=== PATIENT | female | born 1955 | race Caucasian/White ===

== ENCOUNTER 2020-12-28 09:55 | Outpatient (REF) | payer MEDICARE, SELFPAY ==
[2020-12-28 11:24] LABS: MANUAL DIFF FLAG NO
[2020-12-28 11:52] LABS: Basophils Percent Auto 0.4 % (0-2); Eosinophils Absolute Auto 0.2 X10*3/uL (0.0-0.4); Eosinophils Percent Auto 2.9 % (0-4); Hematocrit 41.6 % (37-47); Hemoglobin 13.4 g/dl (12.0-16.0); Imm Gran Abs Auto 0.02 X10*3/uL (0.00-0.03); Imm Gran Pct Auto 0.3 % (0.0-0.4); Lymphocytes Absolute Auto 1.4 X10*3/uL (1.2-4.9); Lymphocytes Percent Auto 18.6 % (20-40); Mean Corpuscular HGB Conc 32.2 g/dl (31.0-35.0); Mean Corpuscular Hemoglobin 31.4 pg (27.0-33.0); Mean Corpuscular Volume 97.4 fL (80-98); Mean Platelet Volume 10.8 fL (9.4-12.3); Monocytes Absolute Auto 0.5 X10*3/uL (0.1-1.2); Monocytes Percent Auto 6.3 % (2-11); Neutrophils Absolute Auto 5.5 X10*3/uL (2.0-8.3); Neutrophils Percent Auto 71.5 % (45-73); Platelet Count 248 X10*3/uL (160-400); Red Blood Count 4.27 X10*6/uL (4.20-5.50); Red Cell Distribution Width 13.1 % (11.0-16.0); White Blood Count 7.7 X10*3/uL (4.8-10.8)
[2020-12-28 11:57] LABS: Estimated Average Glucose 126 mg/dL; Hemoglobin A1C 150.5939 umol/L
[2020-12-28 12:12] LABS: Free T4 (Free Thyroxine) 0.93 ng/dL (0.71-1.85); Thyroid Stimulating Hormone 0.73 uIU/mL (0.32-4.0); Vitamin D 25-OH Total 39.4 ng/mL (>30)
[2020-12-28 12:15] LABS: Alanine Aminotransferase 13 U/L (0-31); Albumin Level 4.2 g/dL (3.5-5.0); Alkaline Phosphatase 92 U/L (39-117); Anion Gap 13 (12-20); Aspartate Amino Transferase 12 U/L (5-31); Bilirubin Total 0.8 mg/dL (0.0-1.0); Blood Urea Nitrogen 15 mg/dL (9-16); Calcium 9.4 mg/dL (8.4-10.2); Carbon Dioxide 27 mmol/L (22-29); Chloride 105 mmol/L (96-108); Cholesterol 168 mg/dL; Estimated Glomerular Filt Rate > 60; Glucose Random 127 mg/dL (60-115); HDL Cholesterol 29 mg/dL; LDL Cholesterol Calculated 123 mg/dl; Potassium 4.1 mmol/L (3.3-5.1); Sodium 141 mmol/L (135-145); Total Protein 7.1 g/dL (6.5-8.0); Triglycerides 84 mg/dL
[2020-12-28 12:21] LABS: Creatinine Urine 57.11 mg/dL; Microalbumin Urine < 5.0 mg/L
[2020-12-28 12:34] LABS: Folate 15.1 ng/mL (> or = 4.0); Vitamin B12 366 pg/mL (200-900)
== END 2020-12-28 09:56 | disposition home or self-care (01) ==
LOC: HO.LAB 09:55
PROVIDERS: PCP Internal Medicine; Visit Provider Internal Medicine
DX: I10 Essential (primary) hypertension (principal); E11.65 Type 2 diabetes mellitus with hyperglycemia; E78.00 Pure hypercholesterolemia, unspecified
CPT/HCPCS: 36415; 80053; 80061; 82043; 82306; 82607; 82746; 83036; 84439; 84443; 85025

== ENCOUNTER 2021-03-29 10:18 | Outpatient (REF) | payer MEDICARE, SELFPAY ==
[2021-03-29 11:32] LABS: Alanine Aminotransferase 13 U/L (0-31); Albumin Level 4.2 g/dL (3.5-5.0); Alkaline Phosphatase 102 U/L (39-117); Anion Gap 12 (12-20); Aspartate Amino Transferase 13 U/L (5-31); Bilirubin Total 0.9 mg/dL (0.0-1.0); Blood Urea Nitrogen 15 mg/dL (9-16); Calcium 10.1 mg/dL (8.4-10.2); Carbon Dioxide 32 mmol/L (22-29); Chloride 102 mmol/L (96-108); Cholesterol 172 mg/dL; Estimated Glomerular Filt Rate > 60; Glucose Random 131 mg/dL (60-115); HDL Cholesterol 29 mg/dL; LDL Cholesterol Calculated 122 mg/dl; Sodium 141 mmol/L (135-145); Total Protein 7.3 g/dL (6.5-8.0); Triglycerides 109 mg/dL
[2021-03-29 11:54] LABS: Estimated Average Glucose 128 mg/dL; Hemoglobin A1c % 6.1 %
== END 2021-03-29 10:19 | disposition home or self-care (01) ==
LOC: HO.LAB 10:18
PROVIDERS: PCP Internal Medicine; Visit Provider Internal Medicine
DX: E78.00 Pure hypercholesterolemia, unspecified (principal)
CPT/HCPCS: 36415; 80053; 80061; 83036

== ENCOUNTER 2021-05-18 15:27 | Outpatient (REF) | payer MEDICARE, SELFPAY ==
--- NOTE | ~2021-05-18 | MM_ITS ---
EXAMINATION: MM SCREENING DIGITAL BREAST TOMOSYNTHESIS, BILATERAL CLINICAL INFORMATION: Screening. Asymptomatic. The lifetime risk of breast cancer based on the Tyrer-Cuzick Model is 6%. COMPARISON: Mammography: 01/29/2020, 10/12/2017 TECHNIQUE: Digital breast tomosynthesis is performed in both the craniocaudal and mediolateral oblique views along with computer-aided detection (CAD). Synthesized 2D images are generated from the tomosynthesis. Additional left MLO view is provided. FINDINGS: There are scattered areas of fibroglandular density (ACR BI-RADS breast composition Category b). Breast tissue composition borders on predominantly fatty. Background stromal and fibroglandular densities are stable. Intramammary node upper outer left breast is again noted as incidental finding. There is no developing density. No architectural abnormality or abnormal calcifications. No significant changes. MM/MM tomosynthesis screening BI IMPRESSION: No mammographic evidence of malignancy. ASSESSMENT: BI-RADS 2: Benign RECOMMENDATION: Routine annual mammography screening. This patient's information was entered into a reminder system with a target due date for their next mammogram.
== END 2021-05-18 15:28 | disposition home or self-care (01) ==
LOC: HO.MAMMO 15:27
PROVIDERS: Visit Provider Internal Medicine
DX: Z12.31 Encounter for screening mammogram for malignant neoplasm of breast (principal)
CPT/HCPCS: 77063; 77067

== ENCOUNTER 2021-06-30 10:53 | Outpatient (REF) | payer MEDICARE, SELFPAY ==
[2021-06-30 12:13] LABS: Alanine Aminotransferase 16 U/L (0-31); Albumin Level 4.2 g/dL (3.5-5.0); Alkaline Phosphatase 102 U/L (39-117); Anion Gap 12 (12-20); Aspartate Amino Transferase 13 U/L (5-31); Bilirubin Total 0.7 mg/dL (0.0-1.0); Blood Urea Nitrogen 18 mg/dL (9-16); Calcium 9.8 mg/dL (8.4-10.2); Carbon Dioxide 31 mmol/L (22-29); Chloride 101 mmol/L (96-108); Cholesterol 152 mg/dL; Estimated Glomerular Filt Rate > 60; Glucose Random 133 mg/dL (60-115); HDL Cholesterol 30 mg/dL; LDL Cholesterol Calculated 105 mg/dl; Potassium 4.4 mmol/L (3.3-5.1); Sodium 140 mmol/L (135-145); Total Protein 7.3 g/dL (6.5-8.0); Triglycerides 86 mg/dL
[2021-06-30 12:38] LABS: Creatinine Urine 104.53 mg/dL
== END 2021-06-30 10:54 | disposition home or self-care (01) ==
LOC: HO.LAB 10:53
PROVIDERS: PCP Internal Medicine; Visit Provider Internal Medicine
DX: E78.00 Pure hypercholesterolemia, unspecified (principal); E11.65 Type 2 diabetes mellitus with hyperglycemia
CPT/HCPCS: 36415; 80053; 80061

== ENCOUNTER 2022-03-23 11:09 | Outpatient (REF) | payer MEDICARE, SELFPAY ==
[2022-03-23 11:37] LABS: MANUAL DIFF FLAG NO
[2022-03-23 11:59] LABS: Basophils Percent Auto 0.4 % (0-2); Eosinophils Absolute Auto 0.4 X10*3/uL (0.0-0.4); Eosinophils Percent Auto 5.1 % (0-4); Hematocrit 43.3 % (37.0-47.0); Hemoglobin 14.5 g/dl (12.0-16.0); Imm Gran Abs Auto 0.03 X10*3/uL (0.00-0.03); Imm Gran Pct Auto 0.4 % (0.0-0.4); Lymphocytes Absolute Auto 1.9 X10*3/uL (1.2-4.9); Lymphocytes Percent Auto 26.2 % (20-40); Mean Corpuscular HGB Conc 33.5 g/dl (31.0-35.0); Mean Corpuscular Hemoglobin 32.5 pg (27.0-33.0); Mean Corpuscular Volume 97.1 fL (80.0-98.0); Mean Platelet Volume 10.9 fL (9.4-12.3); Monocytes Absolute Auto 0.5 X10*3/uL (0.1-1.2); Monocytes Percent Auto 6.6 % (2-11); Neutrophils Absolute Auto 4.5 x10*3/uL (2.0-8.3); Neutrophils Percent Auto 61.3 % (45-73); Platelet Count 223 X10*3/uL (160-400); Red Blood Count 4.46 X10*6/uL (4.20-5.50); Red Cell Distribution Width 12.9 % (11.0-16.0); White Blood Count 7.4 X10*3/uL (4.8-10.8)
[2022-03-23 12:22] LABS: Estimated Average Glucose 128 mg/dL; Hemoglobin A1c % 6.1 %
[2022-03-23 12:33] LABS: Alanine Aminotransferase 15 U/L (0-31); Albumin Level 4.2 g/dL (3.5-5.0); Alkaline Phosphatase 99 U/L (39-117); Anion Gap 19 (12-20); Aspartate Amino Transferase 14 U/L (5-31); Bilirubin Total 0.6 mg/dL (0.0-1.0); Blood Urea Nitrogen 16 mg/dL (9-16); Calcium 9.9 mg/dL (8.4-10.2); Carbon Dioxide 28 mmol/L (22-29); Chloride 100 mmol/L (96-108); Cholesterol 160 mg/dL; Estimated Glomerular Filt Rate 59; Glucose Random 133 mg/dL (60-115); HDL Cholesterol 29 mg/dL; LDL Cholesterol Calculated 111 mg/dl; Potassium 4.5 mmol/L (3.3-5.1); Sodium 142 mmol/L (135-145); Total Protein 7.3 g/dL (6.5-8.0); Triglycerides 103 mg/dL
[2022-03-23 12:43] LABS: Thyroid Stimulating Hormone 1.26 uIU/mL (0.32-4.0); Vitamin D 25-OH Total 37.8 ng/mL (>30)
[2022-03-23 12:50] LABS: Folate 19.9 ng/mL (> or = 4.0); Vitamin B12 420 pg/mL (200-900)
[2022-03-23 15:11] LABS: Creatinine Urine 65.95 mg/dL; Microalbumin Urine < 5.0 mg/L
== END 2022-03-23 11:10 | disposition home or self-care (01) ==
LOC: HO.LAB 11:09
PROVIDERS: PCP Internal Medicine; Visit Provider Internal Medicine
DX: E11.65 Type 2 diabetes mellitus with hyperglycemia (principal); E78.00 Pure hypercholesterolemia, unspecified; I10 Essential (primary) hypertension
CPT/HCPCS: 36415; 80053; 80061; 82043; 82306; 82607; 82746; 83036; 84439; 84443; 85025

== ENCOUNTER 2022-05-23 15:30 | Outpatient (REF) | payer MEDICARE, SELFPAY ==
--- NOTE | ~2022-05-23 | MM_ITS ---
EXAMINATION: MM SCREENING DIGITAL BREAST TOMOSYNTHESIS, BILATERAL CLINICAL INFORMATION: Screening. Asymptomatic. COMPARISON: Mammography: May 18, 2021 and studies dating back to September 12, 2014 TECHNIQUE: Digital breast tomosynthesis is performed in both the craniocaudal and mediolateral oblique views along with computer-aided detection (CAD). Synthesized 2D images are generated from the tomosynthesis. FINDINGS: The breasts are almost entirely fatty (ACR BI-RADS breast composition Category a). There are no significant masses, abnormal calcifications, or other abnormalities. MM/MM tomosynthesis screening BI IMPRESSION: No significant changes from prior exam. ASSESSMENT: BI-RADS 1: Negative RECOMMENDATION: Routine annual mammography screening. This patient's information was entered into a reminder system with a target due date for their next mammogram.
== END 2022-05-23 15:31 | disposition home or self-care (01) ==
LOC: HO.MAMMO 15:30
PROVIDERS: PCP Internal Medicine; Visit Provider Internal Medicine
DX: Z12.31 Encounter for screening mammogram for malignant neoplasm of breast (principal)
CPT/HCPCS: 77063; 77067

== ENCOUNTER 2022-07-04 10:26 | Outpatient (REF) | payer MEDICARE, SELFPAY ==
[2022-07-04 13:52] LABS: Creatinine Urine 41.71 mg/dL
[2022-07-04 13:58] LABS: Alanine Aminotransferase 13 U/L (0-31); Albumin Level 4.3 g/dL (3.5-5.0); Alkaline Phosphatase 104 U/L (39-117); Anion Gap 13 (12-20); Aspartate Amino Transferase 13 U/L (5-31); Bilirubin Total 0.8 mg/dL (0.0-1.0); Blood Urea Nitrogen 16 mg/dL (9-16); Calcium 9.6 mg/dL (8.4-10.2); Carbon Dioxide 31 mmol/L (22-29); Chloride 101 mmol/L (96-108); Cholesterol 158 mg/dL; Estimated Glomerular Filt Rate > 60; Glucose Random 144 mg/dL (60-115); HDL Cholesterol 29 mg/dL; LDL Cholesterol Calculated 110 mg/dl; Potassium 4.3 mmol/L (3.3-5.1); Sodium 141 mmol/L (135-145); Total Protein 7.2 g/dL (6.5-8.0); Triglycerides 96 mg/dL
== END 2022-07-04 10:27 | disposition home or self-care (01) ==
LOC: HO.LAB 10:26
PROVIDERS: PCP Internal Medicine; Visit Provider Internal Medicine
DX: E78.00 Pure hypercholesterolemia, unspecified (principal); E11.65 Type 2 diabetes mellitus with hyperglycemia
CPT/HCPCS: 36415; 80053; 80061

== ENCOUNTER 2022-10-05 11:52 | Outpatient (REF) | payer MEDICARE, SELFPAY ==
[2022-10-05 13:12] LABS: Alanine Aminotransferase 13 U/L (0-31); Albumin Level 4.2 g/dL (3.5-5.0); Alkaline Phosphatase 99 U/L (39-117); Anion Gap 15 (12-20); Aspartate Amino Transferase 14 U/L (5-31); Blood Urea Nitrogen 16 mg/dL (9-16); Calcium 9.4 mg/dL (8.4-10.2); Carbon Dioxide 30 mmol/L (22-29); Chloride 102 mmol/L (96-108); Cholesterol 137 mg/dL; Estimated Glomerular Filt Rate > 60; Glucose Random 132 mg/dL (60-115); HDL Cholesterol 29 mg/dL; LDL Cholesterol Calculated 92 mg/dl; Potassium 3.9 mmol/L (3.3-5.1); Sodium 143 mmol/L (135-145); Total Protein 7.1 g/dL (6.5-8.0); Triglycerides 80 mg/dL
== END 2022-10-05 11:53 | disposition home or self-care (01) ==
LOC: HO.LAB 11:52
PROVIDERS: PCP Internal Medicine; Visit Provider Internal Medicine
DX: E78.00 Pure hypercholesterolemia, unspecified (principal)
CPT/HCPCS: 36415; 80053; 80061

== ENCOUNTER 2023-04-10 13:16 | Outpatient (AMB) | payer MEDICARE, SELFPAY ==
--- NOTE | 2023-04-10 13:31 | A.OFFPC_ITS ---
Vital Signs 04/10/23 13:32 04/10/23 13:47 Height 5 ft 7 in Weight 291 lb BMI 45.6 BP 140/70 H 136/70 Blood Pressure Location Lt brachial Lt brachial Position Sitting Sitting Pulse 79 Pulse Source Pulse Oximeter Pulse Oximetry (%) 98 Oxygen Delivery Method Room Air Intake Visit Reasons: DM Allergies amoxicillin [AMOXICILLIN] Allergy (Severe, Verified 04/10/23 13:32) RASH adhesive tape [ADHESIVE TAPE] Allergy (Intermediate, Verified 04/10/23 13:32) RASH lisinopril [LISINOPRIL] Allergy (Intermediate, Verified 04/10/23 13:32) COUGH simvastatin [From ZOCOR] Allergy (Unknown, Verified 04/10/23 13:32) UNKNOWN Medication List - Last Reconciled 04/10/23 by Adan Griffin MD atorvastatin 20 mg PO DAILY 30 days cholecalciferol (vitamin D3) 25 mcg PO DAILY hydrochlorothiazide 25 mg PO DAILY 90 days ibuprofen (Advil) 200 mg PO Q6H PRN irbesartan 300 mg PO DAILY metoprolol succinate ER 25 mg PO DAILY Tobacco use date assessed: 10/06/22 Fall risk assessment: No Falls in past year Last assessed Fall Risk: 04/10/23 Dental Screening Dental Screen Date: 04/10/23 Did you have a dental visit in the last 12 months?: Yes Did you have a dental problem in the last 6 months where you did not have access to dental care?: No Was dental information given to patient?: Patient has dentist HPI DM HPI Details 67-year-old obese female smoker with bart betes mellitus hypertension hypercholesterolemia last seen in September 2022. Patient is here for follow-up. Colonoscopy is up to date, mammogram is due May and bone density is due. [facility] Medical History (Updated 04/10/23 @ 13:49 by Adan Griffin MD) Macular degeneration Osteopenia Vitamin D deficiency Hypercalcemia Hypercholesterolemia Obesity Essential hypertension Type 2 diabetes mellitus with hyperglycemia Surgical History History of cholecystectomy Family History Father Lung cancer Mother No problems noted. Paternal Aunt Breast cancer Social History Housing: House Alcohol intake: current Alcohol intake frequency: holidays/special occasions only Patient Tobacco Use Status: Current everyday Tobacco user Tobacco use type: Cigarette Cigarette Packs Per Day: 1 e-Cigarette/Vaping Use: Never Used Second Hand Smoke Exposure: Yes service: No Current occupational status: retired Cognitive needs: No Hearing needs: No Vision needs: Yes (reading glasses ) Questionnaire PHQ-9 Over the last 2 weeks, how often have you been bothered by any of the following problems? 1. Little interest or pleasure in doing things: not at all 2. Feeling down, depressed, or hopeless: not at all 3. Trouble falling or staying asleep, or sleeping too much: not at all 4. Feeling tired or having little energy: not at all 5. Poor appetite or overeating: not at all 6. Feeling bad about yourself - or that you are a failure or have let yourself or your family down: not at all 7. Trouble concentrating on things, such as reading the newspaper or watching television: not at all 8. Moving or speaking so slowly that other people could have noticed. Or the opposite - being so fidgety or restless that you have been moving around a lot more than usual: not at all 9. Thoughts that you would be better off or of hurting yourself in some way: not at all Total score: 0 Depression Screening Interpretation: Negative Source: Developed by Drs. Taco Rios, Davidson Eason and colleagues, with an educational stephon from [employer]. Thrive Questionnaire Date Thrive assessed: 10/06/22 AUDIT C Alcohol Use Questionnaire (AUDIT-C) 1. How often do you have a drink containing alcohol?: Monthly or less 2. How many drinks containing alcohol do you have on a typical day when you are drinking?: 1 or 2 3. How often do you have six or more drinks on one occasion?: Never Total Score: 1 HLOLY-7 AMB Questionnaire HOLLY-7 Date HOLLY - 7 assessed: 10/06/22 Source: Developed by Drs. Taco Rios, Davidson Eason and colleagues, with an educational stephon from [employer]. Physical exam (Primary Care) Vital Signs: Last Vital Signs Pulse 79 04/10/23 13:32 BP 140/70 H 04/10/23 13:32 Pulse Ox 98 04/10/23 13:32 Oxygen Delivery Method Room Air 04/10/23 13:32 BMI result Body Mass Index 45.6 Tobacco/Smoking Status: Tobacco use Status Tobacco use date assessed 10/06/22 04/10/23 13:32 Patient Tobacco Use Status Current everyday Tobacco 04/10/23 13:32 Tobacco use type Cigarette 04/10/23 13:32 e-Cigarette/Vaping Use Never Used 04/10/23 13:32 PHQ-9: PHQ-9 Score PHQ-9: Total score 0 04/10/23 13:33 Depression Screening Interpretation: Negative Thrive Assessment: Date of Thrive Assessment Date Thrive assessed 10/06/22 04/10/23 13:32 Const General: alert; No acute distress Eyes Conjunctivae: conjunctivae normal Resp Auscultation: clear to auscultation bilaterally Cardio Rate: regular rate Rhythm: regular rhythm GI Inspection: Yes normal to inspection Extrem General: Yes normal to inspection and No edema Assessment and Plan Assessment & Plan (1) Type 2 diabetes mellitus with hyperglycemia: Comment: [facility] 04/2023 planned Code(s): E11.65 - Type 2 diabetes mellitus with hyperglycemia Qualifiers: Diabetes mellitus correction insulin use: without termite treater helper use Qualified Code(s): E11.65 - Type 2 diabetes mellitus with hyperglycemia Plan: Decrease the amount of carbohydrate intake, pasta, bread, rice and potatoes are all sugar and that is aside from all the sweet stuff, remember that fruits are good but they are Sweet also. Hemoglobin A1c goal of less than 7.0 patient is on diet control (2) Essential hypertension: Code(s): I10 - Essential (primary) hypertension Plan: Continue with blood pressure medication. Decrease salt intake and exercise patient takes hydrochlorothiazide 25 mg once a day and irbesartan 300 mg once a day (3) Hypercholesterolemia: Code(s): E78.00 - Pure hypercholesterolemia, unspecified Plan: Avoid fried foods, chicken skin, eggs, butter margarine, pastries and meat. Be it pork or beef they have a lot of cholesterol LDL goal of less than 100. Patient's last blood work was in September 2022 (4) Obesity: Code(s): E66.9 - Obesity, unspecified Qualifiers: Obesity type: due to excess calories Obesity classification: adult class 3 (BMI >= 40) Serious obesity comorbidity presence: with serious comorbidity Body mass index: BMI 40.0-44.9 Qualified Code(s): E66.01 - Morbid (severe) obesity due to excess calories; Z68.41 - Body mass index [BMI]40.0- 44.9, adult Plan: Diet and exercise (5) Tobacco abuse: Code(s): Z72.0 - Tobacco use Plan: Patient strongly advised to stop smoking, pack a day (6) Osteopenia: Code(s): M85.80 - Other specified disorders of bone density and structure, unspecified site Orders: Orders AMB Hemoglobin A1c Today Z13.9 - Encounter for screening, unspecified Complete Blood Count Auto Diff Today E11.65 - Type 2 diabetes mellitus with hyperglycemia Lipid Panel Today E11.65 - Type 2 diabetes mellitus with hyperglycemia, E78.00 - Pure hypercholesterolemia, unspecified Thyroid Stimulating Hormone Today E11.65 - Type 2 diabetes mellitus with hyperglycemia Creatinine Urine Today E11.65 - Type 2 diabetes mellitus with hyperglycemia XR DEXA axial skeleton Today M81.0 - Age-related osteoporosis without current pathological fracture, M85.80 - Other specified disorders of bone density and structure, unspecified site Comprehensive Met. Panel Today E11.65 - Type 2 diabetes mellitus with hyperglycemia Hemoglobin A1c Today E11.65 - Type 2 diabetes mellitus with hyperglycemia Free T4 (Free Thyroxine) Today E11.65 - Type 2 diabetes mellitus with hyperglycemia Vitamin B12 and Folate Today E11.65 - Type 2 diabetes mellitus with hyperglycemia Vitamin D 25-OH Total Today E11.65 - Type 2 diabetes mellitus with hyperglycemia Microalbumin, Random (w Creat) Today E11.65 - Type 2 diabetes mellitus with hyperglycemia Coding Level of Care Code Est Pt Level 4 (13810) Diagnoses Type 2 diabetes mellitus with hyperglycemia, without long-term current use of insulin E11.65 Diabetes mellitus termite treater helper insulin use: without termite treater helper use Essential hypertension I10 Hypercholesterolemia E78.00 Class 3 severe obesity due to excess calories with serious comorbidity and body mass index (BMI) of 40.0 to 44.9 in adult E66.01; Z68.41 Obesity type: due to excess calories Obesity classification: adult class 3 (BMI >= 40) Serious obesity comorbidity presence: with serious comorbidity Body mass index: BMI 40.0-44.9 Tobacco abuse Z72.0 Osteopenia M85.80
[2023-04-10 13:32] VITALS: BP 140/70; PULSE 79; O2SAT 98; BMI 45.6
[2023-04-10 13:47] VITALS: BP 136/70
== END 2023-04-10 13:58 | disposition home or self-care (01) ==
PROVIDERS: Visit Provider Internal Medicine
DX: E11.65 Type 2 diabetes mellitus with hyperglycemia (principal); I10 Essential (primary) hypertension; E66.01 Morbid (severe) obesity due to excess calories; Z68.41 Body mass index [BMI] 40.0-44.9, adult; E78.00 Pure hypercholesterolemia, unspecified; Z72.0 Tobacco use; M85.80 Other specified disorders of bone density and structure, unspecified site
CPT/HCPCS: 83036; 99214

== ENCOUNTER 2023-05-30 14:10 | Outpatient (REF) | payer MEDICARE, SELFPAY ==
--- NOTE | ~2023-05-30 | MM_ITS ---
EXAMINATION: MM SCREENING DIGITAL BREAST TOMOSYNTHESIS, BILATERAL CLINICAL INFORMATION: Screening. Asymptomatic. COMPARISON: Mammography: This study is compared with prior exams dating back to 2015. TECHNIQUE: Digital breast tomosynthesis is performed in both the craniocaudal and mediolateral oblique views along with computer-aided detection (CAD). Synthesized 2D images are generated from the tomosynthesis. FINDINGS: The breasts are almost entirely fatty (ACR BI-RADS breast composition Category a). There are no significant masses, abnormal calcifications, or other abnormalities. Unchanged, grouped, benign calcifications of the upper outer quadrant of the right breast are present. These calcifications are present dating back to at least the 2015 mammogram. MM/MM tomosynthesis screening BI IMPRESSION: No mammographic evidence of malignancy. ASSESSMENT: BI-RADS BI-RADS 2 - Benign Findings RECOMMENDATION: Routine annual mammography screening. 1 year F/U This examination should not preclude the clinical evaluation of a suspicious palpable abnormality. This patient's information was entered into a reminder system with a target due date for their next mammogram.
--- NOTE | ~2023-05-30 | MM_ITS ---
EXAMINATION: BONE DENSITOMETRY CLINICAL INDICATION: Age-related osteoporosis without current pathological fracture. COMPARISON: Previous BD dated 10/12/2017 and baseline BD dated 12/30/2007. TECHNIQUE: Using a XIHA DXA System (software version: 13.1) manufactured by [employer], dual-energy x-ray absorptiometry was performed of the lumbar spine and left hip. The images are of good technical quality. Summary results are attached. FINDINGS: LEFT FEMUR, NECK: Current: BMD 0.900 g/cm2, Z-score -0.1, T-score -1.0, normal. Prior: BMD 0.862 g/cm2. Baseline: BMD 1.020 g/cm2. LEFT FEMUR, TOTAL: Current: BMD 0.945 g/cm2, Z-score 0.1, T-score -0.5, normal, 6.9% decrease from previous, 12.7% decrease from baseline (<5% change is not significant). Prior: BMD 1.015 g/cm2. Baseline: BMD 1.082 g/cm2. AP SPINE L1-L3 (excluding L4): The data of L1-L4 has been changed to exclude the L4 vertebral body, because degenerative sclerosis at this level may cause overestimation of lumbar spine density. Current: BMD 0.986 g/cm2, Z-score -1.0, T-score -1.5, osteopenia, 9.5% decrease from previous, 10.2% decrease from baseline (<5% change is not significant). Prior: BMD 1.089 g/cm2. Baseline: BMD 1.098 g/cm2. IDENTIFIED RISK FACTORS: Early menopause, secondary osteoporosis, thiazide, tobacco user (current smoker). HISTORY OF FRACTURE: None listed. MEDICATIONS: Vitamin D. MM/XR DEXA axial skeleton IMPRESSION: 1. DIAGNOSIS: Osteopenia based on the lowest T-score value of -1.5 in the lumbar spine applying World Health Organization criteria. 2. 10-YEAR FRACTURE RISK PREDICTION, FRAX: Major osteoporotic fracture (clinical spine, forearm, hip or shoulder) 7.4%. Hip fracture 1.1%. 3. Treatment Recommendations: NOF guidelines recommend consideration for treatment in postmenopausal women and men age 50 and older presenting with the following: -A hip or vertebral (clinical or morphometric) fracture. -T-score less than or equal to -2.5 at the femoral neck or spine after appropriate evaluation to exclude secondary causes. -Low bone mass at the hip or spine and a 10-year fracture probability by FRAX of greater than or equal to 3% for hip fracture or greater than or equal to 20% for major osteoporotic fracture based on the [place] adapted WHO algorithm. 4. Other Recommendations: All treatment decisions require clinical judgment and consideration of individual patient factors, including patient preferences, comorbidities, previous drug use, risk factors not captured in the FRAX model (e.g. frailty, falls, vitamin D deficiency, increased bone turnover, interval significant decline in bone density) and possible under or overestimation of fracture risk by FRAX. Additional medical evaluation for secondary cause of low bone mineral density may be appropriate. FUTURE SCAN RECOMMENDATION: People with diagnosed cases of osteoporosis or at high risk for fracture should have regular bone mineral density tests. For patients eligible for Medicare, routine testing is allowed once every 2 years. The testing frequency can be increased to one year for patients who have rapidly progressing disease, those who are receiving or discontinuing medical therapy to restore bone mass, or have additional risk factors.
== END 2023-05-30 14:11 | disposition home or self-care (01) ==
LOC: HO.MAMMO 14:10
PROVIDERS: PCP Internal Medicine; Visit Provider Internal Medicine
DX: Z12.31 Encounter for screening mammogram for malignant neoplasm of breast (principal); Z13.820 Encounter for screening for osteoporosis; M81.0 Age-related osteoporosis without current pathological fracture; M85.80 Other specified disorders of bone density and structure, unspecified site; Z78.0 Asymptomatic menopausal state
CPT/HCPCS: 77063; 77067; 77080

== ENCOUNTER → 2023-05-30 14:30 | Outpatient (BNV) | payer MEDICARE, SELFPAY | PROVIDERS: PCP Internal Medicine; Visit Provider Radiology Diagnostic Radiology | DX: Z12.31 Encounter for screening mammogram for malignant neoplasm of breast (principal) | CPT/HCPCS: 77063; 77067 ==

== ENCOUNTER 2023-07-13 10:06 | Outpatient (REF) | payer MEDICARE, SELFPAY ==
[2023-07-13 10:18] LABS: MANUAL DIFF FLAG NO
[2023-07-13 11:28] LABS: Basophils Percent Auto 0.3 % (0-2); Eosinophils Absolute Auto 0.3 X10*3/uL (0.0-0.4); Eosinophils Percent Auto 2.8 % (0-4); Hematocrit 44.4 % (37.0-47.0); Hemoglobin 14.4 g/dl (12.0-16.0); Imm Gran Abs Auto 0.03 X10*3/uL (0.00-0.03); Imm Gran Pct Auto 0.3 % (0.0-0.4); Lymphocytes Percent Auto 21.6 % (20-40); Mean Corpuscular HGB Conc 32.4 g/dl (31.0-35.0); Mean Corpuscular Hemoglobin 32.7 pg (27.0-33.0); Mean Corpuscular Volume 100.9 fL (80.0-98.0); Mean Platelet Volume 11.2 fL (9.4-12.3); Monocytes Absolute Auto 0.6 X10*3/uL (0.1-1.2); Monocytes Percent Auto 6.6 % (2-11); Neutrophils Absolute Auto 6.3 x10*3/uL (2.0-8.3); Neutrophils Percent Auto 68.4 % (45-73); Platelet Count 245 X10*3/uL (160-400); Red Cell Distribution Width 12.8 % (11.0-16.0); White Blood Count 9.2 X10*3/uL (4.8-10.8)
[2023-07-13 11:59] LABS: Estimated Average Glucose 137 mg/dL; Hemoglobin A1c % 6.4 % (<6.0)
[2023-07-13 12:29] LABS: Alanine Aminotransferase 13 U/L (0-31); Albumin Level 4.2 g/dL (3.5-5.0); Alkaline Phosphatase 114 U/L (39-117); Anion Gap 15 (12-20); Aspartate Amino Transferase 12 U/L (5-31); Bilirubin Total 0.7 mg/dL (0.0-1.0); Blood Urea Nitrogen 13 mg/dL (9-16); Calcium 9.8 mg/dL (8.4-10.2); Carbon Dioxide 29 mmol/L (22-29); Chloride 100 mmol/L (96-108); Cholesterol 138 mg/dL (<200); Estimated Glomerular Filt Rate > 60; Glucose Random 144 mg/dL (60-115); HDL Cholesterol 31 mg/dL (>40); LDL Cholesterol Calculated 89 mg/dL (<100); Potassium 3.4 mmol/L (3.3-5.1); Sodium 141 mmol/L (135-145); Total Protein 7.8 g/dL (6.5-8.0); Triglycerides 92 mg/dL (<150)
[2023-07-13 12:36] LABS: Free T4 (Free Thyroxine) 0.99 ng/dL (0.71-1.85); Thyroid Stimulating Hormone 1.45 uIU/mL (0.32-4.0); Vitamin D 25-OH Total 40.5 ng/mL (>30)
[2023-07-13 12:40] LABS: Folate 9.4 ng/mL (> or = 4.0); Vitamin B12 416 pg/mL (200-900)
== END 2023-07-13 10:07 | disposition home or self-care (01) ==
LOC: HO.LAB 10:06
PROVIDERS: PCP Internal Medicine; Visit Provider Internal Medicine
DX: E11.65 Type 2 diabetes mellitus with hyperglycemia (principal); E78.00 Pure hypercholesterolemia, unspecified
CPT/HCPCS: 36415; 80053; 80061; 82306; 82607; 82746; 83036; 84439; 84443; 85025

== ENCOUNTER 2023-07-20 14:13 | Outpatient (AMB) | payer MEDICARE, SELFPAY ==
[2023-07-20 14:20] VITALS: BP 136/72; PULSE 73; O2SAT 96; BMI 46.4
--- NOTE | 2023-07-20 14:20 | MHC.PC.OV ---
Vital Signs 07/20/23 14:20 Height 5 ft 7 in Weight 296 lb 0.6 oz BMI 46.4 BP 136/72 Blood Pressure Location Lt brachial Position Sitting Pulse 73 Pulse Source Pulse Oximeter Pulse Oximetry (%) 96 Oxygen Delivery Method Room Air Intake Visit Reasons: 3mth f/u Allergies amoxicillin [AMOXICILLIN] Allergy (Severe, Verified 07/20/23 14:21) RASH adhesive tape [ADHESIVE TAPE] Allergy (Intermediate, Verified 07/20/23 14:21) RASH lisinopril [LISINOPRIL] Allergy (Intermediate, Verified 07/20/23 14:21) COUGH simvastatin [From ZOCOR] Allergy (Unknown, Verified 07/20/23 14:21) UNKNOWN Tobacco use date assessed: 07/20/23 Fall risk assessment: No Falls in past year Last assessed Fall Risk: 07/20/23 HPI 3mth f/u HPI Details 68-year-old morbidly obese female smoker with controlled diabetes mellitus hypertension hypercholesterolemia coming in for follow-up last seen in March 2023. Patient's colonoscopy is up-to-date mammogram is up-to-date bone density is up-to-date [facility] Medical History (Updated 07/20/23 @ 15:05 by Adan Griffin MD) Macular degeneration Osteopenia Vitamin D deficiency Hypercalcemia Hypercholesterolemia Obesity Essential hypertension Type 2 diabetes mellitus with hyperglycemia Surgical History History of cholecystectomy Family History Father Lung cancer Mother No problems noted. Paternal Aunt Breast cancer Social History Housing: House Alcohol intake: current Alcohol intake frequency: holidays/special occasions only Patient Tobacco Use Status: Current everyday Tobacco user Tobacco use type: Cigarette Cigarette Packs Per Day: 1 e-Cigarette/Vaping Use: Never Used Second Hand Smoke Exposure: Yes service: No Current occupational status: retired Cognitive needs: No Hearing needs: No Vision needs: Yes (reading glasses ) Questionnaire PHQ-9 Over the last 2 weeks, how often have you been bothered by any of the following problems? 1. Little interest or pleasure in doing things: not at all 2. Feeling down, depressed, or hopeless: not at all 3. Trouble falling or staying asleep, or sleeping too much: not at all 4. Feeling tired or having little energy: not at all 5. Poor appetite or overeating: not at all 6. Feeling bad about yourself - or that you are a failure or have let yourself or your family down: not at all 7. Trouble concentrating on things, such as reading the newspaper or watching television: not at all 8. Moving or speaking so slowly that other people could have noticed. Or the opposite - being so fidgety or restless that you have been moving around a lot more than usual: not at all 9. Thoughts that you would be better off or of hurting yourself in some way: not at all Total score: 0 Depression Screening Interpretation: Negative Depression Screening Done: Yes Source: Developed by Drs. Taco Rios, Leelee Walter, Davidson Sinclair and colleagues, with an educational stephon from [employer]. Thrive Questionnaire Date Thrive assessed: 10/06/22 AUDIT C Alcohol Use Questionnaire (AUDIT-C) 1. How often do you have a drink containing alcohol?: Monthly or less 2. How many drinks containing alcohol do you have on a typical day when you are drinking?: 1 or 2 3. How often do you have six or more drinks on one occasion?: Never Total Score: 1 HOLLY-7 AMB Questionnaire HOLLY-7 Date HOLLY - 7 assessed: 07/20/23 Feeling nervous, anxious, or on edge: 0 = Not at all Not being able to stop or control worryin = Not at all Worrying too much about different things: 0 = Not at all Trouble relaxin = Not at all Being so restless that it is hard to sit still: 0 = Not at all Becoming easily annoyed or irritable: 0 = Not at all Feeling afraid as if something awful might happen: 0 = Not at all Total HOLLY-7 score (0-4 normal; 5-9 mild; 10-14 moderate; 15-21 severe): 0 Source: Developed by Drs. Taco Rios, Leelee Walter, Davidson Sinclair and colleagues, with an educational stephon from [employer]. Physical exam (Primary Care) Vital Signs: Last Vital Signs Pulse 73 07/20/23 14:20 BP 136/72 07/20/23 14:20 Pulse Ox 96 07/20/23 14:20 Oxygen Delivery Method Room Air 07/20/23 14:20 BMI result Body Mass Index 46.4 Tobacco/Smoking Status: Tobacco use Status Tobacco use date assessed 07/20/23 07/20/23 14:25 Patient Tobacco Use Status Current everyday Tobacco 07/20/23 14:25 Tobacco use type Cigarette 07/20/23 14:25 e-Cigarette/Vaping Use Never Used 07/20/23 14:25 PHQ-9: PHQ-9 Score PHQ-9: Total score 0 07/20/23 14:56 Depression Screening Interpretation: Negative Thrive Assessment: Date of Thrive Assessment Date Thrive assessed 10/06/22 07/20/23 14:25 Const General: alert; No acute distress Eyes Conjunctivae: conjunctivae normal Resp Auscultation: clear to auscultation bilaterally Cardio Rate: regular rate Rhythm: regular rhythm GI Inspection: Yes normal to inspection Extrem General: Yes normal to inspection and No edema Assessment and Plan Assessment & Plan (1) Tobacco abuse: Code(s): Z72.0 - Tobacco use Plan: Patient strongly advised to stop! (2) Obesity: Code(s): E66.9 - Obesity, unspecified Qualifiers: Body mass index: BMI 40.0-44.9 Obesity classification: adult class 3 (BMI >= 40) Obesity type: due to excess calories Serious obesity comorbidity presence: with serious comorbidity Qualified Code(s): E66.01 - Morbid (severe) obesity due to excess calories; Z68.41 - Body mass index [BMI]40.0-44.9, adult Plan: Diet and exercise (3) Type 2 diabetes mellitus with hyperglycemia: Comment: [facility] 04/2023 Code(s): E11.65 - Type 2 diabetes mellitus with hyperglycemia Qualifiers: Diabetes mellitus terminal worker insulin use: without halfway use Qualified Code(s): E11.65 - Type 2 diabetes mellitus with hyperglycemia Plan: Decrease the amount of carbohydrate intake, pasta, bread, rice and potatoes are all sugar and that is aside from all the sweet stuff, remember that fruits are good but they are Sweet also. Hemoglobin A1c goal of less than 7.0. Patient on diet control (4) Essential hypertension: Code(s): I10 - Essential (primary) hypertension Plan: Continue with blood pressure medication. Decrease salt intake and exercise presently on irbesartan 300 mg once a day metoprolol 25 mg once a day hydrochlorothiazide 25 mg once a day (5) Hypercholesterolemia: Code(s): E78.00 - Pure hypercholesterolemia, unspecified Plan: Avoid fried foods, chicken skin, eggs, butter margarine, pastries and meat. Be it pork or beef they have a lot of cholesterol on atorvastatin 20 mg once a day LDL goal of less than 100 Coding Level of Care Code Est Pt Level 4 (78826) Diagnoses Tobacco abuse Z72.0 Class 3 severe obesity due to excess calories with serious comorbidity and body mass index (BMI) of 40.0 to 44.9 in adult E66.01; Z68.41 Body mass index: BMI 40.0-44.9 Obesity classification: adult class 3 (BMI >= 40) Obesity type: due to excess calories Serious obesity comorbidity presence: with serious comorbidity Type 2 diabetes mellitus with hyperglycemia, without long-term current use of insulin E11.65 Diabetes mellitus halfway insulin use: without terminal worker use Essential hypertension I10 Hypercholesterolemia E78.00
== END 2023-07-20 15:10 | disposition home or self-care (01) ==
PROVIDERS: PCP Internal Medicine; Visit Provider Internal Medicine
DX: Z72.0 Tobacco use (principal); E66.01 Morbid (severe) obesity due to excess calories; Z68.41 Body mass index [BMI] 40.0-44.9, adult; E11.65 Type 2 diabetes mellitus with hyperglycemia; I10 Essential (primary) hypertension; E78.00 Pure hypercholesterolemia, unspecified
CPT/HCPCS: 99214

== ENCOUNTER 2024-01-21 14:06 | Outpatient (AMB) | payer MEDICARE, SELFPAY ==
[2024-01-21 14:11] VITALS: BP 140/78; PULSE 81; O2SAT 96; BMI 46.5
--- NOTE | 2024-01-21 14:11 | MHC.PC.OV ---
Vital Signs 01/21/24 14:11 Height 5 ft 7 in Weight 297 lb BMI 46.5 BP 140/78 H Blood Pressure Location Lt brachial Position Sitting Pulse 81 Pulse Source Pulse Oximeter Pulse Oximetry (%) 96 Oxygen Delivery Method Room Air Intake Visit Reasons: DM Allergies amoxicillin [AMOXICILLIN] Allergy (Severe, Verified 01/21/24 14:12) RASH adhesive tape [ADHESIVE TAPE] Allergy (Intermediate, Verified 01/21/24 14:12) RASH lisinopril [LISINOPRIL] Allergy (Intermediate, Verified 01/21/24 14:12) COUGH simvastatin [From ZOCOR] Allergy (Unknown, Verified 01/21/24 14:12) UNKNOWN Tobacco use date assessed: 07/20/23 Fall risk assessment: No Falls in past year Last assessed Fall Risk: 01/21/24 Dental Screening Dental Screen Date: 01/21/24 Did you have a dental visit in the last 12 months?: Yes Did you have a dental problem in the last 6 months where you did not have access to dental care?: No Was dental information given to patient?: Patient has dentist HPI DM HPI Details 68-year-old morbidly obese female smoker with diabetes mellitus hypertension hypercholesterolemia last seen in 08/04/2023. Patient's colonoscopy is up-to-date 04/04/2020 tubular adenoma 5 years mammogram is up-to-date and bone density up-to-date. dizziness in the last 2 months - intermittently. still a pack a day of smoking FOR[facility]LY [facility] Medical History (Updated 01/21/24 @ 14:25 by Adan Griffin MD) Obesity Macular degeneration Osteopenia Vitamin D deficiency Hypercalcemia Hypercholesterolemia Essential hypertension Type 2 diabetes mellitus with hyperglycemia Surgical History History of cholecystectomy Family History Father Lung cancer Mother No problems noted. Paternal Aunt Breast cancer Social History Housing: House Alcohol intake: current Alcohol intake frequency: holidays/special occasions only Patient Tobacco Use Status: Current everyday Tobacco user Tobacco use type: Cigarette Cigarette Packs Per Day: 1 e-Cigarette/Vaping Use: Never Used Second Hand Smoke Exposure: Yes service: No Current occupational status: retired Cognitive needs: No Hearing needs: No Vision needs: Yes (reading glasses ) Questionnaire PHQ-9 Over the last 2 weeks, how often have you been bothered by any of the following problems? 1. Little interest or pleasure in doing things: not at all 2. Feeling down, depressed, or hopeless: not at all 3. Trouble falling or staying asleep, or sleeping too much: not at all 4. Feeling tired or having little energy: not at all 5. Poor appetite or overeating: not at all 6. Feeling bad about yourself - or that you are a failure or have let yourself or your family down: not at all 7. Trouble concentrating on things, such as reading the newspaper or watching television: not at all 8. Moving or speaking so slowly that other people could have noticed. Or the opposite - being so fidgety or restless that you have been moving around a lot more than usual: not at all 9. Thoughts that you would be better off or of hurting yourself in some way: not at all Total score: 0 Depression Screening Interpretation: Negative Depression Screening Done: Yes Source: Developed by Drs. Taco Rios, Leelee Walter, Davidson Sinclair and colleagues, with an educational stephon from [employer]. Thrive Questionnaire Date Thrive assessed: 01/21/24 I am a: Patient What is your living situation today?: I have a steady place to live Within the past 12 months, did the food you bought not last and you didn't have the money to get more?: Never true Within the past 12 months, did you worry whether your food would run out before you got money to buy more?: Never true Do you have trouble paying for medicines?: No Do you have trouble getting transportation to medical appointments?: No Do you have trouble paying your heating and electricity bill?: No Do you have trouble taking care of your child, family member or friend?: No Do you have trouble with day-to-day activities such as bathing, preparing meals, shopping, managing finances, etc.?: No Are you currently unemployed and looking for a job?: No Are you interested in more education?: No Currently or been in a relationship where the following occur: No concerns reported THRIVE Score: 0 AUDIT C Alcohol Use Questionnaire (AUDIT-C) 1. How often do you have a drink containing alcohol?: Monthly or less 2. How many drinks containing alcohol do you have on a typical day when you are drinking?: 1 or 2 3. How often do you have six or more drinks on one occasion?: Never Total Score: 1 HOLLY-7 AMB Questionnaire HOLLY-7 Date HOLLY - 7 assessed: 07/20/23 Source: Developed by Drs. Taco Rios, Leelee Walter, Davidson Sinclair and colleagues, with an educational stephon from [employer]. Physical exam (Primary Care) Vital Signs: Last Vital Signs Pulse 81 01/21/24 14:11 BP 140/78 H 01/21/24 14:11 Pulse Ox 96 01/21/24 14:11 Oxygen Delivery Method Room Air 01/21/24 14:11 BMI result Body Mass Index 46.5 Tobacco/Smoking Status: Tobacco use Status Tobacco use date assessed 07/20/23 01/21/24 14:13 Patient Tobacco Use Status Current everyday Tobacco 01/21/24 14:13 Tobacco use type Cigarette 01/21/24 14:13 e-Cigarette/Vaping Use Never Used 01/21/24 14:13 PHQ-9: PHQ-9 Score PHQ-9: Total score 0 01/21/24 14:13 Depression Screening Interpretation: Negative Thrive Assessment: Date of Thrive Assessment Date Thrive assessed 01/21/24 01/21/24 14:13 Currently or been in a relationship where the following occur: No concerns reported Const General: alert; No acute distress Eyes Conjunctivae: conjunctivae normal Resp Auscultation: clear to auscultation bilaterally Cardio Rate: regular rate Rhythm: regular rhythm GI Inspection: Yes normal to inspection Extrem General: Yes normal to inspection and No edema Results AMB Hemoglobin A1c AMB Hemoglobin A1c 6.6 % Last Edit by Sadie Obrien CMA on 01/21/24 14:27 Assessment and Plan Assessment & Plan (1) Type 2 diabetes mellitus with hyperglycemia: Comment: [facility] 04/2023 macular degeneration Code(s): E11.65 - Type 2 diabetes mellitus with hyperglycemia Qualifiers: Diabetes mellitus mcfp insulin use: without long term care social worker use Qualified Code(s): E11.65 - Type 2 diabetes mellitus with hyperglycemia Plan: Decrease the amount of carbohydrate intake, pasta, bread, rice and potatoes are all sugar and that is aside from all the sweet stuff, remember that fruits are good but they are Sweet also. Hemoglobin A1c goal of less than 7.0 patient is diet controlled (2) Essential hypertension: Code(s): I10 - Essential (primary) hypertension Plan: Continue with blood pressure medication. Decrease salt intake and exercise on irbesartan 300 mg once a day hydrochlorothiazide 25 mg once a day and metoprolol 25 mg once a day. (3) Hypercholesterolemia: Code(s): E78.00 - Pure hypercholesterolemia, unspecified Plan: Avoid fried foods, chicken skin, eggs, butter margarine, pastries and meat. Be it pork or beef they have a lot of cholesterol 06/2023 last blood work on atorvastatin 20 mg once a day LDL goal of less than 100 and triglyceride of less than 150 (4) Morbid obesity: Code(s): E66.01 - Morbid (severe) obesity due to excess calories Plan: Diet and exercise (5) Tobacco abuse: Code(s): Z72.0 - Tobacco use Plan: Patient is strongly advised to stop smoking! Orders: Orders Thyroid Stimulating Hormone Today - Type 2 diabetes mellitus with hyperglycemia Free T4 (Free Thyroxine) Today - Type 2 diabetes mellitus with hyperglycemia Comprehensive Met. Panel 6 Months - Type 2 diabetes mellitus with hyperglycemia Thyroid Stimulating Hormone 6 Months - Type 2 diabetes mellitus with hyperglycemia Vitamin B12 and Folate 6 Months . - Type 2 diabetes mellitus with hyperglycemia Hemoglobin A1c 6 Months .65 - Type 2 diabetes mellitus with hyperglycemia AMB Hemoglobin A1c Today Z13.9 - Encounter for screening, unspecified Complete Blood Count Auto Diff Today - Type 2 diabetes mellitus with hyperglycemia Comprehensive Met. Panel Today - Type 2 diabetes mellitus with hyperglycemia Magnesium Today . - Type 2 diabetes mellitus with hyperglycemia Complete Blood Count Auto Diff 6 Months . - Type 2 diabetes mellitus with hyperglycemia Free T4 (Free Thyroxine) 6 Months . - Type 2 diabetes mellitus with hyperglycemia Creatinine Urine 6 Months . - Type 2 diabetes mellitus with hyperglycemia Microalbumin, Random (w Creat) 6 Months . - Type 2 diabetes mellitus with hyperglycemia Lipid Panel 6 Months . - Type 2 diabetes mellitus with hyperglycemia, E78.00 - Pure hypercholesterolemia, unspecified Vitamin D 25-OH Total 6 Months - Type 2 diabetes mellitus with hyperglycemia UA CC w/rflx Micro + Cult Today E11.65 - Type 2 diabetes mellitus with hyperglycemia, R30.0 - Dysuria Coding Level of Care Code Est Pt Level 4 (70448) Diagnoses Type 2 diabetes mellitus with hyperglycemia, without long-term current use of insulin E11.65 Diabetes mellitus long term care social worker insulin use: without mcfp use Essential hypertension I10 Hypercholesterolemia E78.00 Morbid obesity E66.01 Tobacco abuse Z72.0
== END 2024-01-21 14:42 | disposition home or self-care (01) ==
PROVIDERS: PCP Internal Medicine; Visit Provider Internal Medicine
DX: E11.65 Type 2 diabetes mellitus with hyperglycemia (principal); I10 Essential (primary) hypertension; E78.00 Pure hypercholesterolemia, unspecified; F17.210 Nicotine dependence, cigarettes, uncomplicated
CPT/HCPCS: 83036; 99214

== ENCOUNTER 2024-01-22 13:12 | Outpatient (REF) | payer MEDICARE, SELFPAY ==
[2024-01-22 13:36] LABS: MANUAL DIFF FLAG NO
[2024-01-22 14:01] LABS: Basophils Percent Auto 0.5 % (0-2); Eosinophils Absolute Auto 0.3 X10*3/uL (0.0-0.4); Eosinophils Percent Auto 3.1 % (0-4); Hematocrit 43.6 % (37.0-47.0); Hemoglobin 14.5 g/dl (12.0-16.0); Imm Gran Abs Auto 0.02 X10*3/uL (0.00-0.03); Imm Gran Pct Auto 0.2 % (0.0-0.4); Lymphocytes Absolute Auto 1.8 X10*3/uL (1.2-4.9); Lymphocytes Percent Auto 20.5 % (20-40); Mean Corpuscular HGB Conc 33.3 g/dl (31.0-35.0); Mean Corpuscular Hemoglobin 32.9 pg (27.0-33.0); Mean Corpuscular Volume 98.9 fL (80.0-98.0); Mean Platelet Volume 10.4 fL (9.4-12.3); Monocytes Absolute Auto 0.8 X10*3/uL (0.1-1.2); Monocytes Percent Auto 8.6 % (2-11); Neutrophils Percent Auto 67.1 % (45-73); Platelet Count 233 X10*3/uL (160-400); Red Blood Count 4.41 X10*6/uL (4.20-5.50); White Blood Count 8.9 X10*3/uL (4.8-10.8)
[2024-01-22 14:18] LABS: Appearance Urine Cloudy; Color Urine Yellow; Glucose Urine UA Negative (Negative); Leukocyte Esterase Urine Negative (Negative); Nitrite Urine Negative (Negative); Specific Gravity - Urine 1.015 (1.005-1.025); Urine Blood Negative (Negative); Urine Ketones Negative (Negative); Urine Protein Negative (Neg-Trace)
[2024-01-22 14:34] LABS: Alanine Aminotransferase 14 U/L (0-31); Alkaline Phosphatase 98 U/L (39-117); Anion Gap 14 (12-20); Aspartate Amino Transferase 13 U/L (5-31); Bilirubin Total 0.4 mg/dL (0.0-1.0); Blood Urea Nitrogen 15 mg/dL (9-16); Calcium 9.6 mg/dL (8.4-10.2); Carbon Dioxide 27 mmol/L (22-29); Chloride 101 mmol/L (96-108); Estimated Glomerular Filt Rate > 60; Glucose Random 120 mg/dL (60-115); Magnesium 1.9 mg/dL (1.6-2.6); Potassium 4.3 mmol/L (3.3-5.1); Sodium 138 mmol/L (135-145); Total Protein 7.6 g/dL (6.5-8.0)
[2024-01-22 14:42] LABS: Creatinine Urine 92.03 mg/dL; Microalbum/Creatinine Ratio Ur 27.1 ug/mg cr (<30)
[2024-01-22 14:46] LABS: Free T4 (Free Thyroxine) 0.88 ng/dL (0.71-1.85); Thyroid Stimulating Hormone 1.36 uIU/mL (0.32-4.0)
== END 2024-01-22 13:13 | disposition home or self-care (01) ==
LOC: HO.LAB 13:12
PROVIDERS: PCP Internal Medicine; Visit Provider Internal Medicine
DX: R30.0 Dysuria (principal); E11.65 Type 2 diabetes mellitus with hyperglycemia
CPT/HCPCS: 36415; 80053; 81003; 82043; 82570; 83735; 84439; 84443; 85025

== ENCOUNTER 2024-02-13 12:23 | Outpatient (AMB) | payer MEDICARE, SELFPAY ==
--- NOTE | 2024-02-13 12:53 | AM.OFFWIN_ITS ---
Intake Vital Signs 02/13/24 12:55 Height 5 ft 7 in Weight 301 lb BMI 47.1 BP 130/70 Blood Pressure Location Rt brachial Position Sitting Respiration 20 Pulse 63 Pulse Source Pulse Oximeter Temp 98.3 F Temp Source Tympanic Pulse Oximetry (%) 96 Oxygen Delivery Method Room Air Intake Visit Reasons: est/ left foot infection Intake Note: Lft foot infection [id number] Patient Tobacco Use Status: Current everyday Tobacco user Is last menstrual period known: No Post menopausal: Yes Patient : No Allergies amoxicillin [AMOXICILLIN] Allergy (Severe, Verified 02/13/24 12:55) RASH adhesive tape [ADHESIVE TAPE] Allergy (Intermediate, Verified 02/13/24 12:55) RASH lisinopril [LISINOPRIL] Allergy (Intermediate, Verified 02/13/24 12:55) COUGH simvastatin [From ZOCOR] Allergy (Unknown, Verified 02/13/24 12:55) UNKNOWN HPI est/ left foot infection HPI Details Patient?with?infection?for?the?past?2?weeks?of?left?foot She?has?tried?warm?soaks?and?triple?antibiotic Increasing?redness?warmth?and?some?pain. [facility] Medical History (Updated 02/13/24 @ 13:09 by Kam Bang MD) Obesity Macular degeneration Osteopenia Vitamin D deficiency Hypercalcemia Hypercholesterolemia Essential hypertension Type 2 diabetes mellitus with hyperglycemia Surgical History History of cholecystectomy Family History Father Lung cancer Mother No problems noted. Paternal Aunt Breast cancer Social History Housing: House Alcohol intake: current Alcohol intake frequency: holidays/special occasions only Patient Tobacco Use Status: Current everyday Tobacco user Tobacco use type: Cigarette Cigarette Packs Per Day: 1 e-Cigarette/Vaping Use: Never Used Second Hand Smoke Exposure: Yes Patient : No service: No Current occupational status: retired Cognitive needs: No Hearing needs: No Vision needs: Yes (reading glasses ) Review of Systems Const Denies chills, Denies fatigue, Denies fever(s), Denies headache(s) and Denies weakness ENT Denies dizziness and Denies headache(s) Card Denies chest pain, Denies lightheadedness, Denies dyspnea and Denies other (Palpitations) Resp Denies cough, Denies dyspnea, Denies wheezing and Denies other ( shortness of breath) Musc Denies numbness and Denies tingling Skin/Breast Details: Left?foot?infection?and?tenderness Neuro Denies dizziness, Denies headache(s), Denies numbness, Denies tingling, Denies paresthesias and Denies weakness Psych Denies anxiety and Denies depression Endo Denies fatigue Aller/Immun Denies wheezing Physical Exam Vital Signs: Last Vital Signs Temp 98.3 F 02/13/24 12:55 Pulse 63 02/13/24 12:55 Resp 20 02/13/24 12:55 BP 130/70 02/13/24 12:55 Pulse Ox 96 02/13/24 12:55 Oxygen Delivery Method Room Air 02/13/24 12:55 BMI result Body Mass Index 47.1 Const General: no acute distress and well developed Nutritional Appearance: well nourished Orientation/consciousness: patient oriented x3 HEENT Head: Yes normocephalic and Yes atraumatic Eyes General: appearance normal, both eyes and all related structures Pupils: Equal, round and reactive pupils present EOM: EOMs intact bilaterally Resp Effort & Inspection: normal respiratory effort Auscultation: clear to auscultation bilaterally Cardio Rate: regular rate Rhythm: regular rhythm Heart sounds: S1 normal heart sound present, S2 normal heart sound present, no gallops, no murmurs and no rubs Skin Other: Left?foot?with?erythema?swelling?and?broken?skin?with?drainage?at?1st?TMT?joint Neuro General: patient oriented x3 and gait normal Cranial nerves: Yes Equal, round and reactive pupils present Psych Affect: normal affect Assessment & Plan Assessment & Plan (1) Infection of left foot: Code(s): L08.9 - Local infection of the skin and subcutaneous tissue, unspecified Plan: Patient?with?likely?diet-controlled?diabetes?presents?with?left?fo ot?infection/cellulitis. Will?check?x-ray?to?rule?out?osteomyelitis Start?antibiotic.??Patient?has?gotten?a?rash?from?amoxicillin?but?no?allergy?to? cephalexin?which?is?distant?with?minimal?crossover.? ?We?did?discuss?she?would?discontinue?this?medication?and?call?if?she?has?any?pr oblems?with?it. Elevate?leg Can?continue?warm?soaks-Check?temperature?to?ensure?it?is?not?too?hot Call?or?return?to?off ice?if?not?improving?in?a?couple?of?days?or?worsens?at?any?time?or?for?any?other ?concerning?symptoms?such?as?fever/chills. Orders: Orders XR ankle LT min 3V Today L08.9 - Local infection of the skin and subcutaneous tissue, unspecified Medications: New cephalexin 500 mg PO Q12H 10 days 20 caps 0RF Coding Level of Care Code Est Pt Level 3 (92365) Diagnoses Infection of left foot L08.9
[2024-02-13 12:55] VITALS: BP 130/70; PULSE 63; RESP 20; TEMP 36.8; O2SAT 96; BMI 47.1
== END 2024-02-13 13:22 | disposition home or self-care (01) ==
PROVIDERS: PCP Internal Medicine; Visit Provider Family Medicine
DX: L08.9 Local infection of the skin and subcutaneous tissue, unspecified (principal)
CPT/HCPCS: 99213

== ENCOUNTER 2024-02-13 14:55 | Outpatient (REF) | payer MEDICARE, SELFPAY ==
--- NOTE | ~2024-02-13 | XR_ITS ---
EXAMINATION: XR FOOT, LEFT CLINICAL INFORMATION: Local infection of the skin and subcutaneous tissue. Diabetic patient with left foot infection. Rule out osteomyelitis. Patient states infection for 2+ weeks at level of arrow on left foot. COMPARISON: April 21, 2011. TECHNIQUE: AP, lateral, and oblique views of the left foot. FINDINGS: Radiopaque marker placed by technologist to indicate the area of concern as indicated by the patient along the medial aspect of the [id number] shaft of the first metatarsal. Diffuse soft tissue swelling with lucencies and edematous change. Abundant heterogeneous calcifications in the soft tissues, predominantly of the imaged distal/lower leg. Diffuse demineralization. Pes planus. Small plantar calcaneal spur. Advanced degenerative changes in the midfoot, particularly in the talonavicular joint, have progressed. Degenerative changes in the tibiotalar joint. Toes are curled, limiting evaluation. Moderate degenerative changes in the first metatarsophalangeal joint with metatarsus adductus, hallux valgus. There is subtle periosteal reaction along the medial aspect of the mid shaft of the first metatarsal. XR/XR foot LT min 3V IMPRESSION: 1. Subtle periosteal reaction along the medial aspect of the mid shaft of the first metatarsal. Correlation with clinical exam recommended. 2. Advanced degenerative changes in the midfoot, particularly in the talonavicular joint, have progressed. 3. Diffuse soft tissue swelling with lucencies and edematous change. 4. Abundant heterogeneous calcifications in the soft tissues, predominantly of the imaged distal/lower leg.
== END 2024-02-13 14:56 | disposition home or self-care (01) ==
LOC: HO.XRAY 14:55
PROVIDERS: PCP Family Medicine; Visit Provider Family Medicine
DX: L08.9 Local infection of the skin and subcutaneous tissue, unspecified (principal)
CPT/HCPCS: 73630

== ENCOUNTER 2024-02-18 11:23 | Outpatient (AMB) | payer MEDICARE, SELFPAY ==
--- NOTE | 2024-02-18 11:53 | MHC.OFFWIV ---
Intake Vital Signs 02/18/24 11:58 Height 5 ft 7 in Weight 302 lb 6 oz BMI 47.4 BP 134/80 Blood Pressure Location Rt brachial Position Sitting Respiration 16 Pulse 62 Pulse Source Pulse Oximeter Temp 98.4 F Temp Source Oral Pulse Oximetry (%) 98 Oxygen Delivery Method Room Air Intake Visit Reasons: est/foot infection worse Intake Note: Foot infection worsening, left side Patient Tobacco Use Status: Current everyday Tobacco user Allergies amoxicillin [AMOXICILLIN] Allergy (Severe, Verified 02/18/24 11:57) RASH adhesive tape [ADHESIVE TAPE] Allergy (Intermediate, Verified 02/18/24 11:57) RASH lisinopril [LISINOPRIL] Allergy (Intermediate, Verified 02/18/24 11:57) COUGH simvastatin [From ZOCOR] Allergy (Unknown, Verified 02/18/24 11:57) UNKNOWN Do you need a note to return to daycare/school/sports/work: No HPI HPI Comments History of Present Illness Details 68 y/o presents with complaints of worsening cellulitis to her left foot. She notes increased swelling and erythema. She notes that the skin around the inflammation continues to itch. No pain, warmth, or constitutional symptoms. No tingling, numbness, or loss of sensation. She stopped doing warm soaks. She has been doing dressing changes daily due to significant amount of serous drainage from the wound. She reports history of chronic swelling to the left ankle. She states that the wound started very small and progressively increased. She has been wearing sneakers and recently started wearing an old ortho shoe to her left foot. She was seen by her PCP last week for similar issues and was started on cephalexin which she notes she has been taking as prescribed without adverse reactions. She also had an x-ray of the affected foot which is pending results She requests wound care referral [facility] Medical History (Updated 02/13/24 @ 13:09 by Kam Bang MD) Obesity Macular degeneration Osteopenia Vitamin D deficiency Hypercalcemia Hypercholesterolemia Essential hypertension Type 2 diabetes mellitus with hyperglycemia Surgical History History of cholecystectomy Family History Father Lung cancer Mother No problems noted. Paternal Aunt Breast cancer Social History Housing: House Alcohol intake: current Alcohol intake frequency: holidays/special occasions only Patient Tobacco Use Status: Current everyday Tobacco user Tobacco use type: Cigarette Cigarette Packs Per Day: 1 e-Cigarette/Vaping Use: Never Used Second Hand Smoke Exposure: Yes service: No Current occupational status: retired Cognitive needs: No Hearing needs: No Vision needs: Yes (reading glasses ) Review of Systems Const Details: Const Denies chills, Denies fatigue, Denies fever(s), Denies headache(s) and Denies weakness ENT Denies change in vision, Denies dizziness, Denies headache(s), Denies hearing loss, Denies nasal congestion, Denies sinus pain, Denies sinus pressure and Denies sore throat Resp Denies cough, Denies dyspnea, Denies wheezing and Denies other (shortness of breath) Cardio Denies chest pain, Denies lightheadedness, Denies dyspnea and Denies other (palpitations) Neuro Denies dizziness, Denies headache(s), Denies numbness, Denies tingling and Denies weakness Skin Reports as per HPI Psych Denies anxiety, Denies depression, Denies memory?loss Endo Denies fatigue Aller/Immun Denies wheezing Physical Exam Vital Signs: Last Vital Signs Temp 98.4 F 02/18/24 11:58 Pulse 62 02/18/24 11:58 Resp 16 02/18/24 11:58 BP 134/80 02/18/24 11:58 Pulse Ox 98 02/18/24 11:58 Oxygen Delivery Method Room Air 02/18/24 11:58 BMI result Body Mass Index 47.4 Const Other: Const General: well developed; No acute distress Nutritional Appearance: well nourished Orientation/consciousness: patient oriented x3 HEENT Head: Yes normocephalic and Yes atraumatic Eyes General: appearance normal, both eyes and all related structures Pupils: Equal, round and reactive pupils present EOM: EOMs intact bilaterally Resp Effort & Inspection: normal respiratory effort Auscultation: clear to auscultation bilaterally Cardio Rate: regular rate Rhythm: regular rhythm Heart sounds: S1 normal heart sound present, S2 normal heart sound present, no gallops, no murmurs and no rubs Bruits: no abdominal aortic bruits and no carotid bruits Pulses: Pedal and posterior tibialis pulses of the left foot not palpable Skin General: warm and dry. Normal skin color. Normal skin turgor Lesions: no lesions Rashes: no rashes Wounds: Wound with abrasion noted to the right medial foot proximal to the great toe; significant erythema and edema noted; scant, active sanguinous drainage noted; consistent with cellulitis Nails: normal Neuro General: patient oriented x3 and gait normal, no focal neuro deficit Cranial nerves: Yes Equal, round and reactive pupils present Psych Affect: normal affect Assessment & Plan Assessment & Plan (1) Infection of left foot: Code(s): L08.9 - Local infection of the skin and subcutaneous tissue, unspecified Plan: She has had wound, swelling, drainage, and edema to the left foot for almost 3 weeks Wound with abrasion noted to the right medial foot proximal to the great toe; significant erythema and edema noted; scant, active sanguinous drainage noted; consistent with cellulitis. Pedal and posterior tibialis pulses of the left foot not palpable New likely resulted from contact with her footwears. She may have PVD that may be a cause Encouraged to continue current treatment with cephalexin and to resume warm soaks ADA diet encouraged to manage her diet controlled diabetes Wound cleansed with normal saline, patted dry, followed by dry sterile dressing, and secured with clean. Encouraged to perform dressing changes with dry sterile dressing was 2 twice daily Referred to the wound clinic as requested X-ray results pending. PCP will review results and make changes as needed Follow-up with worsening or new signs and symptoms or infection Verbalized understanding and agreed with treatment plan Orders: Referrals Wound Care Referral L08.9 - Local infection of the skin and subcutaneous tissue, unspecified Coding Level of Care Code Est Pt Level 4 (76630) Diagnoses Infection of left foot L08.9
[2024-02-18 11:58] VITALS: BP 134/80; PULSE 62; RESP 16; TEMP 36.9; O2SAT 98; BMI 47.4
== END 2024-02-18 12:32 | disposition home or self-care (01) ==
PROVIDERS: PCP Family Medicine; Visit Provider Nurse Practitioner Family
DX: L08.9 Local infection of the skin and subcutaneous tissue, unspecified (principal)
CPT/HCPCS: 99214

== ENCOUNTER 2024-02-20 13:01 | Outpatient (AMB) | payer MEDICARE, SELFPAY ==
--- NOTE | 2024-02-20 13:07 | AM.OFFWIN_ITS ---
Intake Vital Signs 02/20/24 13:08 Height 5 ft 7 in BP 136/82 Blood Pressure Location Rt brachial Position Sitting Pulse 78 Pulse Source Pulse Oximeter Temp 98.4 F Temp Source Oral Pulse Oximetry (%) 97 Oxygen Delivery Method Room Air Intake Visit Reasons: left foot infection, rash palm of hands Intake Note: pt is here for left foot infection, rash palm of hands Patient Tobacco Use Status: Current everyday Tobacco user Allergies amoxicillin [AMOXICILLIN] Allergy (Severe, Verified 02/20/24 13:08) RASH adhesive tape [ADHESIVE TAPE] Allergy (Intermediate, Verified 02/20/24 13:08) RASH lisinopril [LISINOPRIL] Allergy (Intermediate, Verified 02/20/24 13:08) COUGH simvastatin [From ZOCOR] Allergy (Unknown, Verified 02/20/24 13:08) UNKNOWN Do you need a note to return to daycare/school/sports/work: No HPI left foot infection, rash palm of hands HPI Details This note is constructed using voice recognition software. While every effort has been made to ensure accuracy, school psychological examiner errors may have been included. The patient is a 68 year old female who presents to the clinic today with infected left foot and rash on hands. She has been seen twice for the infection in her foot and has been started by antibiotic therapy, has also been referred to Wound Care but has not heard back from the referral yet. She notes that she presents because she feels that the foot is slightly more red, and mildly more painful. She notes that she is washing and re-dressing the area twice a day. She also reports that she woke up yesterday with raised dots on her hands bilaterally which are itchy. She has had no new soaps, lotions, detergents, or other exposures. She has no known history of eczema. The rash is closed, not having discharge, not having erythema, no warmth. [facility]LY [facility] Medical History (Updated 02/13/24 @ 13:09 by Kam Bang MD) Obesity Macular degeneration Osteopenia Vitamin D deficiency Hypercalcemia Hypercholesterolemia Essential hypertension Type 2 diabetes mellitus with hyperglycemia Surgical History History of cholecystectomy Family History Father Lung cancer Mother No problems noted. Paternal Aunt Breast cancer Social History (Reviewed 01/04/22 @ 09:31 by THEA Ferreira Housing: House Alcohol intake: current Alcohol intake frequency: holidays/special occasions only Patient Tobacco Use Status: Current everyday Tobacco user Tobacco use type: Cigarette Cigarette Packs Per Day: 1 e-Cigarette/Vaping Use: Never Used Second Hand Smoke Exposure: Yes service: No Current occupational status: retired Cognitive needs: No Hearing needs: No Vision needs: Yes (reading glasses ) Review of Systems Const All systems reviewed & are unremarkable except as noted in HPI and below Physical Exam Vital Signs: Last Vital Signs Temp 98.4 F 02/20/24 13:08 Pulse 78 02/20/24 13:08 BP 136/82 02/20/24 13:08 Pulse Ox 97 02/20/24 13:08 Oxygen Delivery Method Room Air 02/20/24 13:08 Const General: cooperative, healthy appearing, comfortable, no acute distress and alert Orientation/consciousness: patient oriented x3 Limitations: no limitations Skin Other: Left foot medial aspect open wound absent to the outer layer, beefy red base, serosanguineous drainage, white/water logged skin surrounding, with minimal erythema surrounding that. No odor, no warmth. Edema present to entire foot. Neuro General: patient oriented x3 Extrem General: Yes normal to inspection, Yes full ROM, Yes capillary refill normal and Yes normal exam except as noted Psych Appearance: grossly normal Mental Status: mental status grossly normal Speech and movement: Normal speech and movement present Affect: normal affect Assessment & Plan Assessment & Plan (1) Infection of left foot: Code(s): L08.9 - Local infection of the skin and subcutaneous tissue, unspecified Plan: Advised patient to remain on antimicrobial therapy as this does appear to be improving her infection, however we did obtain culture today of the drainage in the event that this may worsen. Advised that the skin appears to be overly wet, patient to keep the area clean and dry. Advised to keep the area open for several hours a day to breathe. Advised patient to keep up with referral to wound clinic given that she is diabetic and higher likelihood to have poor resolution of wound. Plan See above for full details and plan. Orders: Orders Routine Culture w Gram Stain Today L08.9 - Local infection of the skin and subcutaneous tissue, unspecified Coding Level of Care Code Est Pt Level 4 (54187) Diagnoses Infection of left foot L08.9 Time Spent (min) 30
[2024-02-20 13:08] VITALS: BP 136/82; PULSE 78; TEMP 36.9; O2SAT 97
== END 2024-02-20 14:16 | disposition home or self-care (01) ==
PROVIDERS: PCP Family Medicine; Visit Provider Registered Nurse
DX: L08.9 Local infection of the skin and subcutaneous tissue, unspecified (principal)
CPT/HCPCS: 99214

== ENCOUNTER 2024-02-20 13:36 | Outpatient (REF) | payer MEDICARE, SELFPAY | END 2024-02-20 13:37 | disposition home or self-care (01) | LOC: HO.LNP 13:36 | PROVIDERS: Visit Provider Registered Nurse | DX: L08.9 Local infection of the skin and subcutaneous tissue, unspecified (principal) | CPT/HCPCS: 87070; 87077; 87186; 87205 ==

== ENCOUNTER 2024-02-24 10:16 | Emergency (ER) | payer MEDICARE, SELFPAY ==
[2024-02-24 10:38] VITALS: BP 151/53; PULSE 73; RESP 16; TEMP 36.3; O2SAT 95; BMI 46.8
[2024-02-24 11:02] LABS: MANUAL DIFF FLAG NO
[2024-02-24 11:10] LABS: Basophils Absolute Auto 0.1 X10*3/uL (0.0-0.2); Basophils Percent Auto 0.6 % (0-2); Eosinophils Absolute Auto 0.2 X10*3/uL (0.0-0.4); Eosinophils Percent Auto 1.9 % (0-4); Hematocrit 42.3 % (37.0-47.0); Hemoglobin 14.2 g/dl (12.0-16.0); Imm Gran Abs Auto 0.03 X10*3/uL (0.00-0.03); Imm Gran Pct Auto 0.3 % (0.0-0.4); Lymphocytes Percent Auto 11.6 % (20-40); Mean Corpuscular HGB Conc 33.6 g/dl (31.0-35.0); Mean Corpuscular Hemoglobin 32.7 pg (27.0-33.0); Mean Corpuscular Volume 97.5 fL (80.0-98.0); Mean Platelet Volume 10.7 fL (9.4-12.3); Monocytes Absolute Auto 0.6 X10*3/uL (0.1-1.2); Monocytes Percent Auto 6.2 % (2-11); Neutrophils Absolute Auto 7.1 x10*3/uL (2.0-8.3); Neutrophils Percent Auto 79.4 % (45-73); Platelet Count 236 X10*3/uL (160-400); Red Blood Count 4.34 X10*6/uL (4.20-5.50); Red Cell Distribution Width 13.2 % (11.0-16.0); White Blood Count 8.9 X10*3/uL (4.8-10.8)
--- NOTE | 2024-02-24 11:10 | ED_ITS ---
HPI - General Adult General Chief complaint: Wound/Laceration Stated complaint: l foot infection Time Seen by Provider: 02/24/24 11:10 Source: patient and family (patient's ) Mode of arrival: ambulatory Limitations: no limitations History of Present Illness ED Provider: Namrata Duke PA-C HPI narrative: Patient is a 68 year old assigned female at with a history of DM, HTN, and hypercholesterolemia presenting to the emergency department today with continued left foot infection. Patient states that over the last month she has been to the walk in [place] 3 times for a left foot infection. Patient states that she has been on keflex most recently but that has been finished since yesterday. Patient states that a culture of the wound was taken on 02/20/2024 but they have not received results. She states that on 02/13/2024 there was an x-ray of the left foot/ankle taken but they haven't gotten results on that either. Patient states that she was concerned because the foot continues to ooze and continues to be red. Patient denies any dizziness, lightheadedness, abdominal pain, nausea, vomiting, fever, chills, blurry vision, double vision, loss of vision, chest pain, difficulty breathing, shortness of breath, back pain, night sweats, pain with urination, increased urinary frequency, increased urinary urgency, blood in her urine or stool, syncope or a near syncopal episode, recent trauma or falls, bowel incontinence, bladder incontinence, or any other complaints at this time. Onset (ago): month(s) (1) Location: left and lower extremity Radiation: non-radiation Relieving factors: none Exacerbating factors: none Associated symptoms: denies other symptoms Treatments prior to arrival: other (keflex) Related Data Home Medications ?Medication ?Instructions ?Recorded ?Confirmed cholecalciferol (vitamin D3) 25 25 mcg PO DAILY 07/05/20 04/10/23 mcg (1,000 unit) capsule ibuprofen 200 mg tablet (Advil) 200 mg PO Q6H PRN 07/05/20 04/10/23 cephalexin 500 mg capsule 500 mg PO Q12H 02/20/24 Previous Rx's ?Medication ?Instructions ?Recorded metoprolol succinate 25 mg 25 mg PO DAILY #90 tabs 05/16/23 tablet,extended release 24 hr hydrochlorothiazide 25 mg tablet 25 mg PO DAILY 90 days #90 tabs 06/19/23 irbesartan 300 mg tablet 300 mg PO DAILY #90 tabs 06/19/23 atorvastatin 20 mg tablet 20 mg PO DAILY 30 days #30 tabs 10/26/23 cephalexin 500 mg capsule 500 mg PO Q6H 7 days #28 caps 02/24/24 doxycycline hyclate 100 mg tablet 100 mg PO BID 7 days #14 tabs 02/24/24 Allergies Allergy/AdvReac Type Severity Reaction Status Date / Time amoxicillin [AMOXICILLIN] Allergy Severe RASH Verified 02/24/24 10:42 adhesive tape [ADHESIVE TAPE] Allergy Intermediate RASH Verified 02/24/24 10:42 lisinopril [LISINOPRIL] Allergy Intermediate COUGH Verified 02/24/24 10:42 simvastatin [From ZOCOR] Allergy Unknown UNKNOWN Verified 02/24/24 10:42 Review of Systems 2 Constitutional: Constitutional: Reports no additional constitutional complaints, Denies chills, Denies fever(s) and Denies night sweats Eyes: Eyes: Reports no additional eye complaints, Denies blurry vision, Denies change in vision, Denies diplopia, Denies eye discharge, Denies loss of vision and Denies eye pain ENT: Denies dizziness Cardiovascular: Cardiovascular: Reports no additional cardiovascular complaints, Denies chest pain, Denies lightheadedness, Denies Loss of Consciousness and Denies dyspnea Respiratory: Respiratory: Reports no additional respiratory complaints and Denies dyspnea Gastrointestinal: Gastrointestinal: Reports no additional gastrointestinal complaints, Denies abdominal pain, Denies melena, Denies hematochezia, Denies change in bowel habits and Denies change in stool character Genitourinary: Genitourinary: Denies hematuria, Denies urinary frequency, Denies dysuria, Denies urinary incontinence, Denies urinary hesitancy and Denies urinary urgency Musculoskeletal: Musculoskeletal: Reports no additional musculoskeletal complaints, Denies numbness and Denies tingling Comments: left foot and ankle redness and oozing with chronic wound present Neurologic: Denies dizziness, Denies loss of vision, Denies numbness and Denies tingling Psychiatric: Psychiatric: Reports no additional psychiatric complaints Endocrine: Endocrine: Reports no additional endocrine complaints Hematologic/Lymphatic: Hematologic/Lymphatic: Reports no additional hematologic/lymphatic complaints Allergic/Immunologic: Allergic/Immunologic: Reports no additional allergic/immunologic complaints PMFSH Past Medical History Attestation statement: The following information was validated with the patient. (all information validated with the patient's ) Source: old records reviewed, obtained from family (patient's provided additional history and confirmed the history provided by the patient.) and nursing notes reviewed Medical History Obesity Macular degeneration Osteopenia Vitamin D deficiency Hypercalcemia Hypercholesterolemia Essential hypertension Type 2 diabetes mellitus with hyperglycemia Surgical History History of cholecystectomy Family History Family History Father Lung cancer Mother No problems noted. Paternal Aunt Breast cancer Social History Social History Housing: House Alcohol intake: current Alcohol intake frequency: holidays/special occasions only Patient Tobacco Use Status: Current everyday Tobacco user Tobacco use type: Cigarette Cigarette Packs Per Day: 1 e-Cigarette/Vaping Use: Never Used Second Hand Smoke Exposure: Yes Advance Directives: No Advance Directives Information Provided: No Do you have a plan to hurt others: No Plan service: No Current occupational status: retired Cognitive needs: No Hearing needs: No Vision needs: Yes (reading glasses ) Physical Exam ED Vital Signs: Vital Signs - 24 hr 02/24/24 10:38 02/24/24 12:13 Temperature 97.4 F 97.7 F Pulse Rate 73 63 Respiratory Rate 16 18 Blood Pressure 151/53 H 144/73 H Pulse Oximetry 95 95 Oxygen Delivery Method Room Air Room Air BMI result Body Mass Index 46.8 Const General: cooperative, no acute distress, alert and awake Nutritional Appearance: well nourished Orientation/consciousness: patient oriented x3 Limitations: no limitations HENMT Head: Yes normal to inspection and Yes atraumatic Ears: hearing grossly normal bilaterally and external ears normal General nose exam: Normal external nose present, no nasal discharge noted and no epistaxis Face and sinus: Yes normal facial exam, No abrasion and No laceration Mouth: Normal oral and palatal mucosa present, no drooling and no muffled voice Eyes General: appearance normal, both eyes and all related structures Periorbital: periorbital findings normal Eyelids: Yes eyelids normal Conjunctivae: conjunctivae normal Pupils: Equal, round and reactive pupils present EOM: EOMs intact bilaterally Neck Neck: Yes normal visual inspection, Yes full ROM and Yes no lymphadenopathy Chest Chest palpation & inspection: normal inspection of the chest Resp Effort & Inspection: normal respiratory effort and able to speak in complete sentences GI Inspection: Yes normal to inspection Neuro General: patient oriented x3 and moves all extremities Cranial nerves: Yes Equal, round and reactive pupils present Cognition (Neuro): normal cognition Extrem Other: large chronic appearing wound to the left medial foot with mild moisture and erythema but no warmth General: Yes full ROM and Yes capillary refill normal Psych Appearance: grossly normal Mental Status: mental status grossly normal Affect: normal affect Attitude: cooperative Thought process: Normal thought process present Thought content: Normal thought content present Insight: Good insight present (Psych) Medications Administered Discontinued Medications Generic Name Dose Route Start Last Admin Trade Name Freq PRN Reason Stop Dose Admin Cephalexin HCl 500 mg 02/24/24 11:39 02/24/24 12:08 Cephalexin 500 Mg Capsule PO 02/24/24 11:40 500 mg ONCE ONE Administration Doxycycline Monohydrate 100 mg 02/24/24 11:39 02/24/24 12:08 Doxycycline Monohydrate 100 Mg Capsule PO 02/24/24 11:40 100 mg ONCE ONE Administration Medical Decision Making Medical Decision Making [facility] Narrative: Patient is a 68 year old assigned female at with a history of DM presenting to the emergency department today with a left foot wound. Patient's physical exam was as noted in the physical exam portion of this note. Patient's blood work was unremarkable however, the patient's previously collected wound culture was positive for MRSA. I explained my physical exam findings as well as all test results to the patient and the patient's . I answered all questions asked by the patient and the patient's . Patient's wound appears to be healing well however, given the positive MRSA culture, will restarted keflex and add doxycycline. Patient needs to follow up with the wound center [facility] to ensure proper dressing / management of this wound. I stressed the importance of the patient taking her medication as directed (either prescribed or as the over the counter packaging recommends). I stressed the importance of the patient following up with her primary care provider and the wound center. I stressed the importance of the patient returning to the emergency department immediately if her symptoms were to worsen or if she were to develop any dizziness, shortness of breath, difficulty breathing, chest pain, blurry vision, loss of vision, nausea, vomiting, abdominal pain, fever, chills, back pain, or any other complaints. Patient verbalized agreement and understanding with this treatment plan and discharge. Differential Diagnosis Differential Diagnoses: The differential diagnosis associated with the presentation includes Chronic wound MRSA Cellulitis Admission/Observation Consideration of admission/observation: Escalation of care including admission/observation considered Patient would have been admitted to the hospital had her work up had any findings where hospital admission was appropriate and her clinical presentation warranted hospital admission. Lab Data [facility] Lab Attestation statement: I reviewed the patient's lab results. My interpretation of these results are in the [facility] Rationale portion of this note. 02/24/24 10:57 02/24/24 10:57 Labs: Lab Results 02/24/24 Range/Units 10:57 WBC 8.9 (4.8-10.8) X10*3/uL RBC 4.34 (4.20-5.50) X10*6/uL Hgb 14.2 (12.0-16.0) g/dl Hct 42.3 (37.0-47.0) % MCV 97.5 (80.0-98.0) fL MCH 32.7 (27.0-33.0) pg MCHC 33.6 (31.0-35.0) g/dl RDW 13.2 (11.0-16.0) % Plt Count 236 (160-400) X10*3/uL MPV 10.7 (9.4-12.3) fL Immature Gran % (Auto) 0.3 (0.0-0.4) % Neut % (Auto) 79.4 H (45-73) % Lymph % (Auto) 11.6 L (20-40) % Tucker % (Auto) 6.2 (2-11) % Eos % (Auto) 1.9 (0-4) % Baso % (Auto) 0.6 (0-2) % Lymph # (Auto) 1.0 L (1.2-4.9) X10*3/uL Tucker # (Auto) 0.6 (0.1-1.2) X10*3/uL Eos # (Auto) 0.2 (0.0-0.4) X10*3/uL Baso # (Auto) 0.1 (0.0-0.2) X10*3/uL Abs Immat Gran (auto) 0.03 (0.00-0.03) X10*3/uL Absolute Neuts (auto) 7.1 (2.0-8.3) x10*3/uL Absolute Nucleated RBC 0.000 (0.0-0.012) X10*3/uL Nucleated RBC % (auto) 0.0 (0.0-0.2) /100WBC Sodium 141 (135-145) mmol/L Potassium 4.6 (3.3-5.1) mmol/L Chloride 102 (96-108) mmol/L Carbon Dioxide 28 (22-29) mmol/L Anion Gap 16 (12-20) BUN 18 H (9-16) mg/dL Creatinine 1.10 (0.5-1.4) mg/dL Estim Creat Clear Calc 66.2 Estimated GFR 49 Random Glucose 245 H (60-115) mg/dL Calcium 10.2 D (8.4-10.2) mg/dL Total Bilirubin 0.4 (0.0-1.0) mg/dL AST 13 (5-31) U/L ALT 13 (0-31) U/L Alkaline Phosphatase 92 (39-117) U/L Total Protein 7.5 (6.5-8.0) g/dL Albumin 4.1 (3.5-5.0) g/dL Independent Historian Clinical information obtained from an independent historian. History obtained from or confirmed by: Spouse (patient's provided additional history and confirmed the history provided by the patient.) Prescription Management I considered prescription management with: Antibiotic (patient prescribed ABX for MRSA positive wound culture) Discharge Plan Discharge Clinical Impression: MRSA (methicillin resistant staph aureus) culture positive, Wound of foot Patient Disposition: Home, Self-Care Instructions: MRSA (Methicillin-Resistant Staphylococcus Aureus) (ED), Wound Infection (DC), Wound Healing and Your Diet (ED) Additional Instructions: Your wound culture grew MRSA for which we have prescribed you antibiotics. Be sure to take an over the counter probiotic with these antibiotics to avoid gastrointestinal infection / upset. Overall, your wound looks to be healing appropriately however, given the size and complexity of the wound - you MUST follow up with the wound center. Call the number provided first thing on 02/25/2024. Be sure to explain to them that you were seen in the emergency department and Ant from the ER recommended follow up with their office [facility]. Let them know if they have any questions about it - they can call the department after 11am or connect with me on [employer] Text. Follow up with your primary care provider. Return to the emergency department immediately if your symptoms worsen or if you develop any dizziness, shortness of breath, difficulty breathing, chest pain, blurry vision, loss of vision, nausea, vomiting, abdominal pain, fever, chills, back pain, or any other complaints. Prescriptions: New cephalexin 500 mg capsule 500 mg PO Q6H 7 Days Qty: 28 0RF doxycycline hyclate 100 mg tablet 100 mg PO BID 7 Days Qty: 14 0RF No Action metoprolol succinate 25 mg tablet extended release 24 hr 25 mg PO DAILY Qty: 90 3RF irbesartan 300 mg tablet 300 mg PO DAILY Qty: 90 2RF hydrochlorothiazide 25 mg tablet 25 mg PO DAILY 90 Days Qty: 90 2RF atorvastatin 20 mg tablet 20 mg PO DAILY 30 Days Qty: 30 4RF cholecalciferol (vitamin D3) 25 mcg (1,000 unit) capsule 25 mcg PO DAILY ibuprofen [Advil] 200 mg tablet 200 mg PO Q6H PRN cephalexin 500 mg capsule 500 mg PO Q12H Referrals: [facility] [Provider Group] (Call the number provided first thing on 02/25/2024. Be sure to explain to them that you were seen in the emergency department and Ant from the ER recommended follow up with their office [facility]. Let them know if they have any questions about it - they can call the department after 11am or connect with me on [employer] Text.) Adan Griffin MD [Primary Care Provider] - Interventions: ED Discharge Assessment Last Done: 02/24/24 12:13 Discharge Date/Time: 02/24/24 12:13 Print Language: Persian
[2024-02-24 11:22] LABS: Alanine Aminotransferase 13 U/L (0-31); Albumin Level 4.1 g/dL (3.5-5.0); Alkaline Phosphatase 92 U/L (39-117); Anion Gap 16 (12-20); Aspartate Amino Transferase 13 U/L (5-31); Bilirubin Total 0.4 mg/dL (0.0-1.0); Blood Urea Nitrogen 18 mg/dL (9-16); Calcium 10.2 mg/dL (8.4-10.2); Carbon Dioxide 28 mmol/L (22-29); Chloride 102 mmol/L (96-108); Creatinine Clr Calc Pharmacy 66.2; Estimated Glomerular Filt Rate 49; Glucose Random 245 mg/dL (60-115); Potassium 4.6 mmol/L (3.3-5.1); Sodium 141 mmol/L (135-145); Total Protein 7.5 g/dL (6.5-8.0)
[2024-02-24] MEDS: Doxycycline Monohydrate 100 MG CAPSULE PO (12:08)
[2024-02-24] MEDS: cephALEXin 500 MG CAPSULE PO (12:08)
[2024-02-24 12:13] VITALS: BP 144/73; PULSE 63; RESP 18; TEMP 36.5; O2SAT 95
== END 2024-02-24 12:13 | disposition home or self-care (01) ==
PROVIDERS: Emergency Provider Emergency Medicine; PCP Internal Medicine
DX: A49.02 Methicillin resistant Staphylococcus aureus infection, unspecified site (principal); Z79.899 Other long term (current) drug therapy
CPT/HCPCS: 36415; 80053; 85025; 99282; 99283

== ENCOUNTER 2024-02-27 08:18 | Outpatient (RCR) | payer MEDICARE, SELFPAY | END 2024-05-23 14:57 | disposition home or self-care (01) | LOC: HO.WCC 08:18 | PROVIDERS: PCP Internal Medicine; Visit Provider Surgery | DX: Z09 Encounter for follow-up examination after completed treatment for conditions other than malignant neoplasm (principal); I87.302 Chronic venous hypertension (idiopathic) without complications of left lower extremity; Q82.0 Hereditary lymphedema; L30.8 Other specified dermatitis; Z79.2 Long term (current) use of antibiotics; Z79.899 Other long term (current) drug therapy | CPT/HCPCS: 97597; 97598; 99212 ==

== ENCOUNTER 2024-03-05 10:12 | Outpatient (AMB) | payer MEDICARE, SELFPAY ==
--- NOTE | 2024-03-05 10:16 | A.OFFPC_ITS ---
Vital Signs 03/05/24 10:17 Height 5 ft 6 in Weight 293 lb BMI 47.3 BP 126/68 Blood Pressure Location Lt brachial Position Sitting Pulse 79 Pulse Source Pulse Oximeter Pulse Oximetry (%) 96 Oxygen Delivery Method Room Air Intake Visit Reasons: [facility] 02/23 left foot infection Intake Note: Patient is here for hospital discharge follow up. Patient was discharged from [facility] on 02/24/24 Adjunct Writing Instructor Required: No Allergies amoxicillin [AMOXICILLIN] Allergy (Severe, Verified 03/05/24 10:21) RASH adhesive tape [ADHESIVE TAPE] Allergy (Intermediate, Verified 03/05/24 10:21) RASH lisinopril [LISINOPRIL] Allergy (Intermediate, Verified 03/05/24 10:21) COUGH simvastatin [From ZOCOR] Allergy (Unknown, Verified 03/05/24 10:21) UNKNOWN Medication List - Last Reconciled 03/05/24 by Laila Simmons PA-C atorvastatin 20 mg PO DAILY 30 days cholecalciferol (vitamin D3) 25 mcg PO DAILY hydrochlorothiazide 25 mg PO DAILY 90 days ibuprofen (Advil) 200 mg PO Q6H PRN irbesartan 300 mg PO DAILY metoprolol succinate ER 25 mg PO DAILY Tobacco use date assessed: 07/20/23 Fall risk assessment: No Falls in past year Last assessed Fall Risk: 03/05/24 Dental Screening Dental Screen Date: 01/21/24 HPI [facility] 02/23 left foot infection HPI Details 68-year-old female with past medical his tory of diabetes mellitus, hypertension, hypercholesterolemia last seen by Dr. Griffin coming in for hospital follow up.? In review of the notes, patient was seen and [facility] 02/24/2024 for left foot infection.?Patient had been seen 3 times prior and walk-in clinic and treated with various antibiotics and still worsening.?Patient was restarted on Keflex and doxycycline was added and referred to the [facility]ound [facility].?Patient was seen in Wound Care 02/27/2024 wound was debrided, Keflex was discontinued due to development of a rash and follow up in 1 week. Today she tells us she saw Wound Care last week who cleaned her foot and redressed it and she is due to follow up with them tomorrow. She was taking Keflex however she developed a rash on bilateral forearms and hands as well as her feet and chest. Wound care believe this to be related to the Keflex and discontinued at the time. Still having pain in the foot at this time. She continues to have the rash and has been using Benadryl cream for the itchiness. She mentioned the rash is spreading and has continued to itch and on her palms and around her fingernail beds she is having flaking of the skin. She is no longer taking the doxycycline. [facility] Medical History Obesity Macular degeneration Osteopenia Vitamin D deficiency Hypercalcemia Hypercholesterolemia Essential hypertension Type 2 diabetes mellitus with hyperglycemia Surgical History History of cholecystectomy Family History Father Lung cancer Mother No problems noted. Paternal Aunt Breast cancer Social History Housing: House Alcohol intake: current Alcohol intake frequency: holidays/special occasions on ly Patient Tobacco Use Status: Current everyday Tobacco user Tobacco use type: Cigarette Cigarette Packs Per Day: 1 e-Cigarette/Vaping Use: Never Used Second Hand Smoke Exposure: Yes service: No Current occupational status: retired Cognitive needs: No Hearing needs: No Vision needs: Yes (reading glasses ) Questionnaire Thrive Questionnaire Date Thrive assessed: 01/21/24 I am a: Patient What is your living situation today?: I have a steady place to live Within the past 12 months, did the food you bought not last and you didn't have the money to get more?: Never true Within the past 12 months, did you worry whether your food would run out before you got money to buy more?: Never true Do you have trouble paying for medicines?: No Do you have trouble getting transportation to medical appointments?: No Do you have trouble paying your heating and electricity bill?: No Do you have trouble taking care of your child, family member or friend?: No Do you have trouble with day-to-day activities such as bathing, preparing meals, shopping, managing finances, etc.?: No Are you currently unemployed and looking for a job?: No Are you interested in more education?: No Currently or been in a relationship where the following occur: No concerns reported THRIVE Score: 0 AUDIT C Alcohol Use Questionnaire (AUDIT-C) 1. How often do you have a drink containing alcohol?: Monthly or less 2. How many drinks containing alcohol do you have on a typical day when you are drinking?: 1 or 2 3. How often do you have six or more drinks on one occasion?: Never Total Score: 1 HOLLY-7 AMB Questionnaire HOLLY-7 Date HOLLY - 7 assessed: 07/20/23 Source: Developed by Drs. Taco Rios, Leelee Walter, Davidson Sinclair and colleagues, with an educational stephon from [email or web address]. Review of Systems Const Denies body aches, Denies chills and Denies fever(s) Eyes Reports no additional complaints ENT Reports no additional complaints Card Denies chest pain, Denies edema, Denies lightheadedness and Denies dyspnea Resp Denies dyspnea GI Reports no additional complaints Reports no additional complaints Musc Reports no additional complaints and Denies abnormal gait Skin/Breast Details: Patchy, itchy, red rash on bilateral forearms, chest, hands, and right foot. Left foot infection with swelling and redness Neuro Denies abnormal gait Psych Reports no additional complaints Physical exam (Primary Care) Vital Signs: Last Vital Signs Pulse 79 03/05/24 10:17 BP 126/68 03/05/24 10:17 Pulse Ox 96 03/05/24 10:17 Oxygen Delivery Method Room Air 03/05/24 10:17 BMI result Body Mass Index 47.3 Tobacco/Smoking Status: Tobacco use Status Tobacco use date assessed 07/20/23 03/05/24 10:17 Patient Tobacco Use Status Current everyday Tobacco 03/05/24 10:17 Tobacco use type Cigarette 03/05/24 10:17 e-Cigarette/Vaping Use Never Used 03/05/24 10:17 Thrive Assessment: Date of Thrive Assessment Date Thrive assessed 01/21/24 03/05/24 10:17 Currently or been in a relationship where the following occur: No concerns reported Const General: cooperative, healthy appearing, comfortable and no acute distress Orientation/consciousness: patient oriented x3 HENMT Head: Yes normocephalic Ears: hearing grossly normal bilaterally General nose exam: Normal external nose present Eyes General: appearance normal, both eyes and all related structures Conjunctivae: conjunctivae normal Neck Neck: Yes full ROM and Yes no lymphadenopathy Resp Effort & Inspection: normal respiratory effort Auscultation: clear to auscultation bilaterally, no crackles, no rales, no rhonchi and no wheezes Cardio Rate: regular rate Rhythm: regular rhythm Skin Other: Left foot is bandaged and Jordi wrapped. Red, patchy, flaking rash on bilateral forearms and chest. Bilateral palms of the hand and fingernail beds are erythematous and dry with mild desquamation Neuro General: patient oriented x3 Gait exam (Neuro): Normal gait present Extrem General: Yes normal to inspection, Yes full ROM and No edema Psych Affect: normal affect Attitude: cooperative Insight: Good insight present (Psych) Judgement: Good judgement present (Psych) Assessment and Plan Assessment & Plan (1) Infection of left foot: Code(s): L08.9 - Local infection of the skin and subcutaneous tissue, unspecified Plan: Patient is being seen by wound care tomorrow for follow up on the left foot infection. We will defer to their recommendations at this time. Left foot was not examined at this visit due to dressing being in place by wound care. We will request the notes after tomorrow's appointment and patient will follow up if she needs anything additional. Reviewed red flag symptoms and when to present to the ER. (2) Dermatitis: Code(s): L30.9 - Dermatitis, unspecified Plan: Rash is most consistent with a dermatitis most likely a reaction to either the antibiotics or environmental allergen. Patient states she had been around poison kwan and is unsure if this was related. Patient has been using Benadryl cream for the itchiness. Advised patient to keep the skin hydrated with topical emollients such as Aquaphor and given hydroxyzine for the itchiness. Did discuss side effects of hydroxyzine. At this time the rash does not look infected advised patient to follow up if rash becomes painful, weeping or she develops a fever. We will hold off on prednisone as the origin of the rash is unclear and patient will have this rash evaluated at wound care tomorrow. Plan This note was constructed using voice recognition software. While every effort has been made to ensure accuracy and exhaust equipment operator, still areas may have been included sometimes these areas may affect the content or meeting of the given symptoms. Total time spent caring for the patient today was 30 minutes. This includes time spent before the visit reviewing the chart, time spent during the visit, and time spent after the visit and documentation. Medications: New hydroxyzine HCl 25 mg PO BID PRN 20 tabs 0RF itching 10 days Coding Level of Care Code Est Pt Level 4 (67666) Diagnoses Infection of left foot L08.9 Dermatitis L30.9
[2024-03-05 10:17] VITALS: BP 126/68; PULSE 79; O2SAT 96; BMI 47.3
== END 2024-03-05 11:07 | disposition home or self-care (01) ==
PROVIDERS: PCP Internal Medicine
DX: L08.9 Local infection of the skin and subcutaneous tissue, unspecified (principal); L30.9 Dermatitis, unspecified
CPT/HCPCS: 99214

== ENCOUNTER 2024-03-19 10:13 | Outpatient (AMB) | payer MEDICARE, SELFPAY ==
[2024-03-19 10:14] VITALS: BP 134/70; PULSE 65; O2SAT 96; BMI 47.0
--- NOTE | 2024-03-19 10:14 | MHC.PC.OV ---
Vital Signs 03/19/24 10:14 Height 5 ft 6 in Weight 291 lb BMI 47.0 BP 134/70 Blood Pressure Location Lt brachial Position Sitting Pulse 65 Pulse Source Pulse Oximeter Pulse Oximetry (%) 96 Oxygen Delivery Method Room Air Intake Visit Reasons: f/u rash and foot infection Intake Note: Patient is here to follow up Mechanical Facilities Technician Required: No Allergies amoxicillin [AMOXICILLIN] Allergy (Severe, Verified 03/19/24 10:34) RASH adhesive tape [ADHESIVE TAPE] Allergy (Intermediate, Verified 03/19/24 10:34) RASH lisinopril [LISINOPRIL] Allergy (Intermediate, Verified 03/19/24 10:34) COUGH cephalexin Allergy (Mild, Verified 03/19/24 10:34) Rash simvastatin [From ZOCOR] Allergy (Unknown, Verified 03/19/24 10:34) UNKNOWN Medication List - Last Reconciled 03/19/24 by Laila Simmons PA-C atorvastatin 20 mg PO DAILY 30 days cholecalciferol (vitamin D3) 25 mcg PO DAILY hydrochlorothiazide 25 mg PO DAILY 90 days hydroxyzine HCl 25 mg PO BID PRN 10 days ibuprofen (Advil) 200 mg PO Q6H PRN irbesartan 300 mg PO DAILY metoprolol succinate ER 25 mg PO DAILY Tobacco use date assessed: 07/20/23 Fall risk assessment: No Falls in past year Last assessed Fall Risk: 03/19/24 Dental Screening Dental Screen Date: 01/21/24 HPI f/u rash and foot infection HPI Details 68-year-old female with past medical history of diabetes mellitus, hypertension, hypercholesterolemia coming in for follow up. Patient was last seen 03/12/2024 for left foot infection. Patient was seen by [facility] wound care 03/10/2024 for peeling rash was given steroids. Patient states she was seen by wound care last week and the dressing was removed from her left foot and she was given steroids. Her peeling rash has mostly resolved she does still have some mild itching but otherwise has no other concerns. She is due to follow up with wound care again 04/02/2024 to ensure wound has completely resolved. [facility] Medical History Obesity Macular degeneration Osteopenia Vitamin D deficiency Hypercalcemia Hypercholesterolemia Essential hypertension Type 2 diabetes mellitus with hyperglycemia Surgical History History of cholecystectomy Family History Father Lung cancer Mother No problems noted. Paternal Aunt Breast cancer Social History Housing: House Alcohol intake: current Alcohol intake frequency: holidays/special occasions only Patient Tobacco Use Status: Current everyday Tobacco user Tobacco use type: Cigarette Cigarette Packs Per Day: 1 e-Cigarette/Vaping Use: Never Used Second Hand Smoke Exposure: Yes service: No Current occupational status: retired Cognitive needs: No Hearing needs: No Vision needs: Yes (reading glasses ) Questionnaire Thrive Questionnaire Date Thrive assessed: 01/21/24 AUDIT C Alcohol Use Questionnaire (AUDIT-C) 1. How often do you have a drink containing alcohol?: Monthly or less 2. How many drinks containing alcohol do you have on a typical day when you are drinking?: 1 or 2 3. How often do you have six or more drinks on one occasion?: Never Total Score: 1 HOLLY-7 AMB Questionnaire HOLLY-7 Date HOLLY - 7 assessed: 07/20/23 Source: Developed by Drs. Taco Rios, Leelee Walter, Davidson Sinclair and colleagues, with an educational stephon from [employer]. Review of Systems Const Denies body aches, Denies chills, Denies fever(s) and Denies poor appetite Eyes Reports no additional complaints ENT Reports no additional complaints Card Denies chest pain and Denies dyspnea Resp Denies dyspnea GI Reports no additional complaints Reports no additional complaints Musc Details: Still some mild tenderness and swelling in the left foot Reports abnormal gait Skin/Breast Details: No open lesions or rashes Neuro Reports abnormal gait Psych Reports no additional complaints Physical exam (Primary Care) Vital Signs: Last Vital Signs Pulse 65 03/19/24 10:14 BP 134/70 03/19/24 10:14 Pulse Ox 96 03/19/24 10:14 Oxygen Delivery Method Room Air 03/19/24 10:14 BMI result Body Mass Index 47.0 Tobacco/Smoking Status: Tobacco use Status Tobacco use date assessed 07/20/23 03/19/24 10:16 Patient Tobacco Use Status Current everyday Tobacco 03/19/24 10:16 Tobacco use type Cigarette 03/19/24 10:16 e-Cigarette/Vaping Use Never Used 03/19/24 10:16 Thrive Assessment: Date of Thrive Assessment Date Thrive assessed 01/21/24 03/19/24 10:16 Const General: cooperative, healthy appearing, comfortable and no acute distress Orientation/consciousness: patient oriented x3 HENMT Head: Yes normocephalic Ears: hearing grossly normal bilaterally General nose exam: Normal external nose present Eyes General: appearance normal, both eyes and all related structures Conjunctivae: conjunctivae normal Neck Neck: Yes full ROM and Yes no lymphadenopathy Resp Effort & Inspection: normal respiratory effort Auscultation: clear to auscultation bilaterally, no crackles, no rales, no rhonchi and no wheezes Cardio Rate: regular rate Rhythm: regular rhythm Skin Other: No peeling rash or open lesions noted Neuro General: patient oriented x3 Gait exam (Neuro): Normal gait present Extrem Other: Left foot still has some mild swelling and erythema with tenderness to palpation over the dorsal aspect of the foot. No open lesions or wounds noted General: Yes normal to inspection, Yes full ROM and No edema Psych Affect: normal affect Attitude: cooperative Insight: Good insight present (Psych) Judgement: Good judgement present (Psych) Assessment and Plan Assessment & Plan (1) Infection of left foot: Code(s): L08.9 - Local infection of the skin and subcutaneous tissue, unspecified Plan: The dressing was removed and the foot does not show any signs of infection today on exam. She will follow up with wound care 04/02/2024 for follow up. Follow up as needed for this concern and continue to monitor for signs of infection. Discussed with patient that she should have a managing director atlas who she follows with yearly and referral was placed today. (2) Dermatitis: Code(s): L30.9 - Dermatitis, unspecified Plan: Peeling rash has resolved at this point and Marvinflex was made an allergy in her chart. She has done taking the steroids and we will continue to use hydroxyzine as needed for itching. Plan This note was constructed using voice recognition software. While every effort has been made to ensure accuracy and tear down matcher, still areas may have been included sometimes these areas may affect the content or meeting of the given symptoms. Total time spent caring for the patient today was 20 minutes. This includes time spent before the visit reviewing the chart, time spent during the visit, and time spent after the visit and documentation. Orders: Referrals Podiatry Referral E11.65 - Type 2 diabetes mellitus with hyperglycemia Medications: Refilled irbesartan 300 mg PO DAILY 90 tabs 2RF I10 - Essential (primary) hypertension Coding Level of Care Code Est Pt Level 3 (24406) Diagnoses Infection of left foot L08.9 Dermatitis L30.9
== END 2024-03-19 10:54 | disposition home or self-care (01) ==
PROVIDERS: PCP Internal Medicine
DX: L08.9 Local infection of the skin and subcutaneous tissue, unspecified (principal); L30.9 Dermatitis, unspecified
CPT/HCPCS: 99213

== ENCOUNTER 2024-05-15 11:01 | Outpatient (AMB) | payer MEDICARE, SELFPAY ==
--- NOTE | 2024-05-15 11:06 | MHC.OFFWIV ---
Intake Vital Signs 05/15/24 11:08 Weight 292 lb BP 122/84 Blood Pressure Location Lt brachial Position Sitting Pulse 84 Pulse Source Pulse Oximeter Temp 98.1 F Temp Source Oral Pulse Oximetry (%) 98 Oxygen Delivery Method Room Air Intake Visit Reasons: EP vomiting, dry heaves Intake Note: Patient here because last sunday night she went out to eat and was fine, she then went home and began vomiting and upset stomach and has been dry heaving since sunday. Patient Tobacco Use Status: Current everyday Tobacco user Allergies amoxicillin [AMOXICILLIN] Allergy (Severe, Verified 05/15/24 11:09) RASH adhesive tape [ADHESIVE TAPE] Allergy (Intermediate, Verified 05/15/24 11:09) RASH lisinopril [LISINOPRIL] Allergy (Intermediate, Verified 05/15/24 11:09) COUGH cephalexin Allergy (Mild, Verified 05/15/24 11:09) Rash simvastatin [From ZOCOR] Allergy (Unknown, Verified 05/15/24 11:09) UNKNOWN Do you need a note to return to daycare/school/sports/work: No HPI HPI Comments History of Present Illness Details This is a 68-year-old female with a past medical history of hypertension and hyperlipidemia as well as cholecystectomy presenting for evaluation of nausea. Patient states that she went out to dinner last Sunday and upon returning home started to vomit. Patient states from Sunday through today she has been dry heaving 2 to 3 times a day without overt vomiting. Patient describes having upper abdominal discomfort and feeling ?queasy?. Patient denies having any fevers, chills, dysuria, urinary frequency, dark or bloody stools. Patient has been eating a minimal amount of food but has been able to drink water comfortably. [facility] Medical History Obesity Macular degeneration Osteopenia Vitamin D deficiency Hypercalcemia Hypercholesterolemia Essential hypertension Type 2 diabetes mellitus with hyperglycemia Surgical History History of cholecystectomy Family History Father Lung cancer Mother No problems noted. Paternal Aunt Breast cancer Social History (Reviewed 03/19/24 @ 10:35 by SALLIE Vázquez Housing: House Alcohol intake: current Alcohol intake frequency: holidays/special occasions only Patient Tobacco Use Status: Current everyday Tobacco user Tobacco use type: Cigarette Cigarette Packs Per Day: 1 e-Cigarette/Vaping Use: Never Used Second Hand Smoke Exposure: Yes service: No Current occupational status: retired Cognitive needs: No Hearing needs: No Vision needs: Yes (reading glasses ) Review of Systems Const All systems reviewed & are unremarkable except as noted in HPI and below Denies chills and Denies fever(s) Eyes Reports no additional complaints ENT Reports no additional complaints Card Reports as per HPI, Denies chest pain and Denies dyspnea Resp Reports as per HPI, Reports no additional complaints, Denies cough and Denies dyspnea GI Reports abdominal pain (upper abdomen), Denies bloating, Denies constipation, Denies GI cramping, Denies early satiety, Denies diarrhea, Reports nausea and Reports vomiting (resolved) Reports no additional complaints Skin/Breast Reports system reviewed and no additional complaints, except as documented Neuro Reports no additional complaints Endo Reports no additional complaints Physical Exam Vital Signs: Last Vital Signs Temp 98.1 F 05/15/24 11:08 Pulse 84 05/15/24 11:08 BP 122/84 05/15/24 11:08 Pulse Ox 98 05/15/24 11:08 Oxygen Delivery Method Room Air 05/15/24 11:08 Const General: cooperative, healthy appearing, comfortable, no acute distress, well developed, alert and awake Nutritional Appearance: overweight Orientation/consciousness: patient oriented x3 Limitations: no limitations Cardio Rate: regular rate Rhythm: regular rhythm GI Inspection: Yes normal to inspection Palpation (GI): Soft to palpation, Tenderness to palpation present (GI) in the epigastrum, no guarding and not rigid Auscultation: normal bowel sounds General: Yes bladder normal to palpation and Yes no CVA tenderness Bimanual exam- vagina & uterus: bladder normal to palpation Back/Spine/Pelvis Back: no CVA tenderness Neuro General: patient oriented x3 Psych Appearance: grossly normal Mental Status: mental status grossly normal Insight: Good insight present (Psych) Judgement: Good judgement present (Psych) Assessment & Plan Assessment & Plan (1) Nausea: Comment: Patient is in no acute distress and is not tachycardic or febrile. Patient will be discharged home with Zofran. Code(s): R11.0 - Nausea Plan: Zofran Q 6-8 hours and advance diet gradually; BRAT diet reviewed with patient and . Patient will follow-up with PCP on Sunday if her symptoms have worsened. Medications: New ondansetron 4 mg PO Q6H PRN 15 tabs 0RF nausea and vomiting Coding Level of Care Code Est Pt Level 3 (24047) Diagnoses Nausea R11.0 Time Spent (min) 20
[2024-05-15 11:08] VITALS: BP 122/84; PULSE 84; TEMP 36.7; O2SAT 98
== END 2024-05-15 11:39 | disposition home or self-care (01) ==
PROVIDERS: PCP Internal Medicine; Visit Provider Physician Assistant
DX: R11.0 Nausea (principal)

== ENCOUNTER → 2024-05-15 11:01 | Outpatient (BNVA) | payer MEDICARE, SELFPAY | PROVIDERS: PCP Internal Medicine; Visit Provider Physician Assistant | DX: R11.0 Nausea (principal) | CPT/HCPCS: 99212 ==

== ENCOUNTER 2024-05-18 16:00 | Emergency (ER) | payer MEDICARE, SELFPAY ==
[2024-05-18 16:16] VITALS: BP 107/37; PULSE 72; RESP 18; TEMP 36.6; O2SAT 95; BMI 45.9
--- NOTE | 2024-05-18 16:18 | ED.NAVMDI ---
HPI - Nausea/Vomiting/Diarrhea General Chief complaint: Nausea/Vomiting/Diarrhea Stated complaint: vomiting, neck/back pain Time Seen by Provider: 05/18/24 17:44 History of Present Illness ED Provider: Elmo Rios MD HPI Narrative: 5-year-old female otherwise healthy history of hypertension, back active tobacco smoker who has had about a week of decreased p.o. intake nausea vomiting some of this had resolved and initially was attributed to food-borne illness after eating fried cauliflower 1 week ago but she started vomiting again today. Generalized malaise. She has a chronic cough unchanged. No hemoptysis Related Data Home Medications ?Medication ?Instructions ?Recorded ?Confirmed cholecalciferol (vitamin D3) 25 25 mcg PO DAILY 07/05/20 03/19/24 mcg (1,000 unit) capsule ibuprofen 200 mg tablet (Advil) 200 mg PO Q6H PRN 07/05/20 03/19/24 Previous Rx's ?Medication ?Instructions ?Recorded hydroxyzine HCl 25 mg tablet 25 mg PO BID PRN itching 10 days 03/05/24 #20 tabs hydrochlorothiazide 25 mg tablet 25 mg PO DAILY 90 days #90 tabs 03/14/24 metoprolol succinate 25 mg 25 mg PO DAILY #90 tabs 03/14/24 tablet,extended release 24 hr irbesartan 300 mg tablet 300 mg PO DAILY #90 tabs 03/19/24 atorvastatin 20 mg tablet 20 mg PO DAILY 30 days #30 tabs 03/28/24 ondansetron 4 mg disintegrating 4 mg PO Q6H PRN nausea and 05/15/24 tablet vomiting #15 tabs magnesium 200 mg tablet 200 mg PO BID 6 days #12 tabs 05/18/24 ondansetron 4 mg disintegrating 4 mg PO Q8H PRN nausea and 05/18/24 tablet vomiting #6 tabs potassium chloride 10 mEq 10 meq PO DAILY 6 days #6 tabs 05/18/24 tablet,extended release Allergies Allergy/AdvReac Type Severity Reaction Status Date / Time amoxicillin [AMOXICILLIN] Allergy Severe RASH Verified 05/18/24 16:18 adhesive tape [ADHESIVE TAPE] Allergy Intermediate RASH Verified 05/18/24 16:18 lisinopril [LISINOPRIL] Allergy Intermediate COUGH Verified 05/18/24 16:18 cephalexin Allergy Mild Rash Verified 05/18/24 16:18 simvastatin [From ZOCOR] Allergy Unknown UNKNOWN Verified 05/18/24 16:18 [facility] Past Medical History Medical History Obesity Macular degeneration Osteopenia Vitamin D deficiency Hypercalcemia Hypercholesterolemia Essential hypertension Type 2 diabetes mellitus with hyperglycemia Surgical History History of cholecystectomy Family History Family History Father Lung cancer Mother No problems noted. Paternal Aunt Breast cancer Social History Social History Housing: House Alcohol intake: current Alcohol intake frequency: a few times a month Patient Tobacco Use Status: Current everyday Tobacco user Tobacco use type: Cigarette Cigarette Packs Per Day: 1 Smoked in Last 30 Days: Yes e-Cigarette/Vaping Use: Never Used Second Hand Smoke Exposure: Yes Use of substances other than those prescribed or required for medical reasons: No Advance Directives: No Advance Directives Information Provided: Yes Do you have a plan to hurt others: No Plan service: No Current occupational status: retired Cognitive needs: No Hearing needs: No Vision needs: Yes (reading glasses ) Physical Exam Vital Signs: Vital Signs: Last Vital Signs Temp 98 F 05/18/24 21:39 Pulse 66 05/18/24 21:39 Resp 18 05/18/24 21:39 BP 104/60 05/18/24 21:39 Pulse Ox 93 05/18/24 21:39 O2 Del Method Room Air 05/18/24 21:39 BMI result Body Mass Index 45.9 Const: Other: EXAM: Gen: Alert, awake, well appearing, well hydrated. Head: Atraumatic Eyes: Anicteric, Normal conjunctiva. ENT: Moist mucosa, no pallor. ? Neck: Supple. Respiratory: Breathing comfortably, No distress.Clear to auscultation bilaterally, symmetric chest expansion, No wheeze, rales, ronchi. Cardiovascular: Regular rate and rhythm. No murmurs or rub. Well perfused periphery, warm extremities. No edema. ? Abdominal: Soft, no objective distension. No palpable masses or obvious organomegaly. No focal tenderness, no guarding, no rebound tenderness or other peritoneal findings. : No flank tenderness. Neuro: Alert. Gross movement of all extremities intact. ? Vital signs: See flowsheet Course Course Course Narrative: This is an RME: Additional HPI, ROS, PE not included below will be deferred to primary provider. RME assessment and note performed by: Annette Land PA-C This is a [id number]-female who presents to the ER with complaints of nausea, vomiting x 1 week. Pt states that she ate at the [employer] restaurant 1 week ago - had cauliflower, salad and chicken, and had nausea, vomiting. Went to urgent care and was prescribed nausea medication which has helped slightly. Plan: Labs, UA, EKG, further ER evaluation needed. Medications Administered Discontinued Medications Generic Name Dose Route Start Last Admin Trade Name Freq PRN Reason Stop Dose Admin Potassium Chloride/Sodium Chloride 20 meq in 1,000 mls @ 500 mls/hr 05/18/24 17:45 05/18/24 21:40 Kcl 20 Meq In 0.9 % Sodium Chl IVCONT Infused .Q2H BLANCA Infusion Magnesium Sulfate 2 gm in 50 mls @ 25 mls/hr 05/18/24 17:44 05/18/24 20:09 Magnesium Sulfate/H2o IV 05/18/24 19:43 Infused ONCE ONE Infusion Ondansetron HCl 4 mg 05/18/24 17:44 05/18/24 18:04 Ondansetron Hcl 4 Mg/2 Ml Vial IVPUSH 05/18/24 17:45 4 mg ONCE ONE Administration Medical Decision Making Medical Decision Making [facility] Narrative: [age] female nausea vomiting intermittently somewhat worsened today. No hypoxia or respiratory distress. Incidentally COVID is positive unclear whether this is the explanation of her GI symptoms over the past week and therefore we do not really know the onset. She would otherwise have qualified for Paxlovid given risk factors and age but I would avoid this given the lack of unclear onset time. She does not have focal lung sounds or respiratory distress to suggest a pneumonia. Incidental electrolyte abnormalities likely secondary to poor p.o. intake. Plan for hydration, electrolyte repletion, reassessment discharge Lab Data [facility] Lab Attestation statement: I reviewed the patient's lab results. 05/18/24 16:38 05/18/24 16:38 Labs: Lab Results 05/18/24 Range/Units 16:38 WBC 9.7 (4.8-10.8) X10*3/uL RBC 4.15 L (4.20-5.50) X10*6/uL Hgb 13.9 (12.0-16.0) g/dl Hct 39.7 (37.0-47.0) % MCV 95.7 (80.0-98.0) fL MCH 33.5 H (27.0-33.0) pg MCHC 35.0 (31.0-35.0) g/dl RDW 12.7 (11.0-16.0) % Plt Count 242 (160-400) X10*3/uL MPV 9.6 (9.4-12.3) fL Immature Gran % (Auto) 0.6 H (0.0-0.4) % Neut % (Auto) 61.5 (45-73) % Lymph % (Auto) 23.3 (20-40) % Dent % (Auto) 10.3 (2-11) % Eos % (Auto) 4.0 (0-4) % Baso % (Auto) 0.3 (0-2) % Lymph # (Auto) 2.3 (1.2-4.9) X10*3/uL Dent # (Auto) 1.0 (0.1-1.2) X10*3/uL Eos # (Auto) 0.4 (0.0-0.4) X10*3/uL Baso # (Auto) 0.0 (0.0-0.2) X10*3/uL Abs Immat Gran (auto) 0.06 H (0.00-0.03) X10*3/uL Absolute Neuts (auto) 6.0 (2.0-8.3) x10*3/uL Absolute Nucleated RBC 0.000 (0.0-0.012) X10*3/uL Nucleated RBC % (auto) 0.0 (0.0-0.2) /100WBC Sodium 131 L (135-145) mmol/L Potassium 3.2 L D (3.3-5.1) mmol/L Chloride 91 L (96-108) mmol/L Carbon Dioxide 27 (22-29) mmol/L Anion Gap 16 (12-20) BUN 8 L (9-16) mg/dL Creatinine 1.85 H (0.5-1.4) mg/dL Estim Creat Clear Calc 40.2 Estimated GFR 27 Random Glucose 140 H (60-115) mg/dL Calcium 9.8 (8.4-10.2) mg/dL Magnesium 1.3 L* (1.6-2.6) mg/dL Total Bilirubin 0.4 (0.0-1.0) mg/dL Direct Bilirubin 0.1 (0.0-0.5) mg/dL AST 39 H (5-31) U/L ALT 37 H (0-31) U/L Alkaline Phosphatase 87 (39-117) U/L Troponin I High Sens 4.1 (<3.5-17.0) ng/L Total Protein 7.2 (6.5-8.0) g/dL Albumin 3.7 (3.5-5.0) g/dL Lipase 13 (8-78) U/L Influenza Type A (PCR) NEGATIVE (Negative) Influenza Type B (PCR) NEGATIVE (Negative) RSV RNA Qual (PCR) NEGATIVE (Negative) SARS-CoV-2 RNA (RT-PCR) POSITIVE A (Negative) Independent Interpretation I performed an independent interpretation of an: EKG Interpretation: QTC within normal limits no ischemic changes Discharge Plan Discharge Clinical Impression: Acute hypokalemia, Hypomagnesemia, Vomiting, COVID-19 Patient Disposition: Home, Self-Care Instructions: Hypokalemia (ED), Hypomagnesemia (ED), COVID-19 (Coronavirus Disease 2019) (ED) Additional Instructions: DISCHARGE DIAGNOSES: COVID-19 unclear time or date of onset could be explaining her symptoms of nausea vomiting HISTORY OF PRESENTATION: ?Nausea vomiting intermittently worsened over the past day. EMERGENCY DEPARTMENT COURSE,TESTS, TREATMENTS: While in the ED today you had lab work drawn which was generally reassuring except for a mild low electrolyte levels including magnesium at 1.3 this should be 1.6-2.6 and potassium at 3.3, this should be 3.3-5.1. These are only slightly low and were repleted in the emergency department. He also had what we described as an acute kidney injury or and increasing your creatinine level and measure of your kidney function. This is likely elevated due to your dehydration. DISCHARGE MEDICATIONS: Nausea medicine, electrolyte repletion FOLLOW-UP: ?Call your primary or general physician soon as possible to discuss your symptoms, your ED visit and to discuss follow up plans Call your primary doctor as you will need to have your electrolytes repeated within 3-5 days INSTRUCTIONS ?& RETURN PRECAUTIONS: If any symptoms change first call your primary physician, if it is after-hours your primary doctors office should have a provider tile mason you can speak with. If the symptoms are severe or very concerning to you then call 911 or return to the ED. Take the medications as prescribed the nausea medicine as needed for nausea Elmo Rios MD Emergency Physician [facility] Prescriptions: New ondansetron 4 mg tablet,disintegrating 4 mg PO Q8H PRN (Reason: nausea and vomiting) Qty: 6 0RF magnesium 200 mg tablet 200 mg PO BID 6 Days Qty: 12 0RF potassium chloride 10 mEq tablet extended release 10 meq PO DAILY 6 Days Qty: 6 0RF No Action metoprolol succinate 25 mg tablet extended release 24 hr 25 mg PO DAILY Qty: 90 3RF hydrochlorothiazide 25 mg tablet 25 mg PO DAILY 90 Days Qty: 90 2RF atorvastatin 20 mg tablet 20 mg PO DAILY 30 Days Qty: 30 4RF cholecalciferol (vitamin D3) 25 mcg (1,000 unit) capsule 25 mcg PO DAILY ibuprofen [Advil] 200 mg tablet 200 mg PO Q6H PRN hydroxyzine HCl 25 mg tablet 25 mg PO BID PRN (Reason: itching) 10 Days Qty: 20 0RF irbesartan 300 mg tablet 300 mg PO DAILY Qty: 90 2RF ondansetron 4 mg tablet,disintegrating 4 mg PO Q6H PRN (Reason: nausea and vomiting) Qty: 15 0RF Interventions: ED Discharge Assessment Last Done: 05/18/24 21:39 Discharge Date/Time: 05/18/24 21:40 Print Language: Cook Islander
--- NOTE | 2024-05-18 16:27 | ECG_ITS ---
Test Reason : WEAKNESS Blood Pressure : / mmHG Vent. Rate : 065 BPM Atrial Rate : 065 BPM P-R Int : 200 ms QRS Dur : 084 ms QT Int : 422 ms P-R-T Axes : 057 001 003 degrees QTc Int : 438 ms Normal sinus rhythm Possible Left atrial enlargement Low voltage QRS Cannot rule out Anteroseptal infarct , age undetermined Abnormal ECG No previous ECGs available Referred By: Annette Land Electronically Signed By:RYAN RAMIREZ MD
[2024-05-18 16:42] LABS: MANUAL DIFF FLAG NO
[2024-05-18 16:43] LABS: Basophils Percent Auto 0.3 % (0-2); Eosinophils Absolute Auto 0.4 X10*3/uL (0.0-0.4); Hematocrit 39.7 % (37.0-47.0); Hemoglobin 13.9 g/dl (12.0-16.0); Imm Gran Abs Auto 0.06 X10*3/uL (0.00-0.03); Imm Gran Pct Auto 0.6 % (0.0-0.4); Lymphocytes Absolute Auto 2.3 X10*3/uL (1.2-4.9); Lymphocytes Percent Auto 23.3 % (20-40); Mean Corpuscular Hemoglobin 33.5 pg (27.0-33.0); Mean Corpuscular Volume 95.7 fL (80.0-98.0); Mean Platelet Volume 9.6 fL (9.4-12.3); Monocytes Percent Auto 10.3 % (2-11); Neutrophils Percent Auto 61.5 % (45-73); Platelet Count 242 X10*3/uL (160-400); Red Blood Count 4.15 X10*6/uL (4.20-5.50); Red Cell Distribution Width 12.7 % (11.0-16.0); White Blood Count 9.7 X10*3/uL (4.8-10.8)
[2024-05-18 17:05] LABS: Troponin-I High Sensitivity 4.1 ng/L (<3.5-17.0)
[2024-05-18 17:15] LABS: Magnesium 1.3 mg/dL (1.6-2.6)
[2024-05-18 17:16] LABS: Alanine Aminotransferase 37 U/L (0-31); Albumin Level 3.7 g/dL (3.5-5.0); Alkaline Phosphatase 87 U/L (39-117); Anion Gap 16 (12-20); Aspartate Amino Transferase 39 U/L (5-31); Bilirubin Direct 0.1 mg/dL (0.0-0.5); Bilirubin Total 0.4 mg/dL (0.0-1.0); Blood Urea Nitrogen 8 mg/dL (9-16); Calcium 9.8 mg/dL (8.4-10.2); Carbon Dioxide 27 mmol/L (22-29); Chloride 91 mmol/L (96-108); Creatinine Clr Calc Pharmacy 40.2; Estimated Glomerular Filt Rate 27; Glucose Random 140 mg/dL (60-115); Lipase 13 U/L (8-78); Potassium 3.2 mmol/L (3.3-5.1); Sodium 131 mmol/L (135-145); Total Protein 7.2 g/dL (6.5-8.0)
[2024-05-18 17:24] LABS: Influenza A PCR NEGATIVE (Negative); Influenza B PCR NEGATIVE (Negative); Resp Syncy Virus RNA Qual PCR NEGATIVE (Negative); SARS COV2 PCR INHOUSE POSITIVE (Negative)
[2024-05-18] MEDS: Magnesium Sulfate/H2O 2 GM/50 ML PIGGYBACK IV (18:03)
[2024-05-18] MEDS: ondansetron HCL 4 MG/2 ML VIAL IVPUSH (18:04)
[2024-05-18 18:24] VITALS: BP 104/60; PULSE 66; RESP 18; TEMP 36.6; O2SAT 93
--- NOTE | 2024-05-18 19:15 | PC.NURSE ---
Assumed care of pt.
[2024-05-18] MEDS: KCl 20 mEq in 0.9 % Sodium ChL 20 MEQ/1,000 ML IV.SOLN 500 MEQ IVCONT (19:20)
[2024-05-18 21:39] VITALS: BP 104/60; PULSE 66; RESP 18; TEMP 36.6; O2SAT 93
== END 2024-05-18 21:40 | disposition home or self-care (01) ==
PROVIDERS: Physician Assistant Medical; Emergency Provider Emergency Medicine; PCP Internal Medicine
DX: U07.1 COVID-19 (principal); R11.2 Nausea with vomiting, unspecified; M54.2 Cervicalgia; R51.9 Headache, unspecified; R94.31 Abnormal electrocardiogram [ECG] [EKG]; F17.210 Nicotine dependence, cigarettes, uncomplicated; R05.9 Cough, unspecified; E87.6 Hypokalemia; E83.42 Hypomagnesemia; Z79.899 Other long term (current) drug therapy
CPT/HCPCS: 0241U; 36415; 80048; 80076; 83690; 83735; 84484; 85025; 93005; 99284; 99285; J2405; J3475; J3480

== ENCOUNTER → 2024-05-18 16:27 | Outpatient (BNV) | payer MEDICARE, SELFPAY | PROVIDERS: Emergency Provider Emergency Medicine; PCP Internal Medicine; Visit Provider Internal Medicine Cardiovascular Disease | DX: R94.31 Abnormal electrocardiogram [ECG] [EKG] (principal) | CPT/HCPCS: 93010 ==

== ENCOUNTER 2024-05-23 10:42 | Emergency (ER) | payer MEDICARE, SELFPAY ==
--- NOTE | ~2024-05-23 | CT_ITS ---
EXAMINATION: CT ABDOMEN AND PELVIS WITH CONTRAST CLINICAL INFORMATION: Abdominal pain for 2 weeks. Nausea and vomiting. COMPARISON: None available. TECHNIQUE: Multidetector volumetric images were obtained from the superior aspect of the liver through the pubic symphysis following administration 85 mL of Omnipaque 350 intravenous contrast without reported immediate complications. Sagittal and coronal reformatted images were obtained on the technologist's workstation. Oral contrast: No This CT examination was performed using dose optimization techniques as appropriate, variously including the following: *Automated exposure control *Adjustment of mA and/or kV according to patient size (this includes techniques or standardized protocols for targeted exams where dose is matched to indication/reason for exam; i.e. extremities or head) *Use of iterative reconstruction technique DLP: 1161 mGy-cm FINDINGS: LUNG BASES: No acute airspace disease or gross pulmonary nodules in the included lungs. Calcified plaques in the mitral valve. LIVER, GALLBLADDER, AND BILIARY TREE: Liver measures 20 cm. Focal hypodensity near the falciform ligament. Main portal vein, hepatic veins and intrahepatic portion of the IVC are patent. No intrahepatic biliary ductal dilatation. Status post cholecystectomy likely laparoscopic. Common bile duct measures 4 mm. PANCREAS: No focal mass. No peripancreatic fluid collections. No main pancreatic ductal dilatation. SPLEEN: Measures 9 cm without focal mass. ADRENAL GLANDS: Right adrenal gland: 3.5 cm mixed density and partially calcified low density nodule with the 30 Hounsfield units. Left adrenal gland: No nodular lesion in the left adrenal gland. KIDNEYS AND URETERS: No hydronephrosis. No gross renal mass. BLADDER: Fluid-filled. GASTROINTESTINAL TRACT: Abundant stool, right hemicolon. Gas and fluid-filled prominent proximal small bowel loops. No intestinal obstruction pattern. Collapsed appearance of the left hemicolon. Appendix is normal. Terminal ileum is normal. Multiple scattered diverticula in the sigmoid colon. No pericolonic edema pattern or fluid collections. No fluid collections in the peritoneal cavity. No ascites. No pneumoperitoneum. ABDOMINAL WALL: Fat and fluid-filled umbilical hernia, small to moderate size. LYMPH NODES: Nonspecific prominent lymph nodes, mesenteric and retroperitoneal. VASCULAR: Calcified plaques, irregularly-shaped throughout the abdominal aorta wall and the origin of the mesenteric arteries and main renal arteries as well as the iliac arteries. No aneurysm or dissection, abdominal aorta. PELVIC VISCERA: 4.7 cm cystic lesion, left adnexa. OSSEOUS STRUCTURES: Multilevel spondylosis more conspicuous at T10-11, L4-5 and L5-S1. Grade 1 anterolisthesis L4-5 on a degenerative basis resulting in central spinal canal and bilateral neuroforamina stenosis likely compressing the neural elements. Grade 1 retrolisthesis L5-S1 resulting in bilateral neuroforamina stenosis. CT/CT abdomen pelvis w IV con IMPRESSION: Fat and fluid-filled umbilical hernia, small to moderate size. Diverticular disease, sigmoid colon. 4.7 cm cystic lesion, left adnexa. 3.5 cm lesion/mass, right adrenal gland. No clear diagnosis. Grade 1 anterolisthesis L4-5 resulting in central spinal canal and neuroforamina stenosis. Atherosclerosis disease. Calcified mitral valve. Hepatomegaly. Fleischner guidelines were followed. Electronically signed by: Vineet Corona MD 05/23/2024 02:35 PM [facility]
[2024-05-23 11:08] VITALS: BP 115/51; PULSE 68; RESP 18; TEMP 36.3; O2SAT 94; BMI 46.6
--- NOTE | 2024-05-23 11:34 | ED_ITS ---
HPI - Nausea/Vomiting/Diarrhea General Chief complaint: Nausea/Vomiting/Diarrhea Stated complaint: n/v/d Time Seen by Provider: 05/23/24 11:34 Source: patient and old records reviewed Mode of arrival: ambulatory Limitations: no limitations History of Present Illness ED Provider: JORDANA ROBERSON Narrative: 68 yo female with PMH of HLD, HTN, DM2, lymphedema just seen on 05/18 for n/v and found to have hypokalemia of 3.2 and mag of 1.3 she was discharged home but today returns with dx of COVID as of Sunday, sick since eating chicken salad 2 weeks ago at 99. Has not had severe or bloody diarrhea. No fevers. She notes she just feels exhausted and tired with dull achy upper abdominal pain she did have gallbladder removal in the past. no CP/SOB, normal stool today. She tried to eat an maltese muffin and egg salad today and then vomited it up. MD elicited complaint: nausea, vomiting and abdominal pain Pertinent past history: other Onset (ago): week(s) (2) Description of vomiting: food contents and watery Description of diarrhea: other (normal today prior diarrhea not bloody more loose and no more than 5 a day) Associated nausea: Yes Associated abdominal pain: Yes Location of pain: epigastric Radiation: does not radiate Pain consistency: intermittent Severity: moderate Quality: aching Exacerbating factors: eating Relieving factors: none Context: possible food poisoning Associated symptoms: loss of appetite, malaise, nausea/vomiting and other (feels her BP is lower than usual) Related Data Home Medications ?Medication ?Instructions ?Recorded ?Confirmed cholecalciferol (vitamin D3) 25 25 mcg PO DAILY 07/05/20 03/19/24 mcg (1,000 unit) capsule ibuprofen 200 mg tablet (Advil) 200 mg PO Q6H PRN 07/05/20 03/19/24 Previous Rx's ?Medication ?Instructions ?Recorded hydroxyzine HCl 25 mg tablet 25 mg PO BID PRN itching 10 days 03/05/24 #20 tabs hydrochlorothiazide 25 mg tablet 25 mg PO DAILY 90 days #90 tabs 03/14/24 metoprolol succinate 25 mg 25 mg PO DAILY #90 tabs 03/14/24 tablet,extended release 24 hr irbesartan 300 mg tablet 300 mg PO DAILY #90 tabs 03/19/24 atorvastatin 20 mg tablet 20 mg PO DAILY 30 days #30 tabs 03/28/24 ondansetron 4 mg disintegrating 4 mg PO Q6H PRN nausea and 05/15/24 tablet vomiting #15 tabs magnesium 200 mg tablet 200 mg PO BID 6 days #12 tabs 05/18/24 ondansetron 4 mg disintegrating 4 mg PO Q8H PRN nausea and 05/18/24 tablet vomiting #6 tabs potassium chloride 10 mEq 10 meq PO DAILY 6 days #6 tabs 05/18/24 tablet,extended release Allergies Allergy/AdvReac Type Severity Reaction Status Date / Time amoxicillin [AMOXICILLIN] Allergy Severe RASH Verified 05/23/24 11:09 adhesive tape [ADHESIVE TAPE] Allergy Intermediate RASH Verified 05/23/24 11:09 lisinopril [LISINOPRIL] Allergy Intermediate COUGH Verified 05/23/24 11:09 cephalexin Allergy Mild Rash Verified 05/23/24 11:09 simvastatin [From ZOCOR] Allergy Unknown UNKNOWN Verified 05/23/24 11:09 Review of Systems 2 Review of Systems: Constitutional : No Weight loss, No Fever, No Chills, pos fatigue ENT/Mouth : No sore throat, No Rhinorrhea Eyes: No Swelling, No Redness Cardiovascular : No Chest Pain, No SOB, NoEdema Respiratory : No Cough, No Sputum, No Wheezing Gastrointestinal : Positive Nausea, Positive Vomiting, no Diarrhea, positive abdominal Pain, No Hematochezia, No Melena Genitourinary : No Dysuria, No Urinary Frequency, No Hematuria, No Urgency Musculoskeletal : No joint pain, pos Myalgias, No Joint Swelling Skin : No Skin Lesions, No rash Neuro : No Weakness, No Numbness, No Dizziness, No Headache Psych : No Anxiety/Panic, No Depression Heme/Lymph: No Bruising, No Lymphadenopathy Endocrine : No Polyuria, No Polydipsia All other systems reviewed and are negative. Gastrointestinal: Gastrointestinal: Reports nausea PMFSH Past Medical History Attestation statement: The following information was validated with the patient. Source: old records reviewed Medical History Obesity Macular degeneration Osteopenia Vitamin D deficiency Hypercalcemia Hypercholesterolemia Essential hypertension Type 2 diabetes mellitus with hyperglycemia Surgical History History of cholecystectomy Family History Family History Father Lung cancer Mother No problems noted. Paternal Aunt Breast cancer Social History Social History Housing: House Alcohol intake: current Alcohol intake frequency: a few times a week Patient Tobacco Use Status: Current everyday Tobacco user Tobacco use type: Cigarette Cigarette Packs Per Day: 1 Smoked in Last 30 Days: Yes e-Cigarette/Vaping Use: Never Used Second Hand Smoke Exposure: Yes Use of substances other than those prescribed or required for medical reasons: No Advance Directives: No Advance Directives Information Provided: Yes Do you have a plan to hurt others: No Plan service: No Current occupational status: retired Cognitive needs: No Hearing needs: No Vision needs: Yes (reading glasses ) Physical Exam 2 Vital Signs: Vital Signs: Last Vital Signs Temp 97.4 F 05/23/24 15:50 Pulse 61 05/23/24 15:50 Resp 16 05/23/24 15:50 BP 100/57 L 05/23/24 15:50 Pulse Ox 93 05/23/24 15:50 O2 Del Method Room Air 05/23/24 15:50 BMI result Body Mass Index 46.6 Appearance: Alert. Oriented X3. No acute distress. Eyes: Pupils equal, round and reactive to light. ENT: Pharynx normal. Neck: Normal inspection. Neck supple. CVS: Normal heart rate and rhythm. Pulses normal. Respiratory: No respiratory distress. Breath sounds normal. Abdomen: Soft and mild epigastric ttp no rebound or guarding Skin: Skin warm and dry. Normal skin color. Normal skin turgor. Extremities: symmetric pitting bilateral lymphedema. No calf ttp Neuro: Oriented X 3. No motor deficit. No sensory deficit. Course Course Course Narrative: feeilng better attempting PO challenge on CT scan mention of UH but she has no mas or pain to palpation Reevaluation(s) Reevaluation #1: likely contaminated UA no urinary symptoms Reevaluation #2: Cr improved, mild hyponatremia - plan to hold HCTZ and while less PO intake monitor BP at home feels well and states she is ready go home ate and drank here no issues Reevaluation #3: repeat BP Map > 65 after IV fluids anticipate DC home - Dr. Quintanilla to evalute BP Medications Administered Generic Name Dose Route Start Last Admin Trade Name Freq PRN Reason Stop Dose Admin Sodium Chloride 1,000 mls @ 999 mls/hr 05/23/24 15:57 05/23/24 16:06 Ns IV 05/23/24 16:57 999 mls/hr .Q1H1M ONE Administration Discontinued Medications Generic Name Dose Route Start Last Admin Trade Name Freq PRN Reason Stop Dose Admin Magnesium Sulfate 2 gm in 50 mls @ 25 mls/hr 05/23/24 11:36 05/23/24 14:23 Magnesium Sulfate/H2o IV 05/23/24 13:35 Infused ONCE ONE Infusion Sodium Chloride 500 mls @ 500 mls/hr 05/23/24 12:41 05/23/24 14:01 Ns IV 05/23/24 13:40 Infused .Q1H ONE Infusion Iohexol 85 ml 05/23/24 13:57 05/23/24 13:58 Iohexol 350 Mg/Ml 100 Ml Infus..Btl IV 05/23/24 13:58 85 ml ONCE ONE Administration Medical Decision Making Medical Decision Making MDM Narrative: 68 yo female with PMH of HLD, HTN, DM2, recent COVID Sunday dx she is vaccinated x 3 - has no URI symptoms, CP/SOB. Notes 2 weeks of n/v and loose stools but mild after eating at [employer] restaurant just seen here and found to have low K and magnesium - at this time will obtain basic labs start on magnesium, CT scan given the 2 weeks duration, stool studies if she has BM Differential Diagnosis Differential Diagnoses: The differential diagnosis associated with the presentation includes gastritis, pancreatitis, mass, enteritis, COVID related, lyte abnormality Admission/Observation Consideration of admission/observation: Escalation of care including admission/observation considered Lab Data [facility] Lab Attestation statement: I reviewed the patient's lab results. 05/23/24 12:00 05/23/24 12:33 Labs: Lab Results 05/23/24 05/23/24 05/23/24 Range/Units 12:00 12:32 12:33 WBC 6.7 (4.8-10.8) X10*3/uL RBC 4.29 (4.20-5.50) X10*6/uL Hgb 14.1 (12.0-16.0) g/dl Hct 41.4 (37.0-47.0) % MCV 96.5 (80.0-98.0) fL MCH 32.9 (27.0-33.0) pg MCHC 34.1 (31.0-35.0) g/dl RDW 12.9 (11.0-16.0) % Plt Count 206 (160-400) X10*3/uL MPV Not Reportable Immature Gran % (Auto) 0.4 (0.0-0.4) % Neut % (Auto) 57.8 (45-73) % Lymph % (Auto) 26.1 (20-40) % [place] % (Auto) 10.3 (2-11) % Eos % (Auto) 4.8 H (0-4) % Baso % (Auto) 0.6 (0-2) % Lymph # (Auto) 1.8 (1.2-4.9) X10*3/uL [place] # (Auto) 0.7 (0.1-1.2) X10*3/uL Eos # (Auto) 0.3 (0.0-0.4) X10*3/uL Baso # (Auto) 0.0 (0.0-0.2) X10*3/uL Abs Immat Gran (auto) 0.03 (0.00-0.03) X10*3/uL Absolute Neuts (auto) 3.9 (2.0-8.3) x10*3/uL Absolute Nucleated RBC 0.000 (0.0-0.012) X10*3/uL Nucleated RBC % (auto) 0.0 (0.0-0.2) /100WBC Smear Tech's Comments VERIFIED Hold Purple Top SEE NOTE Sodium 131 L (135-145) mmol/L Potassium 4.0 D (3.3-5.1) mmol/L Chloride 93 L (96-108) mmol/L Carbon Dioxide 29 (22-29) mmol/L Anion Gap 13 (12-20) BUN 6 L (9-16) mg/dL Creatinine 1.16 (0.5-1.4) mg/dL Estim Creat Clear Calc 64.8 Estimated GFR 46 Random Glucose 148 H (60-115) mg/dL Calcium 9.5 (8.4-10.2) mg/dL Magnesium 1.6 (1.6-2.6) mg/dL Total Bilirubin 0.4 (0.0-1.0) mg/dL AST 41 H (5-31) U/L ALT 43 H (0-31) U/L Alkaline Phosphatase 81 (39-117) U/L Troponin I High Sens < 2.7 (<3.5-17.0) ng/L Total Protein 6.7 (6.5-8.0) g/dL Albumin 3.4 L (3.5-5.0) g/dL Lipase 17 (8-78) U/L Urine Color Urine Appearance Urine pH (5.0-9.0) Ur Specific [place] (1.005-1.025) Urine Protein (Neg-Trace) mg/dL Urine Glucose (UA) (Negative) mg/dL Urine Ketones (Negative) mg/dL Urine Blood (Negative) Urine Nitrite (Negative) Ur Leukocyte Esterase (Negative) Urine RBC (0-2) /HPF Urine WBC (0-5) /HPF Ur Squamous Epith Cells (0-2) /HPF Urine Bacteria (None Seen) Hyaline Casts (0-2) /LPF 05/23/24 Range/Units 14:16 WBC (4.8-10.8) X10*3/uL RBC (4.20-5.50) X10*6/uL Hgb (12.0-16.0) g/dl Hct (37.0-47.0) % MCV (80.0-98.0) fL MCH (27.0-33.0) pg MCHC (31.0-35.0) g/dl RDW (11.0-16.0) % Plt Count (160-400) X10*3/uL MPV Immature Gran % (Auto) (0.0-0.4) % Neut % (Auto) (45-73) % Lymph % (Auto) (20-40) % [place] % (Auto) (2-11) % Eos % (Auto) (0-4) % Baso % (Auto) (0-2) % Lymph # (Auto) (1.2-4.9) X10*3/uL [place] # (Auto) (0.1-1.2) X10*3/uL Eos # (Auto) (0.0-0.4) X10*3/uL Baso # (Auto) (0.0-0.2) X10*3/uL Abs Immat Gran (auto) (0.00-0.03) X10*3/uL Absolute Neuts (auto) (2.0-8.3) x10*3/uL Absolute Nucleated RBC (0.0-0.012) X10*3/uL Nucleated RBC % (auto) (0.0-0.2) /100WBC Smear Tech's Comments Hold Purple Top Sodium (135-145) mmol/L Potassium (3.3-5.1) mmol/L Chloride (96-108) mmol/L Carbon Dioxide (22-29) mmol/L Anion Gap (12-20) BUN (9-16) mg/dL Creatinine (0.5-1.4) mg/dL Estim Creat Clear Calc Estimated GFR Random Glucose (60-115) mg/dL Calcium (8.4-10.2) mg/dL Magnesium (1.6-2.6) mg/dL Total Bilirubin (0.0-1.0) mg/dL AST (5-31) U/L ALT (0-31) U/L Alkaline Phosphatase (39-117) U/L Troponin I High Sens (<3.5-17.0) ng/L Total Protein (6.5-8.0) g/dL Albumin (3.5-5.0) g/dL Lipase (8-78) U/L Urine Color Yellow Urine Appearance Clear Urine pH 6.0 (5.0-9.0) Ur Specific [place] 1.010 (1.005-1.025) Urine Protein Negative (Neg-Trace) mg/dL Urine Glucose (UA) Negative (Negative) mg/dL Urine Ketones Negative (Negative) mg/dL Urine Blood Negative (Negative) Urine Nitrite Negative (Negative) Ur Leukocyte Esterase Small (1+) H (Negative) Urine RBC 0-2 (0-2) /HPF Urine WBC 11-20 H (0-5) /HPF Ur Squamous Epith Cells 3-5 (0-2) /HPF Urine Bacteria 2+ (None Seen) Hyaline Casts 0-2 (0-2) /LPF Independent Interpretation I performed an independent interpretation of an: EKG and CT Scan Interpretation: Rate: 60 Rhythm: NSR [place]: normal Normal P waves. Normal LORAINE. Normal QRS complex. ST T wave : no MARISA qTC: 468 prior studies: no acute ischemia The study has been interpreted contemporaneously by me. . Radiology Impression Discussion of test interpretation with radiology: I have reviewed the radiologist's reading. External Record Review External record reviewed: Outpatient record and Prior outpatient labs Discharge Plan Discharge Clinical Impression: Acute dehydration Nausea & vomiting Qualifiers: Vomiting type: unspecified Qualified Code(s): R11.2 - Nausea with vomiting, unspecified Patient Disposition: Home, Self-Care Instructions: Dehydration (ED), Acute Nausea and Vomiting (ED) Additional Instructions: stop taking the hydrochlorothiazide (HCTZ) for the next 5 days cut irbesartan in half for 2 days so 150mg daily DO NOT TAKE ANY BLOOD PRESSURE MEDICATIONS IF THE BLOOD PRESSURE IS BELOW 100 monitor your blood pressure closely please stay hydrated drink half powerade and half water but no more than 60 ounces of fluid a day given magnesium in the ER. repeat K 4.0, magnesium 1.6 please ask your doctor to repeat BMP next Sunday you need to return to the ED for worsening symptoms, bloody stools, pain in abdomen, fevers, chest pain / trouble breathing, dizziness, fainting, top number of blood pressure less than 90 incidental findings not related to today seen on CT scan L ovarian cyst - this needs outpatient US or MRI call PCP Sunday R adrenal gland with a mass - this will need outpatient adrenal protocol likely MRI PLEASE CALL YOUR DOCTOR NEXT WEEK TO SCHEDULE THESE CT/CT abdomen pelvis w IV con IMPRESSION: Fat and fluid-filled umbilical hernia, small to moderate size - NO OBSTRUCTION NOTED. Diverticular disease, sigmoid colon. NO INFECTION 4.7 cm cystic lesion, left adnexa. NEEDS OUTPATIENT MRI 3.5 cm lesion/mass, right adrenal gland. No clear diagnosis. NEEDS OUTPATIENT MRI Grade 1 anterolisthesis L4-5 resulting in central spinal canal and neuroforamina stenosis. Atherosclerosis disease. INCIDENTAL FINDING Calcified mitral valve. INCIDENTAL FINDING Hepatomegaly. MEANS ENLARGED LIVER YOUR DOCTOR CAN MONITOR THIS Prescriptions: No Action metoprolol succinate 25 mg tablet extended release 24 hr 25 mg PO DAILY Qty: 90 3RF hydrochlorothiazide 25 mg tablet 25 mg PO DAILY 90 Days Qty: 90 2RF atorvastatin 20 mg tablet 20 mg PO DAILY 30 Days Qty: 30 4RF ondansetron 4 mg tablet,disintegrating 4 mg PO Q8H PRN (Reason: nausea and vomiting) Qty: 6 0RF magnesium 200 mg tablet 200 mg PO BID 6 Days Qty: 12 0RF potassium chloride 10 mEq tablet extended release 10 meq PO DAILY 6 Days Qty: 6 0RF cholecalciferol (vitamin D3) 25 mcg (1,000 unit) capsule 25 mcg PO DAILY ibuprofen [Advil] 200 mg tablet 200 mg PO Q6H PRN hydroxyzine HCl 25 mg tablet 25 mg PO BID PRN (Reason: itching) 10 Days Qty: 20 0RF irbesartan 300 mg tablet 300 mg PO DAILY Qty: 90 2RF ondansetron 4 mg tablet,disintegrating 4 mg PO Q6H PRN (Reason: nausea and vomiting) Qty: 15 0RF Print Language: Pashto
--- NOTE | 2024-05-23 11:37 | ECG_ITS ---
Test Reason : LYTE ABNORMALITIES Blood Pressure : / mmHG Vent. Rate : 060 BPM Atrial Rate : 060 BPM P-R Int : 180 ms QRS Dur : 098 ms QT Int : 468 ms P-R-T Axes : 067 020 026 degrees QTc Int : 468 ms Normal sinus rhythm Low voltage QRS Borderline ECG When compared with ECG of 18-MAY-2024 16:25, Minimal criteria for Anteroseptal infarct are no longer Present ST no longer depressed in Anterior leads T wave inversion no longer evident in Anterior leads Referred By: Vale Womack Electronically Signed By:RYAN RAMIREZ MD
[2024-05-23] MEDS: Magnesium Sulfate/H2O 2 GM/50 ML PIGGYBACK IV (12:12)
--- NOTE | 2024-05-23 12:19 | PC.NURSE ---
medication administered per provider order. effectiveness pending. pt aware UA is needed - will obtain when able.
[2024-05-23 12:27] LABS: Basophils Percent Auto 0.6 % (0-2); Eosinophils Absolute Auto 0.3 X10*3/uL (0.0-0.4); Eosinophils Percent Auto 4.8 % (0-4); Hematocrit 41.4 % (37.0-47.0); Hemoglobin 14.1 g/dl (12.0-16.0); Imm Gran Abs Auto 0.03 X10*3/uL (0.00-0.03); Imm Gran Pct Auto 0.4 % (0.0-0.4); Lymphocytes Absolute Auto 1.8 X10*3/uL (1.2-4.9); Lymphocytes Percent Auto 26.1 % (20-40); MANUAL DIFF FLAG SCAN; Mean Corpuscular HGB Conc 34.1 g/dl (31.0-35.0); Mean Corpuscular Hemoglobin 32.9 pg (27.0-33.0); Mean Corpuscular Volume 96.5 fL (80.0-98.0); Monocytes Absolute Auto 0.7 X10*3/uL (0.1-1.2); Monocytes Percent Auto 10.3 % (2-11); Neutrophils Absolute Auto 3.9 x10*3/uL (2.0-8.3); Neutrophils Percent Auto 57.8 % (45-73); PLT CLUMP 1; Red Blood Count 4.29 X10*6/uL (4.20-5.50); Red Cell Distribution Width 12.9 % (11.0-16.0); SCAN SMEAR FLAG 1
[2024-05-23 12:30] LABS: Troponin-I High Sensitivity < 2.7 ng/L (<3.5-17.0)
[2024-05-23 12:36] LABS: Platelet Count 206 X10*3/uL (160-400); White Blood Count 6.7 X10*3/uL (4.8-10.8)
[2024-05-23 12:37] LABS: SLIDE REVIEW VERIFIED
[2024-05-23 12:59] LABS: Alanine Aminotransferase 43 U/L (0-31); Albumin Level 3.4 g/dL (3.5-5.0); Alkaline Phosphatase 81 U/L (39-117); Anion Gap 13 (12-20); Aspartate Amino Transferase 41 U/L (5-31); Bilirubin Total 0.4 mg/dL (0.0-1.0); Blood Urea Nitrogen 6 mg/dL (9-16); Calcium 9.5 mg/dL (8.4-10.2); Carbon Dioxide 29 mmol/L (22-29); Chloride 93 mmol/L (96-108); Creatinine Clr Calc Pharmacy 64.8; Estimated Glomerular Filt Rate 46; Glucose Random 148 mg/dL (60-115); Lipase 17 U/L (8-78); Magnesium 1.6 mg/dL (1.6-2.6); Sodium 131 mmol/L (135-145); Total Protein 6.7 g/dL (6.5-8.0)
[2024-05-23] MEDS: 0.9 % Sodium Chloride 500 ML IV (12:59)
[2024-05-23] MEDS: iohexoL 350 MG/ML 100 ML INFUS..BTL 85 ML IV (13:58)
--- NOTE | 2024-05-23 14:01 | PC.NURSE ---
pt to CT at this time.
[2024-05-23 14:16] VITALS: BP 142/60; PULSE 70; RESP 16; TEMP 36.3; O2SAT 93
--- NOTE | 2024-05-23 14:22 | PC.NURSE ---
pt ambulates to the restroom w/ a strong steady gait. UA obtained/sent to lab.
[2024-05-23 14:26] LABS: Appearance Urine Clear; Color Urine Yellow; Glucose Urine UA Negative (Negative); Leukocyte Esterase Urine Small (1+) (Negative); Nitrite Urine Negative (Negative); UMIC TRIGGER UACC YES; Urine Blood Negative (Negative); Urine Ketones Negative (Negative); Urine Protein Negative (Neg-Trace)
[2024-05-23 14:30] LABS: Bacteria Urine 2+ (None Seen); Hyaline Casts Urine 0-2 /LPF (0-2); RBC Urine 0-2 /HPF (0-2); UACC Culture Trigger YES
[2024-05-23 15:50] VITALS: BP 100/57; PULSE 61; RESP 16; TEMP 36.3; O2SAT 93
[2024-05-23] MEDS: 0.9 % Sodium Chloride 1,000 ML 999 ML IV (16:06)
[2024-05-23 17:12] VITALS: BP 118/60; PULSE 62; RESP 18; O2SAT 94
[2024-05-23 18:07] VITALS: BP 111/51; PULSE 63; RESP 18; TEMP 36.9; O2SAT 94
== END 2024-05-23 18:15 | disposition home or self-care (01) ==
PROVIDERS: Emergency Medicine; Physician Assistant; Emergency Provider Emergency Medicine; PCP Internal Medicine
DX: E86.0 Dehydration (principal); R11.2 Nausea with vomiting, unspecified; E11.9 Type 2 diabetes mellitus without complications; I10 Essential (primary) hypertension; E78.00 Pure hypercholesterolemia, unspecified; F17.210 Nicotine dependence, cigarettes, uncomplicated; Z79.02 Long term (current) use of antithrombotics/antiplatelets; Z79.899 Other long term (current) drug therapy
CPT/HCPCS: 36415; 74177; 80053; 81001; 83690; 83735; 84484; 85025; 87086; 87088; 87186; 93005; 96361; 96365; 96366; 99284; 99285; J3475; Q9967

== ENCOUNTER → 2024-05-23 11:37 | Outpatient (BNV) | payer MEDICARE, SELFPAY | PROVIDERS: Emergency Provider Emergency Medicine; PCP Internal Medicine; Visit Provider Internal Medicine Cardiovascular Disease | DX: E87.8 Other disorders of electrolyte and fluid balance, not elsewhere classified (principal) | CPT/HCPCS: 93010 ==

== ENCOUNTER → 2024-05-23 11:47 | Outpatient (BNV) | payer MEDICARE, SELFPAY | PROVIDERS: Emergency Provider Emergency Medicine; PCP Internal Medicine; Visit Provider Radiology Diagnostic Radiology | DX: R10.9 Unspecified abdominal pain (principal); R11.2 Nausea with vomiting, unspecified | CPT/HCPCS: 74177 ==

== ENCOUNTER 2024-05-26 11:03 | Outpatient (REF) | payer MEDICARE, SELFPAY ==
[2024-05-26 11:53] LABS: Alanine Aminotransferase 29 U/L (0-31); Albumin Level 3.5 g/dL (3.5-5.0); Alkaline Phosphatase 77 U/L (39-117); Anion Gap 12 (12-20); Aspartate Amino Transferase 44 U/L (5-31); Bilirubin Total 0.4 mg/dL (0.0-1.0); Blood Urea Nitrogen 5 mg/dL (9-16); Calcium 9.4 mg/dL (8.4-10.2); Carbon Dioxide 29 mmol/L (22-29); Chloride 99 mmol/L (96-108); Estimated Glomerular Filt Rate 54; Glucose Random 152 mg/dL (60-115); Magnesium 1.5 mg/dL (1.6-2.6); Potassium 3.6 mmol/L (3.3-5.1); Sodium 136 mmol/L (135-145); Total Protein 6.9 g/dL (6.5-8.0)
== END 2024-05-26 11:04 | disposition home or self-care (01) ==
LOC: HO.LAB 11:03
PROVIDERS: PCP Internal Medicine; Visit Provider Internal Medicine
DX: E86.0 Dehydration (principal)
CPT/HCPCS: 36415; 80053; 83735

== ENCOUNTER 2024-05-27 08:49 | Outpatient (AMB) | payer MEDICARE, SELFPAY ==
[2024-05-27 08:51] VITALS: BP 142/82; PULSE 65; O2SAT 95; BMI 46.5
--- NOTE | 2024-05-27 08:51 | MHC.PC.OV ---
Vital Signs 05/27/24 08:51 05/27/24 09:09 Height 5 ft 7 in Weight 297 lb BMI 46.5 BP 142/82 H 130/70 Blood Pressure Location Lt brachial Lt brachial Position Sitting Sitting Pulse 65 Pulse Source Pulse Oximeter Pulse Oximetry (%) 95 Oxygen Delivery Method Room Air [place] [facility] [place] Required: No Accompanied by: Self / Same As Patient Allergies amoxicillin [AMOXICILLIN] Allergy (Severe, Verified 05/27/24 08:51) RASH adhesive tape [ADHESIVE TAPE] Allergy (Intermediate, Verified 05/27/24 08:51) RASH lisinopril [LISINOPRIL] Allergy (Intermediate, Verified 05/27/24 08:51) COUGH cephalexin Allergy (Mild, Verified 05/27/24 08:51) Rash simvastatin [From ZOCOR] Allergy (Unknown, Verified 05/27/24 08:51) UNKNOWN Tobacco use date assessed: 07/20/23 Fall risk assessment: No Falls in past year Last assessed Fall Risk: 05/27/24 Dental Screening Dental Screen Date: 01/21/24 [facility] 05/23 HPI Details 68-year-old morbidly obese female smoker with diabetes mellitus hypertension hypercholesterolemia coming in for hospital follow-up last seen in 04/04/2024 for left foot infection. Patient's colonoscopy is up-to-date 2024 years mammogram is due. Noted ER visit 06/04/2024 nausea and vomiting worsening renal function found to be hypokalemic and hypomagnesemic. Diagnosis of dehydration and advised to hold blood pressure medications. Few days before that was in the ER also May 18 for nausea vomiting and diarrhea diagnosis of COVID-19 infection. PAtients BP remains to be elevated [facility] Medical History Obesity Macular degeneration Osteopenia Vitamin D deficiency Hypercalcemia Hypercholesterolemia Essential hypertension Type 2 diabetes mellitus with hyperglycemia Surgical History History of cholecystectomy Family History Father Lung cancer Mother No problems noted. Paternal Aunt Breast cancer Social History Housing: House Alcohol intake: current Alcohol intake frequency: a few times a week Patient Tobacco Use Status: Current everyday Tobacco user Tobacco use type: Cigarette Cigarette Packs Per Day: 1 e-Cigarette/Vaping Use: Never Used Second Hand Smoke Exposure: Yes service: No Current occupational status: retired Cognitive needs: No Hearing needs: No Vision needs: Yes (reading glasses ) Questionnaire Thrive Questionnaire Date Thrive assessed: 01/21/24 HOLLY-7 AMB Questionnaire HOLLY-7 Date HOLLY - 7 assessed: 07/20/23 Source: Developed by Drs. Taco Rios, Leelee Walter, Davidson Sinclair and colleagues, with an educational stephon from [employer]. Physical exam (Primary Care) Vital Signs: Last Vital Signs Pulse 65 05/27/24 08:51 BP 142/82 H 05/27/24 08:51 Pulse Ox 95 05/27/24 08:51 Oxygen Delivery Method Room Air 05/27/24 08:51 BMI result Body Mass Index 46.5 Tobacco/Smoking Status: Tobacco use Status Tobacco use date assessed 07/20/23 05/27/24 08:52 Patient Tobacco Use Status Current everyday Tobacco 05/27/24 08:52 Tobacco use type Cigarette 05/27/24 08:52 e-Cigarette/Vaping Use Never Used 05/27/24 08:52 Thrive Assessment: Date of Thrive Assessment Date Thrive assessed 01/21/24 05/27/24 08:52 Const General: alert; No acute distress Eyes Conjunctivae: conjunctivae normal Resp Auscultation: clear to auscultation bilaterally Cardio Rate: regular rate Rhythm: regular rhythm GI Inspection: Yes normal to inspection Extrem General: Yes normal to inspection and No edema Results AMB Hemoglobin A1c AMB Hemoglobin A1c 6.9 % Last Edit by Mary Worthington CMA on 05/27/24 09:11 Coding Level of Care Code Est Pt Level 4 (33131) Complex EM visit Add On G2211 Diagnoses Dehydration E86.0 Type 2 diabetes mellitus with hyperglycemia, without long-term current use of insulin E11.65 Diabetes mellitus penitentiary insulin use: without penitentiary use Essential hypertension I10 Hypercholesterolemia E78.00 Tobacco abuse Z72.0 Hypomagnesemia E83.42 Hepatomegaly R16.0 Right adrenal mass E27.8 Adnexal mass N94.89 Assessment & Plan Assessment & Plan (1) Dehydration: Code(s): E86.0 - Dehydration Category: Medical Plan: Patient was hydrated and was told to hold hypertension medication (2) Type 2 diabetes mellitus with hyperglycemia: Comment: [facility] 04/2023 macular degeneration Code(s): E11.65 - Type 2 diabetes mellitus with hyperglycemia Category: Medical Qualifiers: Diabetes mellitus penitentiary insulin use: without zinc plate grainer use Qualified Code(s): E11.65 - Type 2 diabetes mellitus with hyperglycemia Plan: Decrease the amount of carbohydrate intake, pasta, bread, rice and potatoes are all sugar and that is aside from all the sweet stuff, remember that fruits are good but they are Sweet also. Hemoglobin A1c goal of less than 7.0 presently diet controlled (3) Essential hypertension: Code(s): I10 - Essential (primary) hypertension Category: Medical Plan: Continue with blood pressure medication. Decrease salt intake and exercise continue to monitor blood pressure for now and may restart blood pressure medication. (4) Hypercholesterolemia: Code(s): E78.00 - Pure hypercholesterolemia, unspecified Category: Medical Plan: Avoid fried foods, chicken skin, eggs, butter margarine, pastries and meat. Be it pork or beef they have a lot of cholesterol LDL goal of less than 100 and triglyceride of less than 150 on atorvastatin 20 mg once a day (5) Tobacco abuse: Code(s): Z72.0 - Tobacco use Category: Medical Plan: Patient is strongly advised to stop smoking! (6) Hypomagnesemia: Code(s): E83.42 - Hypomagnesemia Category: Medical Plan: will retest and advsied to take magnesium (7) Hepatomegaly: Code(s): R16.0 - Hepatomegaly, not elsewhere classified Category: Medical Plan: US to be done and discussed about low fat diet and exercise (8) Right adrenal mass: Code(s): E27.8 - Other specified disorders of adrenal gland Category: Medical Plan: MR requested and plasma miriam and renin requested (9) Adnexal mass: Code(s): N94.89 - Other specified conditions associated with female genital organs and menstrual cycle Category: Medical Plan: MR pelvis requested Orders: Orders MR abdomen wo/w con Today N94.89 - Other specified conditions associated with female genital organs and menstrual cycle Magnesium Today E83.42 - Hypomagnesemia Complete Blood Count Auto Diff Today E83.42 - Hypomagnesemia Comprehensive Met. Panel Today E83.42 - Hypomagnesemia MR pelvis wo/w con Today N94.89 - Other specified conditions associated with female genital organs and menstrual cycle AMB Hemoglobin A1c Today E11.65 - Type 2 diabetes mellitus with hyperglycemia Aldost/Renin Today E27.8 - Other specified disorders of adrenal gland US abdomen complete Today R16.0 - Hepatomegaly, not elsewhere classified, R79.89 - Other specified abnormal findings of blood chemistry Medications: Discontinued magnesium Discontinued Reason: Doctor's Order 200 mg PO BID 6 days 12 tabs 0RF
[2024-05-27 09:09] VITALS: BP 130/70
== END 2024-05-27 09:32 | disposition home or self-care (01) ==
PROVIDERS: PCP Internal Medicine; Visit Provider Internal Medicine
DX: E86.0 Dehydration (principal); E11.65 Type 2 diabetes mellitus with hyperglycemia; E27.8 Other specified disorders of adrenal gland; I10 Essential (primary) hypertension; E78.00 Pure hypercholesterolemia, unspecified; Z72.0 Tobacco use; E83.42 Hypomagnesemia; R16.0 Hepatomegaly, not elsewhere classified; N94.89 Other specified conditions associated with female genital organs and menstrual cycle

== ENCOUNTER → 2024-05-27 08:49 | Outpatient (BNVA) | payer MEDICARE, SELFPAY | PROVIDERS: PCP Internal Medicine; Visit Provider Internal Medicine | DX: E86.0 Dehydration (principal); E11.65 Type 2 diabetes mellitus with hyperglycemia; I10 Essential (primary) hypertension; E78.00 Pure hypercholesterolemia, unspecified; E83.42 Hypomagnesemia; R16.0 Hepatomegaly, not elsewhere classified; E78.9 Disorder of lipoprotein metabolism, unspecified; N94.89 Other specified conditions associated with female genital organs and menstrual cycle; Z72.0 Tobacco use | CPT/HCPCS: 83036; 99212 ==

== ENCOUNTER 2024-06-02 06:27 | Emergency (ER) | payer MEDICARE, SELFPAY ==
--- NOTE | ~2024-06-02 | US_ITS ---
EXAMINATION: US TRIPLEX LOWER EXTREMITY, BILATERAL CLINICAL INFORMATION: Swelling and pain and redness, lower extremities. COMPARISON: Probable ultrasound dated May 29, 2011. TECHNIQUE: Color-flow triplex imaging with spectral analysis and compression Doppler were performed on the bilateral lower extremities. FINDINGS: Respiratory variation, normal compression and augmented flow are noted throughout the bilateral lower extremities. The visualized common femoral vein, superficial femoral vein, profunda femoral vein, popliteal vein and midcalf peroneal and posterior tibial venous segments show no evidence of deep venous thrombosis bilaterally. There is no Rondon's cyst. Edema pattern in the left popliteal region.. US/US venous duplex LE BI IMPRESSION: No acute deep venous thrombosis involving the bilateral lower extremities.. Edema pattern, left calf region. Electronically signed by: Vineet Corona MD 06/02/2024 10:39 AM [facility]
--- NOTE | ~2024-06-02 | XR_ITS ---
EXAMINATION: XR CHEST CLINICAL INFORMATION: cough COMPARISON: None available. TECHNIQUE: Frontal view of the chest was obtained. FINDINGS: Some minimal left basilar atelectasis is present laterally. No significant abnormality is noted involving the heart, lungs, mediastinum, bony thorax or soft tissues. XR/XR chest 1V IMPRESSION: Minimal left basilar atelectasis. Electronically signed by: Armando David MD 06/02/2024 08:16 AM [facility]
[2024-06-02 06:40] VITALS: BP 157/63; PULSE 83; RESP 20; TEMP 36.8; O2SAT 92; BMI 45.4
[2024-06-02 07:28] LABS: MANUAL DIFF FLAG NO
[2024-06-02 07:32] LABS: Basophils Percent Auto 0.4 % (0-2); Eosinophils Absolute Auto 0.5 X10*3/uL (0.0-0.4); Eosinophils Percent Auto 6.8 % (0-4); Hematocrit 38.8 % (37.0-47.0); Hemoglobin 12.8 g/dl (12.0-16.0); Imm Gran Abs Auto 0.02 X10*3/uL (0.00-0.03); Imm Gran Pct Auto 0.3 % (0.0-0.4); Lymphocytes Absolute Auto 1.8 X10*3/uL (1.2-4.9); Lymphocytes Percent Auto 26.3 % (20-40); Mean Platelet Volume 9.5 fL (9.4-12.3); Monocytes Absolute Auto 0.7 X10*3/uL (0.1-1.2); Neutrophils Absolute Auto 3.9 x10*3/uL (2.0-8.3); Neutrophils Percent Auto 56.2 % (45-73); Platelet Count 224 X10*3/uL (160-400); Red Blood Count 3.88 X10*6/uL (4.20-5.50); Red Cell Distribution Width 13.2 % (11.0-16.0); White Blood Count 6.9 X10*3/uL (4.8-10.8)
[2024-06-02 07:53] LABS: Alanine Aminotransferase 13 U/L (0-31); Albumin Level 3.2 g/dL (3.5-5.0); Alkaline Phosphatase 82 U/L (39-117); Anion Gap 10 (12-20); Aspartate Amino Transferase 24 U/L (5-31); Bilirubin Total 0.6 mg/dL (0.0-1.0); Blood Urea Nitrogen 4 mg/dL (9-16); C Reactive Protein 1.23 mg/dL (< or = 0.50); Calcium 9.4 mg/dL (8.4-10.2); Carbon Dioxide 31 mmol/L (22-29); Chloride 104 mmol/L (96-108); Creatinine Clr Calc Pharmacy 67.5; Estimated Glomerular Filt Rate 50; Glucose Random 122 mg/dL (60-115); Lipase 12 U/L (8-78); Potassium 3.8 mmol/L (3.3-5.1); Sodium 141 mmol/L (135-145); Total Protein 6.3 g/dL (6.5-8.0)
--- NOTE | 2024-06-02 08:02 | ED_ITS ---
HPI - General Adult General Chief complaint: General Medical Stated complaint: swollen legs Time Seen by Provider: 06/02/24 07:23 Source: patient, family, RN notes reviewed and old records reviewed Mode of arrival: ambulatory History of Present Illness ED Provider: Juany Gimenez PA-C HPI narrative: 69-year-old female with a past medical history of HLD, HTN, diabetes, presenting to the ED complaining of bilateral LE swelling & erythema x yesterday, and continued nausea/dry heaving, decreased p.o. intake, and productive cough since 05/09/24. Patient was evaluated in our ED on 05/18 and 05/23, diagnosed with COVID-19 and acute dehydration w/ hypokalemia/hypomagnesemia. Denies abdominal pain, vomiting, diarrhea/constipation, dysuria/hematuria, travel, history of clots. Related Data Home Medications ?Medication ?Instructions ?Recorded ?Confirmed cholecalciferol (vitamin D3) 25 25 mcg PO DAILY 07/05/20 03/19/24 mcg (1,000 unit) capsule ibuprofen 200 mg tablet (Advil) 200 mg PO Q6H PRN 07/05/20 03/19/24 Previous Rx's ?Medication ?Instructions ?Recorded hydroxyzine HCl 25 mg tablet 25 mg PO BID PRN itching 10 days 03/05/24 #20 tabs hydrochlorothiazide 25 mg tablet 25 mg PO DAILY 90 days #90 tabs 03/14/24 metoprolol succinate 25 mg 25 mg PO DAILY #90 tabs 03/14/24 tablet,extended release 24 hr irbesartan 300 mg tablet 300 mg PO DAILY #90 tabs 03/19/24 atorvastatin 20 mg tablet 20 mg PO DAILY 30 days #30 tabs 03/28/24 ondansetron 4 mg disintegrating 4 mg PO Q6H PRN nausea and 05/15/24 tablet vomiting #15 tabs ondansetron 4 mg disintegrating 4 mg PO Q8H PRN nausea and 05/18/24 tablet vomiting #6 tabs potassium chloride 10 mEq 10 meq PO DAILY 6 days #6 tabs 05/18/24 tablet,extended release magnesium 200 mg tablet 200 mg PO DAILY #30 tabs 05/27/24 clindamycin HCl 150 mg capsule 450 mg (3 x 150 mg) PO TID 7 days 06/02/24 #63 caps Allergies Allergy/AdvReac Type Severity Reaction Status Date / Time amoxicillin [AMOXICILLIN] Allergy Severe RASH Verified 06/02/24 06:43 adhesive tape [ADHESIVE TAPE] Allergy Intermediate RASH Verified 06/02/24 06:43 lisinopril [LISINOPRIL] Allergy Intermediate COUGH Verified 06/02/24 06:43 cephalexin Allergy Mild Rash Verified 06/02/24 06:43 simvastatin [From ZOCOR] Allergy Unknown UNKNOWN Verified 06/02/24 06:43 doxycycline Allergy Rash Verified 06/02/24 12:00 Review of Systems 2 Review of Systems: Yes all other systems are reviewed and are negative Constitutional: Constitutional: Reports as per [facility] Past Medical History Attestation statement: The following information was validated with the patient. Source: old records reviewed Medical History Obesity Macular degeneration Osteopenia Vitamin D deficiency Hypercalcemia Hypercholesterolemia Essential hypertension Type 2 diabetes mellitus with hyperglycemia Surgical History History of cholecystectomy Family History Family History Father Lung cancer Mother No problems noted. Paternal Aunt Breast cancer Social History Social History Housing: House Alcohol intake: current Alcohol intake frequency: a few times a week Patient Tobacco Use Status: Current everyday Tobacco user Tobacco use type: Cigarette Cigarette Packs Per Day: 1 e-Cigarette/Vaping Use: Never Used Second Hand Smoke Exposure: Yes service: No Current occupational status: retired Cognitive needs: No Hearing needs: No Vision needs: Yes (reading glasses ) Physical Exam ED Vital Signs: Vital Signs - 24 hr 06/02/24 06:40 06/02/24 11:55 Temperature 98.3 F 97 F Pulse Rate 83 70 Respiratory Rate 20 16 Blood Pressure 157/63 H 133/63 Pulse Oximetry 92 92 Oxygen Delivery Method Room Air Room Air BMI result Body Mass Index 45.4 Const General: cooperative, healthy appearing and no acute distress Orientation/consciousness: patient oriented x3 Limitations: no limitations HENMT Head: Yes normal to inspection and Yes atraumatic Ears: hearing grossly normal bilaterally General nose exam: Normal external nose present Face and sinus: Yes normal facial exam Eyes General: appearance normal, both eyes and all related structures EOM: EOMs intact bilaterally Neck Neck: Yes normal visual inspection and Yes no meningeal signs Resp Effort & Inspection: normal respiratory effort and no respiratory distress Auscultation: clear to auscultation bilaterally, no crackles and no wheezes Cardio Rate: regular rate Heart sounds: S1 normal heart sound present and S2 normal heart sound present GI Inspection: Yes normal to inspection Palpation (GI): Soft to palpation, nontender, no guarding and not rigid General: Yes no CVA tenderness Back/Spine/Pelvis Back: no CVA tenderness Skin Rashes: no rashes Wounds: no wounds Neuro General: patient oriented x3, tone normal and no meningeal signs Cranial nerves: Yes CN's II-XII intact bilaterally Gait exam (Neuro): Normal gait present Extrem Other: Please refer to image above. Bilateral LE pitting edema, erythema, warmth. Neurovascularly intact distally. No crepitus. Course Course Course Narrative: -labs reassuring. XR chest 1V IMPRESSION: Minimal left basilar atelectasis. US venous duplex LE BI IMPRESSION: No acute deep venous thrombosis involving the bilateral lower extremities.. Edema pattern, left calf region. > patient tolerating p.o. water in the ED without nausea or vomiting. No indication for admission at this time. Will discharge home p.o. antibiotics for lower extremity cellulitis Results discussed with patient including worrisome signs and symptoms and strict return precautions, and when to return to the emergency department. They verbalized understanding and feel safe for discharge at this time. Medications Administered Discontinued Medications Generic Name Dose Route Start Last Admin Trade Name Freq PRN Reason Stop Dose Admin Sodium Chloride 1,000 mls @ 999 mls/hr 06/02/24 09:15 06/02/24 11:51 Ns IV 06/02/24 10:15 Infused .Q1H1M [facility] Infusion Medical Decision Making Medical Decision Making [facility] Narrative: 69-year-old female with a past medical history of HLD, HTN, diabetes, presenting to the ED complaining of bilateral LE swelling & erythema x yesterday, and continued nausea/dry heaving, decreased p.o. intake, and productive cough since 05/09/24. On exam vital signs stable, NAD, nontoxic appearing, lungs CTA, abdomen soft/nontender, bilateral LE pitting edema in appreciable cellulitis with warmth and erythema. Please refer to image. Concern for cellulitis vs DVT vs dehydration/metabolic abnormalities. Lower suspicion for acute pancreatitis, appendicitis/diverticulitis, SBO. Rule out other infectious etiology. Low suspicion for severe sepsis Plan: Labs, UA, CXR, venous duplex ultrasound, re-evaluate Please refer to course for remaining clinical decision making, interpretation of labs/imaging results, and discussions with consultants and/or family members. Differential Diagnosis Differential Diagnoses: The differential diagnosis associated with the presentation includes As above Admission/Observation Consideration of admission/observation: Escalation of care including admission/observation considered Lab Data MDM Lab Attestation statement: I reviewed the patient's lab results. 06/02/24 07:24 06/02/24 07:24 Labs: Lab Results 06/02/24 06/02/24 Range/Units 07:24 07:26 WBC 6.9 (4.8-10.8) X10*3/uL RBC 3.88 L (4.20-5.50) X10*6/uL Hgb 12.8 (12.0-16.0) g/dl Hct 38.8 (37.0-47.0) % MCV 100.0 H (80.0-98.0) fL MCH 33.0 (27.0-33.0) pg MCHC 33.0 (31.0-35.0) g/dl RDW 13.2 (11.0-16.0) % Plt Count 224 (160-400) X10*3/uL MPV 9.5 (9.4-12.3) fL Immature Gran % (Auto) 0.3 (0.0-0.4) % Neut % (Auto) 56.2 (45-73) % Lymph % (Auto) 26.3 (20-40) % [place] % (Auto) 10.0 (2-11) % Eos % (Auto) 6.8 H (0-4) % Baso % (Auto) 0.4 (0-2) % Lymph # (Auto) 1.8 (1.2-4.9) X10*3/uL [place] # (Auto) 0.7 (0.1-1.2) X10*3/uL Eos # (Auto) 0.5 H (0.0-0.4) X10*3/uL Baso # (Auto) 0.0 (0.0-0.2) X10*3/uL Abs Immat Gran (auto) 0.02 (0.00-0.03) X10*3/uL Absolute Neuts (auto) 3.9 (2.0-8.3) x10*3/uL Absolute Nucleated RBC 0.000 (0.0-0.012) X10*3/uL Nucleated RBC % (auto) 0.0 (0.0-0.2) /100WBC ESR 30 H (0-20) MM/HR Sodium 141 (135-145) mmol/L Potassium 3.8 (3.3-5.1) mmol/L Chloride 104 (96-108) mmol/L Carbon Dioxide 31 H (22-29) mmol/L Anion Gap 10 L (12-20) BUN 4 L (9-16) mg/dL Creatinine 1.08 (0.5-1.4) mg/dL Estim Creat Clear Calc 67.5 Estimated GFR 50 Random Glucose 122 H (60-115) mg/dL Calcium 9.4 (8.4-10.2) mg/dL Magnesium 1.6 (1.6-2.6) mg/dL Total Bilirubin 0.6 (0.0-1.0) mg/dL AST 24 (5-31) U/L ALT 13 (0-31) U/L Alkaline Phosphatase 82 (39-117) U/L Total Creatine Kinase 119 (26-140) U/L C-Reactive Protein 1.23 H (< or = 0.50) mg/dL B-Natriuretic Peptide 55 (<100) pg/mL Total Protein 6.3 L (6.5-8.0) g/dL Albumin 3.2 L (3.5-5.0) g/dL Lipase 12 (8-78) U/L Independent Interpretation I performed an independent interpretation of an: Ultrasound Radiology Impression Discussion of test interpretation with radiology: I have reviewed the radiologist's reading. Independent Historian Clinical information obtained from an independent historian. History obtained from or confirmed by: Spouse External Record Review External record reviewed: Inpatient record, Office record, Outpatient record, Prior outpatient labs, Prior outpatient radiology, Primary care record and Outside ED record Tests considered The following testing was considered but not selected: As above Prescription Management I considered prescription management with: Pain Medication and Antibiotic Chronic Conditions Patient?s care impacted by: Hypertension and Cancer Social Determinants Patient?s care significantly limited by Social Determinants of Health including: Other Social Determinant of Health Discharge Plan Discharge Clinical Impression: Bilateral cellulitis of lower leg Patient Disposition: Home, Self-Care Instructions: Cellulitis (DC) Additional Instructions: Your blood work is reassuring Your ultrasound and x-ray were also reassuring today Clindamycin as an antibiotic please take as prescribed If the redness in your legs is worsening, spreading, you have fever, drainage from area, persistent or worsening pain, you are unable to eat or drink return to the emergency department Please follow-up with your primary care doctor as well as Gastroenterology Prescriptions: New clindamycin HCl 150 mg capsule 450 mg PO TID 7 Days Qty: 63 0RF No Action metoprolol succinate 25 mg tablet extended release 24 hr 25 mg PO DAILY Qty: 90 3RF hydrochlorothiazide 25 mg tablet 25 mg PO DAILY 90 Days Qty: 90 2RF atorvastatin 20 mg tablet 20 mg PO DAILY 30 Days Qty: 30 4RF magnesium 200 mg tablet 200 mg PO DAILY Qty: 30 0RF ondansetron 4 mg tablet,disintegrating 4 mg PO Q8H PRN (Reason: nausea and vomiting) Qty: 6 0RF potassium chloride 10 mEq tablet extended release 10 meq PO DAILY 6 Days Qty: 6 0RF cholecalciferol (vitamin D3) 25 mcg (1,000 unit) capsule 25 mcg PO DAILY ibuprofen [Advil] 200 mg tablet 200 mg PO Q6H PRN hydroxyzine HCl 25 mg tablet 25 mg PO BID PRN (Reason: itching) 10 Days Qty: 20 0RF irbesartan 300 mg tablet 300 mg PO DAILY Qty: 90 2RF ondansetron 4 mg tablet,disintegrating 4 mg PO Q6H PRN (Reason: nausea and vomiting) Qty: 15 0RF Referrals: [facility] [place] [facility] [Provider Group] - 5 days Po,Adan Iraheta MD [Primary Care Provider] - 2 days Discharge Date/Time: 06/02/24 12:04 Print Language: German
[2024-06-02 08:03] LABS: Magnesium 1.6 mg/dL (1.6-2.6)
[2024-06-02 08:11] LABS: B Type Natriuretic Peptide 55 pg/mL (<100)
[2024-06-02 08:13] LABS: Erythrocyte Sedimentation Rate 30 MM/HR (0-20)
--- NOTE | 2024-06-02 08:21 | PC.NURSE ---
patient has positive pedal pulses, found and marked by doppler
--- NOTE | 2024-06-02 08:23 | PC.NURSE ---
patient ambulates with steady gait to the bathroom
[2024-06-02] MEDS: 0.9 % Sodium Chloride 1,000 ML 999 ML IV (10:25)
[2024-06-02 11:55] VITALS: BP 133/63; PULSE 70; RESP 16; TEMP 36.1; O2SAT 92
== END 2024-06-02 12:04 | disposition home or self-care (01) ==
PROVIDERS: Physician Assistant; Emergency Provider Emergency Medicine Emergency Medical Services; PCP Internal Medicine
DX: L03.116 Cellulitis of left lower limb (principal); L03.115 Cellulitis of right lower limb; R60.0 Localized edema; R05.9 Cough, unspecified; E11.9 Type 2 diabetes mellitus without complications; I10 Essential (primary) hypertension; E78.00 Pure hypercholesterolemia, unspecified; Z79.02 Long term (current) use of antithrombotics/antiplatelets; Z79.899 Other long term (current) drug therapy
CPT/HCPCS: 36415; 71045; 80053; 82550; 83690; 83735; 83880; 85025; 85652; 86140; 93970; 99284

== ENCOUNTER → 2024-06-02 07:36 | Outpatient (BNV) | payer MEDICARE, SELFPAY | PROVIDERS: Emergency Provider Emergency Medicine Emergency Medical Services; PCP Internal Medicine; Visit Provider Radiology Diagnostic Radiology | DX: R22.43 Localized swelling, mass and lump, lower limb, bilateral (principal) | CPT/HCPCS: 93970 ==

== ENCOUNTER 2024-06-03 13:50 | Outpatient (REF) | payer MEDICARE, SELFPAY ==
--- NOTE | ~2024-06-03 | MM_ITS ---
EXAMINATION: MM SCREENING DIGITAL BREAST TOMOSYNTHESIS, BILATERAL CLINICAL INFORMATION: Screening. Asymptomatic. COMPARISON: Mammography: Comparison is made with available priors TECHNIQUE: Digital breast mammography with tomosynthesis is performed in both the craniocaudal and mediolateral oblique views along with computer-aided detection (CAD). FINDINGS: There are scattered areas of fibroglandular density (ACR BI-RADS breast composition Category b). There are no significant masses, abnormal calcifications, or other abnormalities. MM/MM tomosynthesis screening BI IMPRESSION: No mammographic evidence of malignancy. ASSESSMENT: BI-RADS BI-RADS 1 - Negative RECOMMENDATION: Routine annual mammography screening. 1 year F/U This examination should not preclude the clinical evaluation of a suspicious palpable abnormality. This patient's information was entered into a reminder system with a target due date for their next mammogram. Electronically signed by: Caitlin Prabhakar DO 06/11/2024 08:18 AM [facility] [place]
== END 2024-06-03 13:51 | disposition home or self-care (01) ==
LOC: HO.MAMMO 13:50
PROVIDERS: PCP Internal Medicine; Visit Provider Internal Medicine
DX: Z12.31 Encounter for screening mammogram for malignant neoplasm of breast (principal)
CPT/HCPCS: 77063; 77067

== ENCOUNTER → 2024-06-03 14:00 | Outpatient (BNV) | payer MEDICARE, SELFPAY | PROVIDERS: PCP Internal Medicine; Visit Provider Internal Medicine | DX: Z12.31 Encounter for screening mammogram for malignant neoplasm of breast (principal) | CPT/HCPCS: 77063; 77067 ==

== ENCOUNTER 2024-06-10 12:40 | Outpatient (AMB) | payer MEDICARE, SELFPAY ==
--- NOTE | 2024-06-10 12:49 | MHC.OFFVIS ---
Vital Signs 06/10/24 13:00 Height 5 ft 7 in Weight 302 lb BMI 47.3 BP 169/72 H Blood Pressure Location Rt brachial Position Sitting Pulse 66 Intake Visit Reasons: Bilateral cellulitis of lower leg Intake Note: Patient referred after ER visit on 06-02-2024 for bilateral lower legs cellulitis. Clindamycin course finished. Patient c/o: not improved. Painful. Denies oozing. [employer] Required: No Accompanied by: Self / Same As Patient Allergies amoxicillin [AMOXICILLIN] Allergy (Severe, Verified 06/10/24 12:59) RASH adhesive tape [ADHESIVE TAPE] Allergy (Intermediate, Verified 06/10/24 12:59) RASH lisinopril [LISINOPRIL] Allergy (Intermediate, Verified 06/10/24 12:59) COUGH cephalexin Allergy (Mild, Verified 06/10/24 12:59) Rash simvastatin [From ZOCOR] Allergy (Unknown, Verified 06/10/24 12:59) UNKNOWN doxycycline Allergy (Verified 06/10/24 12:59) Rash HPI Comments Details: Patient was recently seen in emergency department for bilateral chronic lymphedema and lower extremity cellulitis. She presents here for follow-up. She states that the cellulitis has minimally improved. She has had history of this in the past. She also had some nausea and vomiting issues as well while she was in the ER. Patient has had bilateral Jobst stockings prescribed for her in the past. Patient was also to have an appointment with GI which has not been arranged yet. Chart was reviewed and patient evaluated FORMERLY [facility], [facility]1983 Medical History Obesity Macular degeneration Osteopenia Vitamin D deficiency Hypercalcemia Hypercholesterolemia Essential hypertension Type 2 diabetes mellitus with hyperglycemia Surgical History History of cholecystectomy Family History Father Lung cancer Mother No problems noted. Paternal Aunt Breast cancer Social History Housing: House Alcohol intake: current Alcohol intake frequency: a few times a week Patient Tobacco Use Status: Current everyday Tobacco user Tobacco use type: Cigarette Cigarette Packs Per Day: 1 e-Cigarette/Vaping Use: Never Used Second Hand Smoke Exposure: Yes service: No Current occupational status: retired Cognitive needs: No Hearing needs: No Vision needs: Yes (reading glasses ) Physical Exam Vital Signs: Last Vital Signs Pulse 66 06/10/24 13:00 BP 169/72 H 06/10/24 13:00 BMI result Body Mass Index 47.3 Const Other: Very corpulent patient no acute distress Extrem Other: Patient has very significant bilateral lower extremity edema/lymphedema. She also has ankle and foot cellulitis bilaterally Because of the significant edema, pulses were unable to be assessed but extremities are grossly neurovascularly intact. Assessment & Plan Assessment & Plan (1) Lymphedema of both lower extremities: Code(s): I89.0 - Lymphedema, not elsewhere classified Category: Surgical (2) Bilateral cellulitis of lower leg: Code(s): L03.116 - Cellulitis of left lower limb; L03.115 - Cellulitis of right lower limb Category: Surgical Plan At present, no acute surgical issues. My recommendation is that the patient elevate her extremities as much as possible, complete her antibiotic course, and will be referred to vascular surgery for their input and suggestions. Patient understands this and arrangements were made for the consultation. Patient was also been instructed to contact her medical doctor regarding her GI follow-up. Coding Level of Care Code New Pt Level 4 (81361) Diagnoses Lymphedema of both lower extremities I89.0 Bilateral cellulitis of lower leg L03.116; L03.115
[2024-06-10 13:00] VITALS: BP 169/72; PULSE 66; BMI 47.3
== END 2024-06-10 13:16 | disposition home or self-care (01) ==
PROVIDERS: PCP Internal Medicine; Visit Provider Surgery
DX: I89.0 Lymphedema, not elsewhere classified (principal); L03.116 Cellulitis of left lower limb; L03.115 Cellulitis of right lower limb
CPT/HCPCS: 99204

== ENCOUNTER → 2024-06-10 12:40 | Outpatient (BNVA) | payer MEDICARE, SELFPAY | PROVIDERS: PCP Internal Medicine; Visit Provider Surgery | DX: L03.116 Cellulitis of left lower limb (principal); L03.115 Cellulitis of right lower limb; I89.0 Lymphedema, not elsewhere classified | CPT/HCPCS: 99202 ==

== ENCOUNTER 2024-06-11 08:03 | Outpatient (REF) | payer MEDICARE, SELFPAY ==
--- NOTE | ~2024-06-11 | US_ITS ---
EXAMINATION: US ABDOMEN COMPLETE CLINICAL INFORMATION: Hepatomegaly on CAT scan. COMPARISON: CT abdomen and pelvis May 23, 2024 TECHNIQUE: Real-time imaging of the abdominal viscera. FINDINGS: PANCREAS: Normal. ABDOMINAL AORTA: The proximal, mid, and distal segments are normal in caliber. INFERIOR VENA CAVA: Visualized portions are normal. LIVER: Diffuse increased echogenicity of the parenchyma liver consistent with fatty change. Right lobe of liver measures 17.2 cm. No focal hepatic lesion. There is no intrahepatic biliary duct dilatation seen. GALLBLADDER: Status post cholecystectomy. COMMON BILE DUCT: Normal in caliber measuring 0.5 cm in diameter. RIGHT KIDNEY: Normal. No hydronephrosis. No renal calculi or focal parenchymal lesions. The kidney measures 10.9 cm in maximum dimension. LEFT KIDNEY: Normal. No hydronephrosis. No renal calculi or focal parenchymal lesions. The kidney measures 10.6 cm in maximum dimension. SPLEEN: Normal. The spleen measures 9.5 cm in maximum dimension. FREE FLUID: None. US/US abdomen complete IMPRESSION: 1. Diffuse increased echogenicity of the parenchyma liver consistent with fatty change. 2. Status post cholecystectomy. No bile duct dilatation. Electronically signed by: Froylan Dubose MD 06/11/2024 05:55 PM EST
== END 2024-06-11 08:04 | disposition home or self-care (01) ==
LOC: HO.US 08:03
PROVIDERS: PCP Internal Medicine; Visit Provider Internal Medicine
DX: R79.89 Other specified abnormal findings of blood chemistry (principal); R16.0 Hepatomegaly, not elsewhere classified
CPT/HCPCS: 76700

== ENCOUNTER 2024-06-11 09:04 | Inpatient (IN) | payer MEDICARE, SELFPAY ==
--- NOTE | ~2024-06-11 | US_ITS ---
EXAMINATION: US TRIPLEX LOWER EXTREMITY, BILATERAL CLINICAL INFORMATION: Worsening pain and swelling COMPARISON: Bilateral lower extremity duplex on 06/02/2024 TECHNIQUE: Color-flow triplex imaging with spectral analysis and compression Doppler were performed on the bilateral lower extremities. FINDINGS: Respiratory variation, normal compression and augmented flow are noted throughout the bilateral lower extremities. The visualized common femoral vein, superficial femoral vein, profunda femoral vein, popliteal vein and midcalf peroneal and posterior tibial venous segments show no evidence of deep venous thrombosis bilaterally. There is no Rondon's cyst. There is subcutaneous edema. US/US venous duplex LE BI IMPRESSION: No evidence of deep venous thrombosis involving the bilateral lower extremities. Electronically signed by: Rosita Meléndez MD 06/11/2024 04:08 PM [facility] [place]
[2024-06-11 09:26] VITALS: BP 108/49; PULSE 69; RESP 20; TEMP 36.9; O2SAT 99; BMI 47.2
[2024-06-11 09:49] LABS: Basophils Percent Auto 0.5 % (0-2); Eosinophils Absolute Auto 0.5 X10*3/uL (0.0-0.4); Eosinophils Percent Auto 7.6 % (0-4); Hematocrit 38.8 % (37.0-47.0); Hemoglobin 13.5 g/dl (12.0-16.0); Imm Gran Abs Auto 0.02 X10*3/uL (0.00-0.03); Imm Gran Pct Auto 0.3 % (0.0-0.4); Lymphocytes Absolute Auto 1.5 X10*3/uL (1.2-4.9); Lymphocytes Percent Auto 25.4 % (20-40); MANUAL DIFF FLAG NO; Mean Corpuscular HGB Conc 34.8 g/dl (31.0-35.0); Mean Corpuscular Hemoglobin 33.1 pg (27.0-33.0); Mean Corpuscular Volume 95.1 fL (80.0-98.0); Mean Platelet Volume 10.1 fL (9.4-12.3); Monocytes Absolute Auto 0.7 X10*3/uL (0.1-1.2); Monocytes Percent Auto 11.2 % (2-11); Neutrophils Absolute Auto 3.2 x10*3/uL (2.0-8.3); Platelet Count 274 X10*3/uL (160-400); Red Blood Count 4.08 X10*6/uL (4.20-5.50); Red Cell Distribution Width 13.1 % (11.0-16.0); White Blood Count 5.9 X10*3/uL (4.8-10.8)
[2024-06-11 10:06] LABS: Alanine Aminotransferase 16 U/L (0-31); Albumin Level 3.6 g/dL (3.5-5.0); Alkaline Phosphatase 89 U/L (39-117); Anion Gap 17 (12-20); Aspartate Amino Transferase 33 U/L (5-31); Bilirubin Total 0.7 mg/dL (0.0-1.0); Blood Urea Nitrogen 4 mg/dL (9-16); Calcium 9.8 mg/dL (8.4-10.2); Carbon Dioxide 26 mmol/L (22-29); Chloride 91 mmol/L (96-108); Creatinine Clr Calc Pharmacy 78.5; Estimated Glomerular Filt Rate 58; Glucose Random 126 mg/dL (60-115); Potassium 3.2 mmol/L (3.3-5.1); Sodium 131 mmol/L (135-145); Total Protein 7.1 g/dL (6.5-8.0)
[2024-06-11 10:09] LABS: B Type Natriuretic Peptide 66 pg/mL (<100)
--- NOTE | 2024-06-11 14:34 | ED_ITS ---
HPI - General Adult General Chief complaint: Skin/Abscess/Foreign Body Stated complaint: Cellulitis Time Seen by Provider: 06/11/24 14:34 Source: patient and family (patient's ) Mode of arrival: ambulatory Limitations: no limitations History of Present Illness ED Provider: Namrata Duke PA-C HPI narrative: Patient is a 69 year old assigned female at with a history of DM, HTN, and hypercholesterolemia presenting to the emergency department today with continued concern of bilateral lower leg swelling / possible infection. Patient states that she was seen here on 06/02/2024 for bilateral lower leg swelling and redness. Patient states that at that time she was diagnosed with cellulitis and started on antibiotics. Patient states that she finished them as directed and continues to have redness and swelling to both of her lower legs. Patient states that she has compression stockings but does not wear them because they are painful. Patient states that she has an upcoming appointment with a vascular surgeon. Additionally, patient states that she randomly gags on food and would like to see a GI specialist about this. Patient denies any dizziness, lightheadedness, abdominal pain, nausea, vomiting, fever, chills, blurry vision, double vision, loss of vision, chest pain, difficulty breathing, shortness of breath, back pain, night sweats, pain with urination, increased urinary frequency, increased urinary urgency, blood in her urine or stool, syncope or a near syncopal episode, recent trauma or falls, bowel incontinence, bladder incontinence, or any other complaints at this time. Onset (ago): week(s) Location: left, right and lower extremity Relieving factors: none Exacerbating factors: none Associated symptoms: denies other symptoms Treatments prior to arrival: other (antibiotics for possible cellulitis) Related Data Home Medications ?Medication ?Instructions ?Recorded ?Confirmed cholecalciferol (vitamin D3) 25 25 mcg PO DAILY 07/05/20 06/10/24 mcg (1,000 unit) capsule ibuprofen 200 mg tablet (Advil) 200 mg PO Q6H PRN 07/05/20 06/10/24 Previous Rx's ?Medication ?Instructions ?Recorded hydroxyzine HCl 25 mg tablet 25 mg PO BID PRN itching 10 days 03/05/24 #20 tabs hydrochlorothiazide 25 mg tablet 25 mg PO DAILY 90 days #90 tabs 03/14/24 metoprolol succinate 25 mg 25 mg PO DAILY #90 tabs 03/14/24 tablet,extended release 24 hr irbesartan 300 mg tablet 300 mg PO DAILY #90 tabs 03/19/24 atorvastatin 20 mg tablet 20 mg PO DAILY 30 days #30 tabs 03/28/24 ondansetron 4 mg disintegrating 4 mg PO Q6H PRN nausea and 05/15/24 tablet vomiting #15 tabs ondansetron 4 mg disintegrating 4 mg PO Q8H PRN nausea and 05/18/24 tablet vomiting #6 tabs potassium chloride 10 mEq 10 meq PO DAILY 6 days #6 tabs 05/18/24 tablet,extended release magnesium 200 mg tablet 200 mg PO DAILY #30 tabs 05/27/24 clindamycin HCl 150 mg capsule 450 mg (3 x 150 mg) PO TID 7 days 06/02/24 #63 caps Allergies Allergy/AdvReac Type Severity Reaction Status Date / Time amoxicillin [AMOXICILLIN] Allergy Severe RASH Verified 06/11/24 09:28 adhesive tape [ADHESIVE TAPE] Allergy Intermediate RASH Verified 06/11/24 09:28 lisinopril [LISINOPRIL] Allergy Intermediate COUGH Verified 06/11/24 09:28 cephalexin Allergy Mild Rash Verified 06/11/24 09:28 simvastatin [From ZOCOR] Allergy Unknown UNKNOWN Verified 06/11/24 09:28 doxycycline Allergy Rash Verified 06/11/24 09:28 Review of Systems 2 Constitutional: Constitutional: Reports no additional constitutional complaints, Denies chills, Denies fever(s) and Denies night sweats Eyes: Eyes: Reports no additional eye complaints, Denies blurry vision, Denies change in vision, Denies diplopia, Denies eye discharge, Denies loss of vision and Denies eye pain ENT: Denies dizziness Cardiovascular: Cardiovascular: Reports no additional cardiovascular complaints, Denies chest pain, Denies lightheadedness, Denies Loss of Consciousness and Denies dyspnea Respiratory: Respiratory: Reports no additional respiratory complaints and Denies dyspnea Gastrointestinal: Gastrointestinal: Reports no additional gastrointestinal complaints, Denies abdominal pain, Denies melena, Denies hematochezia, Denies change in bowel habits and Denies change in stool character Genitourinary: Genitourinary: Denies hematuria, Denies urinary frequency, Denies dysuria, Denies urinary incontinence, Denies urinary hesitancy and Denies urinary urgency Musculoskeletal: Musculoskeletal: Reports no additional musculoskeletal complaints, Denies numbness and Denies tingling Integumentary/Breasts: Comments: bilateral lower leg swelling / redness Neurologic: Denies dizziness, Denies loss of vision, Denies numbness and Denies tingling Psychiatric: Psychiatric: Reports no additional psychiatric complaints Endocrine: Endocrine: Reports no additional endocrine complaints Hematologic/Lymphatic: Hematologic/Lymphatic: Reports no additional hematologic/lymphatic complaints Allergic/Immunologic: Allergic/Immunologic: Reports no additional allergic/immunologic complaints PMFSH Past Medical History Attestation statement: The following information was validated with the patient. (all information validated with the patient's ) Source: old records reviewed, obtained from family (patient's provided additional history and confirmed the history provided by the patient.) and nursing notes reviewed Medical History Obesity Macular degeneration Osteopenia Vitamin D deficiency Hypercalcemia Hypercholesterolemia Essential hypertension Type 2 diabetes mellitus with hyperglycemia Surgical History History of cholecystectomy Family History Family History Father Lung cancer Mother No problems noted. Paternal Aunt Breast cancer Social History Social History Housing: House Alcohol intake: current Alcohol intake frequency: holidays/special occasions only Patient Tobacco Use Status: Current everyday Tobacco user Tobacco use type: Cigarette Cigarette Packs Per Day: 1 Smoked in Last 30 Days: No e-Cigarette/Vaping Use: Never Used Second Hand Smoke Exposure: Yes Use of substances other than those prescribed or required for medical reasons: No Advance Directives: No Advance Directives Information Provided: Yes service: No Current occupational status: retired Cognitive needs: No Hearing needs: No Vision needs: Yes (reading glasses ) Physical Exam ED Vital Signs: Vital Signs - 24 hr 06/11/24 09:26 06/11/24 14:50 Temperature 98.5 F 98.2 F Pulse Rate 69 63 Respiratory Rate 20 18 Blood Pressure 108/49 L 117/62 Pulse Oximetry 99 97 Oxygen Delivery Method Room Air Room Air BMI result Body Mass Index 47.2 Const General: cooperative, no acute distress, alert and awake Nutritional Appearance: well nourished Orientation/consciousness: patient oriented x3 Limitations: no limitations HENMT Head: Yes normal to inspection and Yes atraumatic Ears: hearing grossly normal bilaterally and external ears normal General nose exam: Normal external nose present, no nasal discharge noted and no epistaxis Face and sinus: Yes normal facial exam, No abrasion and No laceration Mouth: Normal oral and palatal mucosa present, no drooling and no muffled voice Eyes General: appearance normal, both eyes and all related structures Periorbital: periorbital findings normal Eyelids: Yes eyelids normal Conjunctivae: conjunctivae normal Pupils: Equal, round and reactive pupils present EOM: EOMs intact bilaterally Neck Neck: Yes normal visual inspection, Yes full ROM and Yes no lymphadenopathy Chest Chest palpation & inspection: normal inspection of the chest Resp Effort & Inspection: normal respiratory effort and able to speak in complete sentences GI Inspection: Yes normal to inspection Neuro General: patient oriented x3 and moves all extremities Cranial nerves: Yes Equal, round and reactive pupils present Cognition (Neuro): normal cognition Extrem Other: bilateral lower extremity erythema with 4+ pitting edema General: Yes full ROM and Yes capillary refill normal Psych Appearance: grossly normal Mental Status: mental status grossly normal Affect: normal affect Attitude: cooperative Thought process: Normal thought process present Thought content: Normal thought content present Insight: Good insight present (Psych) Medical Decision Making Medical Decision Making [facility] Narrative: Patient is a 69 year old assigned female at with a history of DM, HTN, and hypercholesterolemia presenting to the emergency department today with continued concern of bilateral lower leg swelling / possible infection. Patient's physical exam was as noted in the physical exam portion of this note and most consistent with bilateral, chronic, lymphedema with developing venous stasis dermatitis. Patient's blood work showed a decreased sodium of 131 and potassium of 3.2 but were otherwise unremarkable. Patient's bilateral lower extremity US is pending. I explained my physical exam findings as well as all test results to the patient and the patient's . I answered all questions asked by the patient and the patient's . Patient signed out to the evening PRASHANT with her disposition pending US result. Differential Diagnosis Differential Diagnoses: The differential diagnosis associated with the presentation includes Venous stasis dermatitis Lymphedema DVT Admission/Observation Consideration of admission/observation: Escalation of care including admission/observation considered Patient's disposition will be determined after US read. Lab Data [facility] Lab Attestation statement: I reviewed the patient's lab results. My interpretation of these results are in the MDM Rationale portion of this note. 06/11/24 09:44 06/11/24 09:44 Labs: Lab Results 06/11/24 Range/Units 09:44 WBC 5.9 (4.8-10.8) X10*3/uL RBC 4.08 L (4.20-5.50) X10*6/uL Hgb 13.5 (12.0-16.0) g/dl Hct 38.8 (37.0-47.0) % MCV 95.1 (80.0-98.0) fL MCH 33.1 H (27.0-33.0) pg MCHC 34.8 (31.0-35.0) g/dl RDW 13.1 (11.0-16.0) % Plt Count 274 (160-400) X10*3/uL MPV 10.1 (9.4-12.3) fL Immature Gran % (Auto) 0.3 (0.0-0.4) % Neut % (Auto) 55.0 (45-73) % Lymph % (Auto) 25.4 (20-40) % [place] % (Auto) 11.2 H (2-11) % Eos % (Auto) 7.6 H (0-4) % Baso % (Auto) 0.5 (0-2) % Lymph # (Auto) 1.5 (1.2-4.9) X10*3/uL [place] # (Auto) 0.7 (0.1-1.2) X10*3/uL Eos # (Auto) 0.5 H (0.0-0.4) X10*3/uL Baso # (Auto) 0.0 (0.0-0.2) X10*3/uL Abs Immat Gran (auto) 0.02 (0.00-0.03) X10*3/uL Absolute Neuts (auto) 3.2 (2.0-8.3) x10*3/uL Absolute Nucleated RBC 0.000 (0.0-0.012) X10*3/uL Nucleated RBC % (auto) 0.0 (0.0-0.2) /100WBC Sodium 131 L (135-145) mmol/L Potassium 3.2 L (3.3-5.1) mmol/L Chloride 91 L (96-108) mmol/L Carbon Dioxide 26 (22-29) mmol/L Anion Gap 17 (12-20) BUN 4 L (9-16) mg/dL Creatinine 0.95 (0.5-1.4) mg/dL Estim Creat Clear Calc 78.5 Estimated GFR 58 Random Glucose 126 H (60-115) mg/dL Calcium 9.8 (8.4-10.2) mg/dL Total Bilirubin 0.7 (0.0-1.0) mg/dL AST 33 H (5-31) U/L ALT 16 (0-31) U/L Alkaline Phosphatase 89 (39-117) U/L B-Natriuretic Peptide 66 (<100) pg/mL Total Protein 7.1 (6.5-8.0) g/dL Albumin 3.6 (3.5-5.0) g/dL Independent Historian Clinical information obtained from an independent historian. History obtained from or confirmed by: Spouse (patient's provided additional history and confirmed the history provided by the patient.) Chronic Conditions Patient?s care impacted by: Diabetes and Hypertension Discharge Plan Discharge Clinical Impression: Lymphedema Patient Disposition: Still a Patient Prescriptions: No Action metoprolol succinate 25 mg tablet extended release 24 hr 25 mg PO DAILY Qty: 90 3RF hydrochlorothiazide 25 mg tablet 25 mg PO DAILY 90 Days Qty: 90 2RF atorvastatin 20 mg tablet 20 mg PO DAILY 30 Days Qty: 30 4RF magnesium 200 mg tablet 200 mg PO DAILY Qty: 30 0RF ondansetron 4 mg tablet,disintegrating 4 mg PO Q8H PRN (Reason: nausea and vomiting) Qty: 6 0RF potassium chloride 10 mEq tablet extended release 10 meq PO DAILY 6 Days Qty: 6 0RF clindamycin HCl 150 mg capsule 450 mg PO TID 7 Days Qty: 63 0RF cholecalciferol (vitamin D3) 25 mcg (1,000 unit) capsule 25 mcg PO DAILY ibuprofen [Advil] 200 mg tablet 200 mg PO Q6H PRN hydroxyzine HCl 25 mg tablet 25 mg PO BID PRN (Reason: itching) 10 Days Qty: 20 0RF irbesartan 300 mg tablet 300 mg PO DAILY Qty: 90 2RF ondansetron 4 mg tablet,disintegrating 4 mg PO Q6H PRN (Reason: nausea and vomiting) Qty: 15 0RF Print Language: Liberian
[2024-06-11 14:50] VITALS: BP 117/62; PULSE 63; RESP 18; TEMP 36.8; O2SAT 97
[2024-06-11] MEDS: Potassium Chloride Packet 20 MEQ PACKET 60 MEQ PO (16:33)
[2024-06-11 16:59] LABS: Magnesium 1.5 mg/dL (1.6-2.6)
[2024-06-11] MEDS: Morphine Sulfate 2 MG/ML CARTRIDGE IVPUSH (17:04)
[2024-06-11] MEDS: vancomycin/NS 2,000 MG/500 ML PLAST..BAG 250 MG IV (17:05)
--- NOTE | 2024-06-11 17:58 | PC.NURSE ---
From home with complaints of worsening lower extremity swelling, difficulty walking, and unable to tolerate po intake. Bilateral lower legs with 3+ pitting edema and redness with warmth. reports 9/10 pain in bilateral lower extremities , medicated per mar with good effect.
--- NOTE | 2024-06-11 18:21 | P.HPHOSP_ITS ---
History of Present Illness Date of Service: 06/11/24 Attending physician on admission: Della Stevens Chief Complaint: Lower leg cellulitis Pt is a 69-year-old female with a PMH significant for HTN, HLD, and diet- controlled type 2 diabetes who presents to the ED for evaluation of lower leg swelling and erythema that has not improved with outpatient p.o. antibiotics. Reports symptoms started approximately 3 weeks ago when she began noticing redness on her ankles, with left beginning 1st. Redness and swelling began spreading up her calf. Initially presented to the ED on 06/02/2024 and was diagnosed with bilateral lower extremity cellulitis and discharged home on oral clindamycin which patient took as prescribed. Patient's symptoms, however, did not improve and redness and swelling continued to worsen so patient presented today. Chills but no fever. Denies chest pain/pressure, palpitations. Patient previously on hydrochlorothiazide for lower leg edema, but was stopped due to low BP. Patient self started again 4 days ago with little effect. Patient also often wears compression stockings, but has not recently due to increased pain. Patient also complains of nausea, vomiting, and gagging x1 month. Patient reports she often gags up ?white bile? 2 to 3 times a day. Has had reduced p.o. intake during this time. Has seen PCP who ordered an abdominal ultrasound which patient had completed today, results pending. Denies abdominal pain. No shortness a breath or difficulty breathing. In the ED pt with initial slightly soft BP of 108/49, vitals otherwise stable and WNL. Labs were significant for mild hyponatremia of 131, potassium 3.2, magnesium 1.5, AST 33. No leukocytosis. Stable H&H. Renal function WNL. Venous duplex found no evidence of DVT in bilateral lower extremities. Pt was treated with potassium chloride, morphine, and vancomycin. Pt will be admitted to the hospital under observation for treatment of lower leg erythema and swelling concerning for cellulitis that failed outpatient therapy vs chronic venous insufficiency. Review of Systems 2 Review of Systems: Negative except for that which is stated in the [facility] Medical History Obesity Macular degeneration Osteopenia Vitamin D deficiency Hypercalcemia Hypercholesterolemia Essential hypertension Type 2 diabetes mellitus with hyperglycemia Family History Father Lung cancer Mother No problems noted. Paternal Aunt Breast cancer Surgical History History of cholecystectomy Social History Housing: House Alcohol intake: current Alcohol intake frequency: holidays/special occasions only Patient Tobacco Use Status: Current everyday Tobacco user Tobacco use type: Cigarette Cigarette Packs Per Day: 1 Smoked in Last 30 Days: No e-Cigarette/Vaping Use: Never Used Second Hand Smoke Exposure: Yes Use of substances other than those prescribed or required for medical reasons: No Advance Directives: No Advance Directives Information Provided: Yes service: No Current occupational status: retired Cognitive needs: No Hearing needs: No Vision needs: Yes (reading glasses ) Meds Allergies Allergy/AdvReac Type Severity Reaction Status Date / Time amoxicillin [AMOXICILLIN] Allergy Severe RASH Verified 06/11/24 09:28 adhesive tape [ADHESIVE TAPE] Allergy Intermediate RASH Verified 06/11/24 09:28 lisinopril [LISINOPRIL] Allergy Intermediate COUGH Verified 06/11/24 09:28 cephalexin Allergy Mild Rash Verified 06/11/24 09:28 simvastatin [From ZOCOR] Allergy Unknown UNKNOWN Verified 06/11/24 09:28 doxycycline Allergy Rash Verified 06/11/24 09:28 Active Medications: Current Medications Acetaminophen (Acetaminophen 325 Mg Tablet) 650 mg PO Q6H PRN PRN Reason: Pain, Mild (Pain Scale 1-3), fever or headache Calcium Carbonate (Calcium Carbonate 750 Mg Tab.Chew) 750 mg PO Q4H PRN PRN Reason: Heartburn Enoxaparin Sodium (Enoxaparin Sodium 40 Mg/0.4 Ml Syringe) 40 mg SUBCUT Q24H [facility] Vancomycin HCl (Vancomycin/Ns) 2,000 mg in 500 mls @ 250 mls/hr IV ONCE ONE Stop: 06/11/24 18:47 Last Admin: 06/11/24 17:05 Dose: 250 mls/hr Magnesium Hydroxide (Milk Of Magnesia 30 Ml Oral.Susp) 30 ml PO DAILY PRN PRN Reason: Constipation Melatonin (Melatonin 3 Mg Tablet) 6 mg PO BEDTIME PRN PRN Reason: Insomnia Ondansetron HCl (Ondansetron Hcl 4 Mg/2 Ml Vial) 4 mg IVPUSH Q8H PRN PRN Reason: Nausea and Vomiting Pharmacy Consult (Consult Rx Vancomycin Dosing) 1 each MISCELLANE DAILY PRN PRN Reason: Consult order Sodium Chloride (0.9 % Sodium Chloride Flush 3 Ml Syringe) 3 ml IVFLUSH QSHIFT [facility] Home Medications ?Medication ?Instructions ?Recorded ?Confirmed ?Last Taken ?Type cholecalciferol (vitamin D3) 25 25 mcg PO DAILY 07/05/20 06/10/24 Unknown History mcg (1,000 unit) capsule ibuprofen 200 mg tablet (Advil) 200 mg PO Q6H PRN 07/05/20 06/10/24 Unknown History Physical Exam 2 Vital Signs and Narrative: Vital Signs: Last Vital Signs Temp 98.2 F 06/11/24 14:50 Pulse 63 06/11/24 14:50 Resp 18 06/11/24 14:50 BP 117/62 06/11/24 14:50 Pulse Ox 97 06/11/24 14:50 O2 Del Method Room Air 06/11/24 14:50 BMI result Body Mass Index 47.2 General: AOx3, no acute distress Resp: CTA bilaterally CVS: S1, S2, RRR GI: +BS, NT, no distention Skin: Warm, dry Neuro: Cranial nerves II-XII grossly intact bilaterally. Motor grossly intact bilaterally Extremities: 3+ bilateral pitting edema. Warmth and erythema of bilateral lower extremities from ankles to knees, as pictured below. Psych: Appropriate affect Results Labs 06/11/24 09:44 06/11/24 09:44 Labs: Laboratory Results - last 24 hr 06/11/24 09:44 MCV 95.1 MCH 33.1 H MCHC 34.8 RDW 13.1 Plt Count 274 MPV 10.1 Immature Gran % (Auto) 0.3 Neut % (Auto) 55.0 Lymph % (Auto) 25.4 [place] % (Auto) 11.2 H Eos % (Auto) 7.6 H Baso % (Auto) 0.5 Lymph # (Auto) 1.5 [place] # (Auto) 0.7 Eos # (Auto) 0.5 H Baso # (Auto) 0.0 Abs Immat Gran (auto) 0.02 Absolute Neuts (auto) 3.2 Absolute Nucleated RBC 0.000 Nucleated RBC % (auto) 0.0 Anion Gap 17 Estim Creat Clear Calc 78.5 Estimated GFR 58 Random Glucose 126 H Calcium 9.8 Magnesium 1.5 L Total Bilirubin 0.7 AST 33 H ALT 16 Alkaline Phosphatase 89 B-Natriuretic Peptide 66 Total Protein 7.1 Albumin 3.6 Imaging Radiologist's Impressions: Impressions Venous Duplex 06/11/24 15:33 IMPRESSION: No evidence of deep venous thrombosis involving the bilateral lower extremities. Electronically signed by: Rosita Meléndez MD 06/11/2024 04:08 PM [facility] [place] Assessment and Plan (1) Bilateral cellulitis of lower leg: Status: Acute Plan Pt is a 69-year-old female with a PMH significant for HTN, HLD, and diet- controlled type 2 diabetes who presents to the ED for evaluation of lower leg swelling and erythema that has not improved with outpatient p.o. antibiotics. Pt will be admitted to the hospital under observation for treatment of lower leg erythema and swelling concerning for cellulitis that failed outpatient therapy vs chronic venous insufficiency. Bilateral lower leg edema, warmth, and erythema Ongoing x3 weeks Treated with clindamycin 450 mg p.o. t.i.d. x7 days without improvement Concerning for cellulitis that failed outpatient therapy vs chronic venous insufficiency No sepsis: No tachycardia, tachypnea, fever, or leukocytosis Will empirically treat with vancomycin, started 06/11/2024 Vascular surgery consult Monitor erythema Hyponatremia But patient's sodium 131 at time of presentation Appears chronic, around baseline Monitor sodium Hypokalemia Potassium 3.2 at time of presentation Received p.o. potassium replenishment in the ED Follow up potassium Hypomagnesemia Magnesium 1.5 Received magnesium 2 g IV in the ED Follow Mag Nausea and vomiting Ongoing x1 month Patient getting worked up outpatient with PCP Still awaiting GI referral Ultrasound of abdomen taken earlier today, results still pending Antiemetics HLD Continue atorvastatin HTN Continue irbesartan, metoprolol Diet-controlled type 2 diabetes Diabetic diet Will place on sliding scale insulin Full Code Attending:?Dr. Stevens DVT Prophylaxis: Lovemartax Patient will be admitted to the hospital under observation for treatment of lower leg erythema and swelling concerning for cellulitis that failed outpatient therapy vs chronic venous insufficiency with empiric IV antibiotics. Quality Stroke Does the patient have a stroke diagnosis?: No VTE Prior VTE?: No VTE Risk Level:: Medical - moderate - high VTE Device Contraindication: Treatment Not Indicated VTE Drug Contraindication: N/A - Med Ordered
[2024-06-11 18:28] VITALS: BP 113/66; PULSE 67; RESP 17; TEMP 36.8; O2SAT 97
[2024-06-11] MEDS: Magnesium Sulfate/H2O 2 GM/50 ML PIGGYBACK IV (18:58)
[2024-06-11 19:22] LABS: C Reactive Protein 2.77 mg/dL (< or = 0.50)
[2024-06-11] MEDS: Enoxaparin Sodium 40 MG/0.4 ML SYRINGE SUBCUT (19:53)
--- NOTE | 2024-06-11 19:54 | PHA.MEDREC ---
Pharmacy Consult ? Medication Reconciliation Pharmacy has completed the medication reconciliation. Spoke to patient to confirm medication list. Patient is no longer taking clindamycin, hydroxyzine and ondansetron. She hasn't taken irbesartan 300 mg in 3 weeks, her doctor told her to hold off on it because her blood pressure is too low. Last dose of medications was yesterday.
[2024-06-11 21:28] VITALS: BP 139/62; RESP 18; TEMP 37.1; O2SAT 93
[2024-06-11 22:49] VITALS: BMI 46.2
[2024-06-11] MEDS: 0.9 % Sodium Chloride Flush 3 ML SYRINGE IVFLUSH (23:10)
[2024-06-12 03:16] VITALS: BP 109/66; PULSE 59; RESP 16; TEMP 36.5; O2SAT 93
[2024-06-12 06:19] LABS: Anion Gap 14 (12-20); Blood Urea Nitrogen 4 mg/dL (9-16); Carbon Dioxide 26 mmol/L (22-29); Chloride 95 mmol/L (96-108); Creatinine Clr Calc Pharmacy 77.6; Estimated Glomerular Filt Rate 58; Glucose Random 99 mg/dL (60-115); Magnesium 2.1 mg/dL (1.6-2.6); Potassium 3.1 mmol/L (3.3-5.1); Sodium 132 mmol/L (135-145)
[2024-06-12] MEDS: vancomycin HCL 750 MG in 0.9 % Sodium Chloride 250 ML 265 MG IV ×2 (06:28→18:31)
[2024-06-12 08:09] VITALS: BP 119/59; PULSE 65; RESP 18; TEMP 36.1; O2SAT 92
--- NOTE | 2024-06-12 09:49 | P.PNIM_ITS ---
Subjective Subjective Date of Service: 06/12/24 Physical Exam 2 Vital Signs: Vital Signs: Last Vital Signs Temp 96.9 F 06/12/24 08:09 Pulse 65 06/12/24 08:09 Resp 18 06/12/24 08:09 BP 119/59 L 06/12/24 08:09 Pulse Ox 92 06/12/24 08:09 O2 Del Method Room Air 06/12/24 08:09 BMI result Body Mass Index 46.2 Objective Data Active Medications Acetaminophen (Acetaminophen 325 Mg Tablet) 650 mg PO Q6H PRN PRN Reason: Pain, Mild (Pain Scale 1-3), fever or headache Atorvastatin Calcium (Atorvastatin Calcium 20 Mg Tablet) 20 mg PO DAILY [facility] Calcium Carbonate (Calcium Carbonate 750 Mg Tab.Chew) 750 mg PO Q4H PRN PRN Reason: Heartburn Enoxaparin Sodium (Enoxaparin Sodium 40 Mg/0.4 Ml Syringe) 40 mg SUBCUT Q24H [facility] Last Admin: 06/11/24 19:53 Dose: 40 mg Documented By: OTTO Hydrochlorothiazide (Hydrochlorothiazide 25 Mg Tablet) 25 mg PO DAILY [facility]; Protocol Vancomycin HCl 750 mg/ Sodium (Chloride) 265 mls @ 265 mls/hr IV Q12H [facility] Last Admin: 06/12/24 06:28 Dose: 265 mls/hr Documented By: JOSE Magnesium Hydroxide (Milk Of Magnesia 30 Ml Oral.Susp) 30 ml PO DAILY PRN PRN Reason: Constipation Magnesium Oxide (Magnesium Oxide 400 Mg Tablet) 200 mg PO DAILY [facility] Melatonin (Melatonin 3 Mg Tablet) 6 mg PO BEDTIME PRN PRN Reason: Insomnia Metoprolol Succinate (Metoprolol Succinate Er 25 Mg Tab.Er.24h) 25 mg PO DAILY [facility]; Protocol Ondansetron HCl (Ondansetron Hcl 4 Mg/2 Ml Vial) 4 mg IVPUSH Q8H PRN PRN Reason: Nausea and Vomiting Pharmacy Consult (Consult Rx Vancomycin Dosing) 1 each MISCELLANE DAILY PRN PRN Reason: Consult order Potassium Chloride (Potassium Chloride Er 20 Meq Tab.Er.Prt) 40 meq PO DAILY [facility] Sodium Chloride (0.9 % Sodium Chloride Flush 3 Ml Syringe) 3 ml IVFLUSH QSHIFT [facility] Last Admin: 06/11/24 23:10 Dose: 3 ml Documented By: JOSE Vitamin D (Cholecalciferol (Vitamin D3) 25 Mcg Tablet) 25 mcg PO DAILY [facility] Labs 06/11/24 09:44 06/12/24 05:01 Labs: Laboratory Results - last 24 hr 06/11/24 06/12/24 09:44 05:01 MCV 95.1 MCH 33.1 H MCHC 34.8 RDW 13.1 Plt Count 274 MPV 10.1 Immature Gran % (Auto) 0.3 Neut % (Auto) 55.0 Lymph % (Auto) 25.4 [place] % (Auto) 11.2 H Eos % (Auto) 7.6 H Baso % (Auto) 0.5 Lymph # (Auto) 1.5 [place] # (Auto) 0.7 Eos # (Auto) 0.5 H Baso # (Auto) 0.0 Abs Immat Gran (auto) 0.02 Absolute Neuts (auto) 3.2 Absolute Nucleated RBC 0.000 Nucleated RBC % (auto) 0.0 Hold Purple Top SEE NOTE Anion Gap 17 14 Estim Creat Clear Calc 78.5 77.6 Estimated GFR 58 58 Random Glucose 126 H 99 Calcium 9.8 9.0 D Magnesium 1.5 L 2.1 Total Bilirubin 0.7 AST 33 H ALT 16 Alkaline Phosphatase 89 C-Reactive Protein 2.77 H B-Natriuretic Peptide 66 Total Protein 7.1 Albumin 3.6 Assessment and Plan (1) Essential hypertension: Status: Acute Plan Pt is a 69-year-old female with a PMH significant for HTN, HLD, and diet- controlled type 2 diabetes who presents to the ED for evaluation of lower leg swelling and erythema that has not improved with outpatient p.o. antibiotics. Pt will be admitted to the hospital under observation for treatment of lower leg erythema and swelling concerning for cellulitis that failed outpatient therapy vs chronic venous insufficiency. Bilateral lower leg edema, warmth, and erythema Ongoing x3 weeks, Treated with clindamycin 450 mg p.o. t.i.d. x7 days without improvement Concerning for cellulitis that failed outpatient therapy vs chronic venous insufficiency vancomycin, started 06/11/2024 Vascular surgery consult Monitor erythema Nausea and vomiting Ongoing x1 month Patient getting worked up outpatient with PCP Still awaiting GI referral Ultrasound of abdomen, nothing acute IV pepcid Antiemetics Hyponatremia But patient's sodium 131 at time of presentation Appears chronic, around baseline Hypokalemia Potassium 3.1 continue repletion Hypomagnesemia repleted and resolved HLD Continue atorvastatin HTN Continue irbesartan, metoprolol Diet-controlled type 2 diabetes Diabetic diet sliding scale insulin Full Code Attending:?Dr. Grossman DVT Prophylaxis: [employer] Quality Stroke Does the patient have a stroke diagnosis?: No VTE Prior VTE?: No VTE Risk Level:: Medical - moderate - high VTE Device Contraindication: Treatment Not Indicated VTE Drug Contraindication: N/A - Med Ordered
[2024-06-12] MEDS: Magnesium Oxide 400 MG TABLET 200 MG PO (10:08)
[2024-06-12] MEDS: Atorvastatin Calcium 20 MG TABLET PO (10:08)
[2024-06-12] MEDS: Cholecalciferol (Vitamin D3) 25 MCG TABLET PO (10:09)
[2024-06-12] MEDS: Potassium Chloride ER 20 MEQ TAB.ER.PRT 40 MEQ PO (10:09)
[2024-06-12 10:10] VITALS: BP 108/57; PULSE 65
[2024-06-12] MEDS: Famotidine/PF 20 MG/2 ML VIAL IVPUSH ×2 (10:10→19:52)
[2024-06-12] MEDS: hydroCHLOROthiazide 25 MG TABLET PO (10:10)
[2024-06-12] MEDS: Metoprolol Succinate ER 25 MG TAB.ER.24H PO (10:10)
[2024-06-12] MEDS: 0.9 % Sodium Chloride Flush 3 ML SYRINGE IVFLUSH ×2 (10:13→17:07)
--- NOTE | 2024-06-12 10:53 | MHC.CM.PN ---
Tammy 06/12/24, Pt lives with her , she is independent, no home health services or DME. HCP form will be completed here and added to chart. Pt. can arrange transport home at DC. DCP: home, self care. Cm to follow for DC needs.
[2024-06-12 15:36] VITALS: BP 128/58; PULSE 62; RESP 18; TEMP 36.1; O2SAT 92
[2024-06-12 18:02] LABS: Vancomycin Random 15.4 mcg/mL (15-20)
--- NOTE | 2024-06-12 18:07 | HE.PHANOTE ---
[facility] Patients level came back this evening at 15.4. Will continue with current dose of 750 mg Q12H, Scr has remained stable so far. Next level 06/13 @1700 to ensure safety vs efficacy
[2024-06-12] MEDS: Acetaminophen 325 MG TABLET 650 MG PO (19:52)
[2024-06-12] MEDS: Enoxaparin Sodium 40 MG/0.4 ML SYRINGE SUBCUT (19:52)
[2024-06-12 20:00] VITALS: BP 110/73; PULSE 65; RESP 20; TEMP 36.2; O2SAT 95
[2024-06-13 03:27] VITALS: BP 136/63; PULSE 66; RESP 18; TEMP 36.3; O2SAT 92
[2024-06-13] MEDS: vancomycin HCL 750 MG in 0.9 % Sodium Chloride 250 ML 265 MG IV (06:30)
[2024-06-13] MEDS: Acetaminophen 325 MG TABLET 650 MG PO ×3 (06:37→21:49)
[2024-06-13 07:52] VITALS: BP 122/57; PULSE 58; RESP 16; TEMP 36.5; O2SAT 93
[2024-06-13 07:53] LABS: Anion Gap 16 (12-20); Blood Urea Nitrogen 4 mg/dL (9-16); Calcium 9.7 mg/dL (8.4-10.2); Carbon Dioxide 25 mmol/L (22-29); Chloride 97 mmol/L (96-108); Creatinine Clr Calc Pharmacy 68.3; Estimated Glomerular Filt Rate 50; Glucose Random 102 mg/dL (60-115); Potassium 3.2 mmol/L (3.3-5.1); Sodium 135 mmol/L (135-145)
--- NOTE | 2024-06-13 08:05 | HO.PM.IMPN ---
Subjective Subjective Date of Service: 06/13/24 Review of Systems Follow-up lower extremity cellulitis Increase in swelling Physical Exam Vital Signs: Vital Signs: Last Vital Signs Temp 97.7 F 06/13/24 07:52 Pulse 58 06/13/24 07:52 Resp 16 06/13/24 07:52 BP 122/57 L 06/13/24 07:52 Pulse Ox 93 06/13/24 07:52 O2 Del Method Room Air 06/13/24 07:52 BMI result Body Mass Index 46.2 Appearing in no acute distress lung sounds are clear to auscultation heart regular rate rhythm, clear S1, S2 positive bowel sounds, abdomen is soft, nontender neuro patient is alert x3, no focal deficits Bilateral lower extremity edema and erythema Objective Data Active Medications Acetaminophen (Acetaminophen 325 Mg Tablet) 650 mg PO Q6H PRN PRN Reason: Pain, Mild (Pain Scale 1-3), fever or headache Last Admin: 06/13/24 06:37 Dose: 650 mg Documented By: MADIE Atorvastatin Calcium (Atorvastatin Calcium 20 Mg Tablet) 20 mg PO DAILY [facility] Last Admin: 06/12/24 10:08 Dose: 20 mg Documented By: YEVGENIY Calcium Carbonate (Calcium Carbonate 750 Mg Tab.Chew) 750 mg PO Q4H PRN PRN Reason: Heartburn Enoxaparin Sodium (Enoxaparin Sodium 40 Mg/0.4 Ml Syringe) 40 mg SUBCUT Q24H [facility] Last Admin: 06/12/24 19:52 Dose: 40 mg Documented By: MADIE Famotidine (Famotidine/Pf 20 Mg/2 Ml Vial) 20 mg IVPUSH BID [facility] Last Admin: 06/12/24 19:52 Dose: 20 mg Documented By: MADIE Furosemide (Furosemide 20 Mg/2 Ml Vial) 20 mg IVPUSH ONCE ONE; Protocol Stop: 06/13/24 08:05 Hydrochlorothiazide (Hydrochlorothiazide 25 Mg Tablet) 25 mg PO DAILY [facility]; Protocol Last Admin: 06/12/24 10:10 Dose: 25 mg Documented By: YEVGENIY Vancomycin HCl 750 mg/ Sodium (Chloride) 265 mls @ 265 mls/hr IV Q12H [facility] Last Infusion: 06/13/24 07:45 Dose: Infused Documented By: FRANCIE Magnesium Hydroxide (Milk Of Magnesia 30 Ml Oral.Susp) 30 ml PO DAILY PRN PRN Reason: Constipation Magnesium Oxide (Magnesium Oxide 400 Mg Tablet) 200 mg PO DAILY [facility] Last Admin: 06/12/24 10:08 Dose: 200 mg Documented By: YEVGENIY Melatonin (Melatonin 3 Mg Tablet) 6 mg PO BEDTIME PRN PRN Reason: Insomnia Metoprolol Succinate (Metoprolol Succinate Er 25 Mg Tab.Er.24h) 25 mg PO DAILY [facility]; Protocol Last Admin: 06/12/24 10:10 Dose: 25 mg Documented By: YEVGENIY Ondansetron HCl (Ondansetron Hcl 4 Mg/2 Ml Vial) 4 mg IVPUSH Q6H PRN PRN Reason: Nausea and Vomiting Pharmacy Consult (Consult Rx Vancomycin Dosing) 1 each MISCELLANE DAILY PRN PRN Reason: Consult order Potassium Chloride (Potassium Chloride Er 20 Meq Tab.Er.Prt) 40 meq PO DAILY [facility] Last Admin: 06/12/24 10:09 Dose: 40 meq Documented By: YEVGENIY Potassium Chloride (Potassium Chloride Er 20 Meq Tab.Er.Prt) 40 meq PO ONCE ONE Stop: 06/13/24 08:05 Sodium Chloride (0.9 % Sodium Chloride Flush 3 Ml Syringe) 3 ml IVFLUSH QSHIFT [facility] Last Admin: 06/13/24 00:21 Dose: Not Given Documented By: MADIE Non-Admin Reason: Patient Asleep Vitamin D (Cholecalciferol (Vitamin D3) 25 Mcg Tablet) 25 mcg PO DAILY [facility] Last Admin: 06/12/24 10:09 Dose: 25 mcg Documented By: YEVGENIY Labs 06/11/24 09:44 06/13/24 06:41 Labs: Laboratory Results - last 24 hr 06/12/24 06/13/24 17:08 06:41 Anion Gap 16 Estim Creat Clear Calc 68.3 Estimated GFR 50 Random Glucose 102 Calcium 9.7 D Random Vancomycin 15.4 Assessment and Plan (1) Essential hypertension: Status: Acute Plan Pt is a 69-year-old female with a PMH significant for HTN, HLD, and diet-controlled type 2 diabetes who presents to the ED for evaluation of lower leg swelling and erythema that has not improved with outpatient p.o. antibiotics. Pt will be admitted to the hospital under observation for treatment of lower leg erythema and swelling concerning for cellulitis that failed outpatient therapy vs chronic venous insufficiency. Bilateral lower leg edema, warmth, and erythema Ongoing x3 weeks, Treated with clindamycin 450 mg p.o. t.i.d. x7 days without improvement Concerning for cellulitis that failed outpatient therapy vs chronic venous insufficiency vancomycin, started 06/11/2024 Vascular surgery consult Lasix 20 mg x 1 for lower extremity edema Jordi wraps Nausea and vomiting Ongoing x1 month Patient getting worked up outpatient with PCP Still awaiting GI referral Ultrasound of abdomen, nothing acute IV pepcid Antiemetics Hyponatremia. Resolved But patient's sodium 131 at time of presentation Appears chronic, around baseline Hypokalemia Potassium 3.2 continue repletion Hypomagnesemia repleted and resolved HLD Continue atorvastatin HTN Continue irbesartan, metoprolol Diet-controlled type 2 diabetes Diabetic diet sliding scale insulin Full Code Attending:?Dr. Pickens DVT Prophylaxis: Lovenox Quality Stroke Does the patient have a stroke diagnosis?: No VTE Prior VTE?: No VTE Risk Level:: Medical - moderate - high VTE Device Contraindication: Treatment Not Indicated VTE Drug Contraindication: N/A - Med Ordered
[2024-06-13] MEDS: hydroCHLOROthiazide 25 MG TABLET PO (08:35)
[2024-06-13] MEDS: Potassium Chloride ER 20 MEQ TAB.ER.PRT 40 MEQ PO (08:35)
[2024-06-13] MEDS: Cholecalciferol (Vitamin D3) 25 MCG TABLET PO (08:35)
[2024-06-13] MEDS: Metoprolol Succinate ER 25 MG TAB.ER.24H PO (08:35)
[2024-06-13] MEDS: Magnesium Oxide 400 MG TABLET 200 MG PO (08:35)
[2024-06-13] MEDS: Atorvastatin Calcium 20 MG TABLET PO (08:35)
[2024-06-13] MEDS: Furosemide 20 MG/2 ML VIAL IVPUSH (08:58)
[2024-06-13] MEDS: 0.9 % Sodium Chloride Flush 3 ML SYRINGE IVFLUSH ×2 (08:58→15:16)
[2024-06-13] MEDS: Famotidine/PF 20 MG/2 ML VIAL IVPUSH ×2 (08:58→20:22)
--- NOTE | 2024-06-13 09:20 | PM.CNGS ---
History of Present Illness Consult details Consult date: 06/13/24 Reason for consult: other ( Bilateral lower extremity cellulitis and edema.) Narrative: Very pleasant 69-year-old female presents for evaluation regarding her lower extremities. She has had significantly swollen legs and recurrent bouts of cellulitis where she has been admitted to the hospital before. She had actually been seen by the General surgery team and was actually sent up for a office visit with us on June 26. [facility] and has been set up with lymphedema pumps. She now presents to us for follow-up. Review of Systems Constitutional: Constitutional: Reports as per HPI ENT: Reports system reviewed and no additional complaints, except as documented Cardiovascular: Cardiovascular: Denies chest pain, Denies chest pain at rest and Denies chest pain with activity Respiratory: Respiratory: Denies chest congestion and Denies cough Gastrointestinal: Gastrointestinal: Reports no additional gastrointestinal complaints Musculoskeletal: Musculoskeletal: Denies abnormal gait Integumentary/Breasts: Skin/Breast: Reports pruritus and Denies wounds Neurologic: Reports system reviewed and no additional complaints, except as documented and Denies abnormal gait Psychiatric: Psychiatric: Denies no additional psychiatric complaints [facility] Past Medical History Medical History Obesity Macular degeneration Osteopenia Vitamin D deficiency Hypercalcemia Hypercholesterolemia Essential hypertension Type 2 diabetes mellitus with hyperglycemia Family History Family History Father Lung cancer Mother No problems noted. Paternal Aunt Breast cancer Surgical History Surgical History History of cholecystectomy Social History Social History Household Members: Spouse Housing: House Alcohol intake: current Alcohol intake frequency: holidays/special occasions only Patient Tobacco Use Status: Current everyday Tobacco user Tobacco use type: Cigarette Cigarette Packs Per Day: 15 Cigarettes Per Day: 300.0 Years Smoked: 54 Smoked in Last 30 Days: Yes e-Cigarette/Vaping Use: Never Used Patient Interested in Nicotine Replacement: No Second Hand Smoke Exposure: Yes Use of substances other than those prescribed or required for medical reasons: No Currently Displaying Signs/Symptoms of Drug Intoxication Withdrawal: No Have you been hit, kicked, punched, or otherwise hurt by someone within the past year? If so, by whom?: No Do you feel safe in your current relationship?: Yes Is there a partner from a previous relationship who is making you feel unsafe now?: No Are you made to feel afraid or neglected: No Advance Directives: No Advance Directives Information Provided: Yes Recently lost weight without trying: No Nutrition Risks: No Nutritional Risk Patient : No : No Poor oral hygiene: No service: No Current occupational status: retired Cognitive needs: No Hearing needs: No Vision needs: Yes (reading glasses ) Meds Allergies Allergy/AdvReac Type Severity Reaction Status Date / Time amoxicillin [AMOXICILLIN] Allergy Severe RASH Verified 06/11/24 09:28 adhesive tape [ADHESIVE TAPE] Allergy Intermediate RASH Verified 06/11/24 09:28 lisinopril [LISINOPRIL] Allergy Intermediate COUGH Verified 06/11/24 09:28 cephalexin Allergy Mild Rash Verified 06/11/24 09:28 simvastatin [From ZOCOR] Allergy Unknown UNKNOWN Verified 06/11/24 09:28 doxycycline Allergy Rash Verified 06/11/24 09:28 Active Medications: Current Medications Acetaminophen (Acetaminophen 325 Mg Tablet) 650 mg PO Q6H PRN PRN Reason: Pain, Mild (Pain Scale 1-3), fever or headache Last Admin: 06/13/24 06:37 Dose: 650 mg Atorvastatin Calcium (Atorvastatin Calcium 20 Mg Tablet) 20 mg PO DAILY [facility] Last Admin: 06/13/24 08:35 Dose: 20 mg Calcium Carbonate (Calcium Carbonate 750 Mg Tab.Chew) 750 mg PO Q4H PRN PRN Reason: Heartburn Enoxaparin Sodium (Enoxaparin Sodium 40 Mg/0.4 Ml Syringe) 40 mg SUBCUT Q24H [facility] Last Admin: 06/12/24 19:52 Dose: 40 mg Famotidine (Famotidine/Pf 20 Mg/2 Ml Vial) 20 mg IVPUSH BID [facility] Last Admin: 06/13/24 08:58 Dose: 20 mg Hydrochlorothiazide (Hydrochlorothiazide 25 Mg Tablet) 25 mg PO DAILY [facility]; Protocol Last Admin: 06/13/24 08:35 Dose: 25 mg Vancomycin HCl 750 mg/ Sodium (Chloride) 265 mls @ 265 mls/hr IV Q12H [facility] Last Infusion: 06/13/24 07:45 Dose: Infused Magnesium Hydroxide (Milk Of Magnesia 30 Ml Oral.Susp) 30 ml PO DAILY PRN PRN Reason: Constipation Magnesium Oxide (Magnesium Oxide 400 Mg Tablet) 200 mg PO DAILY [facility] Last Admin: 06/13/24 08:35 Dose: 200 mg Melatonin (Melatonin 3 Mg Tablet) 6 mg PO BEDTIME PRN PRN Reason: Insomnia Metoprolol Succinate (Metoprolol Succinate Er 25 Mg Tab.Er.24h) 25 mg PO DAILY [facility]; Protocol Last Admin: 06/13/24 08:35 Dose: 25 mg Ondansetron HCl (Ondansetron Hcl 4 Mg/2 Ml Vial) 4 mg IVPUSH Q6H PRN PRN Reason: Nausea and Vomiting Pharmacy Consult (Consult Rx Vancomycin Dosing) 1 each MISCELLANE DAILY PRN PRN Reason: Consult order Sodium Chloride (0.9 % Sodium Chloride Flush 3 Ml Syringe) 3 ml IVFLUSH QSHIFT [facility] Last Admin: 06/13/24 08:58 Dose: 3 ml Vitamin D (Cholecalciferol (Vitamin D3) 25 Mcg Tablet) 25 mcg PO DAILY [facility] Last Admin: 06/13/24 08:35 Dose: 25 mcg Home Medications ?Medication ?Instructions ?Recorded ?Confirmed ?Last Taken ?Type cholecalciferol (vitamin D3) 25 25 mcg PO DAILY 07/05/20 06/11/24 06/10/24 History mcg (1,000 unit) capsule ibuprofen 200 mg tablet (Advil) 200 mg PO Q6H PRN Pain 07/05/20 06/11/24 Unknown History Physical Exam Vital Signs: Vital Signs: Last Vital Signs Temp 97.7 F 06/13/24 07:52 Pulse 58 06/13/24 07:52 Resp 16 06/13/24 07:52 BP 122/57 L 06/13/24 07:52 Pulse Ox 93 06/13/24 07:52 O2 Del Method Room Air 06/13/24 07:52 BMI result Body Mass Index 46.2 Const: General: cooperative, healthy appearing and comfortable Orientation/consciousness: oriented to person, oriented to place and oriented to time Neck: Carotids: no bruits Chest: Chest palpation & inspection: normal inspection of the chest and normal palpation of entire chest wall Resp: Effort & Inspection: normal respiratory effort and able to speak in complete sentences Cardio: Rate: regular rate Heart sounds: S1 normal heart sound present and S2 normal heart sound present Peripheral pulses: Peripheral pulses 2+ throughout GI: Inspection: Yes normal to inspection Skin: Other: +3 edema, Cellulitis of bilateral lower extremity CEAP Classification C4 - skin color changes Ep - Etiology Primary As - superficial veins P - reflux General skin exam: dry skin Wounds: no wounds Neuro: General: oriented to person, oriented to place and oriented to time Extrem: Right lower extremity: full ROM, normal capillary refill and edema Left lower extremity: full ROM, normal capillary refill and edema Psych: Mental Status: mental status grossly normal Results Labs 06/11/24 09:44 06/13/24 06:41 Labs: Abnormal lab results 06/13/24 Range/Units 06:41 Potassium 3.2 L (3.3-5.1) mmol/L BUN 4 L (9-16) mg/dL BMP 06/13/24 06:41 Sodium 135 Potassium 3.2 L Chloride 97 Carbon Dioxide 25 BUN 4 L Creatinine 1.08 Calcium 9.7 D All other labs normal. Assessment and Plan (1) Bilateral cellulitis of lower leg: Status: Acute in short patient has bilateral lower extremity cellulitis. At the current time would continue with antibiotics. We did have an extensive discussion about overall control of her edema. She does use compression stockings. We did discuss routine conservative measures including compression elevation and exercise. There is a concern that she may have underlying venous insufficiency that may need to be addressed as an outpatient. She will follow up with us upon discharge and keep our June 26 appointment with her. (2) Lymphedema of both lower extremities: Status: Acute She does have underlying lymphedema just by her clinical appearance of her lower extremities. This has been previously diagnosed and treated by the [facility]. She does actually have lymphedema compression pumps. I did discuss with her the importance of use of these. Once her cellulitis is better controlled I would like her to use her compression pumps twice daily. They are okay to use with mild level of cellulitis and this was discussed with her. Once again she will follow up with us as an outpatient. Thank you for allowing us to assist in her care. Procedures Date of Service Date of Service: 06/13/24
--- NOTE | 2024-06-13 14:02 | MHC.CM.PN ---
EMR REVIEWED AND PT IS NOT MEDICALLY CLEARED FOR DC (CELLULITIS UNRESOLVED, IV ABT RX) PT MADE I/P, IMM DELIVERED. CM WILL CONTINUE TO FOLLOW FOR ANY CHANGE TO DC PLAN.
[2024-06-13 15:40] VITALS: BP 131/58; PULSE 60; RESP 18; TEMP 36.7; O2SAT 94
[2024-06-13 17:45] LABS: Vancomycin Random 18.7 mcg/mL (15-20)
[2024-06-13] MEDS: vancomycin HCL 500 MG in 0.9 % Sodium Chloride 100 ML 110 MG IV (18:11)
[2024-06-13 19:06] VITALS: BP 144/65; PULSE 62; RESP 18; TEMP 36.2; O2SAT 92
[2024-06-13] MEDS: Enoxaparin Sodium 40 MG/0.4 ML SYRINGE SUBCUT (20:22)
[2024-06-13 23:24] VITALS: BP 133/61; PULSE 63; RESP 18; TEMP 36.6; O2SAT 93
[2024-06-14] VITALS (7 sets, daily range): BP systolic 108–153; BP diastolic 54–72; PULSE 59–64; RESP 16–18; TEMP 36.6–37.6; O2SAT 91–95
[2024-06-14] MEDS: 0.9 % Sodium Chloride Flush 3 ML SYRINGE IVFLUSH ×4 (01:00→19:38)
[2024-06-14] MEDS: vancomycin HCL 500 MG in 0.9 % Sodium Chloride 100 ML 110 MG IV ×2 (06:31→18:11)
[2024-06-14 07:00] LABS: Creatinine Clr Calc Pharmacy 65.2; Estimated Glomerular Filt Rate 47
[2024-06-14 07:51] LABS: Anion Gap 14 (12-20)
[2024-06-14 07:57] LABS: Blood Urea Nitrogen 6 mg/dL (9-16); Calcium 9.1 mg/dL (8.4-10.2); Carbon Dioxide 26 mmol/L (22-29); Chloride 98 mmol/L (96-108); Glucose Random 95 mg/dL (60-115); Potassium 2.7 mmol/L (3.3-5.1); Sodium 135 mmol/L (135-145)
[2024-06-14 08:12] LABS: Magnesium 1.7 mg/dL (1.6-2.6)
[2024-06-14] MEDS: Potassium Chloride/H20 10 MEQ/100 ML PIGGYBACK 100 MEQ IV ×2 (08:42→11:09)
[2024-06-14] MEDS: Potassium Chloride Packet 20 MEQ PACKET 40 MEQ PO ×2 (08:43→19:38)
[2024-06-14] MEDS: Magnesium Oxide 400 MG TABLET 200 MG PO (08:43)
[2024-06-14] MEDS: Famotidine/PF 20 MG/2 ML VIAL IVPUSH ×2 (08:43→19:37)
[2024-06-14] MEDS: Metoprolol Succinate ER 25 MG TAB.ER.24H PO (08:44)
[2024-06-14] MEDS: Cholecalciferol (Vitamin D3) 25 MCG TABLET PO (08:44)
[2024-06-14] MEDS: Atorvastatin Calcium 20 MG TABLET PO (08:44)
--- NOTE | 2024-06-14 12:00 | PC.NURSE ---
K 2.7. IV and PO replacement ordered. Tolerated well.
[2024-06-14] MEDS: Acetaminophen 325 MG TABLET 650 MG PO ×2 (12:17→19:41)
--- NOTE | 2024-06-14 14:51 | HO.PM.IMPN ---
Subjective Subjective Date of Service: 06/14/24 Interval History: seen and examined this morning follow up for leg edema, possible cellulitis, hypokalemia ongoing edema, has not had legs elevated Review of Systems Review of Systems: Yes all other systems are reviewed and are negative Constitutional Constitutional: Denies chills and Denies fever(s) Cardiovascular Cardiovascular: Denies chest pain, Denies palpitations and Denies dyspnea Respiratory Respiratory: Denies cough and Denies dyspnea Gastrointestinal Gastrointestinal: Denies abdominal pain, Denies nausea and Denies vomiting Endocrine Endocrine: Denies palpitations Physical Exam Vital Signs: Vital Signs: Last Vital Signs Temp 99.3 F 06/14/24 11:22 Pulse 62 06/14/24 11:22 Resp 18 06/14/24 11:22 BP 153/70 H 06/14/24 11:22 Pulse Ox 91 L 06/14/24 11:22 O2 Del Method Room Air 06/14/24 11:22 BMI result Body Mass Index 46.2 Const: General: cooperative, comfortable, alert and awake Nutritional Appearance: obese Resp: Effort & Inspection: normal respiratory effort, able to speak in complete sentences, no respiratory distress and no use of accessory muscles Cardio: Rate: regular rate GI: Inspection: No distended and No obesity Palpation (GI): Soft to palpation and nontender Skin: Other: b/l leg edema; blanchable erythema Neuro: General: moves all extremities Extrem: Other: b/l lower extremity lymphedema Objective Data Active Medications Acetaminophen (Acetaminophen 325 Mg Tablet) 650 mg PO Q6H PRN PRN Reason: Pain, Mild (Pain Scale 1-3), fever or headache Last Admin: 06/14/24 12:17 Dose: 650 mg Documented By: FRANCIE Atorvastatin Calcium (Atorvastatin Calcium 20 Mg Tablet) 20 mg PO DAILY [facility] Last Admin: 06/14/24 08:44 Dose: 20 mg Documented By: FRANCIE Calcium Carbonate (Calcium Carbonate 750 Mg Tab.Chew) 750 mg PO Q4H PRN PRN Reason: Heartburn Enoxaparin Sodium (Enoxaparin Sodium 40 Mg/0.4 Ml Syringe) 40 mg SUBCUT Q24H [facility] Last Admin: 06/13/24 20:22 Dose: 40 mg Documented By: ZACH Famotidine (Famotidine/Pf 20 Mg/2 Ml Vial) 20 mg IVPUSH BID [facility] Last Admin: 06/14/24 08:43 Dose: 20 mg Documented By: FRANCIE Glucose (Glucose Gel 15 Gm Gel..Gram.) 15 gm PO Q15M PRN; Protocol PRN Reason: per Hypoglycemia Standing Ord. Hydrochlorothiazide (Hydrochlorothiazide 25 Mg Tablet) 25 mg PO DAILY [facility]; Protocol Last Admin: 06/13/24 08:35 Dose: 25 mg Documented By: FRANCIE Vancomycin HCl 500 mg/ Sodium (Chloride) 110 mls @ 110 mls/hr IV Q12H [facility] Last Infusion: 06/14/24 08:05 Dose: Infused Documented By: FRANCIE Dextrose (D10) 250 mls @ 750 mls/hr IV Q15M PRN; Protocol PRN Reason: per Hypoglycemia Standing Ord. Magnesium Hydroxide (Milk Of Magnesia 30 Ml Oral.Susp) 30 ml PO DAILY PRN PRN Reason: Constipation Magnesium Oxide (Magnesium Oxide 400 Mg Tablet) 200 mg PO DAILY [facility] Last Admin: 06/14/24 08:43 Dose: 200 mg Documented By: FRANCIE Melatonin (Melatonin 3 Mg Tablet) 6 mg PO BEDTIME PRN PRN Reason: Insomnia Metoprolol Succinate (Metoprolol Succinate Er 25 Mg Tab.Er.24h) 25 mg PO DAILY [facility]; Protocol Last Admin: 06/14/24 08:44 Dose: 25 mg Documented By: FRANCIE Ondansetron HCl (Ondansetron Hcl 4 Mg/2 Ml Vial) 4 mg IVPUSH Q6H PRN PRN Reason: Nausea and Vomiting Pharmacy Consult (Consult Rx Vancomycin Dosing) 1 each MISCELLANE DAILY PRN PRN Reason: Consult order Potassium Chloride (Potassium Chloride Packet 20 Meq Packet) 40 meq PO BID [facility] Stop: 06/14/24 21:01 Last Admin: 06/14/24 08:43 Dose: 40 meq Documented By: FRANCIE Sodium Chloride (0.9 % Sodium Chloride Flush 3 Ml Syringe) 3 ml IVFLUSH QSHIFT [facility] Last Admin: 06/14/24 08:44 Dose: 3 ml Documented By: FRANCIE Vitamin D (Cholecalciferol (Vitamin D3) 25 Mcg Tablet) 25 mcg PO DAILY [facility] Last Admin: 06/14/24 08:44 Dose: 25 mcg Documented By: FRANCIE Labs 06/11/24 09:44 06/14/24 05:18 Labs: Laboratory Results - last 24 hr 06/13/24 06/14/24 17:20 05:18 Anion Gap 14 Estim Creat Clear Calc 65.2 Estimated GFR 47 Random Glucose 95 Calcium 9.1 D Magnesium 1.7 Random Vancomycin 18.7 Assessment and Plan (1) Lymphedema: Status: Acute (2) Hypokalemia: Status: Acute Plan Pt is a 69-year-old female with a PMH significant for HTN, HLD, and diet-controlled type 2 diabetes who presents to the ED for evaluation of lower leg swelling and erythema that has not improved with outpatient p.o. antibiotics. Pt will be admitted to the hospital under observation for treatment of lower leg erythema and swelling concerning for cellulitis that failed outpatient therapy vs chronic venous insufficiency. Hypokalemia Potassium 2.7 likely due to HCTZ and lasix (was stopped by pcp but pt resumed on own per report) will stop replace IV and PO check magnesium level Bilateral lower leg edema, warmth, and erythema due to underlying lymphedema and likely venous insufficiency b/l doppler negative for DVT treated with clindamycin outpatient. x7 days without improvement. on IV vancomycin seen by Vascular surgery - outpatient follow up to eval for venous insufficiency rec resume use of compression stockings (she doesn't wean due to discomfort) as well as bid use of compression pumps upon discharge can follow up in wound care center Jordi wraps Nausea and vomiting outpatient workup ongoing Hyponatremia. Resolved resolved Hypomagnesemia repleted and resolved HLD Continue atorvastatin HTN Continue metoprolol HCTZ stopped Diet-controlled type 2 diabetes Diabetic diet follow POCs, can add SSI if poc elevated morbid obesity BMI 46.2 weight loss encouraged Full Code DVT Prophylaxis: Lovenox Quality Stroke Does the patient have a stroke diagnosis?: No VTE Prior VTE?: No VTE Risk Level:: Medical - moderate - high VTE Device Contraindication: Treatment Not Indicated VTE Drug Contraindication: N/A - Med Ordered
[2024-06-14] MEDS: Magnesium Sulfate/H2O 2 GM/50 ML PIGGYBACK IV (15:46)
[2024-06-14 16:46] LABS: Glucose, Whole Blood 115 mg/dL (60-115)
[2024-06-14] MEDS: Enoxaparin Sodium 40 MG/0.4 ML SYRINGE SUBCUT (19:40)
[2024-06-14 20:04] LABS: Glucose, Whole Blood 141 mg/dL (60-115)
[2024-06-15 03:10] VITALS: BP 133/60; PULSE 63; RESP 14; TEMP 36.9; O2SAT 93
[2024-06-15] MEDS: vancomycin HCL 500 MG in 0.9 % Sodium Chloride 100 ML 110 MG IV (06:16)
[2024-06-15 06:49] LABS: Creatinine Clr Calc Pharmacy 64.1; Estimated Glomerular Filt Rate 47
--- NOTE | 2024-06-15 07:12 | HE.PHANOTE ---
Re: Vanco Renal is stable. Continue current dose of 500mg q12h. Predicted AUC 430, predicted trough 14.8. Next trough / @ 1700.
[2024-06-15 07:19] VITALS: BP 131/61; PULSE 66; RESP 18; TEMP 37.2; O2SAT 92
[2024-06-15 07:26] LABS: Glucose, Whole Blood 92 mg/dL (60-115)
[2024-06-15 07:39] LABS: Anion Gap 13 (12-20); Blood Urea Nitrogen 6 mg/dL (9-16); Calcium 9.9 mg/dL (8.4-10.2); Carbon Dioxide 26 mmol/L (22-29); Chloride 98 mmol/L (96-108); Glucose Random 93 mg/dL (60-115); Potassium 3.4 mmol/L (3.3-5.1); Sodium 134 mmol/L (135-145)
[2024-06-15] MEDS: Famotidine/PF 20 MG/2 ML VIAL IVPUSH ×2 (08:21→20:14)
[2024-06-15] MEDS: Metoprolol Succinate ER 25 MG TAB.ER.24H PO (08:21)
[2024-06-15] MEDS: Magnesium Oxide 400 MG TABLET 200 MG PO (08:22)
[2024-06-15] MEDS: 0.9 % Sodium Chloride Flush 3 ML SYRINGE IVFLUSH ×3 (08:22→20:20)
[2024-06-15] MEDS: Atorvastatin Calcium 20 MG TABLET PO (08:22)
[2024-06-15] MEDS: Cholecalciferol (Vitamin D3) 25 MCG TABLET PO (08:22)
[2024-06-15] MEDS: Acetaminophen 325 MG TABLET 650 MG PO ×2 (08:33→16:23)
[2024-06-15 11:13] LABS: Glucose, Whole Blood 118 mg/dL (60-115)
--- NOTE | 2024-06-15 11:15 | MHC.SL.SWA ---
Speech Pathologist Impression: Pharyngoesophgeal Dysphagia Dysphasia Diet Status: No change- continue on NDD3 Liquid Consistency and Strategies for Safe Swallow: Liquid Intake Recommendation: Thin Liquid Intake Strategies: Small Sips Solid Food Consistency: Dietary Recommendations: Chopped/Advanced (NDD3) Additional Modifications to Solid Foods: Patient seen for bedside dysphagia evaluation. Note mild oral phase dysphagia, with slow chewing and presence of mild residuals. Patient was able to effectively clear residue with self-initiated dry swallows. Swallow was otherwise timely, no difficulties with other textures and no overt s/s of aspiration seen. Patient complains of nausea, vomiting, gagging, spitting up white bile, and feeling like food is stuck in her esophagus. She has been experiencing these symptoms since April and has had reduced PO intake as a result. Recommend further evaluation w/ G.I. specialist, during inpatient stay if possible, otherwise outpatient. Recommend CONTINUE on CHOPPED/ADVANCED (NDD3) diet, as ordered in precaution per provider, and THIN liquids, pills WHOLE with LIQUIDS. Discussed w/ patient strategies for esophageal dysphagia: take small bites, chew food well, alternate with sips of liquid, maintain upright position during PO intake and for at least 60 minutes afterwards, avoid overly hard foods. Oral Medication Intake: Whole with Liquid Please contact the pharmacy regarding appropriate crushable or liquid drug formulations that are available whenever modified delivery is recommended. Compensatory Strategies and Precautions to be Taken for Safe Swallow: Sitting Upright (90 deg) Double Swallow Small Bites and Sips Alternate Liquids/Solids Rate of Ingestion Change Avoid Specific Foods Supervision While Eating and Drinking for Safe Swallow: Intermittent Supervision Foods to Avoid: Hard, sticky, or dry foods Swallowing Recommended Treatments: Compens. Strategy Educat. Recommendation for Speech: Inpatient Speech Therapy Comment: 1-2 f/u [employer] Machine Operator Clinican/Clinical Fellow: No Supervisory Statement: I have reviewed and agree with the student/clinical fellow's documentation: N/A Speech Language Pathologist: Mable Lee M.A., [facility] [employer]
[2024-06-15 11:46] VITALS: BP 120/58; PULSE 65; RESP 18; TEMP 36.8; O2SAT 95
[2024-06-15 15:01] VITALS: BP 132/63; PULSE 60; RESP 16; TEMP 36.9; O2SAT 93
--- NOTE | 2024-06-15 15:14 | HO.PM.IMPN ---
Subjective Subjective Date of Service: 06/15/24 Interval History: seen and examined this morning follow up for possible cellulitis reporting food getting stuck in throat, difficulty swallowing, regurgitation of food, decreased po intake due to this Review of Systems Review of Systems: Yes all other systems are reviewed and are negative Constitutional Constitutional: Denies chills and Denies fever(s) Physical Exam Vital Signs: Vital Signs: Last Vital Signs Temp 98.4 F 06/15/24 15:01 Pulse 60 06/15/24 15:01 Resp 16 06/15/24 15:01 BP 132/63 06/15/24 15:01 Pulse Ox 93 06/15/24 15:01 O2 Del Method Room Air 06/15/24 15:01 BMI result Body Mass Index 46.2 Const: General: cooperative, comfortable, alert and awake Nutritional Appearance: obese Orientation/consciousness: patient oriented x3 Resp: Effort & Inspection: normal respiratory effort, able to speak in complete sentences, no respiratory distress and no use of accessory muscles Auscultation: clear to auscultation bilaterally Cardio: Rate: regular rate GI: Inspection: No distended and Yes obesity Palpation (GI): Soft to palpation and nontender Neuro: General: patient oriented x3, moves all extremities and CN's II-XI intact bilaterally Extrem: Other: lymphedema/venous stasis, blanchable erythema b/l lower extremities Objective Data Active Medications Acetaminophen (Acetaminophen 325 Mg Tablet) 650 mg PO Q6H PRN PRN Reason: Pain, Mild (Pain Scale 1-3), fever or headache Last Admin: 06/15/24 08:33 Dose: 650 mg Documented By: FRANCIE Atorvastatin Calcium (Atorvastatin Calcium 20 Mg Tablet) 20 mg PO DAILY [facility] Last Admin: 06/15/24 08:22 Dose: 20 mg Documented By: FRANCIE Calcium Carbonate (Calcium Carbonate 750 Mg Tab.Chew) 750 mg PO Q4H PRN PRN Reason: Heartburn Enoxaparin Sodium (Enoxaparin Sodium 40 Mg/0.4 Ml Syringe) 40 mg SUBCUT Q24H [facility] Last Admin: 06/14/24 19:40 Dose: 40 mg Documented By: CANDELARIO Famotidine (Famotidine/Pf 20 Mg/2 Ml Vial) 20 mg IVPUSH BID [facility] Last Admin: 12/01/24 08:21 Dose: 20 mg Documented By: FRANCIE Glucose (Glucose Gel 15 Gm Gel..Gram.) 15 gm PO Q15M PRN; Protocol PRN Reason: per Hypoglycemia Standing Ord. Vancomycin HCl 500 mg/ Sodium (Chloride) 110 mls @ 110 mls/hr IV Q12H [facility] Last Infusion: 06/15/24 07:43 Dose: Infused Documented By: FRANCIE Dextrose (D10) 250 mls @ 750 mls/hr IV Q15M PRN; Protocol PRN Reason: per Hypoglycemia Standing Ord. Magnesium Hydroxide (Milk Of Magnesia 30 Ml Oral.Susp) 30 ml PO DAILY PRN PRN Reason: Constipation Magnesium Oxide (Magnesium Oxide 400 Mg Tablet) 200 mg PO DAILY [facility] Last Admin: 06/15/24 08:22 Dose: 200 mg Documented By: FRANCIE Melatonin (Melatonin 3 Mg Tablet) 6 mg PO BEDTIME PRN PRN Reason: Insomnia Metoprolol Succinate (Metoprolol Succinate Er 25 Mg Tab.Er.24h) 25 mg PO DAILY [facility]; Protocol Last Admin: 06/15/24 08:21 Dose: 25 mg Documented By: FRANCIE Ondansetron HCl (Ondansetron Hcl 4 Mg/2 Ml Vial) 4 mg IVPUSH Q6H PRN PRN Reason: Nausea and Vomiting Pharmacy Consult (Consult Rx Vancomycin Dosing) 1 each MISCELLANE DAILY PRN PRN Reason: Consult order Sodium Chloride (0.9 % Sodium Chloride Flush 3 Ml Syringe) [facility] Admin: 06/15/24 08:22 Dose: 3 ml Documented By: FRANCIE Vitamin D (Cholecalciferol (Vitamin D3) 25 Mcg Tablet) 25 mcg PO DAILY [facility] Last Admin: 06/15/24 08:22 Dose: 25 mcg Documented By: FRANCIE Labs 06/11/24 09:44 06/15/24 05:33 Labs: Laboratory Results - last 24 hr 06/14/24 06/14/24 06/14/24 16:42 17:13 19:06 Anion Gap Estim Creat Clear Calc Estimated GFR POC Glucose 115 141 H Random Glucose Calcium Random Vancomycin 17.0 06/15/24 06/15/24 06/15/24 05:33 07:22 11:02 Anion Gap 13 Estim Creat Clear Calc 64.1 Estimated GFR 47 POC Glucose 92 118 H Random Glucose 93 Calcium 9.9 D Random Vancomycin Assessment and Plan (1) Lymphedema: Status: Acute (2) Hypokalemia: Status: Acute Plan Pt is a 69-year-old female with a PMH significant for HTN, HLD, and diet-controlled type 2 diabetes who presents to the ED for evaluation of lower leg swelling and erythema that has not improved with outpatient p.o. antibiotics. Pt will be admitted to the hospital under observation for treatment of lower leg erythema and swelling concerning for cellulitis that failed outpatient therapy vs chronic venous insufficiency. resolved with replacement likely due to HCTZ and lasix (was stopped by pcp but pt resumed on own per report) will stop replace IV and PO potassium and IV magnesium Bilateral lower leg edema, warmth, and erythema due to underlying lymphedema and probable venous insufficiency, less likely due to infection b/l doppler negative for DVT treated with clindamycin outpatient. x7 days without improvement. on IV vancomycin x3 days without improvement, will d/c antibiotics seen by Vascular surgery - outpatient follow up to eval for venous insufficiency rec resume use of compression stockings (she doesn't wear due to discomfort) as well as bid use of compression pumps upon discharge can follow up in wound care center after discharge continue Jordi wraps/leg elevation dysphagia reporting food getting stuck, regurgitation of food seen by speech, no aspiration GI consult pending changed to NDD3 diet Hyponatremia, mild improved Hypomagnesemia repleted and resolved HLD Continue atorvastatin HTN bp stable Continue metoprolol HCTZ stopped Diet-controlled type 2 diabetes Diabetic diet follow POCs, can add SSI if poc elevated morbid obesity BMI 46.2 weight loss encouraged Full Code DVT Prophylaxis: Lovenox Quality Stroke Does the patient have a stroke diagnosis?: No VTE Prior VTE?: No VTE Risk Level:: Medical - moderate - high VTE Device Contraindication: Treatment Not Indicated VTE Drug Contraindication: N/A - Med Ordered
[2024-06-15 16:22] LABS: Glucose, Whole Blood 128 mg/dL (60-115)
[2024-06-15 19:49] LABS: Glucose, Whole Blood 155 mg/dL (60-115)
[2024-06-15 19:50] VITALS: BP 136/62; PULSE 65; RESP 18; TEMP 36.2; O2SAT 92
[2024-06-15] MEDS: Enoxaparin Sodium 40 MG/0.4 ML SYRINGE SUBCUT (20:13)
[2024-06-15 23:38] VITALS: BP 132/64; PULSE 67; RESP 18; TEMP 36.2; O2SAT 94
[2024-06-16 03:43] VITALS: BP 119/61; PULSE 67; RESP 18; TEMP 36.4; O2SAT 92
[2024-06-16 06:58] LABS: Creatinine Clr Calc Pharmacy 58.9; Estimated Glomerular Filt Rate 42
[2024-06-16 07:16] VITALS: BP 109/54; PULSE 62; RESP 14; TEMP 36.2; O2SAT 92
[2024-06-16 07:29] LABS: Glucose, Whole Blood 106 mg/dL (60-115)
[2024-06-16] MEDS: Metoprolol Succinate ER 25 MG TAB.ER.24H PO (08:03)
[2024-06-16] MEDS: Magnesium Oxide 400 MG TABLET 200 MG PO (08:03)
[2024-06-16] MEDS: Cholecalciferol (Vitamin D3) 25 MCG TABLET PO (08:03)
[2024-06-16] MEDS: Atorvastatin Calcium 20 MG TABLET PO (08:03)
[2024-06-16] MEDS: Famotidine/PF 20 MG/2 ML VIAL IVPUSH ×2 (08:04→21:01)
[2024-06-16] MEDS: 0.9 % Sodium Chloride Flush 3 ML SYRINGE IVFLUSH ×3 (08:06→21:05)
--- NOTE | 2024-06-16 08:58 | HO.PM.IMPN ---
Subjective Subjective Date of Service: 06/16/24 Interval History: seen and examined this morning follow up for possible cellulitis reporting food getting stuck in throat, difficulty swallowing, regurgitation of food, decreased po intake due to this Review of Systems Review of Systems: Yes all other systems are reviewed and are negative Constitutional Constitutional: Denies chills and Denies fever(s) Physical Exam Vital Signs: Vital Signs: Last Vital Signs Temp 97.1 F 06/16/24 07:16 Pulse 62 06/16/24 07:16 Resp 14 06/16/24 07:16 BP 109/54 L 06/16/24 07:16 Pulse Ox 92 06/16/24 07:16 O2 Del Method Room Air 06/16/24 07:16 BMI result Body Mass Index 46.2 Appearing in no acute distress lung sounds are clear to auscultation heart regular rate rhythm, clear S1, S2 positive bowel sounds, abdomen is soft, nontender neuro patient is alert x3, no focal deficits Bilat LE witth erythema Objective Data Active Medications Acetaminophen (Acetaminophen 325 Mg Tablet) 650 mg PO Q6H PRN PRN Reason: Pain, Mild (Pain Scale 1-3), fever or headache Last Admin: 06/15/24 16:23 Dose: 650 mg Documented By: FRANCIE Atorvastatin Calcium (Atorvastatin Calcium 20 Mg Tablet) 20 mg PO DAILY [facility] Last Admin: 06/16/24 08:03 Dose: 20 mg Documented By: PEYTON Calcium Carbonate (Calcium Carbonate 750 Mg Tab.Chew) 750 mg PO Q4H PRN PRN Reason: Heartburn Enoxaparin Sodium (Enoxaparin Sodium 40 Mg/0.4 Ml Syringe) 40 mg SUBCUT Q24H [facility] Last Admin: 06/15/24 20:13 Dose: 40 mg Documented By: SHALINI Famotidine (Famotidine/Pf 20 Mg/2 Ml Vial) 20 mg IVPUSH BID [facility] Last Admin: 06/16/24 08:04 Dose: 20 mg Documented By: PEYTON Glucose (Glucose Gel 15 Gm Gel..Gram.) 15 gm PO Q15M PRN; Protocol PRN Reason: per Hypoglycemia Standing Ord. Dextrose (D10) 250 mls @ 750 mls/hr IV Q15M PRN; Protocol PRN Reason: per Hypoglycemia Standing Ord. Magnesium Hydroxide (Milk Of Magnesia 30 Ml Oral.Susp) 30 ml PO DAILY PRN PRN Reason: Constipation Magnesium Oxide (Magnesium Oxide 400 Mg Tablet) 200 mg PO DAILY [facility] Last Admin: 06/16/24 08:03 Dose: 200 mg Documented By: PEYTON Melatonin (Melatonin 3 Mg Tablet) 6 mg PO BEDTIME PRN PRN Reason: Insomnia Metoprolol Succinate (Metoprolol Succinate Er 25 Mg Tab.Er.24h) 25 mg PO DAILY [facility]; Protocol Last Admin: 06/16/24 08:03 Dose: 25 mg Documented By: PEYTON Ondansetron HCl (Ondansetron Hcl 4 Mg/2 Ml Vial) 4 mg IVPUSH Q6H PRN PRN Reason: Nausea and Vomiting Sodium Chloride (0.9 % Sodium Chloride Flush 3 Ml Syringe) 3 ml IVFLUSH QSHIFT [facility] Last Admin: 06/16/24 08:06 Dose: 3 ml Documented By: PEYTON Vitamin D (Cholecalciferol (Vitamin D3) 25 Mcg Tablet) 25 mcg PO DAILY [facility] Last Admin: 06/16/24 08:03 Dose: 25 mcg Documented By: PEYTON Labs 06/11/24 09:44 06/16/24 05:26 Labs: Laboratory Results - last 24 hr 06/15/24 06/15/24 06/15/24 11:02 16:10 19:26 Estim Creat Clear Calc Estimated GFR POC Glucose 118 H 128 H 155 H 06/16/24 06/16/24 05:26 07:26 Estim Creat Clear Calc 58.9 Estimated GFR 42 POC Glucose 106 Assessment and Plan (1) Lymphedema: Status: Acute (2) Hypokalemia: Status: Acute Plan 69-year-old female with a PMH significant for HTN, HLD, and diet-controlled type 2 diabetes who presents to the ED for evaluation of lower leg swelling and erythema that has not improved with outpatient p.o. antibiotics. Pt will be admitted to the hospital under observation for treatment of lower leg erythema and swelling concerning for cellulitis that failed outpatient therapy vs chronic venous insufficiency. Hypokalemia resolved with replacement likely due to HCTZ and lasix (was stopped by pcp but pt resumed on own per report) will stop replace IV and PO potassium and IV magnesium Bilateral lower leg edema, warmth, and erythema due to underlying lymphedema and probable venous insufficiency b/l doppler negative for DVT treated with clindamycin outpatient. x7 days without improvement. on IV vancomycin x3 days without improvement, antibiotics stopped seen by Vascular surgery - outpatient follow up to eval for venous insufficiency rec resume use of compression stockings (she doesn't wear due to discomfort) as well as bid use of compression pumps upon discharge can follow up in wound care center after discharge continue Jordi wraps/leg elevation dysphagia reporting food getting stuck, regurgitation of food seen by speech, no aspiration GI consult pending changed to NDD3 diet Hyponatremia, mild improved Hypomagnesemia repleted and resolved HLD Continue atorvastatin HTN bp stable Continue metoprolol HCTZ stopped Diet-controlled type 2 diabetes Diabetic diet follow POCs, can add SSI if poc elevated morbid obesity BMI 46.2 Discussed importance of weight management as this may be contributing to worsening of other comorbidities Full Code DVT Prophylaxis: Heriberto Attending Dr. Pickens Quality Stroke Does the patient have a stroke diagnosis?: No VTE Prior VTE?: No VTE Risk Level:: Medical - moderate - high VTE Device Contraindication: Treatment Not Indicated VTE Drug Contraindication: N/A - Med Ordered
[2024-06-16 11:22] LABS: Glucose, Whole Blood 133 mg/dL (60-115)
[2024-06-16 12:00] VITALS: BP 120/62; PULSE 62; RESP 14; TEMP 36.4; O2SAT 93
--- NOTE | 2024-06-16 12:46 | MHC.CM.PN ---
per rounds pt not ready for dc gi needs to see dc plan remains home
--- NOTE | 2024-06-16 14:20 | P.PNVS_ITS ---
Subjective Subjective Date of Service: 06/16/24 Interval history: Alley is doing well this morning. She states she is eating, drinking, and sleeping well. She continues to endorse discomfort in her bilateral lower extremities. She states she has been having swelling and pain for awhile and was using compression stockings and her lymphedema compression pumps daily until about a month ago, with some relief. Physical Exam Vital Signs: Vital Signs: Last Vital Signs Temp 97.6 F 06/16/24 12:00 Pulse 62 06/16/24 12:00 Resp 14 06/16/24 12:00 BP 120/62 06/16/24 12:00 Pulse Ox 93 06/16/24 12:00 O2 Del Method Room Air 06/16/24 12:00 BMI result Body Mass Index 46.2 Const: General: comfortable and no acute distress Noe entation/consciousness: patient oriented x3 HEENT: Ears: hearing grossly normal bilaterally Resp: Effort & Inspection: normal respiratory effort and able to speak in complete sentences Auscultation: clear to auscultation bilaterally Cardio: Rate: regular rate Rhythm: regular rhythm Heart sounds: S1 normal heart sound present and S2 normal heart sound present Bruits: no abdominal aortic bruits, no carotid bruits, no femoral bruits and no renal bruits GI: Palpation (GI): No Abdominal aortic bruit present Neuro: General: patient oriented x3 Cranial nerves: Yes CN's II-XII intact bilaterally Extrem: Other: Bilateral lower extremities: wrapped in Jordi this morning, not taken down. Discoloration noted above the wraps. +2 peripheral edema noted. Progress Note: A&P Assessment and plan (1) Lymphedema of both lower extremities: Status: Acute Assessment and Plan: Alley presented to the ER the other day with concerns for swelling, pain, and redness of her bilateral lower extremities. She has been treated at home with lymphedema compression pumps as well as using compression stockings with some relief, until about 1m ago when she began having redness and increased swelling. She has an appt set up with our office for next week. There is no acute surgical intervention at this point and we discussed with her the importance of keeping her appt next week. If there are any questions or concerns, please do not hesitate to reach out to us. Time Spent With Patient Time: Total time managing care of this patient today ___20_ minutes. Procedures Date of Service Date of Service: 06/16/24 Quality Stroke Does the patient have a stroke diagnosis?: No VTE Prior VTE?: No VTE Risk Level:: Medical - moderate - high VTE Device Contraindication: Treatment Not Indicated VTE Drug Contraindication: N/A - Med Ordered
--- NOTE | 2024-06-16 14:25 | PM.EVENT ---
Event Note Date of Service: 06/16/24 Event Note: GI consult dictated EGD tomorrow for further evaluation of dysphagia Time Spent With Patient Time: Total time managing care of this patient today ____ minutes.
--- NOTE | 2024-06-16 14:27 | MHC.SL.SWA ---
Speech Pathologist Impression: Adequate oropharyngeal coordination, pt has GI consultation d/t s/s of esophageal dysphagia Risk of Aspiration Due to: Esophageal involvement Generalized weakness Dysphasia Diet Status: NDD3 with thins Liquid Consistency and Strategies for Safe Swallow: Liquid Intake Recommendation: Thin Liquid Intake Strategies: Small Sips Double Swallow Solid Food Consistency: Dietary Recommendations: Chopped/Advanced (NDD3) Additional Modifications to Solid Foods: Patient seen for bedside dysphagia evaluation. Note mild oral phase dysphagia, with slow chewing and presence of mild residuals. Patient was able to effectively clear residue with self-initiated dry swallows. Swallow was otherwise timely, no difficulties with other textures and no overt s/s of aspiration seen. Patient complains of nausea, vomiting, gagging, spitting up white bile, and feeling like food is stuck in her esophagus. She has been experiencing these symptoms since April and has had reduced PO intake as a result. Recommend further evaluation w/ G.I. specialist, during inpatient stay if possible, otherwise outpatient. Recommend CONTINUE on CHOPPED/ADVANCED (NDD3) diet, as ordered in precaution per provider, and THIN liquids, pills WHOLE with LIQUIDS. Discussed w/ patient strategies for esophageal dysphagia: take small bites, chew food well, alternate with sips of liquid, maintain upright position during PO intake and for at least 60 minutes afterwards, avoid overly hard foods. Oral Medication Intake: Whole with Liquid Please contact the pharmacy regarding appropriate crushable or liquid drug formulations that are available whenever modified delivery is recommended. Compensatory Strategies and Precautions to be Taken for Safe Swallow: Sitting Upright (90 deg) Double Swallow Small Bites and Sips Alternate Liquids/Solids Rate of Ingestion Change Supervision While Eating and Drinking for Safe Swallow: None Needed Foods to Avoid: Hard to chew solids, dry/grainy consistencies Swallowing Recommended Treatments: Compens. Strategy Educat. Recommendation for Speech: Inpatient Speech Therapy Comment: Patient seen for dysphagia treatment, pt verbalized understanding of recc to reduce risk for aspiration, HOME PERFORMANCE CONSULTANT to re-assess as appropriate. 06/16/24 GI consulted today, HOME PERFORMANCE CONSULTANT reviewed recc to reduce risk for aspiration. HOME PERFORMANCE CONSULTANT to followup as indicated. Frequency/Duration: Date Range for Service Req: Timeline to reassess: [employer]ator [employer] Clinican/Clinical Fellow: No Supervisory Statement: I have reviewed and agree with the student/clinical fellow's documentation: N/A Speech Language Pathologist: Marga Smith M.S., [facility]-HOME PERFORMANCE CONSULTANT
--- NOTE | 2024-06-16 14:57 | CONS_ITS ---
DATE OF SERVICE: 06/16/2024 REFERRING PHYSICIAN: EFREM Courtney REASON FOR CONSULTATION: Dysphagia. HISTORY OF PRESENT ILLNESS: The patient is a pleasant 69-year-old woman known to me from previous evaluation. She was admitted to the hospital after presenting to the emergency department with complaints of redness and swelling of the lower extremities and admitted to the hospital for treatment with intravenous antibiotics and diuretics. She is seen today in consultation because of swallowing problems. She states over the past several months, she has had dysphagia with choking and coughing after eating. She does have some difficulty swallowing pills and find she has to wash her food down with plenty of liquids. She has been evaluated by Speech Therapy and Speech Therapy recommended GI consultation for this dysphagia problem. She has been continued on an NDD 3 diet. PAST MEDICAL HISTORY: 1. Hypertension. 2. Hyperlipidemia. 3. Diabetes mellitus. 4. Hypercalcemia. 5. Vitamin D deficiency. 6. Elevated BMI. 7. Osteopenia. 8. Macular degeneration. 9. Colonoscopy 04/04 for colon cancer screening, small tubular adenoma, 5 year followup. CURRENT MEDICATIONS: Current medication list is reviewed in the chart. ALLERGIES: MULTIPLE ALLERGIES ARE REVIEWED. FAMILY HISTORY: This is reviewed with the patient and is negative for upper GI malignancy. SOCIAL HISTORY: She does smoke. Alcohol use is infrequent. REVIEW OF SYSTEMS: SKIN: No pruritus. HEENT: Negative. CARDIOPULMONARY: She denies shortness of breath or chest pain. GASTROINTESTINAL: As above. GENITOURINARY: Negative. NEUROPSYCHIATRIC: Negative. PHYSICAL EXAMINATION: GENERAL: Shows a pleasant female, sitting in a chair. VITAL SIGNS: Reviewed in electronic medical record and are stable. SKIN: Anicteric. HEENT: Shows no scleral icterus. NECK: Without lymphadenopathy or thyromegaly. LUNGS: Clear. HEART: Shows a regular rate and rhythm. S1, S2. No murmur. ABDOMEN: Soft without focal masses or tenderness. Bowel sounds are present. No organomegaly is noted. EXTREMITIES: Without edema. LABORATORY DATA AND IMAGING STUDIES: Reviewed. IMPRESSION: Dysphagia. We discussed the differential diagnosis for causes of dysphagia. She will undergo upper endoscopy for further evaluation. This will be arranged for tomorrow. Thanks for asking me to see her. I will follow her in the hospital with you. MD ROSEANNE Roger/QUINN / [phone]
[2024-06-16 15:32] VITALS: BP 163/74; PULSE 65; RESP 20; TEMP 37.2; O2SAT 92
[2024-06-16 16:21] LABS: Glucose, Whole Blood 113 mg/dL (60-115)
[2024-06-16 19:04] VITALS: BP 137/92; PULSE 65; RESP 20; TEMP 37.1; O2SAT 93
[2024-06-16 19:51] LABS: Glucose, Whole Blood 126 mg/dL (60-115)
[2024-06-16] MEDS: Acetaminophen 325 MG TABLET 650 MG PO (21:01)
[2024-06-16 23:43] VITALS: BP 114/56; PULSE 60; RESP 18; TEMP 37.6; O2SAT 93
[2024-06-17] VITALS (10 sets, daily range): BP systolic 100–143; BP diastolic 39–78; PULSE 62–75; RESP 12–20; TEMP 36.1–36.9; O2SAT 90–94
[2024-06-17 07:20] LABS: Creatinine Clr Calc Pharmacy 59.4; Estimated Glomerular Filt Rate 43
[2024-06-17 07:45] LABS: Glucose, Whole Blood 124 mg/dL (60-115)
--- NOTE | 2024-06-17 08:38 | HO.PM.IMPN ---
Subjective Subjective Date of Service: 06/17/24 Interval History: seen and examined this morning follow up for possible cellulitis reporting food getting stuck in throat, difficulty swallowing, regurgitation of food, decreased po intake due to this Review of Systems Review of Systems: Yes all other systems are reviewed and are negative Constitutional Constitutional: Denies chills and Denies fever(s) Physical Exam Vital Signs: Vital Signs: Last Vital Signs Temp 96.9 F 06/17/24 07:04 Pulse 75 06/17/24 07:04 Resp 12 06/17/24 07:04 BP 143/65 H 06/17/24 07:04 Pulse Ox 90 L 06/17/24 07:04 O2 Del Method Room Air 06/17/24 07:04 BMI result Body Mass Index 46.2 Appearing in no acute distress lung sounds are clear to auscultation heart regular rate rhythm, clear S1, S2 positive bowel sounds, abdomen is soft, nontender neuro patient is alert x3, no focal deficits Mild erythema to bilateral LE Objective Data Active Medications Acetaminophen (Acetaminophen 325 Mg Tablet) 650 mg PO Q6H PRN PRN Reason: Pain, Mild (Pain Scale 1-3), fever or headache Last Admin: 06/16/24 21:01 Dose: 650 mg Documented By: SKYLAR Atorvastatin Calcium (Atorvastatin Calcium 20 Mg Tablet) 20 mg PO DAILY [facility] Last Admin: 06/16/24 08:03 Dose: 20 mg Documented By: PEYTON Calcium Carbonate (Calcium Carbonate 750 Mg Tab.Chew) 750 mg PO Q4H PRN PRN Reason: Heartburn Enoxaparin Sodium (Enoxaparin Sodium 40 Mg/0.4 Ml Syringe) 40 mg SUBCUT Q24H [facility] Last Admin: 06/15/24 20:13 Dose: 40 mg Documented By: SHALINI Famotidine (Famotidine/Pf 20 Mg/2 Ml Vial) 20 mg IVPUSH BID [facility] Last Admin: 06/16/24 21:01 Dose: 20 mg Documented By: SKYLAR Glucose (Glucose Gel 15 Gm Gel..Gram.) 15 gm PO Q15M PRN; Protocol PRN Reason: per Hypoglycemia Standing Ord. Dextrose (D10) 250 mls @ 750 mls/hr IV Q15M PRN; Protocol PRN Reason: per Hypoglycemia Standing Ord. Magnesium Hydroxide (Milk Of Magnesia 30 Ml Oral.Susp) 30 ml PO DAILY PRN PRN Reason: Constipation Magnesium Oxide (Magnesium Oxide 400 Mg Tablet) 200 mg PO DAILY [facility] Last Admin: 06/16/24 08:03 Dose: 200 mg Documented By: PEYTON Melatonin (Melatonin 3 Mg Tablet) 6 mg PO BEDTIME PRN PRN Reason: Insomnia Metoprolol Succinate (Metoprolol Succinate Er 25 Mg Tab.Er.24h) 25 mg PO DAILY [facility]; Protocol Last Admin: 06/16/24 08:03 Dose: 25 mg Documented By: PEYTON Ondansetron HCl (Ondansetron Hcl 4 Mg/2 Ml Vial) 4 mg IVPUSH Q6H PRN PRN Reason: Nausea and Vomiting Sodium Chloride (0.9 % Sodium Chloride Flush 3 Ml Syringe) 3 ml IVFLUSH QSHIFT [facility] Last Admin: 06/16/24 21:05 Dose: 3 ml Documented By: SKYLAR Vitamin D (Cholecalciferol (Vitamin D3) 25 Mcg Tablet) 25 mcg PO DAILY [facility] Last Admin: 06/16/24 08:03 Dose: 25 mcg Documented By: PEYTON Labs 06/11/24 09:44 06/17/24 05:31 Labs: Laboratory Results - last 24 hr 06/16/24 06/16/24 06/16/24 11:10 16:17 19:39 Estim Creat Clear Calc Estimated GFR POC Glucose 133 H 113 126 H 06/17/24 06/17/24 05:31 07:07 Estim Creat Clear Calc 59.4 Estimated GFR 43 POC Glucose 124 H Assessment and Plan (1) Lymphedema: Status: Acute (2) Hypokalemia: Status: Acute Plan 69-year-old female with a PMH significant for HTN, HLD, and diet-controlled type 2 diabetes who presents to the ED for evaluation of lower leg swelling and erythema that has not improved with outpatient p.o. antibiotics. Pt will be admitted to the hospital under observation for treatment of lower leg erythema and swelling concerning for cellulitis that failed outpatient therapy vs chronic venous insufficiency. Dysphagia reporting food getting stuck, regurgitation of food seen by speech, no aspiration GI consult> EGD today Hypokalemia resolved with replacement likely due to HCTZ and lasix (was stopped by pcp but pt resumed on own per report) will stop replace IV and PO potassium and IV magnesium Bilateral lower leg edema, warmth, and erythema due to underlying lymphedema and probable venous insufficiency b/l doppler negative for DVT treated with clindamycin outpatient. x7 days without improvement. on IV vancomycin x3 days without improvement, antibiotics stopped seen by Vascular surgery - outpatient follow up to eval for venous insufficiency rec resume use of compression stockings (she doesn't wear due to discomfort) as well as bid use of compression pumps upon discharge can follow up in wound care center after discharge continue Jordi wraps/leg elevation Hyponatremia, mild improved Hypomagnesemia repleted and resolved HLD Continue atorvastatin HTN bp stable Continue metoprolol HCTZ stopped Diet-controlled type 2 diabetes Diabetic diet follow POCs, can add SSI if poc elevated morbid obesity BMI 46.2 Discussed importance of weight management as this may be contributing to worsening of other comorbidities Full Code DVT Prophylaxis: Heriberto Attending Dr. Pickens Quality Stroke Does the patient have a stroke diagnosis?: No VTE Prior VTE?: No VTE Risk Level:: Medical - moderate - high VTE Device Contraindication: Treatment Not Indicated VTE Drug Contraindication: N/A - Med Ordered
--- NOTE | 2024-06-17 09:09 | P.PNVS_ITS ---
Subjective Subjective Date of Service: 06/17/24 Interval history: Alley is doing well this morning. She states the pain/discomfort in her legs has lessened. She has been eating, sleeping, and drinking well. Physical Exam Vital Signs: Vital Signs: Last Vital Signs Temp 96.9 F 06/17/24 07:04 Pulse 75 06/17/24 07:04 Resp 12 06/17/24 07:04 BP 143/65 H 06/17/24 07:04 Pulse Ox 90 L 06/17/24 07:04 O2 Del Method Room Air 06/17/24 07:04 BMI result Body Mass Index 46.2 Const: General: comfortable and no acute distress Orien tation/consciousness: patient oriented x3 HEENT: Ears: hearing grossly normal bilaterally Resp: Effort & Inspection: normal respiratory effort and able to speak in complete sentences Auscultation: clear to auscultation bilaterally Cardio: Rate: regular rate Rhythm: regular rhythm Heart sounds: S1 normal heart sound present and S2 normal heart sound present Bruits: no abdominal aortic bruits, no carotid bruits, no femoral bruits and no renal bruits GI: Palpation (GI): No Abdominal aortic bruit present Neuro: General: patient oriented x3 Cranial nerves: Yes CN's II-XII intact bilaterally Extrem: Other: Bilateral lower extremities: discoloration, deep erythema, noted from just below the knees to the toes. +2 peripheral edema noted. No wounds noted. Progress Note: A&P Assessment and plan (1) Bilateral cellulitis of lower leg: Status: Acute Assessment and Plan: Alley is doing well this morning. she is going for an EGD today and will likely get discharged later or tomorrow. From a vascular standpoint, we will follow up with her outpatient; she currently has an appt with us next week, which we encouraged the pt to keep. Continue with current treatment for lymphedema, with her legs wrapped daily. We will continue to monitor. If there are any questions or concerns, please do not hesitate to reach out to us. Time Spent With Patient Time: Total time managing care of this patient today __20__ minutes. Procedures Date of Service Date of Service: 06/17/24 Quality Stroke Does the patient have a stroke diagnosis?: No VTE Prior VTE?: No VTE Risk Level:: Medical - moderate - high VTE Device Contraindication: Treatment Not Indicated VTE Drug Contraindication: N/A - Med Ordered
[2024-06-17] MEDS: Metoprolol Succinate ER 25 MG TAB.ER.24H PO (10:25)
[2024-06-17] MEDS: Famotidine/PF 20 MG/2 ML VIAL IVPUSH (10:25)
[2024-06-17] MEDS: 0.9 % Sodium Chloride Flush 3 ML SYRINGE IVFLUSH ×2 (10:31→17:58)
[2024-06-17 10:51] LABS: Glucose, Whole Blood 105 mg/dL (60-115)
--- NOTE | 2024-06-17 11:51 | MHC.SPEECHCO ---
Pt NPO for EGD scheduled today. WING COVERER will follow-up pending results.
--- NOTE | 2024-06-17 12:25 | HO.ANESPROP2 ---
HPI - Anesthesia Eval Consult details Narrative: 69 yo female patient for EGD PMFSH Active Problems Active Problems: All Active Problems Hypokalemia (Acute) Hepatic steatosis (Acute) Lymphedema (Acute) Bilateral cellulitis of lower leg (Acute) Lymphedema of both lower extremities (Acute) Adnexal mass (Acute) Right adrenal mass (Acute) Hepatomegaly (Acute) Hypomagnesemia (Acute) Dehydration (Acute) COVID-19 (Acute) Nausea (Acute) Dermatitis (Acute) Pain in left foot (Acute) Infection of left foot (Acute) Morbid obesity (Acute) BMI 46.2 Osteopenia (Acute) Tobacco abuse (Acute). Sats 92% RA. Up to 95% with sitting up. Denies COPD history. Does not use inhalers Hypercholesterolemia (Acute) Essential hypertension (Acute) Type 2 diabetes mellitus with hyperglycemia (Acute) Denies JAMES Past Medical History Medical History Obesity Macular degeneration Osteopenia Vitamin D deficiency Hypercalcemia Hypercholesterolemia Essential hypertension Type 2 diabetes mellitus with hyperglycemia Family History Family History Father Lung cancer Mother No problems noted. Paternal Aunt Breast cancer Family history of problems with anesthesia: No Surgical History Surgical History History of cholecystectomy History of Problems with Anesthesia: No Social History Social History Household Members: Spouse Housing: House Are you a primary client care manager to a significant other at home: No Do you presently have visiting nurse or other home services: No Alcohol intake: current Alcohol intake frequency: holidays/special occasions only Patient Tobacco Use Status: Current everyday Tobacco user Tobacco use type: Cigarette Cigarette Packs Per Day: 15 Cigarettes Per Day: 300.0 Years Smoked: 54 Smoked in Last 30 Days: Yes e-Cigarette/Vaping Use: Never Used Patient Interested in Nicotine Replacement: No Second Hand Smoke Exposure: Yes Use of substances other than those prescribed or required for medical reasons: No Currently Displaying Signs/Symptoms of Drug Intoxication Withdrawal: No Have you been hit, kicked, punched, or otherwise hurt by someone within the past year? If so, by whom?: No Do you feel safe in your current relationship?: Yes Is there a partner from a previous relationship who is making you feel unsafe now?: No Are you made to feel afraid or neglected: No Are you DNR?: No Advance Directives: No Advance Directives Information Provided: Yes Recently lost weight without trying: No Nutrition Risks: No Nutritional Risk Patient : No : No Poor oral hygiene: No service: No Current occupational status: retired Cognitive needs: No Hearing needs: No Vision needs: Yes (reading glasses ) Meds Allergies Allergy/AdvReac Type Severity Reaction Status Date / Time amoxicillin [AMOXICILLIN] Allergy Severe RASH Verified 06/11/24 09:28 adhesive tape [ADHESIVE TAPE] Allergy Intermediate RASH Verified 06/11/24 09:28 lisinopril [LISINOPRIL] Allergy Intermediate COUGH Verified 06/11/24 09:28 cephalexin Allergy Mild Rash Verified 06/11/24 09:28 simvastatin [From ZOCOR] Allergy Unknown UNKNOWN Verified 06/11/24 09:28 doxycycline Allergy Rash Verified 06/11/24 09:28 Active Medications: Current Medications Acetaminophen (Acetaminophen 325 Mg Tablet) 650 mg PO Q6H PRN PRN Reason: Pain, Mild (Pain Scale 1-3), fever or headache Last Admin: 06/16/24 21:01 Dose: 650 mg Atorvastatin Calcium (Atorvastatin Calcium 20 Mg Tablet) 20 mg PO DAILY [facility] Last Admin: 06/16/24 08:03 Dose: 20 mg Calcium Carbonate (Calcium Carbonate 750 Mg Tab.Chew) 750 mg PO Q4H PRN PRN Reason: Heartburn Enoxaparin Sodium (Enoxaparin Sodium 40 Mg/0.4 Ml Syringe) 40 mg SUBCUT Q24H [facility] Last Admin: 06/15/24 20:13 Dose: 40 mg Famotidine (Famotidine/Pf 20 Mg/2 Ml Vial) 20 mg IVPUSH BID [facility] Last Admin: 06/17/24 10:25 Dose: 20 mg Glucose (Glucose Gel 15 Gm Gel..Gram.) 15 gm PO Q15M PRN; Protocol PRN Reason: per Hypoglycemia Standing Ord. Dextrose (D10) 250 mls @ 750 mls/hr IV Q15M PRN; Protocol PRN Reason: per Hypoglycemia Standing Ord. Magnesium Hydroxide (Milk Of Magnesia 30 Ml Oral.Susp) 30 ml PO DAILY PRN PRN Reason: Constipation Magnesium Oxide (Magnesium Oxide 400 Mg Tablet) 200 mg PO DAILY [facility] Last Admin: 06/16/24 08:03 Dose: 200 mg Melatonin (Melatonin 3 Mg Tablet) 6 mg PO BEDTIME PRN PRN Reason: Insomnia Metoprolol Succinate (Metoprolol Succinate Er 25 Mg Tab.Er.24h) 25 mg PO DAILY [facility]; Protocol Last Admin: 06/17/24 10:25 Dose: 25 mg Ondansetron HCl (Ondansetron Hcl 4 Mg/2 Ml Vial) 4 mg IVPUSH Q6H PRN PRN Reason: Nausea and Vomiting Sodium Chloride (0.9 % Sodium Chloride Flush 3 Ml Syringe) 3 ml IVFLUSH QSHIFT [facility] Last Admin: 06/17/24 10:31 Dose: 3 ml Vitamin D (Cholecalciferol (Vitamin D3) 25 Mcg Tablet) 25 mcg PO DAILY [facility] Last Admin: 06/16/24 08:03 Dose: 25 mcg Home Medications ?Medication ?Instructions ?Recorded ?Confirmed ?Last Taken ?Type cholecalciferol (vitamin D3) 25 25 mcg PO DAILY 07/05/20 06/11/24 06/10/24 History mcg (1,000 unit) capsule ibuprofen 200 mg tablet (Advil) 200 mg PO Q6H PRN Pain 07/05/20 06/11/24 Unknown History Exam Height,Weight and Vital Signs: Height 5 ft 7 in Weight 133.9 kg Last Vital Signs Temp 98.0 F 06/17/24 11:08 Pulse 62 06/17/24 11:08 Resp 16 06/17/24 11:08 BP 136/66 06/17/24 11:08 Pulse Ox 93 06/17/24 11:08 O2 Del Method Room Air 06/17/24 11:08 Pertinent Lab Results Pertinent Lab Results: Laboratory Tests 06/11/24 06/12/24 06/12/24 09:44 05:01 17:08 WBC 5.9 RBC 4.08 L Hgb 13.5 Hct 38.8 MCV 95.1 MCH 33.1 H MCHC 34.8 RDW 13.1 Plt Count 274 MPV 10.1 Immature Gran % (Auto) 0.3 Neut % (Auto) 55.0 Lymph % (Auto) 25.4 [place] % (Auto) 11.2 H Eos % (Auto) 7.6 H Baso % (Auto) 0.5 Lymph # (Auto) 1.5 [place] # (Auto) 0.7 Eos # (Auto) 0.5 H Baso # (Auto) 0.0 Abs Immat Gran (auto) 0.02 Absolute Neuts (auto) 3.2 Absolute Nucleated RBC 0.000 Nucleated RBC % (auto) 0.0 Hold Purple Top SEE NOTE Sodium 131 L 132 L Potassium 3.2 L 3.1 L Chloride 91 L 95 L Carbon Dioxide 26 26 Anion Gap 17 14 BUN 4 L 4 L Creatinine 0.95 0.95 Estim Creat Clear Calc 78.5 77.6 Estimated GFR 58 58 POC Glucose Random Glucose 126 H 99 Calcium 9.8 9.0 D Magnesium 1.5 L 2.1 Total Bilirubin 0.7 AST 33 H ALT 16 Alkaline Phosphatase 89 C-Reactive Protein 2.77 H B-Natriuretic Peptide 66 Total Protein 7.1 Albumin 3.6 Random Vancomycin 15.4 06/13/24 06/13/24 06/14/24 06:41 17:20 05:18 WBC RBC Hgb Hct MCV MCH MCHC RDW Plt Count MPV Immature Gran % (Auto) Neut % (Auto) Lymph % (Auto) [place] % (Auto) Eos % (Auto) Baso % (Auto) Lymph # (Auto) [place] # (Auto) Eos # (Auto) Baso # (Auto) Abs Immat Gran (auto) Absolute Neuts (auto) Absolute Nucleated RBC Nucleated RBC % (auto) Hold Purple Top Sodium 135 135 Potassium 3.2 L 2.7 L* Chloride 97 98 Carbon Dioxide 25 26 Anion Gap 16 14 BUN 4 L 6 L Creatinine 1.08 1.13 Estim Creat Clear Calc 68.3 65.2 Estimated GFR 50 47 POC Glucose Random Glucose 102 95 Calcium 9.7 D 9.1 D Magnesium 1.7 Total Bilirubin AST ALT Alkaline Phosphatase C-Reactive Protein B-Natriuretic Peptide Total Protein Albumin Random Vancomycin 18.7 06/14/24 06/14/24 06/14/24 16:42 17:13 19:06 WBC RBC Hgb Hct MCV MCH MCHC RDW Plt Count MPV Immature Gran % (Auto) Neut % (Auto) Lymph % (Auto) [place] % (Auto) Eos % (Auto) Baso % (Auto) Lymph # (Auto) [place] # (Auto) Eos # (Auto) Baso # (Auto) Abs Immat Gran (auto) Absolute Neuts (auto) Absolute Nucleated RBC Nucleated RBC % (auto) Hold Purple Top Sodium Potassium Chloride Carbon Dioxide Anion Gap BUN Creatinine Estim Creat Clear Calc Estimated GFR POC Glucose 115 141 H Random Glucose Calcium Magnesium Total Bilirubin AST ALT Alkaline Phosphatase C-Reactive Protein B-Natriuretic Peptide Total Protein Albumin Random Vancomycin 17.0 06/15/24 06/15/24 06/15/24 05:33 07:22 11:02 WBC RBC Hgb Hct MCV MCH MCHC RDW Plt Count MPV Immature Gran % (Auto) Neut % (Auto) Lymph % (Auto) [place] % (Auto) Eos % (Auto) Baso % (Auto) Lymph # (Auto) [place] # (Auto) Eos # (Auto) Baso # (Auto) Abs Immat Gran (auto) Absolute Neuts (auto) Absolute Nucleated RBC Nucleated RBC % (auto) Hold Purple Top Sodium 134 L Potassium 3.4 D Chloride 98 Carbon Dioxide 26 Anion Gap 13 BUN 6 L Creatinine 1.15 Estim Creat Clear Calc 64.1 Estimated GFR 47 POC Glucose 92 118 H Random Glucose 93 Calcium 9.9 D Magnesium Total Bilirubin AST ALT Alkaline Phosphatase C-Reactive Protein B-Natriuretic Peptide Total Protein Albumin Random Vancomycin 06/15/24 06/15/24 06/16/24 16:10 19:26 05:26 WBC RBC Hgb Hct MCV MCH MCHC RDW Plt Count MPV Immature Gran % (Auto) Neut % (Auto) Lymph % (Auto) [place] % (Auto) Eos % (Auto) Baso % (Auto) Lymph # (Auto) [place] # (Auto) Eos # (Auto) Baso # (Auto) Abs Immat Gran (auto) Absolute Neuts (auto) Absolute Nucleated RBC Nucleated RBC % (auto) Hold Purple Top Sodium Potassium Chloride Carbon Dioxide Anion Gap BUN Creatinine 1.25 Estim Creat Clear Calc 58.9 Estimated GFR 42 POC Glucose 128 H 155 H Random Glucose Calcium Magnesium Total Bilirubin AST ALT Alkaline Phosphatase C-Reactive Protein B-Natriuretic Peptide Total Protein Albumin Random Vancomycin 06/16/24 06/16/24 06/16/24 07:26 11:10 16:17 WBC RBC Hgb Hct MCV MCH MCHC RDW Plt Count MPV Immature Gran % (Auto) Neut % (Auto) Lymph % (Auto) [place] % (Auto) Eos % (Auto) Baso % (Auto) Lymph # (Auto) [place] # (Auto) Eos # (Auto) Baso # (Auto) Abs Immat Gran (auto) Absolute Neuts (auto) Absolute Nucleated RBC Nucleated RBC % (auto) Hold Purple Top Sodium Potassium Chloride Carbon Dioxide Anion Gap BUN Creatinine Estim Creat Clear Calc Estimated GFR POC Glucose 106 133 H 113 Random Glucose Calcium Magnesium Total Bilirubin AST ALT Alkaline Phosphatase C-Reactive Protein B-Natriuretic Peptide Total Protein Albumin Random Vancomycin 06/16/24 06/17/24 06/17/24 19:39 05:31 07:07 WBC RBC Hgb Hct MCV MCH MCHC RDW Plt Count MPV Immature Gran % (Auto) Neut % (Auto) Lymph % (Auto) [place] % (Auto) Eos % (Auto) Baso % (Auto) Lymph # (Auto) [place] # (Auto) Eos # (Auto) Baso # (Auto) Abs Immat Gran (auto) Absolute Neuts (auto) Absolute Nucleated RBC Nucleated RBC % (auto) Hold Purple Top Sodium Potassium Chloride Carbon Dioxide Anion Gap BUN Creatinine 1.24 Estim Creat Clear Calc 59.4 Estimated GFR 43 POC Glucose 126 H 124 H Random Glucose Calcium Magnesium Total Bilirubin AST ALT Alkaline Phosphatase C-Reactive Protein B-Natriuretic Peptide Total Protein Albumin Random Vancomycin 06/17/24 10:46 WBC RBC Hgb Hct MCV MCH MCHC RDW Plt Count MPV Immature Gran % (Auto) Neut % (Auto) Lymph % (Auto) [place] % (Auto) Eos % (Auto) Baso % (Auto) Lymph # (Auto) [place] # (Auto) Eos # (Auto) Baso # (Auto) Abs Immat Gran (auto) Absolute Neuts (auto) Absolute Nucleated RBC Nucleated RBC % (auto) Hold Purple Top Sodium Potassium Chloride Carbon Dioxide Anion Gap BUN Creatinine Estim Creat Clear Calc Estimated GFR POC Glucose 105 Random Glucose Calcium Magnesium Total Bilirubin AST ALT Alkaline Phosphatase C-Reactive Protein B-Natriuretic Peptide Total Protein Albumin Random Vancomycin Airway Mallampati Class: II TM Dist: >3cm Neck ROM: Full Partial: Upper and Lower Loose/Missing/Broken Teeth: Yes (Denies broken or loose teeth) Heart: RRR Lungs: CTAB Assessment and Plan Assessment Anesthesia Assessment: Anesthesia Plan Discussed and Chart Reviewed Final Anesthetic Review Family History of Problems with Anesthesia: No History of Problems with Anesthesia: No NPO: Yes ASA Class: II Final Preanesthetic Review: No Changes in Pt Med Stat, Meds/Allgs Chart Reviewed, Consent Obtained/Reviewed and Anes Risks/Benef Reviewed Patient Risk: Intermediate Procedure Risk: Low Assessment/Block/Sedation in SS: Assess/Block/Sedation-SS Anesthetic Plan Anesthetic Plan: TIVA Disposition: Standard PACU
--- NOTE | 2024-06-17 12:26 | MHC.SHP ---
Pre-Procedural Eval Section A - 24 Hr Update-Section A only Date of Service: 06/17/24 The patient is an INPATIENT: Yes Changes since office visit: No Cold of Flu in the past 2 weeks, No New Medical Problems, No Changes in Medication and No Patient answered all questions The patient has been examined within 24 hours of the surgical procedure. The History & Physical has been completed within 30 days and I have reviewed it.: Yes Section B - Complete if H&P > 30 days Chief Complaint: Lower leg cellulitis that failed outpt therapy Allergies: Allergies Allergy/AdvReac Type Severity Reaction Status Date / Time amoxicillin [AMOXICILLIN] Allergy Severe RASH Verified 06/11/24 09:28 adhesive tape [ADHESIVE TAPE] Allergy Intermediate RASH Verified 06/11/24 09:28 lisinopril [LISINOPRIL] Allergy Intermediate COUGH Verified 06/11/24 09:28 cephalexin Allergy Mild Rash Verified 06/11/24 09:28 simvastatin [From ZOCOR] Allergy Unknown UNKNOWN Verified 06/11/24 09:28 doxycycline Allergy Rash Verified 06/11/24 09:28 Plan I have reviewed the history and physical and performed a pertinent physical examination on my patient. No changes have occurred unless specified. Time Spent With Patient Time: Total time managing care of this patient today ____ minutes.
--- NOTE | 2024-06-17 12:55 | PM.EVENT ---
Event Note Date of Service: 06/17/24 Event Note: GI EGD shows erosive gastritis but no esophageal abnormalities Bx taken Rec: f/u bx results start ppi continue ST recommendations. Time Spent With Patient Time: Total time managing care of this patient today ____ minutes.
--- NOTE | 2024-06-17 13:27 | OP_ITS ---
DATE OF SERVICE: 06/17/2024 SURGEON: Jtehro Sharma MD INDICATIONS: Dysphagia. PREOPERATIVE DIAGNOSIS: POSTOPERATIVE DIAGNOSIS: PROCEDURE PERFORMED: Upper endoscopy with biopsy. ESTIMATED BLOOD LOSS: COMPLICATIONS: ANESTHESIA: ASSISTANTS: SPECIMENS: MEDICATIONS: Monitored anesthesia care. DESCRIPTION OF PROCEDURE: A history and physical was performed. The risks and benefits of the procedure were explained to the patient. Informed consent was obtained. The patient was placed in the left lateral decubitus position. The Olympus video gastroscope was introduced into the esophagus, stomach, and duodenum. Examination was performed. The scope was removed. She tolerated the procedure well and was returned to the recovery area in stable condition. FINDINGS: Esophagus: The esophagus was normal. No stricture was identified. The mucosa appeared normal. There was no esophagitis. Biopsies were obtained from the EG junction and from the mid esophagus at about 35 cm. Stomach: The stomach showed antral erosions consistent with erosive gastritis. There was no bleeding. Biopsies were obtained from the antrum. Duodenum: The bulb and second portion were normal. IMPRESSION: Erosive gastritis. RECOMMENDATION: 1. Follow up the biopsy results. 2. Begin proton pump inhibitor. 3. Continue with speech pathology recommendations for oropharyngeal dysphagia. MD ROSEANNE Roger/QUINN / [phone]
--- NOTE | 2024-06-17 15:25 | P.DS_ITS ---
DS: Providers Provider Date of admission: 06/13/24 12:48 Primary care physician: Adan Griffin MD Consults: 06/11/24 18:20 Consult to Vascular Surgery Routine Consulting Provider: [facility] [place] [facility] [place] [facility] Reason for consultation: ?Chronic venous insufficiency/stasis dermatits, lymphedema 06/15/24 08:50 Consult to Gastroenterology Routine Consulting Provider: Aaliyah Garcia Reason for consultation: food getting stuck in throat, regurgitation, decreased po intake Has provider been notified: No DS: Diagnosis Discharge Diagnosis (1) Bilateral cellulitis of lower leg: Status: Acute DS: Summary Hospital Course Hospital Course: Pt is a 69-year-old female with a PMH significant for HTN, HLD, and diet- controlled type 2 diabetes who presents to the ED for evaluation of lower leg swelling and erythema that has not improved with outpatient p.o. antibiotics. Reports symptoms started approximately 3 weeks ago when she began noticing redness on her ankles, with left beginning 1st. Redness and swelling began spreading up her calf. Initially presented to the ED on 06/02/2024 and was diagnosed with bilateral lower extremity cellulitis and discharged home on oral clindamycin which patient took as prescribed. Patient's symptoms, however, did not improve and redness and swelling continued to worsen so patient presented today. Chills but no fever. Denies chest pain/pressure, palpitations. Patient previously on hydrochlorothiazide for lower leg edema, but was stopped due to low BP. Patient self started again 4 days ago with little effect. Patient also often wears compression stockings, but has not recently due to increased pain. Patient also complains of nausea, vomiting, and gagging x1 month. Patient reports she often gags up ?white bile? 2 to 3 times a day. Has had reduced p.o. intake during this time. Has seen PCP who ordered an abdominal ultrasound which patient had completed today, results pending. Denies abdominal pain. No shortness a breath or difficulty breathing. In the ED pt with initial slightly soft BP of 108/49, vitals otherwise stable and WNL. Labs were significant for mild hyponatremia of 131, potassium 3.2, magnesium 1.5, AST 33. No leukocytosis. Stable H&H. Renal function WNL. Venous duplex found no evidence of DVT in bilateral lower extremities. Pt was treated with potassium chloride, morphine, and vancomycin. Pt will be admitted to the hospital under observation for treatment of lower leg erythema and swelling concerning for cellulitis that failed outpatient therapy vs chronic venous insufficiency. 69-year-old woman initially treated for bilateral lower extremity cellulitis with bilateral lower extremity erythema and edema. She was treated initially outpatient with clindamycin without improvement and then on vancomycin while inpatient but no significant improvement noted therefore antibiotics were stopped. She was seen and evaluated by vascular surgery for question of venous insufficiency secondary to lymphedema. She has a scheduled outpatient ap pointment next week. Jordi wraps were used and leg elevation was recommended. She does have lymphedema boots at home which she should continue to use. She had also reported dysphagia that has been happening for over a month. She reported that food was getting stuck and she felt a regurgitation. She was seen and evaluated by speech therapy who recommended regular diet with compensatory strategies including double swallowing, small bites, alternating liquids with solids. Patient should follow up with Gastroenterology if she continues to have these issues or they worsen. She had EGD today which showed erosive gastritis but no esophageal abnormalities, biopsies taken. GI recommended PPI and follow up of biopsy results. Hyponatremia, hypomagnesemia, hypokalemia. All repleted and resolved Hyperlipidemia. Continue statin Hypertension. Blood pressure stable. Continue on metoprolol, hydrochlorothiazide was stopped Diet-controlled diabetes mellitus type 2. Morbid obesity. BMI 46.2. Discussed importance of weight management as this may be contributing to worsening of other comorbidities Physical Exam Vital Signs: Vital Signs: Last Vital Signs Temp 97.5 F 06/17/24 13:55 Pulse 63 06/17/24 13:55 Resp 12 06/17/24 13:55 BP 135/78 06/17/24 13:55 Pulse Ox 94 06/17/24 13:55 O2 Del Method Room Air 06/17/24 13:55 BMI result Body Mass Index 46.2 DS: Data Data Completed and Pending Pending studies at discharge: Pending at discharge 06/17/24 12:50 Surgical [PTH] Routine Labs on day of discharge: Laboratory Results - last 24 hr 06/16/24 06/16/24 06/17/24 16:17 19:39 05:31 Creatinine 1.24 Estim Creat Clear Calc 59.4 Estimated GFR 43 POC Glucose 113 126 H 06/17/24 06/17/24 07:07 10:46 Creatinine Estim Creat Clear Calc Estimated GFR POC Glucose 124 H 105 Discharge Plan Discharge Patient Disposition: Home Health Service Discharge Diagnosis: Venous stasis secondary to lymphedema Dysphagia Hypokalemia Hyponatremia Hypomagnesemia Referrals: Jethro Sharma MD [Physician] - None Ruben Meyer MD [Physician] - 1 Week Po,Adan Iraheta MD [Primary Care Provider] - 1 Week Discharge Medications: New omeprazole 20 mg Capsule,Delayed Release(Dr/Ec) 20 mg PO DAILY@0630 Qty: 30 0RF Continued metoprolol succinate 25 mg tablet extended release 24 hr 25 mg PO DAILY Qty: 90 3RF hydrochlorothiazide 25 mg tablet 25 mg PO DAILY 90 Days Qty: 90 2RF atorvastatin 20 mg tablet 20 mg PO DAILY 30 Days Qty: 30 4RF magnesium 200 mg tablet 200 mg PO DAILY Qty: 30 0RF potassium chloride 10 mEq tablet extended release 10 meq PO DAILY 6 Days Qty: 6 0RF cholecalciferol (vitamin D3) 25 mcg (1,000 unit) capsule 25 mcg PO DAILY ibuprofen [Advil] 200 mg tablet 200 mg PO Q6H PRN (Reason: Pain) Diet: Advance to usual diet Activity on Discharge: As tolerated Stand Alone Forms: Patient Portal Discharge page Print Language: Iraqi Care Plan Goals: Follow-up with vascular surgeon at next scheduled appointment Four continue dysphagia follow up with Gastroenterology Compensatory Strategies and Precautions to be Taken for Safe Swallow: Sitting Upright (90 deg)Double Swallow Small Bites and Sips Alternate Liquids/Solids Rate of Ingestion Change Foods to Avoid: Hard to chew solids, dry/grainy consistencies Health Concerns: Venous stasis secondary to lymphedema Dysphagia Hypokalemia Hyponatremia Hypomagnesemia Plan of Treatment: Follow-up with primary care provider as needed Take all medications as prescribed Assessment: Treated for bilateral lower extremity erythema likely secondary to chronic venous stasis from lymphedema and essentially negative EGD for dysphagia
[2024-06-17 16:26] LABS: Glucose, Whole Blood 101 mg/dL (60-115)
[2024-06-17] MEDS: Lactated Ringers 1,000 ML 50 ML IVCONT (17:57)
[2024-06-17 19:28] LABS: Glucose, Whole Blood 111 mg/dL (60-115)
[2024-06-17] MEDS: Acetaminophen 325 MG TABLET 650 MG PO (19:54)
[2024-06-17] MEDS: Enoxaparin Sodium 40 MG/0.4 ML SYRINGE SUBCUT (19:55)
[2024-06-18] MEDS: 0.9 % Sodium Chloride Flush 3 ML SYRINGE IVFLUSH ×2 (00:19→09:05)
[2024-06-18 03:33] VITALS: BP 116/57; PULSE 58; RESP 18; TEMP 36; O2SAT 93
[2024-06-18] MEDS: Omeprazole 20 MG CAPSULE.DR PO (06:12)
[2024-06-18 06:57] LABS: Creatinine Clr Calc Pharmacy 59.4; Estimated Glomerular Filt Rate 43
[2024-06-18 07:09] VITALS: BP 118/54; PULSE 64; RESP 12; TEMP 36.2; O2SAT 91
[2024-06-18 07:27] LABS: Glucose, Whole Blood 93 mg/dL (60-115)
--- NOTE | 2024-06-18 08:59 | PM.DS ---
DS: Providers Provider Date of Service: 06/18/24 Date of admission: 06/13/24 12:48 Date of discharge: 06/18/24 Primary care physician: Adan Griffin MD Consults: 06/11/24 18:20 Consult to Vascular Surgery Routine Consulting Provider[place] [facility] [place] [facility] Reason for consultation: ?Chronic venous insufficiency/stasis dermatits, lymphedema 06/15/24 08:50 Consult to Gastroenterology Routine Consulting Provider: Aaliyah Garcia Reason for consultation: food getting stuck in throat, regurgitation, decreased po intake Has provider been notified: No DS: Diagnosis Discharge Diagnosis (1) Bilateral cellulitis of lower leg: Status: Deleted DS: Summary Hospital Course Hospital Course: Pt is a 69-year-old female with a PMH significant for HTN, HLD, and diet-controlled type 2 diabetes who presents to the ED for evaluation of lower leg swelling and erythema that has not improved with outpatient p.o. antibiotics. Reports symptoms started approximately 3 weeks ago when she began noticing redness on her ankles, with left beginning 1st. Redness and swelling began spreading up her calf. Initially presented to the ED on 06/02/2024 and was diagnosed with bilateral lower extremity cellulitis and discharged home on oral clindamycin which patient took as prescribed. Patient's symptoms, however, did not improve and redness and swelling continued to worsen so patient presented today. Chills but no fever. Denies chest pain/pressure, palpitations. Patient previously on hydrochlorothiazide for lower leg edema, but was stopped due to low BP. Patient self started again 4 days ago with little effect. Patient also often wears compression stockings, but has not recently due to increased pain. Patient also complains of nausea, vomiting, and gagging x1 month. Patient reports she often gags up ?white bile? 2 to 3 times a day. Has had reduced p.o. intake during this time. Has seen PCP who ordered an abdominal ultrasound which patient had completed today, results pending. Denies abdominal pain. No shortness a breath or difficulty breathing. In the ED pt with initial slightly soft BP of 108/49, vitals otherwise stable and WNL. Labs were significant for mild hyponatremia of 131, potassium 3.2, magnesium 1.5, AST 33. No leukocytosis. Stable H&H. Renal function WNL. Venous duplex found no evidence of DVT in bilateral lower extremities. Pt was treated with potassium chloride, morphine, and vancomycin. Pt will be admitted to the hospital under observation for treatment of lower leg erythema and swelling concerning for cellulitis that failed outpatient therapy vs chronic venous insufficiency. 69-year-old woman initially treated for bilateral lower extremity cellulitis with bilateral lower extremity erythema and edema. She was treated initially outpatient with clindamycin without improvement and then on vancomycin while inpatient but no significant improvement noted therefore antibiotics were stopped. She was seen and evaluated by vascular surgery for question of venous insufficiency secondary to lymphedema. She has a scheduled outpatient appointment next week. Jordi wraps were used and leg elevation was recommended. She does have lymphedema boots at home which she should continue to use. She had also reported dysphagia that has been happening for over a month. She reported that food was getting stuck and she felt a regurgitation. She was seen and evaluated by speech therapy who recommended regular diet with compensatory strategies including double swallowing, small bites, alternating liquids with solids. Patient should follow up with Gastroenterology if she continues to have these issues or they worsen. She had EGD today which showed erosive gastritis but no esophageal abnormalities, biopsies taken. GI recommended PPI and follow up of biopsy results. Hyponatremia, hypomagnesemia, hypokalemia. All repleted and resolved Hyperlipidemia. Continue statin Hypertension. Blood pressure stable. Continue on metoprolol, hydrochlorothiazide was stopped Diet-controlled diabetes mellitus type 2. Morbid obesity. BMI 46.2. Discussed importance of weight management as this may be contributing to worsening of other comorbidities Time Attestation Discharge Coordination Time (in mins): 32 Quality: Safe Use of Opioids Does Pt have an Active Cancer Diagnosis on the Problem List?: No Quality: Stroke Does the patient have a stroke diagnosis?: No Physical Exam Vital Signs: Vital Signs: Last Vital Signs Temp 97.2 F 06/18/24 07:09 Pulse 64 06/18/24 07:09 Resp 12 06/18/24 07:09 BP 118/54 L 06/18/24 07:09 Pulse Ox 91 L 06/18/24 07:09 O2 Del Method Room Air 06/18/24 07:09 BMI result Body Mass Index 46.2 Const: General: comfortable and no acute distress Orientation/consciousness: patient oriented x3 HEENT: Ears: hearing grossly normal bilaterally Resp: Effort & Inspection: normal respiratory effort and able to speak in complete sentences Auscultation: clear to auscultation bilaterally Cardio: Rate: regular rate Rhythm: regular rhythm Heart sounds: S1 normal heart sound present and S2 normal heart sound present Bruits: no abdominal aortic bruits, no carotid bruits, no femoral bruits and no renal bruits GI: Palpation (GI): No Abdominal aortic bruit present Neuro: General: patient oriented x3 Cranial nerves: Yes CN's II-XII intact bilaterally Extrem: Other: Bilateral lower extremities: discoloration, deep erythema, noted from just below the knees to the toes. +2 peripheral edema noted. No wounds noted. DS: Data Data Completed and Pending Pending studies at discharge: Pending at discharge 06/17/24 12:50 Surgical [PTH] Routine Labs on day of discharge: Laboratory Results - last 24 hr 06/17/24 06/17/24 06/17/24 10:46 16:06 19:22 Creatinine Estim Creat Clear Calc Estimated GFR POC Glucose 105 101 111 06/18/24 06/18/24 05:25 07:11 Creatinine 1.24 Estim Creat Clear Calc 59.4 Estimated GFR 43 POC Glucose 93 Discharge Plan Discharge Anticipated Discharge Date/Time: 06/18/24 08:59 Patient Disposition: Home, Self-Care Discharge Diagnosis: Venous stasis secondary to lymphedema Dysphagia Hypokalemia Hyponatremia Hypomagnesemia Referrals: Jethro Sharma MD [Physician] - None Ruben Meyer MD [Physician] - 1 Week Po,Adan Iraheta MD [Primary Care Provider] - 1 Week Discharge Medications: New omeprazole 20 mg Capsule,Delayed Release(Dr/Ec) 20 mg PO DAILY@0630 Qty: 30 0RF Continued metoprolol succinate 25 mg tablet extended release 24 hr 25 mg PO DAILY Qty: 90 3RF hydrochlorothiazide 25 mg tablet 25 mg PO DAILY 90 Days Qty: 90 2RF atorvastatin 20 mg tablet 20 mg PO DAILY 30 Days Qty: 30 4RF magnesium 200 mg tablet 200 mg PO DAILY Qty: 30 0RF potassium chloride 10 mEq tablet extended release 10 meq PO DAILY 6 Days Qty: 6 0RF cholecalciferol (vitamin D3) 25 mcg (1,000 unit) capsule 25 mcg PO DAILY ibuprofen [Advil] 200 mg tablet 200 mg PO Q6H PRN (Reason: Pain) Diet: Advance to usual diet Activity on Discharge: As tolerated Stand Alone Forms: Patient Portal Discharge page Print Language: Indonesian Care Plan Goals: Follow-up with vascular surgeon at next scheduled appointment Four continue dysphagia follow up with Gastroenterology Compensatory Strategies and Precautions to be Taken for Safe Swallow: Sitting Upright (90 deg)Double Swallow Small Bites and Sips Alternate Liquids/Solids Rate of Ingestion Change Foods to Avoid: Hard to chew solids, dry/grainy consistencies Health Concerns: Venous stasis secondary to lymphedema Dysphagia Hypokalemia Hyponatremia Hypomagnesemia Plan of Treatment: Follow-up with primary care provider as needed Take all medications as prescribed Assessment: Treated for bilateral lower extremity erythema likely secondary to chronic venous stasis from lymphedema and essentially negative EGD for dysphagia
[2024-06-18 09:04] VITALS: BP 125/65; PULSE 62
[2024-06-18] MEDS: Magnesium Oxide 400 MG TABLET 200 MG PO (09:04)
[2024-06-18] MEDS: Atorvastatin Calcium 20 MG TABLET PO (09:04)
[2024-06-18] MEDS: Metoprolol Succinate ER 25 MG TAB.ER.24H PO (09:04)
[2024-06-18] MEDS: Cholecalciferol (Vitamin D3) 25 MCG TABLET PO (09:05)
[2024-06-18] MEDS: Lactated Ringers 1,000 ML 50 ML IVCONT (09:05)
--- NOTE | 2024-06-18 09:46 | HO.POSTANES ---
Post Anesthesia Evaluation Post Anesthesia Evaluation Date of Service: 06/18/24 Vital Signs: Vital Signs Temp Pulse Resp BP Pulse Ox O2 Del Method 06/18/24 09:04 62 125/65 06/18/24 07:09 97.2 F 64 12 118/54 L 91 L Room Air 06/18/24 03:33 96.8 F 58 18 116/57 L 93 Room Air 06/17/24 23:24 97.4 F 65 18 112/48 L 94 Room Air Anesthesia: Monitored Mental Status: Awake Pain Control: Satisfactory Nausea/Vomiting: None Hydration: Adequate Anesthesia-Related Issues: No Anes. Related Issues
--- NOTE | 2024-06-18 10:40 | MHC.CM.PN ---
pt dcd home self care
[2024-06-18 11:49] VITALS: BP 109/60; PULSE 60; RESP 16; TEMP 36.1; O2SAT 92
[2024-06-18 11:55] LABS: Glucose, Whole Blood 107 mg/dL (60-115)
== END 2024-06-18 12:18 | disposition home or self-care (01) | DRG 603 ==
LOC: HO.ED 15:40 → HO.EDOVER 18:33 → HO.S3 19:18
PROVIDERS: Family Medicine; Internal Medicine Gastroenterology; Nurse Practitioner Acute Care; Physician Assistant Medical; Admitting Provider Student in an Organized Health Care Education/Training Program; Emergency Provider Emergency Medicine Emergency Medical Services; PCP Internal Medicine; Visit Provider Internal Medicine
PROC: 0DJ08ZZ Inspection of Upper Intestinal Tract, Via Natural or Artificial Opening Endoscopic (ICD-10-PCS; CPT 43235; principal; 2024-06-17 13:50)
DX: L03.116 Cellulitis of left lower limb (principal); E87.1 Hypo-osmolality and hyponatremia; Z68.42 Body mass index [BMI] 45.0-49.9, adult; L03.115 Cellulitis of right lower limb; I87.323 Chronic venous hypertension (idiopathic) with inflammation of bilateral lower extremity; R13.10 Dysphagia, unspecified; E87.6 Hypokalemia; E66.01 Morbid (severe) obesity due to excess calories; K29.60 Other gastritis without bleeding; I89.0 Lymphedema, not elsewhere classified; E83.42 Hypomagnesemia; I10 Essential (primary) hypertension; E11.9 Type 2 diabetes mellitus without complications; E78.5 Hyperlipidemia, unspecified; F17.210 Nicotine dependence, cigarettes, uncomplicated; Z71.6 Tobacco abuse counseling; Z79.899 Other long term (current) drug therapy
CPT/HCPCS: 36415; 80048; 80053; 80202; 82565; 82947; 83735; 83880; 85025; 86140; 88305; 88313; 88342; 92526; 92610; 93970; 99221; 99285; J1650; J1940; J2003; J2270; J2704; J3370; J3475; J3480; J7120

== ENCOUNTER → 2024-06-11 18:12 | Outpatient (BNV) | payer MEDICARE, SELFPAY | PROVIDERS: Admitting Provider Student in an Organized Health Care Education/Training Program; Emergency Provider Emergency Medicine Emergency Medical Services; PCP Internal Medicine; Visit Provider Surgery Vascular Surgery | DX: L03.116 Cellulitis of left lower limb (principal); L03.115 Cellulitis of right lower limb | CPT/HCPCS: 99222; 99231 ==

== ENCOUNTER → 2024-06-11 18:12 | Outpatient (BNV) | payer MEDICARE, SELFPAY | PROVIDERS: Admitting Provider Student in an Organized Health Care Education/Training Program; Emergency Provider Emergency Medicine Emergency Medical Services; PCP Internal Medicine; Visit Provider Nurse Practitioner Acute Care | DX: L03.116 Cellulitis of left lower limb (principal); L03.115 Cellulitis of right lower limb | CPT/HCPCS: 99222; 99232; 99239 ==

== ENCOUNTER 2024-06-25 07:49 | Outpatient (AMB) | payer MEDICARE, SELFPAY ==
--- NOTE | 2024-06-25 07:56 | MHC.PC.OV ---
Vital Signs 06/25/24 07:58 Height 5 ft 7 in Weight 290 lb BMI 45.4 BP 118/70 Blood Pressure Location Lt brachial Position Sitting Pulse 65 Pulse Source Pulse Oximeter Pulse Oximetry (%) 97 Oxygen Delivery Method Room Air Intake Visit Reasons: [facility] 06/18 Sports Information Director Required: No Accompanied by: Self / Same As Patient Allergies amoxicillin [AMOXICILLIN] Allergy (Severe, Verified 06/25/24 07:59) RASH adhesive tape [ADHESIVE TAPE] Allergy (Intermediate, Verified 06/25/24 07:59) RASH lisinopril [LISINOPRIL] Allergy (Intermediate, Verified 06/25/24 07:59) COUGH cephalexin Allergy (Mild, Verified 06/25/24 07:59) Rash simvastatin [From ZOCOR] Allergy (Unknown, Verified 06/25/24 07:59) UNKNOWN doxycycline Allergy (Verified 06/25/24 07:59) Rash Medication List - Last Reconciled 06/25/24 by Laila Simmons PA-C atorvastatin 20 mg PO DAILY 30 days cholecalciferol (vitamin D3) 25 mcg PO DAILY hydrochlorothiazide 25 mg PO DAILY 90 days ibuprofen (Advil) 200 mg PO Q6H PRN magnesium 200 mg PO DAILY metoprolol succinate ER 25 mg PO DAILY omeprazole 20 mg PO DAILY@0630 potassium chloride ER 10 mEq PO DAILY 6 days Tobacco use date assessed: 06/25/24 Fall risk assessment: No Falls in past year Last assessed Fall Risk: 06/25/24 Dental Screening Dental Screen Date: 06/25/24 Did you have a dental visit in the last 12 months?: Yes Did you have a dental problem in the last 6 months where you did not have access to dental care?: No Was dental information given to patient?: Patient has dentist HPI [facility] 06/18 HPI Details 69-year-old female with past medical history of diabetes mellitus, hypertension, hypercholesterolemia last seen by Dr. Griffin May 2024 coming in for hospital discharge follow up. In review of the notes, patient was seen in [facility] ED 06/13/2024 for lower leg swelling and erythema lab significant for hyponatremia, hypokalemia and elevated liver function tests, venous duplex negative for DVT and admitted for further observation. Patient was evaluated by vascular surgery and advised to follow up outpatient and continue to use lymphedema boots. She was seen for dysphagia advised compensatory strategies advised to follow up with GI. EGD showed erosive gastritis without abnormalities and GI recommended PPI. Hydrochlorothiazide was discontinued due to low blood pressures. Patient was discharged home 06/18/2024 advised to follow up with GI and vascular surgery. Patient states she is no longer having pain in the lower legs but does still have redness in his area. She uses her lymphedema machine twice daily and notices she still has leg heaviness and leg swelling. She continues to have the occasional dry heaving and we will cough up phlegm every morning. She has been taking the omeprazole and has not noticed an improvement in this. Denies any fevers or chills. TCM TCM Information Date of Discharge 06/18/24 Discharged From [facility] Interactive Contact Date (Reference documentation from this date) 06/19/24 [facility] Medical History (Updated 06/25/24 @ 08:39 by Laila Simmons PA-C) Lymphedema Obesity Macular degeneration Osteopenia Vitamin D deficiency Hypercalcemia Hypercholesterolemia Essential hypertension Type 2 diabetes mellitus with hyperglycemia Surgical History Lymphedema of both lower extremities History of cholecystectomy Family History Father Lung cancer Mother No problems noted. Paternal Aunt Breast cancer Social History Household Members: Spouse Housing: House Are you a primary health care technician to a significant other at home: No Do you presently have visiting nurse or other home services: No Alcohol intake: current Alcohol intake frequency: holidays/special occasions only Patient Tobacco Use Status: Current everyday Tobacco user Tobacco use type: Cigarette Cigarettes Per Day: 8 Years Smoked: 54 e-Cigarette/Vaping Use: Never Used Second Hand Smoke Exposure: Yes service: No Current occupational status: retired Cognitive needs: No Hearing needs: No Vision needs: Yes (reading glasses ) Questionnaire Thrive Questionnaire Date Thrive assessed: 06/12/24 AUDIT C Alcohol Use Questionnaire (AUDIT-C) 2. How many drinks containing alcohol do you have on a typical day when you are drinking?: 1 or 2 3. How often do you have six or more drinks on one occasion?: Never Total Score: 0 HOLLY-7 AMB Questionnaire HOLLY-7 Date HOLLY - 7 assessed: 07/20/23 Source: Developed by DrsVickie Rios, Leelee Walter, Davidson Sinclair and colleagues, with an educational stephon from [employer] Review of Systems Const Denies body aches, Denies chills, Denies fever(s), Denies headache(s) and Denies poor appetite Eyes Reports no additional complaints ENT Reports dysphagia, Denies dizziness, Denies headache(s), Denies odynophagia and Denies sore throat Card Denies chest pain, Reports leg edema, Denies lightheadedness and Denies dyspnea Resp Denies cough and Denies dyspnea GI Denies abdominal pain, Reports dysphagia, Reports dyspepsia, Reports nausea, Denies odynophagia and Denies vomiting Reports no additional complaints Musc Reports no additional complaints and Denies abnormal gait Skin/Breast Reports system reviewed and no additional complaints, except as documented Neuro Denies abnormal gait, Denies dizziness and Denies headache(s) Psych Reports no additional complaints Physical exam (Primary Care) BMI result Body Mass Index 45.4 Tobacco/Smoking Status: Tobacco use Status Tobacco use date assessed 07/20/23 06/10/24 14:30 Patient Tobacco Use Status Current everyday Tobacco 06/18/24 11:39 Tobacco use type Cigarette 06/11/24 23:06 e-Cigarette/Vaping Use Never Used 06/10/24 14:30 Thrive Assessment: Date of Thrive Assessment Date Thrive assessed 06/12/24 06/12/24 10:58 Const General: cooperative, healthy appearing, comfortable and no acute distress Orientation/consciousness: patient oriented x3 [facility] Head: Yes normocephalic Ears: hearing grossly normal bilaterally General nose exam: Normal external nose present Eyes General: appearance normal, both eyes and all related structures Conjunctivae: conjunctivae normal Neck Neck: Yes full ROM and Yes no lymphadenopathy Resp Effort & Inspection: normal respiratory effort Auscultation: clear to auscultation bilaterally, no crackles, no rales, no rhonchi and no wheezes Cardio Rate: regular rate Rhythm: regular rhythm Skin General skin exam: no rashes or lesions noted Neuro General: patient oriented x3 Gait exam (Neuro): Normal gait present Extrem Other: 2+ pitting edema over bilateral lower extremities without pain to palpation or warmth. Erythema of bilateral lower legs no tenderness to palpation over calves bilaterally General: Yes normal to inspection, Yes full ROM and Yes edema Psych Affect: normal affect Attitude: cooperative Insight: Good insight present (Psych) Judgement: Good judgement present (Psych) Office Procedures Flu Questionnaire Does the patient have a severe egg allergy?: No Immunizations Fluarix Triv [id number] (PF) 45 mcg (15 mcg x 3)/0.5 mL IM syringe Performing Provider: Laila Simmons PA-C [facility] Documented (not given) by: IVONNE Montiel on 06/25/24 08:06 Reason Not Given: Patient Refused Coding Level of Care Code TCM Mod MDM <= 7 Days Complex EM visit Add On G2211 Diagnoses Dysphagia R13.10 Adnexal mass N94.89 Right adrenal mass E27.8 Lymphedema I89.0 Assessment & Plan Assessment & Plan (1) Dysphagia: Code(s): R13.10 - Dysphagia, unspecified Category: Medical Plan: Reviewed compensatory measures such as double swallowing, smaller bites and softer foods. Patient has follow up in August with Dr. Sharma to review her EGD. Advised patient to reach out to see if she can have it earlier appointment as she reports she is uncomfortable. (2) Adnexal mass: Code(s): N94.89 - Other specified conditions associated with female genital organs and menstrual cycle Category: Medical Plan: Patient has MRI scheduled for further investigation. (3) Right adrenal mass: Code(s): E27.8 - Other specified disorders of adrenal gland Category: Medical Plan: Patient has MRI scheduled for further investigation. (4) Lymphedema: Code(s): I89.0 - Lymphedema, not elsewhere classified Category: Medical Plan: Patient having chronic lymphedema no evidence of cellulitis on exam today. Bilateral lower legs are erythematous with 2+ pitting edema without warmth. Continue to use lymphedema machine. Has follow up with vascular surgery tomorrow. Reviewed red flag symptoms and when to present for re-evaluation. Plan This note was constructed using voice recognition software. While every effort has been made to ensure accuracy and waste collection driver, still areas may have been included sometimes these areas may affect the content or meeting of the given symptoms. Total time spent caring for the patient today was 30 minutes. This includes time spent before the visit reviewing the chart, time spent during the visit, and time spent after the visit and documentation. Orders: Orders Influenza [id number] Immunization Today Z23 - Encounter for immunization Lipid Panel Today E11.65 - Type 2 diabetes mellitus with hyperglycemia, E78.00 - Pure hypercholesterolemia, unspecified Medications: New simethicone (Gas Relief (simethicone)) 180 mg PO BID PRN 30 caps 0RF abdominal distention Discontinued hydrochlorothiazide Discontinued Reason: Patient no longer taking 25 mg PO DAILY 90 days 90 tabs 2RF I10 - Essential (primary) hypertension
[2024-06-25 07:58] VITALS: BP 118/70; PULSE 65; O2SAT 97; BMI 45.4
--- OUTSIDE RECORDS SUMMARY | 2024-06-25 22:50 | XMS_ITS | Patient Health Record ---
Author Organization [facility] Address [address] [place] [address] Care Team Providers Care Crisis Intervention Specialist Name Role Phone Po Adan SALGADO Primary Care Provider Jethro Munoz Jr Unavailable ALLERGIES Allergen (clinical drug ingredient) Drug/Non Drug Allergy documented on EMR Reaction Allergy Type Onset Date Status amoxicillin Amoxicillin Unknown Drug Allergy Act rosalie RESULTS Component Value Reference Range Notes Pathology Reviewed date:06/19/2024 11:18:33 AM Interpretation: Performing Lab:[facility], [address] [place] [phone] Notes/Report: REASON FOR REFERRAL No Information MEDICATIONS Medication SIG (Take, Route, Frequency, Duration) Notes Start Date End Date Status Metoprolol Succinate ER Active Pravastatin Sodium A ctive hydroCHLOROthiazide Active MiraLax (colon prep) 8.3 oun ce ((238) grams mixed with Gatorade or Crystal Light orally begin at 5:00 p.m. the day before the procedure for 1 day 01/08/2020 Active Omeprazole 20 MG 1 capsule 1/2 to 1 hour before morning meal Orally Once a day for 30 day(s) 06/20/2024 Active Irbesartan Active Aspirin 81 Active IMMUNIZATIONS Vaccine Route Administration Date Status Comme nts Influenza Unknown 01/08/2020 Refused SOCIAL HISTORY Tobacco Use: Social History Observation Description Date Details (start date - stop date) Current Smoker NA - NA Sex Assigned At : Social History Observation Description Sex Assigned At Unknown Tobacco Use/Smoking Question Answer Notes Patient is a current smoker How often do you smoke cigarettes? every day How many cigarettes a day do you smoke? 11-20 Alcohol Screen Question Answer Notes Did you have a drink contain ing alcohol in the past year? Yes How often did you have a dri nk containing alcohol in the past year? 2 to 3 times a week (3 points) How many drinks did you have on a typical day when you were drinking in the past year? 1 or 2 drinks (0 point) How often did you have 6 or more drinks on one occasion in the past year? Never (0 point) Points 3 Interpretation Positive PROBLEMS Problem Type ICD Code Onset Dates Problem Status W/U Status Risk SNOMED Code Notes Problem Colon cancer screening (Z12.11) Active confirmed 052627453 Problem [facility] (current) use of aspirin (Z79.82) Active confirmed 990834087921294 Problem [facility] current use of diuretic (Z79.899) Active confirmed 28556862670737662 Problem Dysphagia (R13.10) Active confirmed Dysphagia (24788770) Encounters Encounter Location Date Provider Diagnosis [facility] [place] [address] [place] [phone] 06/17/2024 Jethro Sharma Jr Other diseases of stomach and duodenum K31.89 and Dysphagia R13.10 [facility] [address] [address] 06/19/2024 Jethro Sharma Jr ASSESSMENTS Encounter Date Diagnosis Assessment Notes Treatment Notes Treatment Clinical Notes 06/17/2024 Other diseases of stomach and duodenum (ICD-10 - K31.89) 06/17/2024 Dysphagia (ICD-10 - R13.10) PLAN OF TREATMENT Future Test Test Name Order Date COLONOSCOPY 01/08/2020 Next Appt Details Provider Name:Jethro shaw Jr, 09/01/2024 11:10:00 AM, [address] [place] [address], Suite [facility], [place], [address], Insurance Providers Payer Name Payer Address Payer Phone Subscriber Number Group Number Insured Name Patient Relationship to Insured Coverage Start Date Coverage End Date [facility] [address] [place] [address] [phone] [id number] BIANCA JAIMES Self - patient is the insured MEDICAL (GENERAL) HISTORY Medical History History ICD Code hypertension elevated cholesterol Surgical History Surgery Date(Month/Year) cholecystectomy
--- OUTSIDE RECORDS SUMMARY | 2024-06-25 22:50 | XMS_ITS ---
Author Organization [facility] Address [address] [facility] [address] [place] [address] Care Team Providers Care Rustic Terrazzo Setter Name Role Phone Po Adan SALGADO Primary Care Provider Jethro Munoz Jr REASON FOR VISIT dysphagia PROBLEMS Problem Type ICD Code Onset Dates Problem Status W/U Status Risk SNOMED Code Notes Problem Dysphagia (R13.10) Active confirmed Dysphagia (45750954) Encounters Encounter Location Date Provider Diagnosis [facility] [place] [address] [place] [phone] 06/17/2024 Jethro Sharma Jr Other diseases of stomach and duodenum K31.89 and Dysphagia R13.10 ASSESSMENTS Encounter Date Diagnosis Assessment Notes Treatment Notes Treatment Clinical Notes 06/17/2024 Other diseases of stomach and duodenum (ICD-10 - K31.89) 06/17/2024 Dysphagia (ICD-10 - R13.10) PLAN OF TREATMENT Next Appt Details Provider Name:Jethro shaw Jr, 09/01/2024 11:10:00 AM, [address], [address], [place], [address],
--- OUTSIDE RECORDS SUMMARY | 2024-06-25 22:50 | XMS_ITS ---
Author Organization [facility] Address [address] [place] [address] Care Team Providers Care Director Trial Name Role Phone Po Adan SALGADO Primary Care Provider Dylon Sharma Jr, Jethro Barr [phone] REASON FOR VISIT pathology MEDICATIONS Medication SIG (Take, Route, Fr equency, Duration) Notes Start Date End Date Status Omeprazole 20 MG 1 capsule 1/2 to 1 h our before morning meal Orally Once a day for 30 day(s) 06/20/2024 Active Encounters Encounter Location Date Provider Diagnosis [facility] [address] [facility] [address] [place] [phone] 06/19/2024 Jethro Sharma Jr PLAN OF TREATMENT Medication Medication Name Sig Start Date Stop Date Notes Omeprazole 20 MG 1 capsule 1/2 to 1 h our before morning meal Orally Once a day for 30 day(s) 06/20/2024 Next Appt Details Provider Name:Jethro shaw Jr, 09/01/2024 11:10:00 AM, [address] [facility], [address], [place], [address],
== END 2024-06-25 08:36 | disposition home or self-care (01) ==
PROVIDERS: PCP Internal Medicine
DX: R13.10 Dysphagia, unspecified (principal); N94.89 Other specified conditions associated with female genital organs and menstrual cycle; E27.8 Other specified disorders of adrenal gland; I89.0 Lymphedema, not elsewhere classified

== ENCOUNTER → 2024-06-25 07:49 | Outpatient (BNVA) | payer MEDICARE, SELFPAY | PROVIDERS: PCP Internal Medicine | DX: R13.10 Dysphagia, unspecified (principal); N94.89 Other specified conditions associated with female genital organs and menstrual cycle; E27.8 Other specified disorders of adrenal gland; I89.0 Lymphedema, not elsewhere classified | CPT/HCPCS: 99495 ==

== ENCOUNTER 2024-06-26 12:49 | Outpatient (AMB) | payer MEDICARE, SELFPAY ==
--- OUTSIDE RECORDS SUMMARY | 2024-06-26 12:51 | XMS_ITS | Patient Health Record ---
Author Organization [facility] Address [address] [place] [address] Care Team Providers Care Financial Services Auditor Name Role Phone Po Adan SALGADO Primary Care Provider Jethro Munoz Jr Unavailable ALLERGIES Allergen (clinical drug ingredient) Drug/Non Drug Allergy documented on EMR Reaction Allergy Type Onset Date Status amoxicillin Amoxicillin Unknown Drug Allergy Act rosalie RESULTS Component Value Reference Range Notes Pathology Reviewed date:06/19/2024 11:18:33 AM Interpretation: Performing Lab:[facility], [address] [place] [phone] Notes/Report: REASON FOR REFERRAL No Information MEDICATIONS [...] Problem Colon cancer screening (Z12.11) Active confirmed 559700218 Problem nursing home (current) use of aspirin (Z79.82) Active confirmed 251429775159155 Problem nursing home current use of diuretic (Z79.899) Active confirmed 39941072497244113 Problem Dysphagia (R13.10) Active confirmed Dysphagia (21273924) Encounters Encounter Location Date Provider Diagnosis [facility] [place] [address] [place] [phone] 06/17/2024 Jethro Sharma Jr Other diseases of stomach and duodenum K31.89 and Dysphagia R13.10 [facility] [address] [address] 06/19/2024 Jethro Sharma Jr ASSESSMENTS Encounter Date Diagnosis Assessment Notes Treatment Notes Treatment Clinical Notes 06/17/2024 Other diseases of stomach and duodenum (ICD-10 - K31.89) 06/17/2024 Dysphagia (ICD-10 - R13.10) PLAN OF TREATMENT Future Test Test Name Order Date COLONOSCOPY 01/08/2020 Next Appt Details Provider Name:Jethro shaw Jr, 09/01/2024 11:10:00 AM, [address] [place] [address], Suite [facility], [place], [address], Insurance Providers Payer Name Payer Address Payer Phone Subscriber Number Group Number Insured Name Patient Relationship to Insured Coverage Start Date Coverage End Date [facility] [address] [place] [address] [phone] [id number] BIANCA JAIMES Self - patient is the insured MEDICAL (GENERAL) HISTORY Medical History History ICD Code hypertension elevated cholesterol Surgical History Surgery Date(Month/Year) cholecystectomy
--- OUTSIDE RECORDS SUMMARY | 2024-06-26 12:51 | XMS_ITS ---
Author Organization [facility] Address [address] [place] [phone] Care Team Providers Care Pulp Mill Team Leader Name Role Phone Po Adan SALGADO Primary Care Provider Dylon Sharma Jr, Jethro Barr REASON FOR VISIT pathology MEDICATIONS Medication SIG (Take, Route, Fr equency, Duration) Notes Start Date End Date Status Omeprazole 20 MG 1 capsule 1/2 to 1 h our before morning meal Orally Once a day for 30 day(s) 06/20/2024 Active Encounters Encounter Location Date Provider Diagnosis [facility] [address] [facility] [address] [place] [phone] 06/19/2024 Jethro Sharma Jr PLAN OF TREATMENT Medication Medication Name Sig Start Date Stop Date Notes Omeprazole 20 MG 1 capsule 1/2 to 1 h our before morning meal Orally Once a day for 30 day(s) 06/20/2024 Next Appt Details Provider Name:Jethro shaw Jr, 09/01/2024 11:10:00 AM, [address] [facility], [address], [place], [address],
--- OUTSIDE RECORDS SUMMARY | 2024-06-26 12:51 | XMS_ITS ---
Author Organization [facility] Address [address] [facility] [address] [place] [phone] Care Team Providers Care Casing Cooker Name Role Phone Po Adan SALGADO Primary Care Provider Jethro Munoz Jr REASON FOR VISIT dysphagia PROBLEMS Problem Type ICD Code Onset Dates Problem Status W/U Status Risk SNOMED Code Notes Problem Dysphagia (R13.10) Active confirmed Dysphagia (86275104) Encounters Encounter Location Date Provider Diagnosis [facility] [place] [address] [place] [phone] 06/17/2024 Jethro Sharma Jr Other diseases of stomach and duodenum K31.89 and Dysphagia R13.10 ASSESSMENTS Encounter Date Diagnosis Assessment Notes Treatment Notes Treatment Clinical Notes 06/17/2024 Other diseases of stomach and duodenum (ICD-10 - K31.89) 06/17/2024 Dysphagia (ICD-10 - R13.10) PLAN OF TREATMENT Next Appt Details Provider Name:Jethro shaw Jr, 09/01/2024 11:10:00 AM, [address], [address], [place], [address],
[2024-06-26 12:55] VITALS: BMI 45.4
--- NOTE | 2024-06-26 12:55 | A.OFFVIS_ITS ---
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 Started last week of April 2024. Pt states Left LE is worse tahn Right LE. Pt states she was on IV Abx while admitted but not discharged with any oral Abx. Was seen by PCP office yesterday. 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 She states she has been having ongoing bilateral lower extremity swelling as well as discoloration. She has been ruled out for DVT. She is currently being treated for lymphedema and has compression pumps, which she uses twice a day for 45 minutes of time. She continues to elevate her legs and wears compression stockings daily. She states these only help a little. Complaints include pain, swelling of lower extremities, cramping, fatigue, and heaviness of the lower extremities. It has been affecting their daily activities including walking, standing, any physical activity. It is noted more so in bilateral legs. Patient denies any previous venous surgery or injections. Patient denies any history of DVT/ PE. Patient denies any history of phlebitis. Trial of compression includes - compression stockings and elevation They now present for vascular evaluation regarding their varicose veins. [facility] Medical History Lymphedema Obesity Macular degeneration Osteopenia Vitamin D deficiency Hypercalcemia Hypercholesterolemia Essential hypertension Type 2 diabetes mellitus with hyperglycemia Surgical History Lymphedema of both lower extremities History of cholecystectomy Family History Father Lung cancer Mother No problems noted. Paternal Aunt Breast cancer Social History Household Members: Spouse Housing: House Are you a primary overnight caregiver to a significant other at home: No Do you presently have visiting nurse or other home services: No Alcohol intake: current Alcohol intake frequency: holidays/special occasions only Patient Tobacco Use Status: Current everyday Tobacco user Tobacco use type: Cigarette Cigarettes Per Day: 8 Years Smoked: 54 e-Cigarette/Vaping Use: Never Used Second Hand Smoke Exposure: Yes service: No Current occupational status: retired Cognitive needs: No Hearing needs: No Vision needs: Yes (reading glasses ) Review of Systems Const Reports as per HPI and Denies weakness ENT Reports Normal hearing present and Denies dizziness Card Reports as per HPI, Denies chest pain, Denies chest pain at rest, Denies chest pain with activity, Denies dyspnea and Denies dyspnea on exertion Resp Reports as per HPI, Denies cough, Denies dyspnea and Denies dyspnea on exertion GI Reports as per HPI, Denies abdominal pain, Denies nausea and Denies vomiting Musc Denies numbness Skin/Breast Reports as per HPI, Denies erythema and Denies wounds Neuro Reports Normal hearing present, Denies dizziness, Denies numbness, Denies Sensory deficit (Neuro) and Denies weakness Psych Reports no additional complaints Endo Reports no additional complaints Physical Exam Vital Signs: BMI result Body Mass Index 45.4 Const General: healthy appearing and no acute distress Orientation/consciousness: patient oriented x3 HEENT Head: Yes normal to inspection Ears: hearing grossly normal bilaterally Mouth: Normal oral and palatal mucosa present Resp Effort & Inspection: normal respiratory effort and able to speak in complete sentences Auscultation: clear to auscultation bilaterally Cardio Jugular venous distension: no JVD Rate: regular rate Rhythm: regular rhythm Heart sounds: S1 normal heart sound present and S2 normal heart sound present Bruits: no abdominal aortic bruits, no carotid bruits, no femoral bruits and no renal bruits Peripheral pulses: Peripheral pulses 2+ throughout GI Inspection: Yes normal to inspection Palpation (GI): No Abdominal aortic bruit present Skin General skin exam: no rashes or lesions noted Wounds: no wounds Hair: normal Neuro General: patient oriented x3 Cranial nerves: Yes Normal hearing present Cognition (Neuro): normal cognition Gait exam (Neuro): Normal gait present Motor exam (neuro): 5/5 motor strength present throughout Sensory Exam: No Sensory deficit (Neuro) Extrem Other: Bilateral lower extremities: erythema/discoloration noted from the toes to the tibial plateaus. Due to edema, difficult to assess pulses. +3 edema noted. No open wound/bleeding noted. CEAP: C - 4 E - primary A - superficial P - reflux General: Yes normal to inspection, Yes full ROM, Yes capillary refill normal and Yes normal gait Assessment & Plan Assessment & Plan (1) Varicose veins of both lower extremities with inflammation: Code(s): I83.11 - Varicose veins of right lower extremity with inflammation; I83.12 - Varicose veins of left lower extremity with inflammation Category: Medical Plan: Alley is presenting today as a follow up to a recent inpatient stay for cellulitis. She states she has ongoing bilateral lower extremity swelling as well as pain. She has difficulty walking/any physical activity. In short, the patient has evidence of venous insufficiency. I have discussed the pathophysiology with the patient. In addition I have provided informational material regarding venous disease to the patient. We have discussed conservative measures including compression, elevation, and exercise. We discussed continued use of the compression stockings. I have taken the liberty of ordering venous insufficiency testing with the patient. They will follow up with me after testing. The patient had an opportunity to ask questions regarding the treatment plan. All questions were answered. Imaging studies, laboratory studies and physical exam results were discussed and reviewed in detail. No major barriers to understanding were identified. The patient expressed understanding and agreement with the above treatment plan. The patient is aware they should contact our office by phone for worsening of the current condition or the appearance of new symptoms. Thank you for allowing me to participate in the vascular care of this patient. If you have any questions or concerns regarding the treatment for the above condition please do not hesitate to contact me. The office telephone contact is [phone]. This note is constructed using voice recognition software. While every effort has been made to ensure accuracy, managed care director errors may have been included. Thank you for allowing me to participate in the care of your patient. Yours sincerely, EFREM Trejo Orders: Orders US venous duplex LE BI 1 Week I83.11 - Varicose veins of right lower extremity with inflammation, I83.12 - Varicose veins of left lower extremity with inflammation Coding Level of Care Code New Pt Level 4 (69619) Diagnoses Varicose veins of both lower extremities with inflammation I83.11; I83.12
== END 2024-06-26 13:25 | disposition home or self-care (01) ==
PROVIDERS: PCP Internal Medicine; Visit Provider Physician Assistant Surgical
DX: I83.11 Varicose veins of right lower extremity with inflammation (principal); I83.12 Varicose veins of left lower extremity with inflammation
CPT/HCPCS: 99214

== ENCOUNTER → 2024-06-26 12:49 | Outpatient (BNVA) | payer MEDICARE, SELFPAY | PROVIDERS: PCP Internal Medicine; Visit Provider Physician Assistant Surgical | DX: I83.11 Varicose veins of right lower extremity with inflammation (principal); I83.12 Varicose veins of left lower extremity with inflammation | CPT/HCPCS: 99212 ==

== ENCOUNTER 2024-07-11 12:38 | Outpatient (REF) | payer MEDICARE, SELFPAY ==
--- OUTSIDE RECORDS SUMMARY | 2024-07-11 12:50 | XMS_ITS ---
Author Organization [facility] Address [address] [place] [address] Care Team Providers Care Cokeman Name Role Phone Po Adan SALGADO Primary Care Provider Dylon Sharma Jr, Jethro Barr [phone] REASON FOR VISIT pathology MEDICATIONS Medication SIG (Take, Route, Fr equency, Duration) Notes Start Date End Date Status Omeprazole 20 MG 1 capsule 1/2 to 1 h our before morning meal Orally Once a day for 30 day(s) 06/20/2024 Active Encounters Encounter Location Date Provider Diagnosis [facility] [address] [facility] [address] [place] [phone] 06/19/2024 Jethro Sharma Jr PLAN OF TREATMENT Medication Medication Name Sig Start Date Stop Date Notes Omeprazole 20 MG 1 capsule 1/2 to 1 h our before morning meal Orally Once a day for 30 day(s) 06/20/2024 Next Appt Details Provider Name:Jethro shaw Jr, 09/01/2024 11:10:00 AM, [address] [facility], [address], [place], [address],
--- OUTSIDE RECORDS SUMMARY | 2024-07-11 12:50 | XMS_ITS ---
Author Organization [facility] Address [address] [facility] [address] [place] [address] Care Team Providers Care Project Safety Manager Name Role Phone Po Adan SALGADO Primary Care Provider Jethro Munoz Jr [phone] REASON FOR VISIT dysphagia PROBLEMS Problem Type ICD Code Onset Dates Problem Status W/U Status Risk SNOMED Code Notes Problem Dysphagia (R13.10) Active confirmed Dysphagia (00288704) Encounters Encounter Location Date Provider [place] [facility] [place] [address] [place] [id number] [place]/17/2024 Jethro Sharma Jr Other diseases of stomach and duodenum K31.89 and Dysphagia R13.10 ASSESSMENTS Encounter Date Diagnosis Assessment Notes Treatment Notes Treatment Clinical Notes 06/17/2024 Other diseases of stomach and duodenum (ICD-10 - K31.89) 06/17/2024 Dysphagia (ICD-10 - R13.10) PLAN OF TREATMENT Next Appt Details Provider Name:Jethro shaw Jr, 09/01/2024 11:10:00 AM, [address], [address], [place], [address],
--- OUTSIDE RECORDS SUMMARY | 2024-07-11 12:50 | XMS_ITS | Patient Health Record ---
Author Organization [facility] Address [address] [place] [address] Care Team Providers Care Milk Powder Grinder Name Role Phone Po Adan SALGADO Primary Care Provider Jethro Munoz Jr Unavailable ALLERGIES Allergen (clinical drug ingredient) Drug/Non Drug Allergy documented on EMR Reaction Allergy Type Onset Date Status amoxicillin Amoxicillin Unknown Drug Allergy Act rosalie RESULTS Component Value Reference Range Notes Pathology Reviewed date:06/19/2024 11:18:33 AM Interpretation: Performing Lab:[facility], [address] [place] [id number] Notes/Report: REASON FOR REFERRAL No Information MEDICATIONS [...] Problem Colon cancer screening (Z12.11) Active confirmed 043793214 Problem jail (current) use of aspirin (Z79.82) Active confirmed 701030268596708 Problem jail current use of diuretic (Z79.899) Active confirmed [id number] Problem Dysphagia (R13.10) Active confirmed Dysphagia (24315041) Encounters Encounter Location Date Provider [place] [facility] [place] [address] [place] [id number] 06/17/2024 Jethro Sharma Jr Other diseases of stomach and duodenum K31.89 and Dysphagia R13.10 [facility] [address] [address] 06/19/2024 Jethro Sharma Jr ASSESSMENTS Encounter Date Diagnosis Assessment Notes Treatment Notes Treatment Clinical Notes 06/17/2024 Other diseases of stomach and duodenum (ICD-10 - K31.89) 06/17/2024 Dysphagia (ICD-10 - R13.10) PLAN OF TREATMENT Future Test Test Name Order Date COLONOSCOPY 01/08/2020 Next Appt Details Provider Name:Jethro shaw Jr, 09/01/2024 11:10:00 AM, [address] [place] [address], Suite [facility], [place], [address], Insurance Providers Payer Name Payer Address Payer Phone Subscriber Number Group Number Insured Name Patient Relationship to Insured Coverage Start Date Coverage End Date [facility] [address] [place] [address] [id number] BIANCA JAIMES Self - patient is the insured MEDICAL (GENERAL) HISTORY Medical History History ICD Code hypertension elevated cholesterol Surgical History Surgery Date(Month/Year) cholecystectomy
[2024-07-11] MEDS: gadobutroL 10 ML VIAL IVPUSH (13:47)
== END 2024-07-11 12:39 | disposition home or self-care (01) ==
LOC: HO.MRI 12:38
PROVIDERS: PCP Internal Medicine; Visit Provider Internal Medicine
DX: N94.89 Other specified conditions associated with female genital organs and menstrual cycle (principal)
CPT/HCPCS: 72197; A9585

== ENCOUNTER → 2024-07-11 12:38 | Outpatient (BNV) | payer MEDICARE, SELFPAY | PROVIDERS: PCP Internal Medicine; Visit Provider Radiology Diagnostic Radiology | DX: N83.292 Other ovarian cyst, left side (principal) | CPT/HCPCS: 72197 ==

== ENCOUNTER 2024-07-18 09:17 | Outpatient (REF) | payer MEDICARE, SELFPAY ==
--- NOTE | ~2024-07-18 | US_ITS ---
EXAMINATION: US LOWER EXTREMITY VENOUS (REFLUX EXAM), BILATERAL CLINICAL INFORMATION: Varices in the right lower extremity with inflammation. COMPARISON: Correlated to prior ultrasound dated June 11, 2024. TECHNIQUE: Color flow triplex imaging and compression Doppler was performed to evaluate both the deep and the superficial systems bilaterally. To evaluate the superficial system, the examination was performed in the upright position. Color-flow Doppler ultrasound and compression ultrasound were utilized. In addition, maneuvers were utilized to demonstrate reflux. FINDINGS: Submitted for interpretation on July 23, 2024. 1. DEEP VENOUS ULTRASOUND OF THE RIGHT LOWER EXTREMITY: Common Femoral Vein: Compressible, normal respiratory variation and augmented flow. Femoral Vein: Compressible, normal color flow and augmentation. Popliteal Vein: Compressible, normal augmentation. Deep Reflux: There is no evidence of reflux in the deep system in either the common femoral vein, superficial femoral or the popliteal vein. There is no evidence of a Rondon's cyst. 2. SUPERFICIAL ULTRASOUND WITH DOPPLER OF RIGHT LOWER EXTREMITY: GREAT SAPHENOUS VEIN: Saphenofemoral Junction: 0.7 cm; Reflux: 0 ms Proximal Thigh: 0.9 cm; Reflux: 0 ms Mid Thigh: 0.5 cm; Reflux: 0 ms Distal Thigh: 0.6 cm; Reflux: 732 ms At Knee: 0.5 cm; Reflux: 0 ms Proximal Calf: 0.5 cm; Reflux: 0 ms Mid Calf: 0.4 cm; Reflux: 0 ms Distal Calf: 0.3 cm; Reflux: 0 ms DUPLICATED MEDIAL GREAT SAPHENOUS VEIN: Diameter: None imaged Reflux: NA DUPLICATED LATERAL GREAT SAPHENOUS VEIN: Diameter: None imaged Reflux: NA SMALL SAPHENOUS VEIN: Saphenopopliteal Junction: 0.4 cm; Reflux: 0 ms Proximal: 0.2 cm; Reflux: 0 ms Distal: 0.3 cm; Reflux: 0 ms VEIN OF GIACOMINI: Size: NA Reflux: NA PERFORATORS: Location: None imaged Size: NA Reflux: NA VARICOSITIES: Location: None imaged. Size: NA Reflux: NA 3. DEEP VENOUS ULTRASOUND OF THE LEFT LOWER EXTREMITY: Common Femoral Vein: Compressible, normal respiratory variation and augmented flow. Femoral Vein: Compressible, normal color flow and augmentation. Popliteal Vein: Compressible, normal augmentation. Deep Reflux: There is no evidence of reflux in the deep system in either the common femoral vein, superficial femoral or the popliteal vein. There is no evidence of a Rondon's cyst. 4. SUPERFICIAL ULTRASOUND WITH DOPPLER OF LEFT LOWER EXTREMITY: GREAT SAPHENOUS VEIN: Saphenofemoral Junction: 0.7 cm; Reflux: 0 ms Proximal Thigh: 0.7 cm; Reflux: 0 ms Mid Thigh: 0.6 cm; Reflux: 0 ms Distal Thigh: 0.5 cm; Reflux: 0 ms At Knee: 0.4 cm; Reflux: 0 ms Proximal Calf: Not identified cm; Reflux: 0 ms Mid Calf: 0.3 cm; Reflux: 0 ms Distal Calf: 0.2 cm; Reflux: 0 ms DUPLICATED MEDIAL GREAT SAPHENOUS VEIN: Diameter: None imaged Reflux: NA DUPLICATED LATERAL GREAT SAPHENOUS VEIN: Diameter: None imaged. Reflux: NA SMALL SAPHENOUS VEIN: Saphenopopliteal Junction: 0.3 cm; Reflux: 0 ms Proximal: 0.3 cm; Reflux: 0 ms Distal: 0.2 cm; Reflux: 0 ms VEIN OF GIACOMINI: Size: NA Reflux: NA PERFORATORS: Location: None imaged Size: NA Reflux: NA VARICOSITIES: Location: None Imaged Size: NA Reflux: NA US/US venous insuf bilat IMPRESSION: Right: 732 ms venous insufficiency, superior femoral vein junction above the knee. Left: No gross venous insufficiency. Electronically signed by: Vineet Corona MD 07/23/2024 09:52 AM EST
--- OUTSIDE RECORDS SUMMARY | 2024-07-18 09:47 | XMS_ITS ---
Author Organization [facility] Address [address] [place] [phone] Care Team Providers Care Supervisor Last Model Department Name Role Phone Po Adan SALGADO Primary Care Provider Dylon Sharma Jr, Jethro Barr REASON FOR VISIT pathology MEDICATIONS Medication SIG (Take, Route, Fr equency, Duration) Notes Start Date End Date Status Omeprazole 20 MG 1 capsule 1/2 to 1 h our before morning meal Orally Once a day for 30 day(s) 06/20/2024 Active Encounters Encounter Location Date Provider Diagnosis [facility] [address] [facility] [address] [place] [address] 06/19/2024 Jethro Sharma Jr PLAN OF TREATMENT Medication Medication Name Sig Start Date Stop Date Notes Omeprazole 20 MG 1 capsule 1/2 to 1 h our before morning meal Orally Once a day for 30 day(s) 06/20/2024 Next Appt Details Provider Name:Jethro shaw Jr, 09/01/2024 11:10:00 AM, [address] [facility], [address], [place], [address],
--- OUTSIDE RECORDS SUMMARY | 2024-07-18 09:47 | XMS_ITS ---
Author Organization [facility] Address [address] [facility] [address] [place] [address] Care Team Providers Care Closing Agent Name Role Phone Po Adan SALGADO Primary Care Provider Jethro Munoz Jr [phone] REASON FOR VISIT dysphagia PROBLEMS Problem Type ICD Code Onset Dates Problem Status W/U Status Risk SNOMED Code Notes Problem Dysphagia (R13.10) Active confirmed Dysphagia (99246930) Encounters Encounter Location Date Provider Diagnosis [facility] [place] [address] [place] [phone] 06/17/2024 Jethro Sharma Jr Other diseases of stomach and duodenum K31.89 and Dysphagia R13.10 ASSESSMENTS Encounter Date Diagnosis Assessment Notes Treatment Notes Treatment Clinical Notes 06/17/2024 Other diseases of stomach and duodenum (ICD-10 - K31.89) 06/17/2024 Dysphagia (ICD-10 - R13.10) PLAN OF TREATMENT Next Appt Details Provider Name:Jethro shaw Jr, 09/01/2024 11:10:00 AM, [address], [address], [place], [address],
--- OUTSIDE RECORDS SUMMARY | 2024-07-18 09:47 | XMS_ITS | Patient Health Record ---
Author Organization [facility] Address [address] [place] [address] Care Team Providers Care Borematic Operator Name Role Phone Po Adan SALGADO Primary Care Provider Jethro Munoz Jr Unavailable [phone] ALLERGIES Allergen (clinical drug ingredient) Drug/Non Drug Allergy documented on EMR Reaction Allergy Type Onset Date Status amoxicillin Amoxicillin Unknown Drug Allergy Act rosalie RESULTS Component Value Reference Range Notes Pathology Reviewed date:06/19/2024 11:18:33 AM Interpretation: Performing Lab:[facility], [address] [place] [id number] Notes/Report: REASON FOR REFERRAL No Information MEDICATIONS [...] Problem Colon cancer screening (Z12.11) Active confirmed 397424431 Problem senior care (current) use of aspirin (Z79.82) Active confirmed 435990551410175 Problem senior care current use of diuretic (Z79.899) Active confirmed [id number] Problem Dysphagia (R13.10) Active confirmed Dysphagia (59244549) Encounters Encounter Location Date Provider Diagnosis [facility] [place] [address] [place], [place] [phone] 06/17/2024 Jethro Sharma Jr Other diseases of stomach and duodenum K31.89 and Dysphagia R13.10 [facility] [address] [address] 06/19/2024 Jethro Sharma Jr ASSESSMENTS Encounter Date Diagnosis Assessment Notes Treatment Notes Treatment Clinical Notes 06/17/2024 Other diseases of stomach and duodenum (ICD-10 - K31.89) 06/17/2024 Dysphagia (ICD-10 - R13.10) PLAN OF TREATMENT Future Test Test Name Order Date COLONOSCOPY 01/08/2020 Next Appt Details Provider Name:Jethro shaw Jr, 09/01/2024 11:10:00 AM, [address] [place] [address], [address] [facility], [place], [address], Insurance Providers Payer Name Payer Address Payer Phone Subscriber Number Group Number Insured Name Patient Relationship to Insured Coverage Start Date Coverage End Date [facility] [address] [place] [address] [phone] [id number] BIANCA JAIMES Self - patient is the insured MEDICAL (GENERAL) HISTORY Medical History History ICD Code hypertension elevated cholesterol Surgical History Surgery Date(Month/Year) cholecystectomy
[2024-07-18 09:56] LABS: Basophils Percent Auto 0.5 % (0-2); Eosinophils Absolute Auto 0.9 X10*3/uL (0.0-0.4); Hematocrit 41.6 % (37.0-47.0); Hemoglobin 13.9 g/dl (12.0-16.0); Imm Gran Abs Auto 0.04 X10*3/uL (0.00-0.03); Imm Gran Pct Auto 0.5 % (0.0-0.4); Lymphocytes Absolute Auto 1.6 X10*3/uL (1.2-4.9); Lymphocytes Percent Auto 21.5 % (20-40); MANUAL DIFF FLAG SCAN; Mean Corpuscular HGB Conc 33.4 g/dl (31.0-35.0); Mean Corpuscular Volume 95.6 fL (80.0-98.0); Mean Platelet Volume 10.8 fL (9.4-12.3); Monocytes Absolute Auto 0.6 X10*3/uL (0.1-1.2); Monocytes Percent Auto 7.8 % (2-11); Neutrophils Absolute Auto 4.2 x10*3/uL (2.0-8.3); Neutrophils Percent Auto 57.7 % (45-73); PLT CLUMP 1; Red Blood Count 4.35 X10*6/uL (4.20-5.50); Red Cell Distribution Width 13.4 % (11.0-16.0); SCAN SMEAR FLAG 1; White Blood Count 7.3 X10*3/uL (4.8-10.8)
[2024-07-18 10:08] LABS: Platelet Count 197 X10*3/uL (160-400)
[2024-07-18 10:12] LABS: SLIDE REVIEW VERIFIED
[2024-07-18 10:16] LABS: Estimated Average Glucose 108 mg/dL; Hemoglobin A1C 124.9566 umol/L; Hemoglobin A1c % 5.4 % (<6.0); Total Hemoglobin (HGBA1C) 3473.5064 umol/L
[2024-07-18 11:24] LABS: Creatinine Urine 149.53 mg/dL
[2024-07-18 11:35] LABS: Alanine Aminotransferase 7 U/L (0-31); Albumin Level 3.4 g/dL (3.5-5.0); Alkaline Phosphatase 103 U/L (39-117); Anion Gap 14 (12-20); Aspartate Amino Transferase 29 U/L (5-31); Bilirubin Total 0.9 mg/dL (0.0-1.0); Blood Urea Nitrogen 7 mg/dL (9-16); Calcium 9.3 mg/dL (8.4-10.2); Carbon Dioxide 29 mmol/L (22-29); Chloride 97 mmol/L (96-108); Estimated Glomerular Filt Rate 46; Glucose Random 125 mg/dL (60-115); Magnesium 1.3 mg/dL (1.6-2.6); Potassium 3.3 mmol/L (3.3-5.1); Sodium 137 mmol/L (135-145); Thyroid Stimulating Hormone 2.11 uIU/mL (0.32-4.0); Total Protein 7.8 g/dL (6.5-8.0)
[2024-07-18 11:38] LABS: Folate 8.3 ng/mL (> or = 4.0); Vitamin B12 675 pg/mL (200-900)
[2024-07-18 12:12] LABS: Free T4 (Free Thyroxine) 0.59 ng/dL (0.71-1.85); Vitamin D 25-OH Total 13.5 ng/mL (>30)
[2024-07-26 11:24] LABS: Plasma Renin Activity 8.34 ng/mL/h (0.25-5.82)
== END 2024-07-18 09:18 | disposition home or self-care (01) ==
LOC: HO.US 09:17
PROVIDERS: Absent Provider Internal Medicine; PCP Internal Medicine; Visit Provider Physician Assistant Surgical
DX: I83.11 Varicose veins of right lower extremity with inflammation (principal); I83.12 Varicose veins of left lower extremity with inflammation; E11.65 Type 2 diabetes mellitus with hyperglycemia; E83.42 Hypomagnesemia; E27.8 Other specified disorders of adrenal gland
CPT/HCPCS: 36415; 80053; 82043; 82088; 82306; 82570; 82607; 82746; 83036; 83735; 84439; 84443; 85025; 93970

== ENCOUNTER → 2024-07-18 09:52 | Outpatient (BNV) | payer MEDICARE, SELFPAY | PROVIDERS: Absent Provider Internal Medicine; PCP Internal Medicine; Visit Provider Radiology Diagnostic Radiology | DX: I87.2 Venous insufficiency (chronic) (peripheral) (principal) | CPT/HCPCS: 93970 ==

== ENCOUNTER 2024-07-24 10:51 | Outpatient (AMB) | payer MEDICARE, SELFPAY ==
--- NOTE | 2024-07-24 11:11 | A.OFFPC_ITS ---
Vital Signs 07/24/24 11:22 Height 5 ft 7 in Weight 271 lb BMI 42.4 BP 128/82 Blood Pressure Location Lt brachial Position Sitting Pulse 78 Pulse Source Pulse Oximeter Pulse Oximetry (%) 98 Oxygen Delivery Method Room Air Intake Visit Reasons: 6 MO F/U Allergies amoxicillin [AMOXICILLIN] Allergy (Severe, Verified 07/24/24 11:22) RASH adhesive tape [ADHESIVE TAPE] Allergy (Intermediate, Verified 07/24/24 11:22) RASH lisinopril [LISINOPRIL] Allergy (Intermediate, Verified 07/24/24 11:22) COUGH cephalexin Allergy (Mild, Verified 07/24/24 11:22) Rash simvastatin [From ZOCOR] Allergy (Unknown, Verified 07/24/24 11:22) UNKNOWN doxycycline Allergy (Verified 07/24/24 11:22) Rash Medication List - Last Reconciled 07/24/24 by Adan Griffin MD atorvastatin 20 mg PO DAILY 30 days cholecalciferol (vitamin D3) 25 mcg PO DAILY hydrochlorothiazide 25 mg PO DAILY ibuprofen (Advil) 200 mg PO Q6H PRN metoprolol succinate ER 25 mg PO DAILY omeprazole 20 mg PO DAILY@0630 simethicone (Gas Relief (simethicone)) 180 mg PO BID PRN Tobacco use date assessed: 07/24/24 Fall risk assessment: No Falls in past year Last assessed Fall Risk: 07/24/24 Dental Screening Dental Screen Date: 07/24/24 Did you have a dental visit in the last 12 months?: Yes Did you have a dental problem in the last 6 months where you did not have access to dental care?: No Was dental information given to patient?: Patient has dentist HPI 6 MO F/U HPI Details The patient is a 69-year-old female presenting with bilateral lower extremity edema, initially noticed as increased swelling and redness in the extremities. An ultrasound indicated venous insufficiency with the right side affected more severely than the left, although the left leg clinically exhibits more swelling. She employs leg elevation and pneumatic compression therapy twice daily with partial symptom relief. The patient has a long-standing history of venous edema. Concerns were raised regarding possible lipedema. She reports attending vascular consultations with follow-up recommended for further evaluation. Additionally, the patient has a history of vascular insufficiency,which has been confirmed by past imaging but not ascribed specific acute management concerns today. She has a diagnosis of fatty liver documented via ultrasound and CT scan, and an umbilical hernia as well as diverticular disease noted without acute inflammation. The patient also presents with a notable history of digestive issues. She experiences difficulty swallowing, alongside GERD that contributes to a chronic cough, worsened likely by her history of smoking approximately 6-8 cigarettes per day. 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 The patient reports persistent cough and dysphagia, which have not substantially improved. Smoking cessation advice has been reiterated. She follows up today to discuss ongoing management strategies and potential referrals for further intervention. Blood work previously showed low potassium levels, managed with supplementation. [facility] Medical History (Updated 07/24/24 @ 12:16 by Adan Griffin MD) Right adrenal mass Adnexal mass Lymphedema Obesity Macular degeneration Osteopenia Vitamin D deficiency Hypercalcemia Hypercholesterolemia Essential hypertension Type 2 diabetes mellitus with hyperglycemia Surgical History Lymphedema of both lower extremities History of cholecystectomy Family History Father Lung cancer Mother No problems noted. Paternal Aunt Breast cancer Social History Household Members: Spouse Housing: House Are you a primary acute care surgeon to a significant other at home: No Do you presently have visiting nurse or other home services: No Alcohol intake: current Alcohol intake frequency: holidays/special occasions only Patient Tobacco Use Status: Current everyday Tobacco user Tobacco use type: Cigarette Cigarettes Per Day: 8 Years Smoked: 54 e-Cigarette/Vaping Use: Never Used Second Hand Smoke Exposure: Yes service: No Current occupational status: retired Cognitive needs: No Hearing needs: No Vision needs: Yes (reading glasses ) Questionnaire PHQ-9 Over the last 2 weeks, how often have you been bothered by any of the following problems? 1. Little interest or pleasure in doing things: not at all 2. Feeling down, depressed, or hopeless: not at all 3. Trouble falling or staying asleep, or sleeping too much: not at all 4. Feeling tired or having little energy: not at all 5. Poor appetite or overeating: not at all 6. Feeling bad about yourself - or that you are a failure or have let yourself or your family down: not at all 7. Trouble concentrating on things, such as reading the newspaper or watching television: not at all 8. Moving or speaking so slowly that other people could have noticed. Or the opposite - being so fidgety or restless that you have been moving around a lot more than usual: not at all 9. Thoughts that you would be better off or of hurting yourself in some way: not at all Total score: 0 Depression Screening Interpretation: Negative Depression Screening Done: Yes Source: Developed by Drs. Taco Rios, Leelee Walter, Davidson Sinclair and colleagues, with an educational stephon from [employer]. Thrive Questionnaire Date Thrive assessed: 07/24/24 I am a: Patient What is your living situation today?: I have a steady place to live Within the past 12 months, did the food you bought not last and you didn't have the money to get more?: Never true Within the past 12 months, did you worry whether your food would run out before you got money to buy more?: Never true Do you have trouble paying for medicines?: No Do you have trouble getting transportation to medical appointments?: No Do you have trouble paying your heating and electricity bill?: No Do you have trouble taking care of your child, family member or friend?: No Do you have trouble with day-to-day activities such as bathing, preparing meals, shopping, managing finances, etc.?: No Are you currently unemployed and looking for a job?: No Are you interested in more education?: No Currently or been in a relationship where the following occur: No concerns reported THRIVE Score: 0 AUDIT C Alcohol Use Questionnaire (AUDIT-C) 2. How many drinks containing alcohol do you have on a typical day when you are drinking?: 1 or 2 3. How often do you have six or more drinks on one occasion?: Never Total Score: 0 HOLLY-7 AMB Questionnaire HOLLY-7 Date HOLLY - 7 assessed: 07/24/24 Feeling nervous, anxious, or on edge: 0 = Not at all Not being able to stop or control worryin = Not at all Worrying too much about different things: 0 = Not at all Trouble relaxin = Not at all Being so restless that it is hard to sit still: 0 = Not at all Becoming easily annoyed or irritable: 0 = Not at all Feeling afraid as if something awful might happen: 0 = Not at all Total HOLLY-7 score (0-4 normal; 5-9 mild; 10-14 moderate; 15-21 severe): 0 Source: Developed by Drs. Taco Rios, Leelee Walter, Davidson Sinclair and colleagues, with an educational stephon from [employer]. Physical exam (Primary Care) Vital Signs: Last Vital Signs Pulse 78 07/24/24 11:22 BP 128/82 07/24/24 11:22 Pulse Ox 98 07/24/24 11:22 Oxygen Delivery Method Room Air 07/24/24 11:22 BMI result Body Mass Index 42.4 Tobacco/Smoking Status: Tobacco use Status Tobacco use date assessed 07/24/24 07/24/24 11:29 Patient Tobacco Use Status Current everyday Tobacco 07/24/24 11:11 Tobacco use type Cigarette 07/24/24 11:11 e-Cigarette/Vaping Use Never Used 07/24/24 11:11 PHQ-9: PHQ-9 Score PHQ-9: Total score 0 07/24/24 11:29 Depression Screening Interpretation: Negative Thrive Assessment: Date of Thrive Assessment Date Thrive assessed 07/24/24 07/24/24 11:29 Currently or been in a relationship where the following occur: No concerns reported Const General: alert; No acute distress Eyes Conjunctivae: conjunctivae normal Resp Auscultation: clear to auscultation bilaterally Cardio Rate: regular rate Rhythm: regular rhythm GI Inspection: Yes normal to inspection Coding Level of Care Code Est Pt Level 4 (19519) Complex EM visit Add On G2211 Diagnoses Type 2 diabetes mellitus with hyperglycemia, without long-term current use of insulin E11.65 Diabetes mellitus snf insulin use: without snf use Tobacco abuse Z72.0 Hypercholesterolemia E78.00 Morbid obesity E66.01 Hypomagnesemia E83.42 Hypokalemia E87.6 Adnexal cyst N94.9 Lymphedema I89.0 Hepatic steatosis K76.0 Cough R05.9 Adrenal mass E27.8 Assessment & Plan Assessment & Plan (1) Type 2 diabetes mellitus with hyperglycemia: Comment: [facility] 04/2023 macular degeneration Code(s): E11.65 - Type 2 diabetes mellitus with hyperglycemia Category: Medical Qualifiers: Diabetes mellitus terminal press operator insulin use: without terminal press operator use Qualified Code(s): E11.65 - Type 2 diabetes mellitus with hyperglycemia (2) Tobacco abuse: Code(s): Z72.0 - Tobacco use Category: Medical (3) Hypercholesterolemia: Code(s): E78.00 - Pure hypercholesterolemia, unspecified Category: Medical (4) Morbid obesity: Code(s): E66.01 - Morbid (severe) obesity due to excess calories Category: Medical (5) Hypomagnesemia: Code(s): E83.42 - Hypomagnesemia Category: Medical (6) Hypokalemia: Code(s): E87.6 - Hypokalemia Category: Medical (7) Adnexal cyst: Comment: July 2024 Code(s): N94.9 - Unspecified condition associated with female genital organs and menstrua l cycle Category: Medical (8) Lymphedema: Code(s): I89.0 - Lymphedema, not elsewhere classified Category: Medical (9) Hepatic steatosis: Comment: Mayiffuse increased echogenicity of the parenchyma liver consistent with fatty change. 2. Status post cholecystectomy. No bile duct dilatation. Code(s): K76.0 - Fatty (change of) liver, not elsewhere classified Category: Medical (10) Cough: Code(s): R05.9 - Cough, unspecified Category: Medical (11) Adrenal mass: Code(s): E27.8 - Other specified disorders of adrenal gland Category: Medical Plan - Continue compression therapy and leg elevation for bilateral lower extremity edema; refer to behavioral geneticist as needed for further evaluation of possible lymphedema. - Order abdominal ultrasound examination to monitor fatty liver status; encourage weight management and dietary modifications to address liver health. - Recommend continuation of omeprazole for Hussein?s Esophagus management; assess effectiveness and potential for increase or alteration in GERD therapy. - Prescribe potassium supplementation to address hypokalemia; recommend dietary consultation to explore safe potassium-rich foods considering swallowing difficulties. - Advise on smoking cessation thoroughly; consider smoking cessation aids to assist; order spirometry for lung function assessment. - Plan referral to a cyanide furnace operator for persistent swallowing difficulties to evaluate further esophageal function and potential for therapeutic intervention. - Coordinate gynecology referral for assessment of multiple ovarian cysts identified in the pelvic region. - Acknowledge existing concerns with diverticular disease with recommendations for a high-fiber diet to prevent complications. - Endocrinology referral planned to investigate adrenal lesion noted on imaging. - Discuss the importance of lifestyle modifications, including dietary intervention and smoking cessation, tailored to improve overall vascular and esophageal health. Orders: Orders PFT pulmonary function test Today R05.9 - Cough, unspecified Referrals REFRACTORY TECHNICIAN Referral N94.9 - Unspecified condition associated with female genital organs and menstrual cycle Endocrinology Referral E27.8 - Other specified disorders of adrenal gland Medications: New albuterol sulfate 90 mcg/actuation (Ventolin HFA) 2 puffs inhalation Q6H PRN 8.5 grams 0RF shortness of breath or wheezing R05.9 - Cough, unspecified Changed From potassium chloride ER 10 mEq PO DAILY 6 days 6 tabs 0RF E87.6 - Hypokalemia To potassium chloride ER 10 mEq PO DAILY 30 days 30 tabs 3RF E87.6 - Hypokalemia Refilled magnesium 200 mg PO DAILY 30 tabs 0RF R05.9 - Cough, unspecified
[2024-07-24 11:22] VITALS: BP 128/82; PULSE 78; O2SAT 98; BMI 42.4
--- OUTSIDE RECORDS SUMMARY | 2024-07-24 11:33 | XMS_ITS | Patient Health Record ---
Author Organization [facility] Address [address] [place] [phone] Care Team Providers Care Sap Architect Name Role Phone Po Adan SALGADO Primary Care Provider Jethro Munoz Jr Unavailable ALLERGIES Allergen (clinical drug ingredient) Drug/Non Drug Allergy documented on EMR Reaction Allergy Type Onset Date Status amoxicillin Amoxicillin Unknown Drug Allergy Act rosalie RESULTS Component Value Reference Range Notes Pathology Reviewed date:06/19/2024 11:18:33 AM Interpretation: Performing Lab:[facility], [address] [place] [id number] Notes/Report: REASON FOR REFERRAL No Information MEDICATIONS [...] Problem Colon cancer screening (Z12.11) Active confirmed [id number] Problem group home (current) use of aspirin (Z79.82) Active confirmed [id number] Problem group home current use of diuretic (Z79.899) Active confirmed [id number] Problem Dysphagia (R13.10) Active confirmed Dysphagia (18396134) Encounters Encounter Location Date Provider Diagnosis [facility] [place] [address] [place], [place] [id number] 06/17/2024 Jethro Sharma Jr Other diseases of stomach and duodenum K31.89 and Dysphagia R13.10 [facility] [address] [place] [phone] 06/19/2024 Jethro Sharma Jr ASSESSMENTS Encounter Date Diagnosis Assessment Notes Treatment Notes Treatment Clinical Notes 06/17/2024 Other diseases of stomach and duodenum (ICD-10 - K31.89) 06/17/2024 Dysphagia (ICD-10 - R13.10) PLAN OF TREATMENT Future Test Test Name Order Date COLONOSCOPY 01/08/2020 Next Appt Details Provider Name:Jethro shaw Jr, 08/25/2024 01:55:00 PM, [address] [place] [address], [address], [place], [phone], Insurance Providers Payer Name Payer Address Payer Phone Subscriber Number Group Number Insured Name Patient Relationship to Insured Coverage Start Date Coverage End Date [facility] [address] [place] [address] [id number] BIANCA JAIMES Self - patient is the insured MEDICAL (GENERAL) HISTORY Medical History History ICD Code hypertension elevated cholesterol Surgical History Surgery Date(Month/Year) cholecystectomy
--- OUTSIDE RECORDS SUMMARY | 2024-07-24 11:33 | XMS_ITS ---
Author Organization [facility] Address [address] [place] [phone] Care Team Providers Care Inspector Brake Lining Name Role Phone Po Adan SALGADO Primary Care Provider Dylon Sharma Jr, Jethro Barr REASON FOR VISIT pathology MEDICATIONS Medication SIG (Take, Route, Fr equency, Duration) Notes Start Date End Date Status Omeprazole 20 MG 1 capsule 1/2 to 1 h our before morning meal Orally Once a day for 30 day(s) 06/20/2024 Active Encounters Encounter Location Date Provider Diagnosis [facility] [address] [facility] [address] [place] [phone] 06/19/2024 Jethro Sharma Jr PLAN OF TREATMENT Medication Medication Name Sig Start Date Stop Date Notes Omeprazole 20 MG 1 capsule 1/2 to 1 h our before morning meal Orally Once a day for 30 day(s) 06/20/2024 Next Appt Details Provider Name:Jethro shaw Jr, 08/25/2024 01:55:00 PM, [address] [place] [address], [address], [place], [phone],
--- OUTSIDE RECORDS SUMMARY | 2024-07-24 11:33 | XMS_ITS ---
Author Organization [facility] Address [address] [place] [phone] Care Team Providers Care Briquette Operator Name Role Phone Po Adan SALGADO Primary Care Provider Jethro Munoz Jr [phone] REASON FOR VISIT dysphagia PROBLEMS Problem Type ICD Code Onset Dates Problem Status W/U Status Risk SNOMED Code Notes Problem Dysphagia (R13.10) Active confirmed Dysphagia (55395979) Encounters Encounter Location Date Provider Diagnosis [facility] [place] [address] [place], [place] [id number] 06/17/2024 Jethro Sharma Jr Other diseases of stomach and duodenum K31.89 and Dysphagia R13.10 ASSESSMENTS Encounter Date Diagnosis Assessment Notes Treatment Notes Treatment Clinical Notes 06/17/2024 Other diseases of stomach and duodenum (ICD-10 - K31.89) 06/17/2024 Dysphagia (ICD-10 - R13.10) PLAN OF TREATMENT Next Appt Details Provider Name:Jethro shaw Jr, 08/25/2024 01:55:00 PM, [address], [address], [place], [address],
== END 2024-07-24 12:20 | disposition home or self-care (01) ==
PROVIDERS: PCP Internal Medicine; Visit Provider Internal Medicine
DX: E11.65 Type 2 diabetes mellitus with hyperglycemia (principal); E66.01 Morbid (severe) obesity due to excess calories; E27.8 Other specified disorders of adrenal gland; Z68.41 Body mass index [BMI] 40.0-44.9, adult; E78.00 Pure hypercholesterolemia, unspecified; Z72.0 Tobacco use; E83.42 Hypomagnesemia; E87.6 Hypokalemia; N94.9 Unspecified condition associated with female genital organs and menstrual cycle; I89.0 Lymphedema, not elsewhere classified; K76.0 Fatty (change of) liver, not elsewhere classified; R05.9 Cough, unspecified

== ENCOUNTER → 2024-07-24 10:51 | Outpatient (BNVA) | payer MEDICARE, SELFPAY | PROVIDERS: PCP Internal Medicine; Visit Provider Internal Medicine | DX: E11.65 Type 2 diabetes mellitus with hyperglycemia (principal); E78.00 Pure hypercholesterolemia, unspecified; E66.01 Morbid (severe) obesity due to excess calories; E83.42 Hypomagnesemia; E87.6 Hypokalemia; N94.9 Unspecified condition associated with female genital organs and menstrual cycle; I89.0 Lymphedema, not elsewhere classified; K76.0 Fatty (change of) liver, not elsewhere classified; R05.9 Cough, unspecified; E27.8 Other specified disorders of adrenal gland | CPT/HCPCS: 96127; 99212 ==

== ENCOUNTER 2024-07-31 12:44 | Outpatient (AMB) | payer MEDICARE, SELFPAY ==
--- NOTE | 2024-07-31 12:57 | A.OFFVIS_ITS ---
Vital Signs 07/31/24 12:58 Height 5 ft 7 in Weight 271 lb BMI 42.4 Intake Visit Reasons: follow up 07/18/24 Intake Note: follow up 07/18/24 for bilateral LE swelling, Left LE worse than right per pt. Did have cellulitis and was admitted into hospital this past April 2024. Accompanied by: Spouse Allergies amoxicillin [AMOXICILLIN] Allergy (Severe, Verified 07/31/24 13:02) RASH adhesive tape [ADHESIVE TAPE] Allergy (Intermediate, Verified 07/31/24 13:02) RASH lisinopril [LISINOPRIL] Allergy (Intermediate, Verified 07/31/24 13:02) COUGH cephalexin Allergy (Mild, Verified 07/31/24 13:02) Rash simvastatin [From ZOCOR] Allergy (Unknown, Verified 07/31/24 13:02) UNKNOWN doxycycline Allergy (Verified 07/31/24 13:02) Rash HPI HPI follow up 07/18/24: Details: Alley is presenting today with her for a follow up to venous insufficiency ultrasound, performed on 07/18/2024. She continues with bilateral lower extremity swelling. She does utilize her lymphedema compression pumps twice a day for 45 minutes at a time. She denies any new infections or cellulitis concerns. She states the swelling has not gotten better at all. She does continue to wear compression stockings and elevates her legs. [facility], [facility] Medical History Right adrenal mass Adnexal mass Lymphedema Obesity Macular degeneration Osteopenia Vitamin D deficiency Hypercalcemia Hypercholesterolemia Essential hypertension Type 2 diabetes mellitus with hyperglycemia Surgical History Lymphedema of both lower extremities History of cholecystectomy Family History Father Lung cancer Mother No problems noted. Paternal Aunt Breast cancer Social History (Updated 07/31/24 @ 13:05 by IVONNE Russell) Household Members: Spouse Housing: House Are you a primary after school caregiver to a significant other at home: No Do you presently have visiting nurse or other home services: No Alcohol intake: current Alcohol intake frequency: holidays/special occasions only Patient Tobacco Use Status: Current everyday Tobacco user Tobacco use type: Cigarette Cigarettes Per Day: 2 Years Smoked: 54 e-Cigarette/Vaping Use: Never Used Second Hand Smoke Exposure: Yes service: No Current occupational status: retired Cognitive needs: No Hearing needs: No Vision needs: Yes (reading glasses ) Review of Systems Const Reports as per HPI and Denies weakness ENT Reports Normal hearing present and Denies dizziness Card Reports as per HPI, Denies chest pain, Denies chest pain at rest, Denies chest pain with activity, Denies dyspnea and Denies dyspnea on exertion Resp Reports as per HPI, Denies cough, Denies dyspnea and Denies dyspnea on exertion GI Reports as per HPI, Denies abdominal pain, Denies nausea and Denies vomiting Musc Denies numbness Skin/Breast Reports as per HPI, Denies erythema and Denies wounds Neuro Reports Normal hearing present, Denies dizziness, Denies numbness, Denies Sensory deficit (Neuro) and Denies weakness Psych Reports no additional complaints Endo Reports no additional complaints Physical Exam Vital Signs: BMI result Body Mass Index 42.4 Const General: healthy appearing and no acute distress Orientation/consciousness: patient oriented x3 HEENT Head: Yes normal to inspection Ears: hearing grossly normal bilaterally Mouth: Normal oral and palatal mucosa present Resp Effort & Inspection: normal respiratory effort and able to speak in complete sentences Auscultation: clear to auscultation bilaterally Cardio Jugular venous distension: no JVD Rate: regular rate Rhythm: regular rhythm Heart sounds: S1 normal heart sound present and S2 normal heart sound present Bruits: no abdominal aortic bruits, no carotid bruits, no femoral bruits and no renal bruits Peripheral pulses: Peripheral pulses 2+ throughout GI Inspection: Yes normal to inspection Palpation (GI): No Abdominal aortic bruit present Skin General skin exam: no rashes or lesions noted Wounds: no wounds Hair: normal Neuro General: patient oriented x3 Cranial nerves: Yes Normal hearing present Cognition (Neuro): normal cognition Gait exam (Neuro): Normal gait present Motor exam (neuro): 5/5 motor strength present throughout Sensory Exam: No Sensory deficit (Neuro) Extrem Other: Bilateral lower extremities: erythema/discoloration noted from the toes to the tibial plateaus. Due to edema, difficult to assess pulses. +2-3 edema noted. No open wound/bleeding noted. General: Yes normal to inspection, Yes full ROM, Yes capillary refill normal and Yes normal gait Results Reviewed Results Reviewed: Brief summary of venous insufficiency testing is as follows: right great saphenous vein: negative right small saphenous vein: negative right accessory vein: none present left great saphenous vein: negative left small saphenous vein: negative left accessory vein: none present Please note there is no evidence of any venous aneurysms or significant tortuosity Assessment & Plan Assessment & Plan (1) Varicose veins of both lower extremities with inflammation: Code(s): I83.11 - Varicose veins of right lower extremity with inflammation; I83.12 - Varicose veins of left lower extremity with inflammation Category: Medical Plan: Alley is presenting today for follow up venous insufficiency ultrasound, performed on 07/18/2024. She does continue with bilateral lower extremity swelling and pain. She does continue to use her lymphedema compression pumps twice a day for 45 minutes at a time. We discussed that the ultrasound revealed no venous insufficiency. We had a lengthy discussion about following up with her primary care for further reassessment of the swelling and pain. I did discuss with her that lymphedema is very difficult to treat and to continue with the treatment of compression pumps daily. We discussed the importance of continuing with compression stockings and elevation. I discussed the importance of physical activity, walking would be the best currently. We discussed that if she is any other vascular concerns, she can reach out to our office. Thank you for allowing us to participate in the patient's care. There are any questions or concerns, please do not hesitate to reach out to us. Coding Level of Care Code Est Pt Level 4 (33583) Diagnoses Varicose veins of both lower extremities with inflammation I83.11; I83.12 Comment Review of venous insufficiency ultrasound
[2024-07-31 12:58] VITALS: BMI 42.4
== END 2024-07-31 13:21 | disposition home or self-care (01) ==
PROVIDERS: PCP Internal Medicine; Visit Provider Physician Assistant Surgical
DX: I83.11 Varicose veins of right lower extremity with inflammation (principal); I83.12 Varicose veins of left lower extremity with inflammation
CPT/HCPCS: 99214

== ENCOUNTER → 2024-07-31 12:44 | Outpatient (BNVA) | payer MEDICARE, SELFPAY | PROVIDERS: PCP Internal Medicine; Visit Provider Physician Assistant Surgical | DX: I83.11 Varicose veins of right lower extremity with inflammation (principal); I83.12 Varicose veins of left lower extremity with inflammation | CPT/HCPCS: 99212 ==

== ENCOUNTER → 2024-08-15 10:49 | Outpatient (BNV) | payer MEDICARE, SELFPAY | PROVIDERS: PCP Internal Medicine; Visit Provider Radiology Diagnostic Radiology | DX: N83.202 Unspecified ovarian cyst, left side (principal) | CPT/HCPCS: 76830; 76856 ==

== ENCOUNTER 2024-08-29 10:44 | Outpatient (AMB) | payer MEDICARE, SELFPAY ==
[2024-08-29 11:09] VITALS: BP 134/76; PULSE 58; O2SAT 82; BMI 39.7
--- NOTE | 2024-08-29 11:09 | A.OFFVIS_ITS ---
Vital Signs 08/29/24 11:09 Height 5 ft 7 in Weight 253 lb 4.978 oz BMI 39.7 BP 134/76 Blood Pressure Location Lt brachial Position Sitting Pulse 58 Pulse Source Pulse Oximeter Pulse Oximetry (%) 82 L Oxygen Delivery Method Room Air Intake Visit Reasons: Other specified disorders of adrenal gland Intake Note: New patient present today for Other specified disorders of adrenal gland. 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 Accompanied by: Self / Same As Patient Allergies amoxicillin [AMOXICILLIN] Allergy (Severe, Verified 08/29/24 11:15) RASH adhesive tape [ADHESIVE TAPE] Allergy (Intermediate, Verified 08/29/24 11:15) RASH lisinopril [LISINOPRIL] Allergy (Intermediate, Verified 08/29/24 11:15) COUGH cephalexin Allergy (Mild, Verified 08/29/24 11:15) Rash simvastatin [From ZOCOR] Allergy (Unknown, Verified 08/29/24 11:15) UNKNOWN doxycycline Allergy (Verified 08/29/24 11:15) Rash Medication List - Last Reconciled 08/29/24 by Anamaria Hurtado MD albuterol sulfate 90 mcg/actuation (Ventolin HFA) 2 puffs inhalation Q6H PRN atorvastatin 20 mg PO DAILY 30 days cholecalciferol (vitamin D3) 25 mcg PO DAILY hydrochlorothiazide 25 mg PO DAILY ibuprofen (Advil) 200 mg PO Q6H PRN magnesium 200 mg PO DAILY metoprolol succinate ER 25 mg PO DAILY omeprazole 20 mg PO DAILY@0630 potassium chloride ER 10 mEq PO DAILY 30 days simethicone (Gas Relief (simethicone)) 180 mg PO BID PRN HPI Comments Details: 69-year-old female here today for initial evaluation of right adrenal gland nodule. Was having trouble swallowing and abd pain which prompted the adrenal CT in May 2024 I reviewed the images myself [facility] showed Right adrenal gland: 3.5 cm mixed density and partially calcified low density nodule with the 30 Hounsfield units. History of HTN since her 20s/30s , used to be on 3 meds, but irbesartan DCed during May 2024 hospitalization , was also noted to have hypokalemia of potassium down to 2.7 , started on Kcl 10 meq daily, and now on HCTZ and metoprolol for BP control, BP normal today. Gastroententeritis in April 2024, subsequentlty she was barely eating in Novemeber 2024, also had cellulitis Lost 50 lbs since 2023, still having trouble with dysphagia, had EGD whihc showed Barretts per patient and pending a barium swallow study with GI . She has history of prediabetes managed with diet . Pt denies hirsutism,severe acne ,headaches , , reports easy bruisability , no abdominal striae,no headache,diaphoresis -No skin infection or hyperpigmentation. no recent vertebra or fragility fracture, Ostepenia on BMD 2022 -No ,facial plethora or recent mood change. No hx of depression. - no episodic palpitaions, pallor, abdominal pain, diaphoresis . -no loss of libido No CAD. No CVA. Smoking a pack a day since 15 years of age, now down to 3-4 cigarettes per day No anticoagulants. No history of TB. [facility] was a smoker. Physical exam General: sitting comfortably in no acute distress HEENT: normocephalic/atraumatic, Neck: supple, symmetrical, no thyromegaly , does have dorsocervical and supra clavicular fat pads Cardiac: normal heart sounds Pulm: normal breath sounds B/L, no added breath sounds Abd: not distended, no tenderness, no purple abdominal striae Extremities: no edema, no signs of myxedema, power in upper extremities 5/5 ? Laboratory Tests 05/26/24 06/02/24 06/11/24 11:16 07:24 09:44 Potassium 3.6 3.8 3.2 L Albumin Renin Activity Aldosterone Aldosterone/Renin Ratio TSH Free T4 06/12/24 06/13/24 06/14/24 05:01 06:41 05:18 Potassium 3.1 L 3.2 L 2.7 L* Albumin Renin Activity Aldosterone Aldosterone/Renin Ratio TSH Free T4 06/15/24 07/18/24 05:33 09:41 Potassium 3.4 D 3.3 Albumin 3.4 L Renin Activity 8.34 H Aldosterone 8 Aldosterone/Renin Ratio 1.0 TSH 2.11 [address] ABDOMEN AND PELVIS WITH CONTRAST 05/23/24 CLINICAL INFORMATION: Abdominal pain for 2 weeks. Nausea and vomiting. COMPARISON: None available. TECHNIQUE: Multidetector volumetric images were obtained from the superior aspect of the liver through the pubic symphysis following administration 85 mL of Omnipaque 350 intravenous contrast without reported immediate complications. Sagittal and coronal reformatted images were obtained on the technologist's workstation. Oral contrast: No This CT examination was performed using dose optimization techniques as appropriate, variously including the following: *Automated exposure control *Adjustment of mA and/or kV according to patient size (this includes techniques or standardized protocols for targeted exams where dose is matched to indication/reason for exam; i.e. extremities or head) *Use of iterative reconstruction technique DLP: 1161 mGy-cm FINDINGS: LUNG BASES: No acute airspace disease or gross pulmonary nodules in the included lungs. Calcified plaques in the mitral valve. LIVER, GALLBLADDER, AND BILIARY TREE: Liver measures 20 cm. Focal hypodensity near the falciform ligament. Main portal vein, hepatic veins and intrahepatic portion of the IVC are patent. No intrahepatic biliary ductal dilatation. Status post cholecystectomy likely laparoscopic. Common bile duct measures 4 mm. PANCREAS: No focal mass. No peripancreatic fluid collections. No main pancreatic ductal dilatation. SPLEEN: Measures 9 cm without focal mass. ADRENAL GLANDS: Right adrenal gland: 3.5 cm mixed density and partially calcified low density nodule with the 30 Hounsfield units. Left adrenal gland: No nodular lesion in the left adrenal gland. KIDNEYS AND URETERS: No hydronephrosis. No gross renal mass. BLADDER: Fluid-filled. GASTROINTESTINAL TRACT: Abundant stool, right hemicolon. Gas and fluid-filled prominent proximal small bowel loops. No intestinal obstruction pattern. Collapsed appearance of the left hemicolon. Appendix is normal. Terminal ileum is normal. Multiple scattered diverticula in the sigmoid colon. No pericolonic edema pattern or fluid collections. No fluid collections in the peritoneal cavity. No ascites. No pneumoperitoneum. ABDOMINAL WALL: Fat and fluid-filled umbilical hernia, small to moderate size. LYMPH NODES: Nonspecific prominent lymph nodes, mesenteric and retroperitoneal. VASCULAR: Calcified plaques, irregularly-shaped throughout the abdominal aorta wall and the origin of the mesenteric arteries and main renal arteries as well as the iliac arteries. No aneurysm or dissection, abdominal aorta. PELVIC VISCERA: 4.7 cm cystic lesion, left adnexa. OSSEOUS STRUCTURES: Multilevel spondylosis more conspicuous at T10-11, L4-5 and L5-S1. Grade 1 anterolisthesis L4-5 on a degenerative basis resulting in central spinal canal and bilateral neuroforamina stenosis likely compressing the neural elements. Grade 1 retrolisthesis L5-S1 resulting in bilateral neuroforamina stenosis. CT/CT abdomen pelvis w IV con IMPRESSION: Fat and fluid-filled umbilical hernia, small to moderate size. Diverticular disease, sigmoid colon. 4.7 cm cystic lesion, left adnexa. 3.5 cm lesion/mass, right adrenal gland. No clear diagnosis. Grade 1 anterolisthesis L4-5 resulting in central spinal canal and neuroforamina stenosis. Atherosclerosis disease. Calcified mitral valve. Hepatomegaly. Fleischner guidelines were followed. Electronically signed by: Vineet Corona MD 05/23/2024 02:35 PM [facility] Medical History Right adrenal mass Adnexal mass Lymphedema Obesity Macular degeneration Osteopenia Vitamin D deficiency Hypercalcemia Hypercholesterolemia Essential hypertension Type 2 diabetes mellitus with hyperglycemia Surgical History Lymphedema of both lower extremities History of cholecystectomy Family History Father Lung cancer Mother No problems noted. Paternal Aunt Breast cancer Social History Household Members: Spouse Housing: House Are you a primary direct care provider to a significant other at home: No Do you presently have visiting nurse or other home services: No Alcohol intake: current Alcohol intake frequency: holidays/special occasions only Patient Tobacco Use Status: Current everyday Tobacco user Tobacco use type: Cigarette Cigarettes Per Day: 2 Years Smoked: 54 e-Cigarette/Vaping Use: Never Used Second Hand Smoke Exposure: Yes service: No Current occupational status: retired Cognitive needs: No Hearing needs: No Vision needs: Yes (reading glasses ) Physical Exam Vital Signs: Last Vital Signs Pulse 58 08/29/24 11:09 BP 134/76 08/29/24 11:09 Pulse Ox 82 L 08/29/24 11:09 Oxygen Delivery Method Room Air 08/29/24 11:09 BMI result Body Mass Index 39.7 Assessment & Plan Assessment & Plan (1) Adrenal mass: Code(s): E27.8 - Other specified disorders of adrenal gland Category: Medical Plan: 69-year-old female coming in today for initial evaluation of right adrenal gland nodule. She had a CT scan in May 2024 which showed a right-sided 3.5 cm adrenal gland nodule with 30 Hounsfield units density and calcifications in it. Our first concern is to be sure that this is not an adrenal cortical carcinoma. ?Fortunately adrenal cortical carcinomas are exceedingly rare. ?However they do carry with them a very poor prognosis.?Given his Given she 48 since May 2024, even though that is in the setting of her having difficulty swallowing, otherwise no deterioration in overall health; I have low suspicion for adrenocortical carcinoma to start with. ?Our next step will be to repeat the imaging of his adrenal gland with?adrenal washout protocol to comment on washout and stability of size. ?? An other concern of adrenal masses is that they might be metastatic disease from another primary malignancy. ?She is an active chronic smoker.. But?A renal cancer which can metastasize to the adrenal glands probably would have been identified on his initial imaging study. ?Usually metastatic disease to the adrenal glands goes to both adrenal glands. ?Finally there is no evidence of breast cancer which?may?metastasize to the adrenal glands?as well. ? Most adrenal masses are noncancerous or benign adrenal adenomas. ?However they can occasionally be functional and the hormones that are produced can cause clinical problems.??He has a plasma renin activity done from May 2024 which was elevated but could be in the setting of her being admitted in the hospital with abdominal pain, gastroenteritis resulting in volume depletion. She also did have hypomagnesemia and hypokalemia on that admission. ; although low clinical suspicion for pheochromocytoma; given the adrenal adenoma in question is greater than 1 cm and we currently do not have Hounsfield units reading on it; I will err on the side of caution and screen with plasma free metanephrines with his blood work today. ? We will also repeat aldosterone and plasma renin activity testing especially given she had hypokalemia recently while on hydrochlorothiazide. ? We will check a 1 mg overnight dexamethasone suppression test which she will prescribed. ? The greatest likelihood is that this will be a nonfunctional benign adrenal gennaro luz elena that does not need to be removed. ?However we want to be careful that we have excluded all the other possibilities?first.? Plan: -ordered CT with the adrenal washout protocol -ordered baseline cortisol, acth, DHEA-S, plasma aldosterone, plasma renin activity, BMP, plasma metanephrine and normetanephrine levels -ordered 1 mg dexamethasone suppression test -follow up in 6 weeks to discuss results Plan I spent 45 minutes in reviewing the record, seeing the patient and documenting in the medical record. Orders: Orders Adrenocorticotropic Hormone 09/02/24 E27.8 - Other specified disorders of adrenal gland Cortisol Random 09/02/24 E27.8 - Other specified disorders of adrenal gland Basic Metabolic Panel 09/02/24 E27.8 - Other specified disorders of adrenal gland Aldosterone 09/02/24 E27.8 - Other specified disorders of adrenal gland Metanephrines, Plasma 09/02/24 E27.8 - Other specified disorders of adrenal gland Dexamethasone 09/04/24 E27.8 - Other specified disorders of adrenal gland Renin 09/02/24 E27.8 - Other specified disorders of adrenal gland DHEA Sulfate 09/02/24 E27.8 - Other specified disorders of adrenal gland Adrenocorticotropic Hormone 09/04/24 E27.8 - Other specified disorders of adr enal gland Cortisol Random 09/04/24 E27.8 - Other specified disorders of adrenal gland CT adrenal wo/w IV con Today E27.8 - Other specified disorders of adrenal gland Medications: New dexamethasone Take 1 tablet at 11 PM at night and do blood the next day at 8 AM 1 mg PO DAILY 1 tab 0RF Patient Instructions: Do CT scan of the adrenal glands, someone will call you to schedule this Do a set of 8 AM blood work on Sunday Do another set of blood work later next week for dexamethasone suppression test Dexamethasone suppression test I would like you to do a dexamethasone suppression test to rule out Cushings syndrome. You will take a 1 mg pill of dexamethasone at 11 PM and then have a blood draw for cortisol at 8AM the next morning. It is important to make sure you take the dexamethasone at 11 PM and have the blood test as close to 8AM as possible. Coding Level of Care Code New Pt Level 4 (86847) Diagnoses Adrenal mass E27.8 Time Spent (min) 45
--- OUTSIDE RECORDS SUMMARY | 2024-08-29 11:34 | XMS_ITS | Patient Health Record ---
Author Organization [facility] Address [address] [place] [id number] Care Team Providers Care Haircutter Name Role Phone Po Adan SALGADO Primary Care Provider Jethro Munoz Jr [phone] ALLERGIES Allergen (clinical drug ingredient) Drug/Non Drug Allergy documented on EMR Reaction Allergy Type Onset Date Status amoxicillin Amoxicillin Unknown Drug Allergy Act roslaie RESULTS Component Value Reference Range Notes Pathology Reviewed date:06/19/2024 11:18:33 AM Interpretation: Performing Lab:[facility], [address] [place] [phone] Notes/Report: REASON FOR REFERRAL No Information MEDICATIONS Medication SIG (Take, Route, Frequency, Duration) Notes Start Date End Date Status Pravastatin Sodium A ctive Metoprolol Succinate ER Active hydroCHLOROthiazide Active Aspirin 81 Active Irbesartan Active MiraLax (colon prep) 8.3 oun ce ((238) grams mixed with Gatorade or Crystal Light orally begin at 5:00 p.m. the day before the procedure for 1 day 01/08/2020 Active Omeprazole 20 MG one capsule Orally B.i.d. for 30 day(s) 08/25/2024 Active Omeprazole 20 MG 1 capsule 1/2 to 1 hour before morning meal Orally Once a day for 30 day(s) 06/20/2024 Active IMMUNIZATIONS Vaccine Route Administration Date Status Comme nts Influenza Unknown 01/08/2020 Refused Influenza Unknown 08/25/2024 Refused SOCIAL HISTORY Tobacco Use: Social History Observation Description Date Details (start date - stop date) Current Smoker NA - NA Sex Assigned At : Social History Observation Description Sex Assigned At Unknown Tobacco Use/Smoking Question Answer Notes Patient is a current smoker How often do you smoke cigarettes? every day How many cigarettes a day do you smoke? 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 168451543 VITAL SIGNS Temperature 97.3 degrees Fahrenheit 08/25/2024 Blood pressure diastolic 00 mm Hg 08/25/2024 Height 67 in 08/25/2024 Blood pressure systolic 000 mm Hg 08/25/2024 Weight 253 lb 8 oz lbs 08/25/2024 BMI 39.70 kg/m2 08/25/2024 Encounters Encounter Location Date Provider Diagnosis [facility] [address] [place] [id number] 06/17/2024 Jethro Sharma Jr Other diseases of stomach and duodenum K31.89 and Dysphagia R13.10 [facility] [address] [place] [id number] 08/25/2024 Jethro Sharma Jr Dysphagia R13.10 ; Colon cancer screening Z12.11 and 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 K22.70 [facility] [address] [place] [phone] 06/19/2024 Jethro Sharma Jr ASSESSMENTS Encounter Date Diagnosis Assessment Notes Treatment Notes Treatment Clinical Notes 06/17/2024 Other diseases of stomach and duodenum (ICD-10 - K31.89) 06/17/2024 Dysphagia (ICD-10 - R13.10) 08/25/2024 Colon cancer screening (ICD-10 - Z12.11) 08/25/2024 Dysphagia (ICD-10 - R13.10) Swallowing problems material was printed 08/25/2024 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 (ICD-10 - K22.70) PLAN OF TREATMENT Pending Test Test Name Order Date XR BARIUM SWALLOW, MODIFIED VIDEO 2024 Future Test Test Name Order Date COLONOSCOPY 01/08/2020 Next Appt Details Provider Name:Jethro shaw Jr, 02/19/2025 01:55:00 PM, [address] [place] [address], [address], [place], [address], Insurance Providers Payer Name Payer Address Payer Phone Subscriber Number Group Number Insured Name Patient Relationship to Insured Coverage Start Date Coverage End Date [employer] [address] [place] [address] [phone] [id number] BIANCA JAIMES Self - patient is the insured MEDICAL (GENERAL) HISTORY Medical History History ICD Code Hypertension Hyperlipidemia Diabetes mellitus Hypercalcemia Elevated BMI Osteopenia Macular degeneration Adnexal cyst Adrenal mass Colonoscopy 04/04, tubular adenoma, five- year followup Gastroesophageal reflux disease, EGD , esophagitis, no stricture Surgical History Surgery Date(Month/Year) cholecystectomy Hospitalization History Reason Date(Month/Year) endoscopy done with Dr. Sharma at [facility] 06/08
--- OUTSIDE RECORDS SUMMARY | 2024-08-29 11:35 | XMS_ITS | Clinical Summary ---
Author Organization [facility], Address [address] [place] [address] [place] [address] Phone Care Team Providers Care Correction Officer Supervisor Name Role Phone Adan Griffin MD Primary Care Provider [phone] Medications aspirin 81 MG tablet Take 1 tablet by mouth 1 (one) time each day Active hydroCHLOROthia zide (HYDRODIURIL) 25 MG tablet Comments: Filled Date: May 18 2017 12:00AM Patient Notes: TAKE 1 TABLET BY MOUTH ONCE DAILY Duration: 90 05/18/2017 Active ibuprofen (ADVIL,MOTRIN) 200 MG tablet Take 1 tablet by mouth 1 (one) time each day Active metoprolol succinate XL (TOPROL-XL) 25 MG 24 hr tablet Take 1 tablet by mouth 1 (one) time each day Active pravastatin (PRAVACHOL) 10 MG tablet Take 1 tablet by mouth 1 (one) time each day Active irbesartan (AVAPRO) 300 MG tablet Take 1 tablet (300 mg total) by mouth 1 (one) time each day 90 tablet 3 10/13/2019 Active Active Problems Problem Noted Date Diagnosed Date Essential hypertension 06/23/2019 Hyperlipidemia 06/23/2019 Osteoarthritis 06/23/2019 Family History Medical History Relation Comments Cancer Father lung-smoker/lung Diabetes Mother Heart disease Mother Hypertension Mother Kidney disease Mother Diabetes Sibling sister Hypertension Sibling sister Relation Status Comments Father Mother Sibling Social History Tobacco Use Types Packs/Day Years Used Date Smoking Tobacco: Every Day Cigarettes 1 50.1 Started: 07/16/1974 Alcohol Use Standard Drinks/Week Comments Yes 0 (1 standard drink = 0.6 oz pure alcohol) Alcoholic Drinks/day: Occasional social drink Comments Unknown Sex and Gender Information Value Date Recorded Sex Assigned at Not on file Legal Sex Female 4:33 PM EST Gender Identity Not on file Sexual Orientation Not on file Last Filed Vital Signs Vital Sign Reading Time Taken Comments Blood Pressure 125/75 06/23/2019 5:01 PM EST Pulse - - Temperature - - Respiratory Rate - - Oxygen Saturation - - Inhaled Oxygen Concentration - - Weight 132 kg (291 lb) 06/23/2019 5:01 PM EST Height 170.2 cm (5' 7 ) 06/17/2018 12:00 PM EST Body Mass Index 45.58 06/17/2018 12:00 PM EST Plan of Treatment Health Maintenance Due Date Last Done Comments Breast Cancer Screening 1955 Pneumococcal Vaccine: 65+ Ye ars (1 of 2 - PCV) 1959 Colorectal Cancer Screening: Annual FOBT 2002 Colorectal Cancer Screening: Colonoscopy 2002 Colorectal Cancer Screening: Sigmoidoscopy 2002 Influenza Vaccine (#1) 2024 Hepatitis B Vaccine Aged Out No longe r eligible based on patient's age to complete this topic Insurance [facility] [id number] Care Teams Correction Officer Supervisor Relationship Specialty Start Date End Date Adan Griffin MD [facility] [place] [id number] [place] [place] PCP - General 05/20/19
--- OUTSIDE RECORDS SUMMARY | 2024-08-29 11:35 | XMS_ITS ---
Author Organization [facility] Address [address] [place] [phone] Care Team Providers Care Die Cut Operator Name Role Phone Po Adan SALGADO Primary Care Provider Dylon Sharma Jr, Jethro Barr REASON FOR VISIT pathology MEDICATIONS Medication SIG (Take, Route, Fr equency, Duration) Notes Start Date End Date Status Omeprazole 20 MG 1 capsule 1/2 to 1 h our before morning meal Orally Once a day for 30 day(s) 06/20/2024 Active Encounters Encounter Location Date Provider Diagnosis [facility] [address] [facility] [address] [place] [phone] 06/19/2024 Jethro Sharma Jr PLAN OF TREATMENT Medication Medication Name Sig Start Date Stop Date Notes Omeprazole 20 MG 1 capsule 1/2 to 1 h our before morning meal Orally Once a day for 30 day(s) 06/20/2024 Next Appt Details Provider Name:Jethro shaw Jr, 02/19/2025 01:55:00 PM, [address] [place] [address], [address], [place], [phone],
--- OUTSIDE RECORDS SUMMARY | 2024-08-29 11:35 | XMS_ITS ---
Author Organization [facility] Address [address] [place] [id number] Care Team Providers Care Cue Worker Name Role Phone Po Adan SALGADO Primary Care Provider Jethro Munoz Jr Unavailable [phone] ALLERGIES Allergen (clinical drug ingredient) Drug/Non Drug Allergy documented on EMR Reaction Allergy Type Onset Date Status amoxicillin Amoxicillin Unknown Drug Allergy Act rosalie REASON FOR VISIT Patient presents today for Hussein's Esophagus MEDICATIONS Medication SIG (Take, Route, Frequency, Duration) Notes Start Date End Date Status Pravastatin Sodium A ctive Aspirin 81 Active Irbesartan Active MiraLax (colon prep) 8.3 oun ce ((238) grams mixed with Gatorade or Crystal Light orally begin at 5:00 p.m. the day before the procedure for 1 day 01/08/2020 Active Omeprazole 20 MG 1 capsule 1/2 to 1 hour before morning meal Orally Once a day for 30 day(s) 06/20/2024 Active Metoprolol Succinate ER Active hydroCHLOROthiazide Active Omeprazole 20 MG one capsule Orally B.i.d. 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 [id number] VITAL SIGNS BMI 39.70 kg/m2 08/25/2024 Blood pressure systolic 000 mm Hg 08/25/19 25 Blood pressure diastolic 00 mm Hg 025 Height 67 in 08/25/2024 Temperature 97.3 degrees Fahrenheit 08/25/19 25 Weight 253 lb 8 oz lbs 08/25/2024 Encounters Encounter Location Date Provider Diagnosis [facility] [address] [place] [address] 08/25/2024 Jethro Sharma Jr Dysphagia R13.10 ; Colon cancer screening Z12.11 and 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 K22.70 ASSESSMENTS Encounter Date Diagnosis Assessment Notes Treatment Notes Treatment Clinical Notes 08/25/2024 Dysphagia (ICD-10 - R13.10) Swallowing problems material was printed 08/25/2024 Colon cancer screening (ICD-10 - Z12.11) 08/25/2024 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 (ICD-10 - K22.70) PLAN OF TREATMENT Medication Medication Name Sig Start Date Stop Date Notes Omeprazole 20 MG one capsule Orally B.i.d. for 30 day(s) 0 08/25/2024 Treatment Notes Assessment Notes Dysphagia Swallowing problems material was printed Pending Test Test Name Order Date XR BARIUM SWALLOW, MODIFIED VIDEO 2024 Next Appt Details Follow Up: 6 Months, Reason: Provider Name:Jethro shaw Jr, 02/19/2025 01:55:00 PM, [address], [address], [place], [address], Progress Notes * Examination Category Sub-Category Detail Notes General Examination GENERAL APPEARANCE: in no ac nataly distress HEAD: normocephalic EYES: sclera non-icteric NECK/THYROID: no lymphadenopathy HEART: S1, S2 normal, no mu rmurs CHEST: normal shape and exp ansion LUNGS: clear to auscultatio n bilaterally ABDOMEN: soft, nontender, non distended, bowel sounds present, no organomegaly SKIN: anicteric EXTREMITIES: no clubbing, cyanosi s, or edema PSYCH: cognitive function i ntact ORAL CAVITY: mucosa moist
--- OUTSIDE RECORDS SUMMARY | 2024-08-29 11:35 | XMS_ITS ---
Author Organization [facility] Address [address] [place] [phone] Care Team Providers Care Paper Grader Name Role Phone Po Adan SALGADO Primary Care Provider Jethro Munoz Jr REASON FOR VISIT dysphagia PROBLEMS Problem Type ICD Code Onset Dates Problem Status W/U Status Risk SNOMED Code Notes Problem Dysphagia (R13.10) Active confirmed Dysphagia ([id number]) Encounters Encounter Location Date Provider Diagnosis [facility] [place] [address] [place], [place] [id number] 06/17/2024 Jethro Sharma Jr Other diseases of stomach and duodenum K31.89 and Dysphagia R13.10 ASSESSMENTS Encounter Date Diagnosis Assessment Notes Treatment Notes Treatment Clinical Notes 06/17/2024 Other diseases of stomach and duodenum (ICD-10 - K31.89) 06/17/2024 Dysphagia (ICD-10 - R13.10) PLAN OF TREATMENT Next Appt Details Provider Name:Jethro shaw Jr, 02/19/2025 01:55:00 PM, [address], [address], [place], [address],
--- OUTSIDE RECORDS SUMMARY | 2024-08-29 11:35 | XMS_ITS ---
Author Organization [facility] sh[facility]an Leoma Address [address] [place] [address] Care Team Providers Care Dancing Instructor Name Role Phone Adan Griffin Primary Care Provider Susan Mccord Unavailable [phone] Allergies Allergen (clinical drug ingredient) Drug/Non Drug Allergy documented on EMR Reaction Allergy Type Onset Date Status Adhesive rash Allergy Active amoxicillin Amoxicillin rash Drug Allergy Act rosalie cephalexin Cephalexin rash Drug Allergy Activ e doxycycline Doxycycline rash Drug Allergy Act rosalie REASON FOR VISIT At Risk Footcare, Painful Nail(s) aggravated by shoes and causing difficulty standing/walking., ToeIrritation, Swelling Medications Medication SIG (Take, Route, Frequency, Duration) Notes Start Date End Date Status Vitamin D3 125mcg daily Active Atorvastatin Calcium 20 MG 1 tablet Oral ly Once a day Active Irbesartan 300 MG 1 tablet Orally Once a day Active hydroCHLOROthiazide 25 MG 1 tablet in th e morning Orally Once a day Active Metoprolol Succinate ER 25 MG 1 tablet Orally Once a day Active Omeprazole Active Advil Active PreserVision AREDS 2 Active Social History Tobacco Use: Social History Observation Description Date Details (start date - stop date) Current Smoker NA - NA Tobacco Use/Smoking Question Answer Notes Are you a: current smoker Alcohol Screen Question Answer Notes Did you have a drink containing alcohol in the p ast year? Yes Points 0 Interpretation Negative Tobacco use other than smoking: Question Answer Notes Are you an other tobacco user? No Problems Problem Type SNOMED Code ICD Code Onset Dates Problem Status W/U Status Risk Notes Problem Atherosclerosis of augustine artery of both lower extremities, with unspecified presence of clinical manifestation (I70.203) Active confirmed Q7(A), Q8(2B), Q9(1B,2C ) Problem Acquired hammer toe of right foot (298261994996 9105) Other hammer toe(s) (acquired), right foot (M20.41) Active confirmed Problem Acquired hammer toe of left foot (798609903630 9103) Other hammer toe(s) (acquired), left foot (M20.42) Active confirmed Problem [id number] Type 2 diabetes mellitus without complication, without long-term current use of insulin (E11.9) Active confirmed Vital Signs Height 5ft 7in in 07/22/2024 Weight 290 lbs 07/22/2024 BMI 45.42 kg/m2 07/22/2024 Blood pressure systolic 128 mm Hg 07/22/19 25 Blood pressure diastolic 72 mm Hg 025 Encounters Encounter Location Date Provider Diagnosis [facility] [place] [address] [place] [address] 07/22/2024 Susan Napoles Atherosclerosis of augustine artery of both lower extremities, with unspecified presence of clinical manifestation I70.203 ; Tinea unguium B35.1 ; Pain in right toe(s) M79.674 ; Pain in left toe(s) M79.675 ; Other hammer toe(s) (acquired), right foot M20.41 ; Other hammer toe(s) (acquired), left foot M20.42 ; Edema, lower extremity R60.0 and Type 2 diabetes mellitus without complication, without long-term current use of insulin E11.9 Assessments Encounter Date Diagnosis (ICD Code) Assessment Notes Treatment Notes Treatment Clinical Notes Section Notes 07/22/2024 Atherosclerosis of augustine artery of both lower extremities, with unspecified presence of clinical manifestation (ICD-10 - I70.203) Q7(A), Q8(2B), Q9(1B,2C) 07/22/2024 Tinea unguium (ICD-10 - B35.1) 07/22/2024 Pain in right toe(s) (ICD-10 - M79.674) 07/22/2024 Pain in left toe(s) (ICD-10 - M79.675) 07/22/2024 Other hammer toe(s) (acquired), right foot (ICD-10 - M20.41) 07/22/2024 Other hammer toe(s) (acquired), left foot (ICD-10 - M20.42) 07/22/2024 Edema, lower extremity (ICD-10 - R60.0) 07/22/2024 Type 2 diabetes mellitus without complication, without long-term current use of insulin (ICD-10 - E11.9) Plan Of Treatment Next Appt Details Follow Up: 2 Months, Reason: Provider Name:Susan quinonez, 10/07/2024 11:15:00 AM, [address] [place] [address], [id number], Procedure Notes * Category Sub-Category Detail Notes Debride Nail 6-10 Nail debridement Due to the cl inical pathology outlined in the exam findings, performance of this nail treatment is medically necessary as its management by an unskilled/untrained nonprofessional would put this patients foot and overall health at risk. Therefore, debridement to affected nail(s), as described in exam (TA, T1, T2, T3, T4, T5, T6, T7, T8, T9, ), was performed exclusively by the physician of record to reduce/remove overall nail length, girth, thickness, subungual debris, and necrotic tissue, by manual and/or electrical means through the use of a nail nipper and/or dremel-type track grinder operator, to a more viable healthy nail plate or bed tissue 6-10 nails in total. Silver nitrate was used for any petechial bleeding as necessary. Definitive antifungal treatment options, both pharmaceutical and surgical, have been reviewed and discussed with the patient. The patient solely prefers the use of intermittent/as needed professional debridement services for their nail condition and understands the need for additional periodic treatments to maintain effectiveness in symptomatic relief - 94654 Keratoma Treatment Parring or Cutting o f Benign Hyperkeratotic Lesion(s) (-56) 2-4 Lesions - Due to the at risk nature of the patients medical condition as documented in the exam findings, performance of this keratoderma treatment is medically necessary as its management by an unskilled/untrained nonprofessional would put this patients foot and overall health at risk. Therefore, the benign hyperkeratotic lesions, ( 4 ) in total, locations as stated and described in the exam ( TA, T5 , Sub met 1 and heel left ), were pared, and/or cut utilizing a sterile 15 blade, tissue nippers, and/or power dremel instrumentation by the physician of record - 10692 Progress Notes * Alley TUBBS ADOB:[birth year] (69 yo F)Acc No.[id number]:07/22/2024 Progress Notes Patient:?Alley TUBBS Provider:?Susan Napoles DPM :1955???Age:69 Y???Sex:Female D ate:07/22/2024 Address:[address] [place], [place] [id number] Pcp:Adan Griffin Subjective: * Chief Complaints: * ???At Risk FootcarePainful N ail(s) aggravated by shoes and causing difficulty standing/walking.Toe IrritationSwelling * HPI: ???At Risk footcare:?Pt States Last PCP Visit:?Date?07/03/2024 ???Toe pain:?Location:?B/L feet.?Duration:?several years.?Course:?worse.?Aggravated by:?shoes, any pressure.?Treatments:?change in shoes.?Swelling:?Nature:?tightness.?Location:?Both feet/leg.?Duration:?several months.?Onset:?gradual, no hx of trauma.?Course:?worse.?Treatment:?compression stockings, elevation.? * ROS:?General/Constitutional:?Nausea?denies.?Vomiting?denies.?Hunger Thirst?denies.?Loss appetite?denies.?Chills?denies.?Fatigue?denies.?Fever?denies.?Night Sweats?denies.?Unexplained weight loss?denies.?Unexplained weight gain?denies.?HEENTM:?Dentures?denies.?Dizziness?denies.?Glasses/contacts?admits.?Retinopathy?den ies.?Blurred/double vision?denies.?TMJ?denies.?Discharge/drainage?denies.?Implants?denies.?Sore throat?denies.?Dental implants?denies.?Hard of hearing ?denies.?Difficulty chewing/swallowing/speaking?denies.?Nose bleeds?denies.?Sore mouth?denies.?Respiratory:?On O xygen?denies.?Pneumonia/pleurisy?denies.?Bronchitis?denies.?Emphysema?denies.?Co ughing?denies.?Cough blood?denies.?Shortness of breath?denies.?Wheezing?denies.?Cardiovascular:?Pacemaker?denies.?MVP?denies.?WPW?denies.?CHF?denies.?Heart attack?denies.?Septal defect?denies.?Rapid beat?denies.?Chest pain ?denies.?Atrial Fib.?denies.?Murmur/Palpitations?denies.?Gastrointestinal:?Hemorrhoids?denies.?Stomach/Abdominal pain?denies.?Dark blood stool?denies.?Irritable bowel ?denies.?Constipation?denies.?Diarrhea?denies.?Hematology:?Swelling?admits.?Clots?denies.?Varicose Veins?denies.?Bruising?denies.?Bleeding problem?denies.?Genitourinary:?Blood urine?denies.?Frequent/Painfu/urination/bladder control?denies.?Kidney stones?denies.?Infection (UTI)?denies.?Nephropathy?denies.?sex trans dis (STD)?denies.?Prostate?denies.?Musculoskeletal:?Hammertoes?admits.?Bunions?denies.?Back Pain?denies.?Muscle Cramps/ Resting?admits.?Muscle cramps / walking?denies.?Generalized aches and pains?denies.?Weakness?denies.?Integ.:?Sawyer?denies.?Scars?denies.?Corns/calluses?denies.?Ingrown nails?denies.?Painful nails?denies.?Open Sores?denies.?Rashes?denies.?Neurologic:?Difficulty sleeping?denies.?Brain disorder?denies.?Numbness?denies.?Balance t rouble?denies.?Confusion?denies.?Fainting/blackouts?denies.?Tingling?denies.?Chris mors?denies.? * Medical History:? * Surgical History:?david pabon er - stones * Hospitalization/Major Diagno stic Procedure:?[facility]- Swelling feet/legs 06/12/24 * Family History:?Mother: dece ased, foot problems, high blood pressure, poor circulation, diabetic, diagnosed with Diabetic - NIDDM, Unspecified essential hypertension, Other specified conditions influencing health status.?Father: , cancer, diagnosed with Other malignant neoplasm of unspecified site.?Siblings: diabetes, diagnosed with Diabetic - NIDDM.? * Social History:?Tobacco Use:?Tobacco Use/Smoking?Are you a:?current smoker ?Tobacco use other than smoking?Are you an other tobacco user??No ???Drugs/Alcohol:?Drugs?Have you used drugs other than those for medical reasons in the past 12 months??No ?Alcohol Screen?Did you have a drink containing alcohol in the past year??Yes ?Points?0 ?Interpretation?Negative ???Miscellaneous:?Caffeine: yes, frequency:, 2-3 cups per day. ?Children: no. ?Exercise: yes, shopping, cleaning. ?Marital status: . 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 * Medications:?TakingOmeprazol e Advil PreserVision AREDS 2 Vitamin D3 , Notes to Pharmacist: 125mcg dailyAtorvastatin Calcium 20 MG Tablet 1 tablet Orally Once a day hydroCHLOROthiazide 25 MG Tablet 1 tablet in the morning Orally Once a day Metoprolol Succinate ER 25 MG Tablet Extended Release 24 Hour 1 tablet Orally Once a day Irbesartan 300 MG Tablet 1 tablet Orally Once a day Medication List reviewed and reconciled with the patientTaking Omeprazole Taking Advil Taking PreserVision AREDS 2 Taking Vitamin D3 , Notes to Pharmacist: 125mcg dailyTaking Atorvastatin Calcium 20 MG Tablet 1 tablet Orally Once a day Taking hydroCHLOROthiazide 25 MG Tablet 1 tablet in the morning Orally Once a day Taking Metoprolol Succinate ER 25 MG Tablet Extended Release 24 Hour 1 tablet Orally Once a day Taking Irbesartan 300 MG Tablet 1 tablet Orally Once a day Medication List reviewed and reconciled with the patient * Allergies:?Adhesive: rashAmo xicillin: rashCephalexin: rashDoxycycline: rashyes[Allergies Verified] Objective: * Vitals:?Ht: 5ft 7in, Wt:290, BMI:45.42, Shoe size: 12W, BP:128/72mm Hg, BS: not taken, Ht-cm: 170.18 cm, Wt-k.54 kg. * Examination: ???CQM Exceptions:: ?Hemoglobin A1c not performed?Ophthalmology Referral: ?DIABETES EYE EXAM?Vascular: ?DP PULSES (B):?1/4, B/L.?PT PULSES (B):? 0/4, B/L.?CAPILLARY FILL TIME:? delayed, all digits, B/L.?TROPHIC CONDITION-TEXTURE/ELASTICITY/TURGOR/HAIR GROWTH (B):? decreased, fragile, thin, shiny skin, with sparse to absent hair growth, B/L.?TEMPERTURE GRADIENT (C):? decreased, cool to cool, proximal to distal, B/L.?PIGMENTATION:?rubrous, B/L.?EDEMA (C):?4/4, Leg(s), Ankle(s), Feet, B/L.?CLAUDICATION (C):?denies, B/L.?REST PAIN:?denies, B/L.?PARESTHESIA (C):?absent, B/L.?BURNING (C):?absent, B/L.?CARLOS'S SIGN:?absent, B/L.?PALPABLE CORDS:?absent, B/L.?Nails: ?NAILS are:? Elongated, overgrown, dystrophic, lytic, greater than 3mm thick, discolored and friable with crumbly malodorous subungual debris, with pain on palpation,TA, T1, T2, T3, T4, T5, T6, T7, T8, T9.?Dermatologic: ?SKIN FINDINGS:?Skin exam reveals Keratotic lesion(s) located at, Medial plantar, TA, T5, SUB MTH (s), 1, Plantar Heel(s), Left.?Orthopedic: ?MUSCLE STRENGTH:?5/5 all groups in a symmetrical fashion, B/L.?DIGITAL DEFORMITIES:?Digital contracture, PIPJ, 2-5 B/L, incompl-reducible to push-up test, no over, nor underlapping,?there is?evidence of shoe producing skin irritation.?FOOTWEAR:?worn, non-supportive, shoe gear properties exacerbate patient's foot/toe deformity.?Neurological: ?SENSORY:?Neurological exam reveals intact sensorium, pain sensation normal, vibration sensation intact, pinprick sensation is normal in the lower extremities, Pt denies, anesthesia, burning, paresthesia, tingling, B/L.?General Examination: ?GENERAL APPEARANCE:?Reveals a pleasant, alert, well nourished, well- developed, well hydrated individual, who demonstrates proper attention to hygiene/body habitus, and is in no acute distress, Pt serves as own historian for office visit today.?ORIENTED:?person, place, and time.?FOOT EXAM:?Footwear Evaluation? Assessment: * Assessment: 1.?Tinea unguium - B35.1???2 .?Atherosclerosis of augustine artery of both lower extremities, with unspecified presence of clinical manifestation - I70.203 (Primary)???Notes :Q7(A), Q8(2B), Q9(1B,2C)???3.?Pain in right toe(s) - M79.674???4.?Pain in left toe(s) - M79.675???5.?Other hammer toe(s) (acquired), right foot - M20.41???Specify :Chronic problem, Worse (4),Rx Management (4)???6.?Other hammer toe(s) (acquired), left foot - M20.42???Specify :Chronic problem, Worse (4),Rx Management (4)???7.?Edema, lower extremity - R60.0???Specify :Acute problem, Uncomplicated (3), Rx Management (4)???8.?Type 2 diabetes mellitus without complication, without long-term current use of insulin - E11.9??? Plan: * Treatment: * Procedures:?Debride Nail 6-10:?Nail debridement?Due to the clinical pathology outlined in the exam findings, performance of this nail treatment is medically necessary as its management by an unskilled/untrained nonprofessional would put this patients foot and overall health at risk. Therefore, debridement to affected nail(s), as described in exam (TA, T1, T2, T3, T4, T5, T6, T7, T8, T9, ), was performed exclusively by the physician of record to reduce/remove overall nail length, girth, thickness, subungual debris, and necrotic tissue, by manual and/or electrical means through the use of a nail nipper and/or dremel-type track grinder operator, to a more viable healthy nail plate or bed tissue 6- 10 nails in total. Silver nitrate was used for any petechial bleeding as necessary. Definitive antifungal treatment options, both pharmaceutical and surgical, have been reviewed and discussed with the patient. The patient solely prefers the use of intermittent/as needed professional debridement services for their nail condition and understands the need for additional periodic treatments to maintain effectiveness in symptomatic relief - 99608.?Keratoma Treatment:?Parring or Cutting of Benign Hyperkeratotic Lesion(s)?(-56) 2-4 Lesions - Due to the at risk nature of the patients medical condition as documented in the exam findings, performance of this keratoderma treatment is medically necessary as its management by an unskilled/untrained nonprofessional would put this patients foot and overall health at risk. Therefore, the benign hyperkeratotic lesions, ( 4 ) in total, locations as stated and described in the exam (?TA,?T5?,?Sub met 1 and heel left??), were pared, and/or cut utilizing a sterile 15 blade, tissue nippers, and/or power dremel instrumentation by the physician of record - 31899.? * Procedure Codes:?98185 DEBRI DE NAIL, 6 OR MORE, Modifiers: XS 90132 TRIM SKIN LESIONS, 2 TO 4, Modifiers: XS , Q8 * Preventive Medicine:? ??Counseling:?Tobacco use:?Type of Tobacco Use Cessation Counseling provided?Smoking cessation education ?Patient counseled on the dangers of smoking and urged to quit:?07/22/2024 ?Discussion:?-04: Office or other outpatient visit for the evaluation and management of a new patient, which required a medically appropriate history and/or examination and MODERATE level of DECISION MAKING for: 1 OR MORE CHRONIC PROBLEM(S) THATS WORSENING, 2 STABLE CHRONIC PROBLEMS, A NEWLY DIAGNOSED PROBLEM WITH UNCERTAIN PROGNOSIS, AN ACUTE COMPLICATED INJURY WITH MULTIPLE TREATMENT OPTIONS, OR AN ACUTE PROBLEM WITH ACCOMPANYING SYSTEMIC SYMPTOMS, THAT POSE(S) A MODERATE RISK OF MORBIDITY. THIS CONDITION MAY ALSO INCLUDE RX DRUG MANAGEMENT, OR A DECISON FOR MINOR SURGERY. The visit on the day of the encounter encompassed interpreting the data and educating the patient as to the nature of their condition, treatment options available according to their individual PMH, meds, allergies, and overall health/living conditions, as well as any potential risks or complications that may occur from a failure to adhere to, and participate in, the recommended course of therapy. The discussion included a complete verbal, and/or written explanation of the examination results, any x-rays taken, the proposed diagnosis, and outline of the treatment plan. A schedule for future care needs was also explained. The patient verbalized an understanding of the instructions at this time and agreed to be an active participant in their treatment. If the patient should think of any questions or concerns after the visit, I have encouraged the patient to call the office.?Digital Surgery:?Digital surgery was discussed with the patient, We elected to try conservative treatment at the present time, due to the patients medical history and increased asssociated post-operative risks.?Digital Treatment:?HT- I explained to the patient the possible etiologies of Hammertoes, including genetics/foot type/shoegear/activity level/exercise routine and the risks/benefits of all the different treatment options for their pain including: No treatment at all, Rest, Ice, New/supportive/wider/deeper Shoegear, Digital Padding/Strapping/Taping/Bracing/Gel protective sleeves, Foot/Ankle AFO Bracing, Stretching exercises, Deep Tissue Massage, Arch support/shoe inserts with splay metatarsal padding, and Custom orthoses. I insisted that any digital devices be removed daily and not worn overnight for safety. The patient is to carefully examine the toes daily for any skin irritation while using any splinting or padding device. The advantages and disadvantages of each option were discussed and the patients questions re: shoegear, padding, custom vs prefabricated inserts, activity level, and consistency in home treatment regimens for optimal success were answered to their verbally confirmed satisfaction.?Edema:?I explained to the patient the possible etiologies for Edema, including genetic, surgery, infection, medications, heart disease, kidney disease, excess dietary salt, and various cancer treatments. We discussed the risks/benefits of the treatment options available including rest, elevation, OTC compression stockings, Rx compression stockings, Unna Boot application, diet modification to limit salt intake, and Rx segmental compression boots provided the absence of CHD in the patients medical history. The advantages and disadvantages of each option were discussed and the patients questions re: risk of infection(cellulitis), medications, diet, and the daily use of compression stockings(not to be worn at night), and consistency in these home treatment regimens for optimal success were answered to their verbally confirmed satisfaction. Given the risk for vessel clotting disease, the patient was instructed to go immediately to the ER of hospital should they experience any calf pain, SOB, or discomfort. Any changes to the patients medication regimen will be performed by the PCP or patients kidney/heart/cancer specialist, pt has upcoming vascular consult at [facility] for LE edema.?Shoe Gear Counseling:?SHOE Rx - The patient was counseled in great detail on their muscoloskeletal foot and toe deformities which coincided with the dermatological presentations visualized on exam. We discussed how their deformities put the integrity of their feet at risk for potential pedal complications which makes the accomidative diabetic shoes and cutomizable inserts medically necessary. We discussed the different shoe and insert treatment types and options, as well as the important advantages for adhering to regularly wearing these accomidative devices daily. The patient was made aware of the fact that a failure to abide by these recommedations may be deleterious to their foot health as they are able to prevent many pedal complications such as skin irritation, skin ulceration, infection, and even loss of toe/foot/leg/or life. Time was also spent with the patient dispensing and discussing proper diabetic footcare techniques including daily skin moisturization, daily foot inspection for any interruption in skin integrity including open lesions, or sign of infection such as redness/malodor/drainage/swelling. Also discussed and recommended were procedures regarding daily shoe inspection for the presence of internal foreign bodies as well as any visualized irregular shoe or insert wear. Patient questions re: shoes, inserts, and self foot inspections were answered to their satisfaction as the patient verbally confirmed a full understanding of the above information., The patient deferred recommended diabetic shoes with heat moled inserts.? ??Screening/Special Tests:?Fall Risk?Assessment:?Performed ?Screening:?No falls in the past year ?FALLS: Screening for Future Fall Risk?Have you had two or more falls in the past year??No ?Have you had any falls with injury in the past year??No * Follow Up:?2 Months * Images: * Sign off status: Completed true * Provider:?Susan Napoles DPM Date:?01/2025 Generated for Sonia haas/Nikolas/Mike on:?08/29/2024 11:34 AM EST History and Physical Notes * HPI (History of Present Illness) Category Sub-Category Detail Notes Category Not es Toe pain Location: B/L feet Duration: several years Course: worse Aggravated by: shoes, any pressure Treatments: change in shoes At Risk footcare Pt States Last PCP Visit: Date: 4 Swelling Nature: tightness Location: Both feet/leg Duration: several months Onset: gradual, no hx of tr auma Course: worse Treatment: compression stocking s, elevation Examination Category Sub-Category Detail Notes Category Not es Neurological SENSORY: Neurological exa m reveals intact sensorium, pain sensation normal, vibration sensation intact, pinprick sensation is normal in the lower extremities, Pt denies, anesthesia, burning, paresthesia, tingling, B/L Dermatologic SKIN FINDINGS: Skin exam reveal s Keratotic lesion(s) located at, Medial plantar, TA, T5, SUB MTH (s), 1, Plantar Heel(s), Left Orthopedic FOOTWEAR: worn, non-suppor tive, shoe gear properties exacerbate patient's foot/toe deformity DIGITAL DEFORMITIES: Digital contracture , PIPJ, 2-5 B/L, incompl-reducible to push-up test, no over, nor underlapping, there is evidence of shoe producing skin irritation MUSCLE STRENGTH: 5/5 all groups in a symmetrical fashion, B/L General Examination GENERAL APPEARANCE: Reveals a pleasant, alert, well nourished, well-developed, well hydrated individual, who demonstrates proper attention to hygiene/body habitus, and is in no acute distress, Pt serves as own historian for office visit today FOOT EXAM: Lower Extremity Neurological Exa m performed:: Yes Date Visual exam of foot performed:: Yes Date: 07/22/2024 Sensory testing performed:: sensations n ormal Pedal pulse taking performed:: absent ORIENTED: person, place, and t mami Footwear Evaluation Footwear Evaluation performe d:: Yes Ophthalmology Referral DIABETES EYE EXAM Procedure Perform ed:: Yes ?Date of Exam Performed: 04/22/2024 Findings of Diabetic Eye Exam:: no retin opathy Vascular DP PULSES (B): 1/4, B/L PT PULSES (B): 0/4, B/L CAPILLARY FILL TIME: delayed, all digits , B/L TEMPERTURE GRADIENT (C): decreased, cool to cool, proximal to distal, B/L TROPHIC CONDITION-TEXTURE/ELASTICITY/TURGOR/HAIR GROWTH (B): decreased, fragile, thin, shiny skin, wi th sparse to absent hair growth, B/L EDEMA (C): 4/4, Leg(s), Ankle(s ), Feet, B/L CLAUDICATION (C): denies, B/L REST PAIN: denies, B/L CARLOS'S SIGN: absent, B/L PALPABLE CORDS: absent, B/L PIGMENTATION: rubrous, B/L PARESTHESIA (C): absent, B/L BURNING (C): absent, B/L Nails NAILS are: Elongated, overg rown, dystrophic, lytic, greater than 3mm thick, discolored and friable with crumbly malodorous subungual debris, with pain on palpation,TA, T1, T2, T3, T4, T5, T6, T7, T8, T9 CQM Exceptions: Hemoglobin A1c not performed Reason:: No r yvonne specified
--- OUTSIDE RECORDS SUMMARY | 2024-08-29 11:35 | XMS_ITS | Patient Health Record ---
Author Organization [facility] shannan [place] Address [address] [place] [address] Care Team Providers Care Operations Welder Name Role Phone Adan Griffin Primary Care Provider Susan Mccord Unavailable [phone] Allergies Allergen (clinical drug ingredient) Drug/Non Drug Allergy documented on EMR Reaction Allergy Type Onset Date Status Adhesive rash Allergy Active amoxicillin Amoxicillin rash Drug Allergy Act rosalie cephalexin Cephalexin rash Drug Allergy Activ e doxycycline Doxycycline rash Drug Allergy Act rosalie Reason For Referral No Information Medications Medication SIG (Take, Route, Frequency, Duration) Notes Start Date End Date Status Omeprazole Active Vitamin D3 125mcg daily Active Atorvastatin Calcium 20 MG 1 tablet Oral ly Once a day Active Advil Active PreserVision AREDS 2 Active Irbesartan 300 MG 1 tablet Orally Once a day Active hydroCHLOROthiazide 25 MG 1 tablet in th e morning Orally Once a day Active Metoprolol Succinate ER 25 MG 1 tablet Orally Once a day Active Social History Tobacco Use: Social History [...] Problem Status W/U Status Risk Notes Problem Acquired hammer toe of right foot (106291131878 9105) Other hammer toe(s) (acquired), right foot (M20.41) Active confirmed Problem Acquired hammer toe of left foot (187035215920 9103) Other hammer toe(s) (acquired), left foot (M20.42) Active confirmed Problem Atherosclerosis of [place] artery of both lower extremities, with unspecified presence of clinical manifestation (I70.203) Active confirmed Q7(A), Q8(2B), Q9(1B,2C ) Problem 293514690 Type 2 diabetes mellitus without complication, without long-term current use of insulin (E11.9) Active confirmed Vital Signs Blood pressure diastolic 72 mm Hg 07/22/2024 Height 5ft 7in in 07/22/2024 Blood pressure systolic 128 mm Hg 07/22/2024 Weight 290 lbs 07/22/2024 BMI 45.42 kg/m2 07/22/2024 Encounters Encounter Location Date Provider Diagnosis [facility] [address] [address] 07/22/2024 Susan Ronaldocristiano Atherosclerosis of [place] artery of both lower extremities, with unspecified [...] Notes Treatment Clinical Notes Section Notes 07/22/2024 Tinea unguium (ICD-10 - B35.1) 07/22/2024 Atherosclerosis of [place] artery of both lower extremities, with unspecified presence of clinical manifestation (ICD-10 - I70.203) Q7(A), Q8(2B), Q9(1B,2C) 07/22/2024 Pain in right toe(s) (ICD-10 - [...] E11.9) Plan Of Treatment Next Appt Details Provider Name:Susan quinonez, 10/07/2024 11:15:00 AM, [address] [place] [address], [phone], Insurance Providers Payer Name Payer Address Payer Phone Subscriber Number Group Number Insured Name Patient Relationship to Insured Coverage Start Date Coverage End Date BlueCare 65 Medicare Preferred [address] [place] [address] [id number] Alley Francisco Self - patient is the insured Medical (General) History Medical History History ICD Code Mumps Measles Chicken pox ulcer Macular degeneration High Blood Pressure Gall bladder problems Pre Diabetic CAD (Cholesterol) Surgical History Surgery Date(Month/Year) gall bladder - stones Hospitalization History Reason Date(Month/Year) [facility]- Swelling feet/legs 06/12/24
== END 2024-08-29 12:07 | disposition home or self-care (01) ==
PROVIDERS: PCP Internal Medicine; Visit Provider Student in an Organized Health Care Education/Training Program
DX: E27.8 Other specified disorders of adrenal gland (principal)
CPT/HCPCS: 99204

== ENCOUNTER → 2024-08-29 10:44 | Outpatient (BNVA) | payer MEDICARE, SELFPAY | PROVIDERS: PCP Internal Medicine; Visit Provider Student in an Organized Health Care Education/Training Program | DX: E27.8 Other specified disorders of adrenal gland (principal) | CPT/HCPCS: 99202 ==

== ENCOUNTER 2024-09-02 07:56 | Outpatient (REF) | payer MEDICARE, SELFPAY ==
--- OUTSIDE RECORDS SUMMARY | 2024-09-02 07:59 | XMS_ITS | Patient Health Record ---
Author Organization [facility] Address [address] [place] [address] Care Team Providers Care Nurse'S Companion Name Role Phone Po Adan SALGADO Primary Care Provider Jethro Munoz Jr ALLERGIES Allergen (clinical drug ingredient) Drug/Non Drug Allergy documented on EMR Reaction Allergy Type Onset Date Status amoxicillin Amoxicillin Unknown Drug Allergy Act rosalie RESULTS Component Value Reference Range Notes Pathology Reviewed date:06/19/2024 11:18:33 AM Interpretation: Performing Lab:[facility], [address] [place] [phone] Notes/Report: REASON FOR REFERRAL No Information MEDICATIONS [...] Problem Colon cancer screening (Z12.11) Active confirmed 617190711 Problem custodial (current) use of aspirin (Z79.82) Active confirmed 025184871924684 Problem exterminator current use of diuretic (Z79.899) Active confirmed 15403680868649841 Problem Dysphagia (R13.10) Active confirmed Dysphagia (52190685) Problem 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 518980696 VITAL SIGNS Temperature 97.3 degrees Fahrenheit 08/25/2024 Blood pressure diastolic 00 mm Hg 08/25/2024 Height 67 in 08/25/2024 Blood pressure systolic 000 mm Hg 08/25/2024 Weight 253 lb 8 oz lbs 08/25/2024 BMI 39.70 kg/m2 08/25/2024 Encounters Encounter Location Date Provider Diagnosis [facility] Inpatient [address] [place] [id number] 06/17/2024 Jethro Sharma Jr Other diseases of stomach and duodenum K31.89 and Dysphagia R13.10 [facility] [address] [place] [address] 08/25/2024 Jethro Sharma Jr Dysphagia R13.10 ; Colon cancer screening Z12.11 and 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 K22.70 [facility] [address] [place] [phone] 06/19/2024 Jethro Sharma Jr ASSESSMENTS Encounter Date [...] Provider Name:Jethro shaw Jr, 02/19/2025 01:55:00 PM, [address] [place] [address], [address], [place], [address], Insurance Providers Payer Name Payer Address Payer Phone Subscriber Number Group Number Insured Name Patient Relationship to Insured Coverage Start Date Coverage End Date [facility] [address] [place] [address] [phone] [id number] BIANCA JAIMES Self - patient is the insured MEDICAL (GENERAL) HISTORY Medical History History ICD Code Hypertension Hyperlipidemia Diabetes mellitus Hypercalcemia Elevated BMI Osteopenia Macular degeneration Adnexal cyst Adrenal mass Colonoscopy 04/04, tubular adenoma, five- year followup Gastroesophageal reflux disease, EGD , esophagitis, no stricture Surgical History Surgery Date(Month/Year) cholecystectomy Hospitalization History Reason Date(Month/Year) endoscopy done with Dr. Sharma at [facility] 06/08
--- OUTSIDE RECORDS SUMMARY | 2024-09-02 07:59 | XMS_ITS ---
Author Organization [facility] [place] Address [address] [place] [address] Care Team Providers Care Supervisor Winding Department Name Role Phone Adan Griffin Primary Care Provider Susan Mccord Unavailable [phone] Allergies Allergen (clinical drug ingredient) Drug/Non Drug [...] W/U Status Risk Notes Problem Atherosclerosis of [place] artery of both lower extremities, with unspecified presence of clinical manifestation (I70.203) Active confirmed Q7(A), Q8(2B), Q9(1B,2C ) Problem Acquired hammer toe of right foot (899325923098 9105) Other hammer toe(s) (acquired), right foot (M20.41) Active confirmed Problem Acquired hammer toe of left foot (911665299841 9103) Other hammer toe(s) (acquired), left foot (M20.42) Active confirmed Problem 420357689 Type 2 diabetes mellitus without complication, without long-term current use of insulin (E11.9) Active confirmed Vital Signs Blood pressure systolic 128 mm Hg 07/22/19 25 Blood pressure diastolic 72 mm Hg 025 Height 5ft 7in in 07/22/2024 Weight 290 lbs 07/22/2024 BMI 45.42 kg/m2 07/22/2024 Encounters Encounter Location Date Provider Diagnosis [facility] [place] [address] [place] [address] 07/22/2024 Susan Napoles Atherosclerosis of [place] artery of both lower extremities, with unspecified [...] Clinical Notes Section Notes 07/22/2024 Atherosclerosis of [place] artery of both lower extremities, with unspecified [...] Reason: Provider Name:Susan quinonez, 10/07/2024 11:15:00 AM, [address] [place] [address], [phone], Procedure Notes * Category Sub-Category Detail Notes [...] use of a nail nipper and/or dremel-type card grinder, to a more viable healthy nail plate [...] to maintain effectiveness in symptomatic relief - 06151 Keratoma Treatment Parring or Cutting o f [...] instrumentation by the physician of record - 52155 Progress Notes * Alley TUBBS ADOB:[birth year] (69 yo F)Acc No.[id number]:07/22/2024 Progress Notes Patient:?Alley TUBBS Provider:?Susan Napoles DPM :1955???Age:69 Y???Sex:Female D ate:07/22/2024 Address:[address] [place], [place] [id number] Pcp:Adan Griffin Subjective: * Chief Complaints: * [...] er - stones * Hospitalization/Major Diagno stic Procedure:?[facility]- Swelling feet/legs 06/12/24 * Family History:?Mother: dece [...] shopping, cleaning. ?Marital status: . 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 * Medications:?TakingOmeprazol e Advil PreserVision AREDS [...] Assessment: 1.?Tinea unguium - B35.1???2 .?Atherosclerosis of [place] artery of both lower extremities, with unspecified [...] use of a nail nipper and/or dremel-type card grinder, to a more viable healthy nail plate [...] to maintain effectiveness in symptomatic relief - 35870.?Keratoma Treatment:?Parring or Cutting of Benign Hyperkeratotic Lesion(s)?(-56) [...] instrumentation by the physician of record - 51310.? * Procedure Codes:?03708 DEBRI DE NAIL, 6 OR MORE, Modifiers: XS 19328 TRIM SKIN LESIONS, 2 TO 4, Modifiers: [...] specialist, pt has upcoming vascular consult at [facility] for LE edema.?Shoe Gear Counseling:?SHOE Rx - [...] Napoles DPM Date:?01/2025 Generated for Sonia haas/Nikolas/Mike on:?09/02/2024 07:59 AM EST History and Physical Notes * [...]
--- OUTSIDE RECORDS SUMMARY | 2024-09-02 08:00 | XMS_ITS | Patient Health Record ---
Author Organization [facility] shannan [place] Address [address] [place] [address] Care Team Providers Care Prosthodontist/Owner Name Role Phone Adan Griffin Primary Care Provider Susan Mccord Unavailable [phone] Allergies Allergen (clinical drug ingredient) Drug/Non Drug [...] Problem Acquired hammer toe of right foot (588355623534 9105) Other hammer toe(s) (acquired), right foot (M20.41) Active confirmed Problem Acquired hammer toe of left foot (092068238365 9103) Other hammer toe(s) (acquired), left foot (M20.42) Active confirmed Problem Atherosclerosis of [place] artery of both lower extremities, with unspecified presence of clinical manifestation (I70.203) Active confirmed Q7(A), Q8(2B), Q9(1B,2C ) Problem 575075856 Type 2 diabetes mellitus without complication, without long-term current use of insulin (E11.9) Active confirmed Vital Signs Blood pressure diastolic 72 mm Hg 07/22/2024 Height 5ft 7in in 07/22/2024 Blood pressure systolic 128 mm Hg 07/22/2024 Weight 290 lbs 07/22/2024 BMI 45.42 kg/m2 07/22/2024 Encounters Encounter Location Date Provider Diagnosis [facility] [address] [address] 07/22/2024 Susan Ronaldocristiano Atherosclerosis of [place] artery of both lower extremities, with unspecified [...] unguium (ICD-10 - B35.1) 07/22/2024 Atherosclerosis of [place] artery of both lower extremities, with unspecified [...] Details Provider Name:Susan quinonez, 10/07/2024 11:15:00 AM, [address] [place] [address], [phone], Insurance Providers Payer Name Payer Address Payer Phone Subscriber Number Group Number Insured Name Patient Relationship to Insured Coverage Start Date Coverage End Date BlueCare 65 Medicare Preferred [address] [place] [address] [id number] Alley Francisco Self - patient is the insured Medical (General) History Medical History History ICD Code Mumps Measles Chicken pox ulcer Macular degeneration High Blood Pressure Gall bladder problems Pre Diabetic CAD (Cholesterol) Surgical History Surgery Date(Month/Year) gall bladder - stones Hospitalization History Reason Date(Month/[place] [facility]
--- OUTSIDE RECORDS SUMMARY | 2024-09-02 08:00 | XMS_ITS ---
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
--- OUTSIDE RECORDS SUMMARY | 2024-09-02 08:00 | XMS_ITS ---
Author Organization [facility] Address [address] [place] [address] Care Team Providers Care Sample Case Porter Name Role Phone Po Adan SALGADO Primary Care Provider Jethro Munoz Jr REASON FOR VISIT dysphagia PROBLEMS Problem Type ICD Code Onset Dates Problem Status W/U Status Risk SNOMED Code Notes Problem Dysphagia (R13.10) Active confirmed Dysphagia (29938672) Encounters Encounter Location Date Provider Diagnosis [facility] Inpatient [address] [place], [place] [phone] 06/17/2024 Jethro Sharma Jr Other diseases of stomach and duodenum K31.89 and Dysphagia R13.10 ASSESSMENTS Encounter Date Diagnosis Assessment Notes Treatment Notes Treatment Clinical Notes 06/17/2024 Other diseases of stomach and duodenum (ICD-10 - K31.89) 06/17/2024 Dysphagia (ICD-10 - R13.10) PLAN OF TREATMENT Next Appt Details Provider Name:Jethro shaw Jr, 02/19/2025 01:55:00 PM, [address], [address], [place], [address],
--- OUTSIDE RECORDS SUMMARY | 2024-09-02 08:00 | XMS_ITS | Clinical Summary ---
Author Organization [facility], Address [address] [place] [address] [place] [address] Phone Care Team Providers Care Primary Care Physician Name Role Phone Adan Griffin MD Primary Care Provider [phone] Medications aspirin 81 MG tablet Take 1 [...] patient's age to complete this topic Insurance [facility] [place] [phone] Care Teams Primary Care Physician Relationship Specialty Start Date End Date Adan Griffin MD [facility] [place] [address] KAMALJITELBERT DELAROSA PCP - General 05/20/19
--- OUTSIDE RECORDS SUMMARY | 2024-09-02 08:00 | XMS_ITS ---
Author Organization [facility] Address [address] [place] [address] Care Team Providers Care Historical Site Guide Name Role Phone Po Adan SALGADO Primary Care Provider Dylon Sharma Jr, Jethro Barr REASON FOR VISIT pathology MEDICATIONS Medication SIG (Take, Route, Fr equency, Duration) Notes Start Date End Date Status Omeprazole 20 MG 1 capsule 1/2 to 1 h our before morning meal Orally Once a day for 30 day(s) 06/20/2024 Active Encounters Encounter Location Date Provider Diagnosis [facility] [address] [place] [address] 06/19/2024 Jethro Sharma Jr PLAN OF TREATMENT Medication Medication Name Sig Start Date Stop Date Notes Omeprazole 20 MG 1 capsule 1/2 to 1 h our before morning meal Orally Once a day for 30 day(s) 06/20/2024 Next Appt Details Provider Name:Jethro shaw Jr, 02/19/2025 01:55:00 PM, [address] [place] [address], [address], [place], [address],
[2024-09-02 09:19] LABS: MANUAL DIFF FLAG NO
[2024-09-02 09:41] LABS: Basophils Percent Auto 0.5 % (0-2); Eosinophils Absolute Auto 0.5 X10*3/uL (0.0-0.4); Eosinophils Percent Auto 7.4 % (0-4); Hematocrit 42.8 % (37.0-47.0); Hemoglobin 13.6 g/dl (12.0-16.0); Imm Gran Abs Auto 0.02 X10*3/uL (0.00-0.03); Imm Gran Pct Auto 0.3 % (0.0-0.4); Lymphocytes Absolute Auto 1.6 X10*3/uL (1.2-4.9); Lymphocytes Percent Auto 25.5 % (20-40); Mean Corpuscular HGB Conc 31.8 g/dl (31.0-35.0); Mean Corpuscular Hemoglobin 30.9 pg (27.0-33.0); Mean Corpuscular Volume 97.3 fL (80.0-98.0); Mean Platelet Volume 10.1 fL (9.4-12.3); Monocytes Absolute Auto 0.5 X10*3/uL (0.1-1.2); Monocytes Percent Auto 7.4 % (2-11); Neutrophils Absolute Auto 3.6 x10*3/uL (2.0-8.3); Neutrophils Percent Auto 58.9 % (45-73); Platelet Count 262 X10*3/uL (160-400); Red Cell Distribution Width 14.4 % (11.0-16.0); White Blood Count 6.2 X10*3/uL (4.8-10.8)
[2024-09-02 10:31] LABS: Alanine Aminotransferase 8 U/L (0-31); Albumin Level 3.7 g/dL (3.5-5.0); Alkaline Phosphatase 97 U/L (39-117); Anion Gap 15 (12-20); Aspartate Amino Transferase 36 U/L (5-31); Bilirubin Total 0.5 mg/dL (0.0-1.0); Blood Urea Nitrogen 10 mg/dL (9-16); Calcium 10.1 mg/dL (8.4-10.2); Carbon Dioxide 27 mmol/L (22-29); Chloride 99 mmol/L (96-108); Estimated Glomerular Filt Rate 56; Glucose Random 111 mg/dL (60-115); Potassium 3.5 mmol/L (3.3-5.1); Sodium 137 mmol/L (135-145); Total Protein 8.7 g/dL (6.5-8.0)
[2024-09-02 10:49] VITALS: PULSE 57; O2SAT 97
--- NOTE | 2024-09-02 10:49 | PFT_ITS ---
Flows: FEV1: 70 % of predicted at 1.59 L FVC: 92 % of predicted at 2.71 L FEV1/FVC: 59 % Bronchodilator response: Absent Volumes: Total lung capacity: 107 % of predicted at 5.55 L Residual volume: 122 % of predicted at 2.52 L Slow vital capacity: 98 % of predicted at 3.03 L Expiratory reserve volume: 49 % of predicted at 0.37 L Diffusion capacity: Mildly decreased, corrects to normal after adjustment for alveolar ventilation. Impression: Moderate obstructive ventilatory defect with no bronchodilator response. Increased residual volume suggests air trapping. Decreased expiratory reserve volume suggests extrathoracic restriction likely secondary to abdominal obesity. Decreased diffusion capacity suggests emphysema. MTDD
[2024-09-02 12:22] LABS: Cortisol Random 3.8 ug/dL
[2024-09-03 03:59] LABS: DHEA Sulfate 7 mcg/dL (4-157)
[2024-09-06 11:18] LABS: Renin 3.41 ng/mL/h (0.25-5.82)
[2024-09-06 19:47] LABS: Adrenocorticotropic Hormone 8 pg/mL (6-50)
[2024-09-07 08:09] LABS: Metanephrine, Free 25 pg/mL (<=57); Normetanephrines, Free 315 pg/mL (<=148); Total Metanephrine, Free 340 pg/mL (<=205)
== END 2024-09-02 07:57 | disposition home or self-care (01) ==
LOC: HO.RESP 07:56
PROVIDERS: Absent Provider Student in an Organized Health Care Education/Training Program; PCP Internal Medicine; Visit Provider Internal Medicine
DX: R05.9 Cough, unspecified (principal); E83.42 Hypomagnesemia; E27.8 Other specified disorders of adrenal gland
CPT/HCPCS: 36415; 80053; 82024; 82088; 82533; 82627; 83835; 84244; 85025; 94010; 94640; 94727; 94729

== ENCOUNTER → 2024-09-02 10:49 | Outpatient (BNV) | payer MEDICARE, SELFPAY | PROVIDERS: Absent Provider Student in an Organized Health Care Education/Training Program; PCP Internal Medicine; Visit Provider Internal Medicine Pulmonary Disease | DX: R05.9 Cough, unspecified (principal) | CPT/HCPCS: 94060; 94727; 94729 ==

== ENCOUNTER 2024-09-04 07:44 | Outpatient (REF) | payer MEDICARE, SELFPAY ==
--- OUTSIDE RECORDS SUMMARY | 2024-09-04 07:47 | XMS_ITS | Patient Health Record ---
Author Organization [facility] shannan [place] Address [address] [place] [address] Care Team Providers Care Drum Operator Name Role Phone Adan Griffin Primary Care Provider Susan Mccord Unavailable [phone] Allergies Allergen (clinical drug ingredient) Drug/Non Drug [...] Problem Acquired hammer toe of right foot (842452639686 9105) Other hammer toe(s) (acquired), right foot (M20.41) Active confirmed Problem Acquired hammer toe of left foot (204787083083 9103) Other hammer toe(s) (acquired), left foot (M20.42) Active confirmed Problem Atherosclerosis of [place] artery of both lower extremities, with unspecified presence of clinical manifestation (I70.203) Active confirmed Q7(A), Q8(2B), Q9(1B,2C ) Problem 281478592 Type 2 diabetes mellitus without complication, without long-term current use of insulin (E11.9) Active confirmed Vital Signs Blood pressure diastolic 72 mm Hg 07/22/2024 Height 5ft 7in in 07/22/2024 Blood pressure systolic 128 mm Hg 07/22/2024 Weight 290 lbs 07/22/2024 BMI 45.42 kg/m2 07/22/2024 Encounters Encounter Location Date Provider Diagnosis [facility] [address] [address] 07/22/2024 Susan Ronaldocristiano Atherosclerosis of [place] [...] Details Provider Name:Susan quinonez, 10/07/2024 11:15:00 AM, [address] [place] [address], [address], Insurance Providers Payer Name Payer Address Payer Phone Subscriber Number Group Number Insured Name Patient Relationship to Insured Coverage Start Date Coverage End Date BlueCare 65 Medicare Preferred [address] [place] [address] [phone] [id number] Alley Francisco Self - patient is the insured Medical (General) History Medical History History ICD Code Mumps Measles Chicken pox ulcer Macular degeneration High Blood Pressure Gall bladder problems Pre Diabetic CAD (Cholesterol) Surgical History Surgery Date(Month/Year) gall bladder - stones Hospitalization History Reason Date(Month/Year) [facility] [place]- Swelling feet/legs 06/12/24
--- OUTSIDE RECORDS SUMMARY | 2024-09-04 07:47 | XMS_ITS ---
Author Organization [facility] Address [address] [place] [address] Care Team Providers Care Dredge Deckhand Name Role Phone Po Adan SALGADO Primary Care Provider Jethro Munoz Jr [phone] REASON FOR VISIT dysphagia PROBLEMS Problem Type ICD Code Onset Dates Problem Status W/U Status Risk SNOMED Code Notes Problem Dysphagia (R13.10) Active confirmed Dysphagia (91101333) Encounters Encounter Location Date Provider Diagnosis [facility] [place] [address] [place], [place] [phone] 06/17/2024 Jethro Sharma Jr Other diseases of stomach and duodenum K31.89 and Dysphagia R13.10 ASSESSMENTS Encounter Date Diagnosis Assessment Notes Treatment Notes Treatment Clinical Notes 06/17/2024 Other diseases of stomach and duodenum (ICD-10 - K31.89) 06/17/2024 Dysphagia (ICD-10 - R13.10) PLAN OF TREATMENT Next Appt Details Provider Name:Jethro shaw Jr, 02/19/2025 01:55:00 PM, [address], [address], [place], [address],
--- OUTSIDE RECORDS SUMMARY | 2024-09-04 07:47 | XMS_ITS | Patient Health Record ---
Author Organization [facility] Address [address] [place] [address] Care Team Providers Care Special Service Officer Name Role Phone Po Adan SALGADO Primary Care Provider Jethro Munoz Jr ALLERGIES Allergen (clinical drug ingredient) Drug/Non Drug Allergy documented on EMR Reaction Allergy Type Onset Date Status amoxicillin Amoxicillin Unknown Drug Allergy Act rosalie RESULTS Component Value Reference Range Notes Pathology Reviewed date:06/19/2024 11:18:33 AM Interpretation: Performing Lab:[facility], [address] [place] [phone] Notes/Report: REASON FOR REFERRAL No Information MEDICATIONS [...] Problem Colon cancer screening (Z12.11) Active confirmed 001977482 Problem detention (current) use of aspirin (Z79.82) Active confirmed 118676630090815 Problem termite treater helper current use of diuretic (Z79.899) Active confirmed 34941603502941620 Problem Dysphagia (R13.10) Active confirmed Dysphagia (27978806) Problem 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 447509305 VITAL SIGNS Temperature 97.3 degrees Fahrenheit 08/25/2024 Blood pressure diastolic 00 mm Hg 08/25/2024 Height 67 in 08/25/2024 Blood pressure systolic 000 mm Hg 08/25/2024 Weight 253 lb 8 oz lbs 08/25/2024 BMI 39.70 kg/m2 08/25/2024 Encounters Encounter Location Date Provider Diagnosis [facility] Inpatient [address] [place] [phone] 06/17/2024 Jethro Sharma Jr Other diseases of stomach and duodenum K31.89 and Dysphagia R13.10 [facility] [address] [place] [address] 08/25/2024 Jethro Sharma Jr Dysphagia R13.10 ; Colon cancer screening Z12.11 and 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 K22.70 [facility] [address] [place] [address] 06/19/2024 Jethro Sharma Jr ASSESSMENTS Encounter Date [...] Provider Name:Jethro shaw Jr, 02/19/2025 01:55:00 PM, [address] [place] [address], [address], [place], [address], Insurance Providers Payer Name Payer Address Payer Phone Subscriber Number Group Number Insured Name Patient Relationship to Insured Coverage Start Date Coverage End Date [facility] [address] [place] [address] [id number] BIANCA JAIMES Self - patient is the insured MEDICAL (GENERAL) HISTORY Medical History History ICD Code Hypertension Hyperlipidemia Diabetes mellitus Hypercalcemia Elevated BMI Osteopenia Macular degeneration Adnexal cyst Adrenal mass Colonoscopy 04/04, tubular adenoma, five- year followup Gastroesophageal reflux disease, EGD , esophagitis, no stricture Surgical History Surgery Date(Month/Year) cholecystectomy Hospitalization History Reason Date(Month/Year) endoscopy done with Dr. Sharma at [facility] 06/08
--- OUTSIDE RECORDS SUMMARY | 2024-09-04 07:47 | XMS_ITS | Clinical Summary ---
Author Organization [facility], Address [address] [place] [address] [place] [address] Phone Care Team Providers Care Trench Shovel Operator Name Role Phone Adan Griffin MD Primary Care Provider [phone] Medications aspirin 81 MG tablet Take 1 [...] patient's age to complete this topic Insurance [facility] [place] [phone] Care Teams Trench Shovel Operator Relationship Specialty Start Date End Date Adan Griffin MD [facility] [place] [address] KAMALJITELBERT DELAROSA PCP - General 05/20/19
--- OUTSIDE RECORDS SUMMARY | 2024-09-04 07:47 | XMS_ITS ---
Author Organization [facility] [place] Address [address] [place] [address] Care Team Providers Care Jet Wiper Name Role Phone Adan Griffin Primary Care Provider Susan Mccord Unavailable [phone] Allergies Allergen (clinical drug ingredient) Drug/Non Drug [...] W/U Status Risk Notes Problem Atherosclerosis of [place] artery of both lower extremities, with unspecified presence of clinical manifestation (I70.203) Active confirmed Q7(A), Q8(2B), Q9(1B,2C ) Problem Acquired hammer toe of right foot (166953424248 9105) Other hammer toe(s) (acquired), right foot (M20.41) Active confirmed Problem Acquired hammer toe of left foot (924603981888 9103) Other hammer toe(s) (acquired), left foot (M20.42) Active confirmed Problem 654288240 Type 2 diabetes mellitus without complication, without long-term current use of insulin (E11.9) Active confirmed Vital Signs Height 5ft 7in in 07/22/2024 Weight 290 lbs 07/22/2024 BMI 45.42 kg/m2 07/22/2024 Blood pressure systolic 128 mm Hg 07/22/19 25 Blood pressure diastolic 72 mm Hg 025 Encounters Encounter Location Date Provider Diagnosis [facility] [place] [address] [place] [address] 07/22/2024 Susan Napoles Atherosclerosis of [place] artery of both lower extremities, with unspecified [...] Clinical Notes Section Notes 07/22/2024 Atherosclerosis of [place] artery of both lower extremities, with unspecified [...] Reason: Provider Name:Susan quinonez, 10/07/2024 11:15:00 AM, [address] [place] [address], [address], Procedure Notes * Category Sub-Category Detail Notes [...] use of a nail nipper and/or dremel-type skull grinder, to a more viable healthy nail [...] to maintain effectiveness in symptomatic relief - 19923 Keratoma Treatment Parring or Cutting o f [...] instrumentation by the physician of record - 62438 Progress Notes * Alley TUBBS ADOB:[birth year] (69 yo F)Acc No.[id number]:07/22/2024 Progress Notes Patient:?Alley TUBBS Provider:?Susan Napoles DPM :1955???Age:69 Y???Sex:Female D ate:07/22/2024 Address:[address] [place], [place] [id number] Pcp:Adan Griffin Subjective: * Chief Complaints: * [...] er - stones * Hospitalization/Major Diagno stic [place] * Family History:?Mother: dece [...] shopping, cleaning. ?Marital status: . 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 * Medications:?TakingOmeprazol e Advil PreserVision AREDS [...] (C):?denies, B/L.?REST PAIN:?denies, B/L.?PARESTHESIA (C):?absent, B/L.?BURNING (C):?absent, B/L.?ACRLOS'S SIGN:?absent, B/L.?PALPABLE CORDS:?absent, B/L.?Nails: ?NAILS are:? Elongated, [...] Assessment: 1.?Tinea unguium - B35.1???2 .?Atherosclerosis of [place] artery of both lower extremities, with unspecified [...] use of a nail nipper and/or dremel-type skull grinder, to a more viable healthy nail [...] to maintain effectiveness in symptomatic relief - 32776.?Keratoma Treatment:?Parring or Cutting of Benign Hyperkeratotic Lesion(s)?(-56) [...] instrumentation by the physician of record - 89107.? * Procedure Codes:?04089 DEBRI DE NAIL, 6 OR MORE, Modifiers: XS 77249 TRIM SKIN LESIONS, 2 TO 4, Modifiers: [...] specialist, pt has upcoming vascular [place] [facility] [place].?Shoe Gear Counseling:?SHOE Rx - [...] Napoles DPM Date:?01/2025 Generated for Sonia haas/Nikolas/Mike on:?09/04/2024 07:47 AM EST History and Physical Notes * [...]
--- OUTSIDE RECORDS SUMMARY | 2024-09-04 07:47 | XMS_ITS ---
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..]
--- OUTSIDE RECORDS SUMMARY | 2024-09-04 07:48 | XMS_ITS ---
Author Organization [facility] Address [address] [place] [address] Care Team Providers Care Tax Compliance Agent Name Role Phone Po Adan SALGADO Primary Care Provider Dylon Sharma Jr, Jethro Barr REASON FOR VISIT pathology MEDICATIONS Medication SIG (Take, Route, Fr equency, Duration) Notes Start Date End Date Status Omeprazole 20 MG 1 capsule 1/2 to 1 h our before morning meal Orally Once a day for 30 day(s) 06/20/2024 Active Encounters Encounter Location Date Provider Diagnosis [facility] [address] [facility] [address] [place] [address] 06/19/2024 Jethro Sharma Jr PLAN OF TREATMENT Medication Medication Name Sig Start Date Stop Date Notes Omeprazole 20 MG 1 capsule 1/2 to 1 h our before morning meal Orally Once a day for 30 day(s) 06/20/2024 Next Appt Details Provider Name:Jethro shaw Jr, 02/19/2025 01:55:00 PM, [address] [place] [address], [address], [place], [address],
[2024-09-04 09:01] LABS: Anion Gap 13 (12-20); Blood Urea Nitrogen 11 mg/dL (9-16); Calcium 9.7 mg/dL (8.4-10.2); Carbon Dioxide 28 mmol/L (22-29); Chloride 101 mmol/L (96-108); Estimated Glomerular Filt Rate 53; Glucose Random 170 mg/dL (60-115); Potassium 4.5 mmol/L (3.3-5.1); Sodium 137 mmol/L (135-145)
[2024-09-09 15:54] LABS: Adrenocorticotropic Hormone <5 pg/mL (6-50)
[2024-09-20 12:59] LABS: Dexamethasone 488 ng/dL
== END 2024-09-04 07:45 | disposition home or self-care (01) ==
LOC: HO.LAB 07:44
PROVIDERS: PCP Internal Medicine; Visit Provider Student in an Organized Health Care Education/Training Program
DX: E27.8 Other specified disorders of adrenal gland (principal)
CPT/HCPCS: 36415; 80048; 80299; 82024; 82533

== ENCOUNTER 2024-09-10 11:37 | Outpatient (REF) | payer MEDICARE, SELFPAY ==
[2024-09-10 13:19] LABS: Creatinine Urine 77.49 mg/dL
--- OUTSIDE RECORDS SUMMARY | 2024-09-10 14:40 | XMS_ITS | Clinical Summary ---
Author Organization [facility], Address [address] [place] [address] [place] [address] Phone Care Team Providers Care Substation Operator Conversion Name Role Phone Adan Griffin MD Primary Care Provider [phone] Medications aspirin 81 MG tablet Take 1 [...] Date Smoking Tobacco: Every Day Cigarettes 1 50.2 Started: 07/16/1974 Alcohol Use Standard Drinks/Week Comments [...] patient's age to complete this topic Insurance [facility] [place] [address] Care Teams Substation Operator Conversion Relationship Specialty Start Date End Date Adan Griffin MD [facility] [id number] [place] PCP - General 05/20/19
--- OUTSIDE RECORDS SUMMARY | 2024-09-10 14:40 | XMS_ITS ---
Author Organization [facility] Address [address] [place] [address] Care Team Providers Care Job Developer Name Role Phone Po Adan SALGADO Primary Care Provider Jethro Munoz Jr REASON FOR VISIT dysphagia PROBLEMS Problem Type ICD Code Onset Dates Problem Status W/U Status Risk SNOMED Code Notes Problem Dysphagia (R13.10) Active confirmed Dysphagia (70249158) Encounters Encounter Location Date Provider Diagnosis [facility] Inpatient [address] [place] [phone] 06/17/2024 Jethro Sharma Jr Other diseases of stomach and duodenum K31.89 and Dysphagia R13.10 ASSESSMENTS Encounter Date Diagnosis Assessment Notes Treatment Notes Treatment Clinical Notes 06/17/2024 Other diseases of stomach and duodenum (ICD-10 - K31.89) 06/17/2024 Dysphagia (ICD-10 - R13.10) PLAN OF TREATMENT Next Appt Details Provider Name:Jethro shaw Jr, 02/19/2025 01:55:00 PM, [address], [address], [place], [address],
--- OUTSIDE RECORDS SUMMARY | 2024-09-10 14:40 | XMS_ITS ---
Author Organization [facility] [place] Address [address] [place] [address] Care Team Providers Care Refuse Collector Name Role Phone Adan Griffin Primary Care Provider Susan Mccord Unavailable [phone] Allergies Allergen (clinical drug ingredient) Drug/Non Drug [...] W/U Status Risk Notes Problem Atherosclerosis of [place] artery of both lower extremities, with unspecified presence of clinical manifestation (I70.203) Active confirmed Q7(A), Q8(2B), Q9(1B,2C ) Problem Acquired hammer toe of right foot (298174743537 9105) Other hammer toe(s) (acquired), right foot (M20.41) Active confirmed Problem Acquired hammer toe of left foot (365349248128 9103) Other hammer toe(s) (acquired), left foot (M20.42) Active confirmed Problem 102808243 Type 2 diabetes mellitus without complication, without long-term current use of insulin (E11.9) Active confirmed Vital Signs Height 5ft 7in in 07/22/2024 Weight 290 lbs 07/22/2024 BMI 45.42 kg/m2 07/22/2024 Blood pressure systolic 128 mm Hg 07/22/19 25 Blood pressure diastolic 72 mm Hg 025 Encounters Encounter Location Date Provider Diagnosis [facility] [place] [address] [place] [address] 07/22/2024 Susan Napoles Atherosclerosis of que[place] artery of both lower extremities, with unspecified [...] Clinical Notes Section Notes 07/22/2024 Atherosclerosis of quechan artery of both lower extremities, with unspecified [...] Reason: Provider Name:Susan quinonez, 10/07/2024 11:15:00 AM, [address] [place] [address], [phone], Procedure Notes * Category Sub-Category Detail Notes [...] use of a nail nipper and/or dremel-type external grinder tender, to a more viable healthy nail plate [...] to maintain effectiveness in symptomatic relief - 97298 Keratoma Treatment Parring or Cutting o f [...] instrumentation by the physician of record - 40149 Progress Notes * Alley TUBBS ADOB:[birth year] (69 yo F)Acc No.[id number]:07/22/2024 Progress Notes Patient:?Alley TUBBS Provider:?Susan Napoles DPM :1955???Age:69 Y???Sex:Female D ate:07/22/2024 Address:[address] [place], [place] [phone] Pcp:Adan Griffin Subjective: * Chief Complaints: * [...] er - stones * Hospitalization/Major Diagno stic Procedure:?[facility] [place] Swelling feet/legs 06/12/24 * Family History:?Mother: dece [...] shopping, cleaning. ?Marital status: . 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 * Medications:?TakingOmeprazol e Advil PreserVision AREDS [...] * Examination: ???CQM Exceptions:: ?Hemoglobin A1c not performed?Reason:?No reason specified?Ophthalmology Referral: ?DIABETES EYE EXAM?Procedure Performed:?Yes ?Date of Exam Performed?04/22/2024 ?Findings of Diabetic Eye Exam:?no retinopathy?Vascular: ?DP PULSES (B):?07/19, B/L.?PT PULSES (B):? 0/4, B/L.?CAPILLARY FILL TIME:? [...] for office visit today.?ORIENTED:?person, place, and time.?FOOT EXAM:?Lower Extremity Neurological Exam performed:?Yes Date ?Visual exam of foot performed:?Yes ?Date?07/22/2024 ?Sensory testing performed:?sensations normal ?Pedal pulse taking performed:?absent ?Footwear Evaluation?Footwear Evaluation performed:?Yes??? Assessment: * Assessment: 1.?Tinea unguium - B35.1???2 .?Atherosclerosis of quechan artery of both lower extremities, with unspecified [...] use of a nail nipper and/or dremel-type external grinder tender, to a more viable healthy nail plate [...] to maintain effectiveness in symptomatic relief - 41857.?Keratoma Treatment:?Parring or Cutting of Benign Hyperkeratotic Lesion(s)?(-56) [...] instrumentation by the physician of record - 13442.? * Procedure Codes:?62667 DEBRI DE NAIL, 6 OR MORE, Modifiers: XS 69836 TRIM SKIN LESIONS, 2 TO 4, Modifiers: [...] specialist, pt has upcoming vascular consult at [facility] for LE edema.?Shoe Gear Counseling:?SHOE Rx - [...] Provider:?Susan Napoles DPM Date:?01/2025 Generated for Sonia haas/Nikolas/Chavezitting on:?09/10/2024 02:40 PM EST History and Physical Notes * HPI [...]
--- OUTSIDE RECORDS SUMMARY | 2024-09-10 14:40 | XMS_ITS ---
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 437675772 VITAL SIGNS Temperature 97.3 degrees Fahrenheit 08/25/19 25 Blood pressure systolic 000 mm Hg 08/25/19 25 Blood pressure diastolic 00 mm Hg 025 Height 67 in 08/25/2024 Weight 253 lb 8 oz lbs 08/25/2024 BMI 39.70 kg/m2 08/25/2024 Encounters Encounter Location Date Provider Diagnosis [facility] [address] [place] [address] 08/25/2024 eJthro Sharma Jr Dysphagia R13.10 ; Colon cancer [...] 01:55:00 PM, [address], [address], [place], [address], Progress Notes * Examination Category Sub-Category Detail [...]
--- OUTSIDE RECORDS SUMMARY | 2024-09-10 14:40 | XMS_ITS | Patient Health Record ---
Author Organization [facility] shannan [place] Address [address] [place] [address] Care Team Providers Care Supervisor Lace Tearing Name Role Phone Adan Griffin Primary Care Provider Susan Mccord Unavailable [phone] Allergies Allergen (clinical drug ingredient) Drug/Non Drug [...] Problem Acquired hammer toe of right foot (035187347134 9105) Other hammer toe(s) (acquired), right foot (M20.41) Active confirmed Problem Acquired hammer toe of left foot (638008486812 9103) Other hammer toe(s) (acquired), left foot (M20.42) Active confirmed Problem Atherosclerosis of [place] artery of both lower extremities, with unspecified presence of clinical manifestation (I70.203) Active confirmed Q7(A), Q8(2B), Q9(1B,2C ) Problem 355026742 Type 2 diabetes mellitus without complication, without long-term current use of insulin (E11.9) Active confirmed Vital Signs Blood pressure diastolic 72 mm Hg 07/22/2024 Height 5ft 7in in 07/22/2024 Blood pressure systolic 128 mm Hg 07/22/2024 Weight 290 lbs 07/22/2024 BMI 45.42 kg/m2 07/22/2024 Encounters Encounter Location Date Provider Diagnosis [facility] [address] [address] 07/22/2024 Susan Ronaldocristiano Atherosclerosis of [place] artery of both lower extremities, with unspecified [...] unguium (ICD-10 - B35.1) 07/22/2024 Atherosclerosis of [place] artery of both lower extremities, with unspecified [...] Provider Name:Susan quinonez, 10/07/2024 11:15:00 AM, [address] [place] [address], [address], Insurance Providers Payer Name Payer Address Payer Phone Subscriber Number Group Number Insured Name Patient Relationship to Insured Coverage Start Date Coverage End Date [employer] 65 Medicare Preferred [address] [place] [address] [id number] Alley [place] Self - patient is the insured Medical (General) History Medical History History ICD Code Mumps Measles Chicken pox ulcer Macular degeneration High Blood Pressure Gall bladder problems Pre Diabetic CAD (Cholesterol) Surgical History Surgery Date(Month/Year) gall bladder - stones Hospitalization History Reason Date(Month/Year) [facility] [place]- Swelling feet/legs 06/12/24
--- OUTSIDE RECORDS SUMMARY | 2024-09-10 14:40 | XMS_ITS ---
Author Organization [facility] Address [address] [place] [address] Care Team Providers Care Sandal Parts Assembler Name Role Phone Po Adan SALGADO Primary Care Provider Dylon Sharma Jr, Jethro Barr [phone] REASON FOR VISIT pathology MEDICATIONS Medication SIG (Take, Route, Fr equency, Duration) Notes Start Date End Date Status Omeprazole 20 MG 1 capsule 1/2 to 1 h our before morning meal Orally Once a day for 30 day(s) 06/20/2024 Active Encounters Encounter Location Date Provider Diagnosis [facility] [address] [facility] [address] [place] [address] 06/19/2024 Jethro Sharma Jr PLAN OF TREATMENT Medication Medication Name Sig Start Date Stop Date Notes Omeprazole 20 MG 1 capsule 1/2 to 1 h our before morning meal Orally Once a day for 30 day(s) 06/20/2024 Next Appt Details Provider Name:Jethro shaw Jr, 02/19/2025 01:55:00 PM, [address] [place] [address], [address], [place], [address],
--- OUTSIDE RECORDS SUMMARY | 2024-09-10 14:40 | XMS_ITS | Patient Health Record ---
Author Organization [facility] Address [address] [place] [address] Care Team Providers Care Home Care Specialist Name Role Phone Po Adan SALGADO Primary Care Provider Jethro Munoz Jr ALLERGIES Allergen (clinical drug ingredient) Drug/Non Drug Allergy documented on EMR Reaction Allergy Type Onset Date Status amoxicillin Amoxicillin Unknown Drug Allergy Act rosalie RESULTS Component Value Reference Range Notes Pathology Reviewed date:06/19/2024 11:18:33 AM Interpretation: Performing Lab:[facility], [address] [place] [address] Notes/Report: REASON FOR REFERRAL No Information MEDICATIONS [...] Problem Colon cancer screening (Z12.11) Active confirmed 127426753 Problem 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 387869122 Problem USP (current) use of aspirin (Z79.82) Active confirmed 047868358313196 Problem Dysphagia (R13.10) Active confirmed Dysphagia (81453974) Problem USP current use of diuretic (Z79.899) Active confirmed 70918187468289293 VITAL SIGNS Temperature 97.3 degrees Fahrenheit 08/25/2024 Blood pressure diastolic 00 mm Hg 08/25/2024 Height 67 in 08/25/2024 Blood pressure systolic 000 mm Hg 08/25/2024 Weight 253 lb 8 oz lbs 08/25/2024 BMI 39.70 kg/m2 08/25/2024 Encounters Encounter Location Date Provider Diagnosis [facility] Inpatient [address] [place] [phone] 06/17/2024 Jethro Sharma Jr Other diseases of stomach and duodenum K31.89 and Dysphagia R13.10 [facility] [address] [place] [address] 08/25/2024 Jethro Sharma Jr Dysphagia R13.10 ; Colon cancer screening Z12.11 and 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 K22.70 [facility] [address] [place] [address] 06/19/2024 Jethro Sharma Jr ASSESSMENTS Encounter Date [...] Provider Name:Jethro shaw Jr, 02/19/2025 01:55:00 PM, [address] [place] [address], [address], [place], [address], Insurance Providers Payer Name Payer Address Payer Phone Subscriber Number Group Number Insured Name Patient Relationship to Insured Coverage Start Date Coverage End Date [facility] [address] [place] [address] [phone] [id number] BIANCA JAIMES Self - patient is the insured MEDICAL (GENERAL) HISTORY Medical History History ICD Code Hypertension Hyperlipidemia Diabetes mellitus Hypercalcemia Elevated BMI Osteopenia Macular degeneration Adnexal cyst Adrenal mass Colonoscopy 04/04, tubular adenoma, five- year followup Gastroesophageal reflux disease, EGD , esophagitis, no stricture Surgical History Surgery Date(Month/Year) cholecystectomy Hospitalization History Reason Date(Month/Year) endoscopy done with Dr. Sharma at [facility] 06/08
[2024-09-15 06:28] LABS: Metanephrine, Free <25 pg/mL (<=57); Normetanephrines, Free 272 pg/mL (<=148); Total Metanephrine, Free 272 pg/mL (<=205)
== END 2024-09-10 11:38 | disposition home or self-care (01) ==
LOC: HO.LAB 11:37
PROVIDERS: Absent Provider Student in an Organized Health Care Education/Training Program; PCP Internal Medicine; Visit Provider Internal Medicine
DX: E27.8 Other specified disorders of adrenal gland (principal); E11.65 Type 2 diabetes mellitus with hyperglycemia
CPT/HCPCS: 36415; 82570; 83835

== ENCOUNTER 2024-09-11 08:00 | Outpatient (REF) | payer MEDICARE, SELFPAY ==
--- OUTSIDE RECORDS SUMMARY | 2024-09-12 10:02 | XMS_ITS ---
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 [place] [address] 08/25/2024 Jethro Sharma Jr Dysphagia R13.10 ; [...] 6 Months, Reason: Provider Name:Jethro shaw Jr, 02/26/2025 01:55:00 PM, [address], [address], [place], [address], Progress Notes * Examination Category Sub-Category Detail [...]
--- OUTSIDE RECORDS SUMMARY | 2024-09-12 10:02 | XMS_ITS | Patient Health Record ---
Author Organization [facility] Address [address] [place] [address] Care Team Providers Care Contract Lead Name Role Phone Po Adan SALGADO Primary Care Provider Jethro Munoz Jr ALLERGIES Allergen (clinical drug ingredient) Drug/Non Drug Allergy documented on EMR Reaction Allergy Type Onset Date Status amoxicillin Amoxicillin Unknown Drug Allergy Act rosalie RESULTS Component Value Reference Range Notes Pathology Reviewed date:06/19/2024 11:18:33 AM Interpretation: Performing Lab:[facility], [address] [place] [address] Notes/Report: REASON FOR REFERRAL No Information MEDICATIONS [...] Problem Colon cancer screening (Z12.11) Active confirmed 941345682 Problem 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 104229029 Problem nursing home (current) use of aspirin (Z79.82) Active confirmed 178357102587201 Problem Dysphagia (R13.10) Active confirmed Dysphagia (59436453) Problem nursing home current use of diuretic (Z79.899) Active confirmed 33592190884680867 VITAL SIGNS Temperature 97.3 degrees Fahrenheit 08/25/2024 Blood pressure diastolic 00 mm Hg 08/25/2024 Height 67 in 08/25/2024 Blood pressure systolic 000 mm Hg 08/25/2024 Weight 253 lb 8 oz lbs 08/25/2024 BMI 39.70 kg/m2 08/25/2024 Encounters Encounter Location Date Provider Diagnosis [facility] [place] Inpatient [address] [place] [phone] 06/17/2024 Jethro Sharma Jr Other diseases of stomach and duodenum K31.89 and Dysphagia R13.10 [facility] [address] [place] [address] 08/25/2024 Jethro Sharma Jr Dysphagia R13.10 ; Colon cancer screening Z12.11 and 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 K22.70 [facility] [address] [place] [address] 06/19/2024 Jethro Sharma Jr ASSESSMENTS Encounter Date [...] Next Appt Details Provider Name:Jethro shaw Jr, 02/26/2025 01:55:00 PM, [address] [place] [address], [address], [place], [address], Insurance Providers Payer Name Payer Address Payer Phone Subscriber Number Group Number Insured Name Patient Relationship to Insured Coverage Start Date Coverage End Date [facility] [address] [place] [address] [phone] [id number] BIANCA JAIMES Self - patient is the insured MEDICAL (GENERAL) HISTORY Medical History History ICD Code Hypertension Hyperlipidemia Diabetes mellitus Hypercalcemia Elevated BMI Osteopenia Macular degeneration Adnexal cyst Adrenal mass Colonoscopy 04/04, tubular adenoma, five- year followup Gastroesophageal reflux disease, EGD , esophagitis, no stricture Surgical History Surgery Date(Month/Year) cholecystectomy Hospitalization History Reason Date(Month/Year) endoscopy done with Dr. Sharma at [facility] 06/08
--- OUTSIDE RECORDS SUMMARY | 2024-09-12 10:02 | XMS_ITS ---
Author Organization [facility] shannan [place] Address [address] [place] [address] Care Team Providers Care Mill Hand Name Role Phone Adan Griffin Primary Care Provider Susan Mccord Unavailable [phone] Allergies Allergen (clinical drug ingredient) Drug/Non Drug [...] W/U Status Risk Notes Problem Atherosclerosis of kaguy[place] artery of both lower extremities, with unspecified presence of clinical manifestation (I70.203) Active confirmed Q7(A), Q8(2B), Q9(1B,2C ) Problem Acquired hammer toe of right foot (876956157529 9105) Other hammer toe(s) (acquired), right foot (M20.41) Active confirmed Problem Acquired hammer toe of left foot (179310977391 9103) Other hammer toe(s) (acquired), left foot (M20.42) Active confirmed Problem [id number] Type 2 diabetes mellitus without complication, without long-term current use of insulin (E11.9) Active confirmed Vital Signs Height 5ft 7in in 07/22/2024 Weight 290 lbs 07/22/2024 BMI 45.42 kg/m2 07/22/2024 Blood pressure systolic 128 mm Hg 07/22/19 25 Blood pressure diastolic 72 mm Hg 025 Encounters Encounter Location Date Provider Diagnosis [facility] [place] [address] [place] [address] 07/22/2024 Susan Napoles Atherosclerosis of kaguy[place] artery of both lower extremities, with unspecified [...] Clinical Notes Section Notes 07/22/2024 Atherosclerosis of kaguy[place] artery of both lower extremities, with unspecified [...] Reason: Provider Name:Susan quinonez, 10/07/2024 11:15:00 AM, [address] [place] [address], [phone], Procedure Notes * Category Sub-Category Detail Notes [...] use of a nail nipper and/or dremel-type terrazzo grinder, to a more viable healthy nail [...] to maintain effectiveness in symptomatic relief - 28839 Keratoma Treatment Parring or Cutting o f [...] instrumentation by the physician of record - 62583 Progress Notes * Alley TUBBS ADOB:[birth year] (69 yo F)Acc No.[id number]:07/22/2024 Progress Notes Patient:?Alley TUBBS Provider:?Susan Napoles DPM :1955???Age:69 Y???Sex:Female D ate:07/22/2024 Address:[address] [place], [place] [id number] Pcp:Adan Griffin Subjective: * Chief Complaints: * [...] er - stones * Hospitalization/Major Diagno stic [place] [place] * Family History:?Mother: dece [...] shopping, cleaning. ?Marital status: . 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 * Medications:?TakingOmeprazol e Advil PreserVision AREDS [...] Assessment: 1.?Tinea unguium - B35.1???2 .?Atherosclerosis of kaguy[place] artery of both lower extremities, with unspecified [...] use of a nail nipper and/or dremel-type terrazzo grinder, to a more viable healthy nail [...] to maintain effectiveness in symptomatic relief - 10206.?Keratoma Treatment:?Parring or Cutting of Benign Hyperkeratotic Lesion(s)?(-56) [...] instrumentation by the physician of record - 67460.? * Procedure Codes:?03328 DEBRI DE NAIL, 6 OR MORE, Modifiers: XS 19080 TRIM SKIN LESIONS, 2 TO 4, Modifiers: [...] specialist, pt has upcoming vascular consult [place] [facility].?Shoe Gear Counseling:?SHOE Rx - [...] Napoles DPM Date:?01/2025 Generated for Sonia haas/Nikolas/Chavezitting on:?09/12/2024 10:02 AM EST History and Physical Notes * [...]
--- OUTSIDE RECORDS SUMMARY | 2024-09-12 10:02 | XMS_ITS | Clinical Summary ---
Author Organization [facility], Address [address] [place] [address] [place] [address] Phone Care Team Providers Care String Top Sealer Name Role Phone Adan Griffin MD Primary Care Provider [phone] Medications aspirin 81 MG tablet Take 1 [...] patient's age to complete this topic Insurance [facility] [place] [address] Care Teams String Top Sealer Relationship Specialty Start Date End Date Adan Griffin MD [facility] [place] [address] KAMALJITELBERT DELAROSA PCP - General 05/20/19
--- OUTSIDE RECORDS SUMMARY | 2024-09-12 10:03 | XMS_ITS ---
Author Organization [facility] Address [address] [place] [address] Care Team Providers Care Tractor Sweeper Operator Name Role Phone Po Adan SALGADO Primary Care Provider Dylon Sharma Jr, Jethro Barr REASON FOR VISIT pathology MEDICATIONS Medication SIG (Take, Route, Fr equency, Duration) Notes Start Date End Date Status Omeprazole 20 MG 1 capsule 1/2 to 1 h our before morning meal Orally Once a day for 30 day(s) 06/20/2024 Active Encounters Encounter Location Date Provider Diagnosis [facility] [address] [facility] [address] [place] [address] 06/19/2024 Jethro Sharma Jr PLAN OF TREATMENT Medication Medication Name Sig Start Date Stop Date Notes Omeprazole 20 MG 1 capsule 1/2 to 1 h our before morning meal Orally Once a day for 30 day(s) 06/20/2024 Next Appt Details Provider Name:Jethro shaw Jr, 02/26/2025 01:55:00 PM, [address] [place] [address], [address], [place], [address],
--- OUTSIDE RECORDS SUMMARY | 2024-09-12 10:03 | XMS_ITS ---
Author Organization [facility] Address [address] [place] [address] Care Team Providers Care Director Hris Name Role Phone Po Adan SALGADO Primary Care Provider Jethro Munoz Jr [phone] REASON FOR VISIT dysphagia PROBLEMS Problem Type ICD Code Onset Dates Problem Status W/U Status Risk SNOMED Code Notes Problem Dysphagia (R13.10) Active confirmed Dysphagia (33606449) Encounters Encounter Location Date Provider Diagnosis [facility] [place] In[place] [address] [place], [place] [phone] 06/17/2024 Jethro Sharma Jr Other diseases of stomach and duodenum K31.89 and Dysphagia R13.10 ASSESSMENTS Encounter Date Diagnosis Assessment Notes Treatment Notes Treatment Clinical Notes 06/17/2024 Other diseases of stomach and duodenum (ICD-10 - K31.89) 06/17/2024 Dysphagia (ICD-10 - R13.10) PLAN OF TREATMENT Next Appt Details Provider Name:Jethro shaw Jr, 02/26/2025 01:55:00 PM, [address], [address], [place], [address],
--- OUTSIDE RECORDS SUMMARY | 2024-09-12 10:03 | XMS_ITS | Patient Health Record ---
Author Organization [facility] shannan [place] Address [address] [place] [address] Care Team Providers Care Product Support Specialist Name Role Phone Adan Griffin Primary Care Provider Susan Mccord Unavailable [phone] Allergies Allergen (clinical drug ingredient) Drug/Non Drug [...] Problem Acquired hammer toe of right foot (052396423440 9105) Other hammer toe(s) (acquired), right foot (M20.41) Active confirmed Problem Acquired hammer toe of left foot (697198914836 9103) Other hammer toe(s) (acquired), left foot (M20.42) Active confirmed Problem Atherosclerosis of [place] artery of both lower extremities, with unspecified presence of clinical manifestation (I70.203) Active confirmed Q7(A), Q8(2B), Q9(1B,2C ) Problem [id number] Type 2 diabetes mellitus without complication, without long-term current use of insulin (E11.9) Active confirmed Vital Signs Blood pressure diastolic 72 mm Hg 07/22/2024 Height 5ft 7in in 07/22/2024 Blood pressure systolic 128 mm Hg 07/22/2024 Weight 290 lbs 07/22/2024 BMI 45.42 kg/m2 07/22/2024 Encounters Encounter Location Date Provider Diagnosis [facility] [address] [address] 07/22/2024 Susan Ronaldocristiano Atherosclerosis of [place] artery of both lower extremities, with unspecified [...] unguium (ICD-10 - B35.1) 07/22/[address] [place] artery of both lower extremities, with unspecified [...] Details Provider Name:Susan quinonez, 10/07/2024 11:15:00 AM, [address] [place] [address], [address], Insurance Providers Payer Name Payer Address Payer Phone Subscriber Number Group Number Insured Name Patient Relationship to Insured Coverage Start Date Coverage End Date [employer] 65 Medicare Preferred [address] [place] [address] [id number] Alley Francisco Self - patient is the insured Medical (General) History Medical History History ICD Code Mumps Measles Chicken pox ulcer Macular degeneration High Blood Pressure Gall bladder problems Pre Diabetic CAD (Cholesterol) Surgical History Surgery Date(Month/Year) gall bladder - stones Hospitalization History Reason Date([place] [facility] [place]
== END 2024-09-11 08:01 | disposition home or self-care (01) ==
LOC: HO.LNP 08:00
PROVIDERS: Visit Provider Student in an Organized Health Care Education/Training Program
DX: Z13.89 Encounter for screening for other disorder (principal)
CPT/HCPCS: 82570

== ENCOUNTER 2024-09-12 08:00 | Outpatient (REF) | payer MEDICARE, SELFPAY ==
--- OUTSIDE RECORDS SUMMARY | 2024-09-12 10:32 | XMS_ITS | Clinical Summary ---
Author Organization [facility], Address [address] [place] [address] [place] [address] Phone Care Team Providers Care Dive Superintendent Name Role Phone Adan Griffin MD Primary Care Provider [phone] Medications aspirin 81 MG tablet Take 1 [...] patient's age to complete this topic Insurance [facility] [phone] Care Teams Dive Superintendent Relationship Specialty Start Date End Date Adan Griffin MD [facility] [place] [address] KAMALJITELBERT DELAROSA PCP - General 05/20/19
[2024-09-12 11:05] LABS: Creatinine, mg/dL 52.38
[2024-09-12 11:37] LABS: Creatinine, 24Hr Urine 0.8 G/Day (1.0-2.0); Total Volume 24 Hour Urine 1550 mL
[2024-09-19 17:38] LABS: Metanephrine, Free 24U 79 mcg/24 h (90-315); Normetanephrine, Free 24U 771 mcg/24 h (122-676); Total Metanephrine, Free 24U 850 mcg/24 h (224-832); Total Volume 24U 1550 mL
== END 2024-09-12 08:01 | disposition home or self-care (01) ==
LOC: HO.LNP 08:00
PROVIDERS: Visit Provider Student in an Organized Health Care Education/Training Program
DX: E27.8 Other specified disorders of adrenal gland (principal)
CPT/HCPCS: 82570; 83835

== ENCOUNTER 2024-09-24 14:09 | Outpatient (REF) | payer MEDICARE, SELFPAY ==
--- NOTE | ~2024-09-24 | FL_ITS ---
EXAMINATION: Modified Barium Swallow CLINICAL INFORMATION: Dysphagia COMPARISON: None. TECHNIQUE: Modified barium swallow was performed under lateral fluoroscopy with patient in standing position. Barium mixed with solids and liquids of different consistencies was administered by the speech pathologist. Examination was recorded in the fluoroscopy suite. FINDINGS: No penetration or aspiration was identified during the course of the exam. Minimal cricopharyngeal achalasia. Normal epiglottic inversion and hypopharyngeal elevation. No significant pooling identified. Incidental made of carotid artery calcifications bilaterally. FLUOROSCOPY TIME: 1 minute 29 seconds Number of Spot Images: N/A DOSE AREA PRODUCT: 747.8 uGy-m2 (microgray-meter squared) FL/FL Modified Barium Swallow IMPRESSION: No evidence of laryngeal penetration or aspiration. Refer to the speech therapy report for further clarification This procedure was performed by Dr. Maya Electronically signed by: Alfonso Maya MD 09/24/2024 04:05 PM EDT
--- OUTSIDE RECORDS SUMMARY | 2024-09-24 16:44 | XMS_ITS ---
Author Organization [facility] Address [address] [place] [address] Care Team Providers Care Aircraft Restorer Name Role Phone Po Adna SALGADO Primary Care Provider Jethro Munoz Jr Unavailable [phone] Allergies Allergen (clinical drug ingredient) Drug/Non Drug Allergy documented on EMR Reaction Allergy Type Onset Date Status amoxicillin Amoxicillin Unknown Drug Allergy Act rosalie REASON FOR VISIT Patient presents today for Hussein's Esophagus Medications Medication SIG (Take, Route, Frequency, Duration) [...] Orally B.i.d. 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 Vital Signs Temperature 97.3 degrees Fahrenheit 08/25/19 25 Blood pressure systolic 000 mm Hg 08/25/19 25 Blood pressure diastolic 00 mm Hg 025 Height 67 in 08/25/2024 Weight 253 lb 8 oz lbs 08/25/2024 BMI 39.70 kg/m2 08/25/2024 Encounters Encounter Location Date Provider Diagnosis [facility] [address] [place] [address] 08/25/2024 Jethro Sharma Jr Dysphagia R13.10 ; Colon cancer screening Z12.11 and 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 K22.70 Assessments Encounter Date Diagnosis (ICD Code) Assessment Notes Treatment Notes Treatment Clinical Notes Section Notes 08/25/2024 Dysphagia (ICD-10 - R13.10) Swallowing problems material was printed We discussed Hussein's esophagus today. We discussed dysphagia. It's unclear if her dysphagia symptoms are related to her underlying reflux, but she does have some recurrent symptoms in the morning so we will increase her omeprazole to 20 mg b.i.d. She'll let us know how she's doing a month. She is referred for modified barium swallow and we will await those results. Followup will be in 6 months. At that time we will discuss followup colonoscopy for colon cancer screening because of her history of colon polyps. If necessary, repeat endoscopy with balloon dilation could be considered as well. 08/25/2024 Colon cancer screening (ICD-10 - Z12.11) We discussed Hussein's esophagus today. We discussed dysphagia. It's unclear if her dysphagia symptoms are related to her underlying reflux, but she does have some recurrent symptoms in the morning so we will increase her omeprazole to 20 mg b.i.d. She'll let us know how she's doing a month. She is referred for modified barium swallow and we will await those results. Followup will be in 6 months. At that time we will discuss followup colonoscopy for colon cancer screening because of her history of colon polyps. If necessary, repeat endoscopy with balloon dilation could be considered as well. 08/25/2024 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 (ICD-10 - K22.70) We discussed Hussein's esophagus today. We discussed dysphagia. It's unclear if her dysphagia symptoms are related to her underlying reflux, but she does have some recurrent symptoms in the morning so we will increase her omeprazole to 20 mg b.i.d. She'll let us know how she's doing a month. She is referred for modified barium swallow and we will await those results. Followup will be in 6 months. At that time we will discuss followup colonoscopy for colon cancer screening because of her history of colon polyps. If necessary, repeat endoscopy with balloon dilation could be considered as well. Plan Of Treatment Medication Medication Name Sig Start Date Stop Date Notes Omeprazole 20 MG one capsule Orally B.i.d. for 30 day(s) 0 08/25/2024 Treatment Notes Assessment Notes Dysphagia Swallowing problems material was printed Pending Test Test Name Order Date XR BARIUM SWALLOW, MODIFIED VIDEO 2024 Next Appt Details Follow Up: 6 Months, Reason: Provider Name:Jethro shaw , 02/26/2025 01:55:00 PM, [address] [place] [address], [address], [place], [address], Progress Notes * ALLEY JAIMES ADOB:[birth year] (69 yo F)Acc No.[id number]:08/25/2024 Progress Notes Patient:?ALLEY JAIMES Provider:?Jethro Sharma MD :1955???Age:69 Y???Sex:Female D ate:08/25/2024 Address:[address] [place], [place] [id number] Pcp:Adan Griffin MD Subjective: * Chief Complaints: * ???1. Patient presents today for Hussein's Esophagus. * HPI: ???New symptom(s):? Alley is a pleasant 69-year-old woman seen today in consultation. She has a history of dysphagia. Symptoms are mainly for bread or meat. Symptoms have not been progressive but she has lost unquantified amount of weight. Symptoms have been present for the last several months. She denies hematemesis or melena. She was seen in the hospital and underwent upper endoscopy in June of this year. This showed changes of Hussein's esophagus. No H. pylori was seen. We reviewed this today. She's been taking omeprazole 20 mg daily but still has symptoms in the morning. ?She underwent colonoscopy in March 2020 with removal of a small tubular adenoma. Five-year followup was recommended. She has no complaints of rectal bleeding or change in her bowel habits. Weight and appetite have been stable up until her previous swallowing problem. * ROS:?General/Constitutional:?Change in appetite?denies.?Fatigue?denies.?ENT:?Patient denies?difficulty swallowing.?Respiratory:?Patient denies?shortness of breath.?Cardiovascular:?Patient denies?chest pain.?Gastrointestinal:?Comments?See HPI for details.?Genitourinary:?Difficulty urinating?denies.?Incontinence?denies.?Musculoskeletal:?Patient denies?muscle aches.?Skin:?Patient denies?pruritis.?Neurologic:?Patient denies?low back pain.?Psychiatric:?Patient denies?mental or physical abuse.? * Medical History:?Hypertensio n, Hyperlipidemia, Diabetes mellitus, Hypercalcemia, Elevated BMI, Osteopenia, Macular degeneration, Adnexal cyst, Adrenal mass, Colonoscopy 04/04, tubular adenoma, five-year followup, Gastroesophageal reflux disease, EGD 07/08, esophagitis, no stricture. * Surgical History:?cholecyste ctomy . * Hospitalization/Major Diagno stic Procedure:?endoscopy done with Dr. Sharma at [facility] [place]. * Family History:?Father: dece ased.?Mother: , diagnosed with HTN (hypertension), Diabetes, Heart disease.? no known hx of colon ca,polyps liver ds. * Social History:?Tobacco Use:?Tobacco Use/Smoking?Patient is a?current smoker,?How often do you smoke cigarettes??every day,?How many cigarettes a day do you smoke??11-20.?Drugs/Alcohol:?Alcohol Screen?Did you have a drink containing alcohol in the past year??Yes,?How often did you have a drink containing alcohol in the past year??2 to 3 times a week (3 points),?How many drinks did you have on a typical day when you were drinking in the past year??1 or 2 drinks (0 point),?How often did you have 6 or more drinks on one occasion in the past year??Never (0 point),?Points?3,?Interpretation?Positive.?Miscellaneous:?Marital status: . Occupation: works. * Medications:?Taking hydroCHL OROthiazide , Taking Metoprolol Succinate ER , Taking Pravastatin Sodium , Taking Irbesartan , Taking Aspirin 81 , Taking MiraLax (colon prep) 8.3 ounce ((238) grams mixed with Gatorade or Crystal Light orally begin at 5:00 p.m. the day before the procedure, Taking Omeprazole 20 MG Capsule Delayed Release 1 capsule 1/2 to 1 hour before morning meal Orally Once a day, Medication List reviewed and reconciled with the patient * Allergies:?Amoxicillin. Objective: * Vitals:?Wt: 253 lb 8 oz, Ht: 67 in, BMI:39.70 Index, BP: 000/00 mm Hg, Temp: 97.3. * Examination: ???General Examination: ?GENERAL APPEARANCE:?in no acute distress.?HEAD:?normocephalic.?EYES:?sclera non-icteric.?ORAL CAVITY:?mucosa moist.?NECK/THYROID:?no lymphadenopathy.?SKIN:?anicteric.?HEART:?S1, S2 normal, no murmurs.?LUNGS:?clear to auscultation bilaterally.?CHEST:?normal shape and expansion.?ABDOMEN:?soft, nontender, nondistended, bowel sounds present, no organomegaly .?EXTREMITIES:?no clubbing, cyanosis, or edema.?PSYCH:?cognitive function intact.? Assessment: * Assessment: 1.?Dysphagia - R13.10 (Prima ry)?2.?Colon cancer screening - Z12.11?3.?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 - K22.70? We discussed Hussein's esoph alexia today. We discussed dysphagia. It's unclear if her dysphagia symptoms are related to her underlying reflux, but she does have some recurrent symptoms in the morning so we will increase her omeprazole to 20 mg b.i.d. She'll let us know how she's doing a month. She is referred for modified barium swallow and we will await those results. Followup will be in 6 months. At that time we will discuss followup colonoscopy for colon cancer screening because of her history of colon polyps. If necessary, repeat endoscopy with balloon dilation could be considered as well. Plan: * Treatment: * Notes: Swallowing problems material was printed?? * Immunizations:? Influenza (Not administered - Refused: Patient decision) * Procedure Codes:?3017F COLOR ECTAL CA SCREEN DOC REV, G9903 Pt scrn tbco id as non user, G9744 PATIENT NOT ELIG D/T ACTIVE DX HTN * Preventive Medicine:? ??Counseling:?Care goal follow-up plan:?Above Normal BMI Follow-up?Giving encouragement to exercise,?BMI management provided?Yes.? ??Urinary Incontinence:?Urinary Incontinence?Assessment:?Absent,?Plan of care documented:?No, reason not specified.? ??Screenings:?Fall Risk Screening?Fall Risk Assessment:?No falls in the past year,?Screening:?No falls in the past year,?Assessment:?Not performed, no reason specified,?Plan of Care:?Not documented, no reason specified.? * Follow Up:?6 Months * * Sign off status: Completed true * Provider:?Jethro Sharma MD Date:?0 08/25/2024 Generated for Sonia haas/Nikolas/Chavezitting on:?09/24/2024 04:44 PM EDT History and Physical Notes * HPI (History of Present Illness) Category Sub-Category Detail Notes Category Not es New symptom(s) Alley is a pleasant 69-year-old woman seen today in consultation. She has a history of dysphagia. Symptoms are mainly for bread or meat. Symptoms have not been progressive but she has lost unquantified amount of weight. Symptoms have been present for the last several months. She denies hematemesis or melena. She was seen in the hospital and underwent upper endoscopy in June of this year. This showed changes of Hussein's esophagus. No H. pylori was seen. We reviewed this today. She's been taking omeprazole 20 mg daily but still has symptoms in the morning. She underwent colonoscopy in March 2020 with removal of a small tubular adenoma. Five-year followup was recommended. She has no complaints of rectal bleeding or change in her bowel habits. Weight and appetite have been stable up until her previous swallowing problem Examination Category Sub-Category Detail Notes Category Not es General Examination GENERAL APPEARANCE: in no acute di stress HEAD: normocephalic EYES: sclera non-icteric NECK/THYROID: no lymphadenopathy HEART: S1, S2 normal, no mu rmurs CHEST: normal shape and exp ansion LUNGS: clear to auscultatio n bilaterally ABDOMEN: soft, nontender, non distended, bowel sounds present, no organomegaly SKIN: anicteric EXTREMITIES: no clubbing, cyanosi s, or edema PSYCH: cognitive function i ntact ORAL CAVITY: mucosa moist
--- OUTSIDE RECORDS SUMMARY | 2024-09-24 16:44 | XMS_ITS ---
Author Organization [facility] Address [address] [address] Care Team Providers Care Oncology Admin Name Role Phone Po Adan SALGADO Primary Care Provider Jethro Munoz Jr REASON FOR VISIT dysphagia Problems Problem Type SNOMED Code ICD Code Onset Dates Problem Status W/U Status Risk Notes Problem Dysphagia (65949983) Dysphagia (R13.10) Active confirmed Encounters Encounter Location Date Provider Diagnosis [facility] [place] Inpatient [address] [place], [place] [phone] 06/17/2024 Jethro Sharma Jr Other diseases of stomach and duodenum K31.89 and Dysphagia R13.10 Assessments Encounter Date Diagnosis (ICD Code) Assessment Notes Treatment Notes Treatment Clinical Notes Section Notes 06/17/2024 Other diseases of stomach and duodenum (ICD-10 - K31.89) 06/17/2024 Dysphagia (ICD-10 - R13.10) Plan Of Treatment Next Appt Details Provider Name:Jethro shaw Jr, 02/26/2025 01:55:00 PM, [address] [facility], [address] [facility], [place], [address], Progress Notes * BIANCA JAIMES ADOB:[birth year] (69 yo F)Acc No.[id number]:06/17/2024 EGD/MAC Patient:?BIANCA JAIMES Provider:?Jethro Sharma MD :1955???Age:69 Y???Sex:Female D ate:06/17/2024 Address:[address] [place], [place] [id number] Pcp:Adan Griffin MD Subjective: * Chief Complaints: * ???1. Dysphagia. * Medical History:? Objective: * Vitals:? Assessment: * Assessment: 1.?Other diseases of stomach and duodenum - K31.89 (Primary)???2.?Dysphagia - R13.10??? Plan: * Treatment: * Procedure Codes:?60519 UPPER GI ENDOSCOPY, BIOPSY * * The named appointment provid er may or may not be the originator of this progress note, and it is not deemed complete until electronically signed by the appointment provider. Sign off status: Pending * Provider:?Jethro Sharma MD Date:?08/18/2023 Generated for Sonia haas/Nikolas/Chavezitting on:?09/24/2024 04:44 PM EDT
--- OUTSIDE RECORDS SUMMARY | 2024-09-24 16:44 | XMS_ITS | Patient Health Record ---
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 Name Role Phone Aadn Griffin MD Primary Care Provider Jethro Munoz Jr Allergies Allergen (clinical drug ingredient) Drug/Non Drug Allergy documented on EMR Reaction Allergy Type Onset Date Status amoxicillin Amoxicillin Unknown Drug Allergy Act rosalie Results Component Value Reference Range Notes Pathology Reviewed date:06/19/2024 11:18:33 AM Interpretation: Performing Lab:[facility], [address] [place] [id number] Notes/Report: Name: Christiano Tubbs Age/Sex: 69/F : 1955 Unit#: [id number] Attend Dr: Elijah Titus MD Re06/13/24 Status : DIS IN Location: [facility] 343-1 Disch: 06/18/24 SPEC : [id number] RECD : 06/17/24 STATUS: PATRICIA CURIEL NUM: [id number] JEAN-PAUL: 06/17/24-[address] [facility] [address]: Jethro Sharma MD ENTERED: 06/17/24-13 52 SP TYPE: Surgical OTHR DR: Adan Griffin MD, Jackie NP ORDERED: HE Stain/9, Gross Micro L4/3, IHC, Special st. 2, H. pylori, AB/PAS Diagnosis A. Stomach, antrum, biopsy: Antral-type mucosa with mild chronic, focally active, inflammation and foc al erosion; no Helicobacter organisms seen. B. 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 - No dysplasia seen. - Active esophagitis (scattered eosinophils and neutrophils). C. Esophagus, 35 cm, biopsy: Active esophagitis (maximum eosinophil count 1 per high powered field). Clinical History Pre-Op Dx: Dysphagia Post-Op Dx: Erosive gastritis Microscopic Description A-C. Microscopic sec tions examined. No metaplastic changes are seen, supported by AB/PAS stains (A); no Helic obacter organisms are seen, supported by H. pylori immunostain (A). Material Received A. Antrum bx's B. EG junction bx's C. Esophagus @ 35 cm Gross Description Received in three parts. Part A: Received in formalin labeled ?antrum bx's? are 2 love-pink irregular and rectangular tissue fragments gianna suring 0.25 and 0.35 cm, submitted in toto in a cassette labeled A. Part B: Received in formalin labeled ?EG junction bx's? are 2 aiken-pink rectangular tissue fragments each measu ring 0.35 cm, submitted in toto in a cassette labeled B. Part C: Received in formalin labeled ?esophagus at 35 cm? are 2 aiken-white irregular tissue fragments each measu ring 0.25 cm, submitted in toto in a cassette labeled C. CEDS Special studies orde red and performed: Immunostain for H. pylori on A; AB/PAS stains on A CONTINUED ON NEXT PAGE Name: Christiano Tubbs Age/Sex: 69/F : 1955 Unit#: [id number] Attend Dr: Elijah Titus MD Re06/13/24 Status : DIS IN Location: [facility] 343-1 Disch: 06/18/24 SPEC : [id number] RECD : 06/17/24-1344 STATUS: PATRICIA REQ NUM: [id number] JEAN-PAUL: 06/17/24-[address] [facility] [address]: Jethro Sharma MD ENTERED: 06/17/24-13 52 SP TYPE: Surgical OTHR DR: Adan Griffin MD, Jackie NP ORDERED: HE Stain/9, Gross Micro L4/3, IHC, Special st. 2, H. pylori, AB/PAS Copies To: Jethro Sharma MD [facility] [address] [place], [place] [phone] dAan Griffin MD [facility],[place] [address] [place], [place] [phone] Wendi Alanis NP [address] [place], [place] [phone] Signed (si gnature on file) Kam Steward MD 06/19/24 1104 END OF REPORT FL barium swallow modified ( Not yet reviewed by provider) Interpretation: Performing Lab: Notes/Report: [address] [address] Fluoroscopy Report Signed Patient: Alley Tubbs MR#: [id number] : 1955 Acct:[id number] Age/Sex: 69 / F ADM Date: 09/24/24 Loc: [facility] Attending Dr: Jethro Sharma MD Ordering Physician: Jethro Sharma MD Date of Service: 09/24/24 Procedure(s): FL Modified Barium Swallow Accession Number(s): [id number] cc: Jethro Sharma MD; Adan Griffin MD EXAMINATION: Modified Barium Swallow CLINICAL INFORMATION: Dysphagia COMPARISON: None. TECHNIQUE: Modified barium swallow was performed under lateral fluoroscopy with patient in standing position. Barium mixed with solids and liquids of different consistencies was administered by the speech pathologist. Examination was recorded in the fluoroscopy suite. FINDINGS: No penetration or aspiration was identified during the course of the exam. Minimal cricopharyngeal achalasia. Normal epiglottic inversion and hypopharyngeal elevation. No significant pooling identified. Incidental made of carotid artery calcifications bilaterally. FLUOROSCOPY TIME: 1 minute 29 seconds Number of Spot Images: N/A DOSE AREA PRODUCT: 747.8 uGy-m2 (microgray-meter squared) FL/FL Modified Barium Swallow IMPRESSION: No evidence of laryngeal penetration or aspiration. Refer to the speech therapy report for further clarification This procedure was performed by Dr. 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 TECHNIQUE: Modified barium swal low was performed under lateral fluoroscopy with patient in standing position. Barium mixed with solids and liquids of different consistenc ies was administered by the speech pathologist. Examination was donnie rded in the fluoroscopy suite. FINDINGS: No penetration or as piration was identified during the course of the exam. Minimal cricop haryngeal achalasia. Normal epiglottic inversion and hypopharyngeal e levation. No significant pooling identified. Incidental made of c arotid artery calcifications bilaterally. FLUOROSCOPY TIME: 1 minute 29 seconds Number of Spot Images: N/A DOSE AREA PRODUCT: 747.8 uGy-m2 (microg ray-meter squared) F L/FL Modified Barium Swallow IMPRESSION: No evidence of laryn geal penetration or aspiration. Refer to the speech therapy report for further clarification This procedure was p erformed by Dr. Maya Electronically kristy d by: Alfonso Maya MD 09/24/2024 04:05 PM EDT RP Dictated By: Alfonso Maya MD Signed By: <Willian mendieta signed by Alfonso Maya MD in OV> 09/24/24 1605 DD/ 1432 TD/TT: 09/24/24 1439 Lens Mold Setter: Reason For Referral No Information Medications Medication [...] a day for 30 day(s) 06/20/2024 Active Immunizations Vaccine Route Administration Date Status Comme nts Influenza Unknown 01/08/2020 Refused Influenza Unknown 08/25/2024 Refused Social History Tobacco [...] Problem Status W/U Status Risk Notes Problem 212219405 Colon cancer screening (Z12.11) Active confirmed Problem 368785292 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 Problem 360546032438263 half-way (current) use of aspirin (Z79.82) Active confirmed Problem Dysphagia (39107685) Dysphagia (R13.10) Active confirmed Problem 64418335187819288 half-way current use of diuretic (Z79.899) Active confirmed Vital Signs Temperature 97.3 degrees Fahrenheit 08/25/2024 Blood pressure diastolic 00 mm Hg 08/25/2024 Height 67 in 08/25/2024 Blood pressure systolic 000 mm Hg 08/25/2024 Weight 253 lb 8 oz lbs 08/25/2024 BMI 39.70 kg/m2 08/25/2024 Encounters Encounter Location Date Provider Diagnosis [facility] Inpatient [address] [place], [place] [phone] 06/17/2024 Jethro Sharma Jr Other diseases of stomach and duodenum K31.89 and Dysphagia R13.10 [facility] [address] [place] [phone] 08/25/2024 Jethro Sharma Jr Dysphagia R13.10 ; Colon cancer screening Z12.11 and 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 K22.70 [facility] [address] [place] [phone] 06/19/2024 Jethro Sharma Jr Assessments Encounter Date Diagnosis (ICD Code) Assessment [...] dilation could be considered as well. 08/25/2024 Dysphagia (ICD-10 - R13.10) Swallowing problems [...] be considered as well. Plan Of Treatment Pending Test Test Name Order Date XR BARIUM SWALLOW, MODIFIED VIDEO 2024 FL barium swallow modified 09/24/2024 Future Test Test Name Order Date COLONOSCOPY 01/08/2020 Next Appt Details Provider Name:Jethro shaw , 02/26/2025 01:55:00 PM, [address] [facility], [address], [place], [address], Insurance Providers Payer Name Payer Address Payer Phone Subscriber Number Group Number Insured Name Patient Relationship to Insured Coverage Start Date Coverage End Date [facility] [address] [place] [address] [id number] ALLEY TUBBS Self - patient is the insured Medical (General) History Medical History History ICD Code Hypertension Hyperlipidemia Diabetes mellitus Hypercalcemia Elevated BMI Osteopenia Macular degeneration Adnexal cyst Adrenal mass Colonoscopy 04/04, tubular adenoma, five- year followup Gastroesophageal reflux disease, EGD , esophagitis, no stricture Surgical History Surgery Date(Month/Year) cholecystectomy Hospitalization History Reason Date(Month/Year) endoscopy done with Dr. Sharma at [facility] 06/08
--- OUTSIDE RECORDS SUMMARY | 2024-09-24 16:44 | XMS_ITS | Patient Health Record ---
Author Organization [facility] shannan Anson Address [address] [place] [address] Care Team Providers Care Plsql Developer Name Role Phone Adan Griffin Primary Care Provider Susan Mccord Unavailable [phone] Allergies Allergen (clinical drug ingredient) Drug/Non Drug [...] Problem Acquired hammer toe of right foot (955545713006 9105) Other hammer toe(s) (acquired), right foot (M20.41) Active confirmed Problem Acquired hammer toe of left foot (835682769007 9103) Other hammer toe(s) (acquired), left foot (M20.42) Active confirmed Problem Atherosclerosis of [place] artery of both lower extremities, with unspecified presence of clinical manifestation (I70.203) Active confirmed Q7(A), Q8(2B), Q9(1B,2C ) Problem 846973547 Type 2 diabetes mellitus without complication, without long-term current use of insulin (E11.9) Active confirmed Vital Signs Blood pressure diastolic 72 mm Hg 07/22/2024 Height 5ft 7in in 07/22/2024 Blood pressure systolic 128 mm Hg 07/22/2024 Weight 290 lbs 07/22/2024 BMI 45.42 kg/m2 07/22/2024 Encounters Encounter Location Date Provider Diagnosis [facility] [address] [address] 07/22/2024 Susan Ronaldocristiano Atherosclerosis of eklutna artery of both lower extremities, with unspecified [...] unguium (ICD-10 - B35.1) 07/22/2024 Atherosclerosis of ekl[place]na artery of both lower extremities, with unspecified [...] Treatment Next Appt Details Provider Name:Susan quinonez, 10/28/2024 01:30:00 PM, [address] [place] [address], [phone], Insurance Providers Payer Name Payer Address Payer Phone Subscriber Number Group Number Insured Name Patient Relationship to Insured Coverage Start Date Coverage End Date [employer] 65 Medicare Preferred [address] [place] [address] [id number] Alley Francisco Self - patient is the insured Medical (General) History Medical History History ICD Code Mumps Measles Chicken pox ulcer Macular degeneration High Blood Pressure Gall bladder problems Pre Diabetic CAD (Cholesterol) Surgical History Surgery Date(Month/Year) gall bladder - stones Hospitalization History Reason Date(Month/Year) [facility]- Swelling feet/legs 06/12/24
--- OUTSIDE RECORDS SUMMARY | 2024-09-24 16:44 | XMS_ITS | Clinical Summary ---
Author Organization [facility], Address [address] [place] [address] [place] [address] Phone Care Team Providers Care Cdl Truck Driver Name Role Phone Adan Griffin MD Primary Care Provider [phone] Medications aspirin 81 MG tablet Take 1 [...] patient's age to complete this topic Insurance [facility] [place] [id number] Care Teams Cdl Truck Driver Relationship Specialty Start Date End Date Adan Griffin MD [facility] [address] [facility]BERT DELAROSA PCP - General 05/20/19
--- OUTSIDE RECORDS SUMMARY | 2024-09-24 16:45 | XMS_ITS ---
Author Organization [facility] Address [address] [facility] [address] [place] [address] Care Team Providers Care Nurse Quality Name Role Phone Adan Griffin MD Primary Care Provider Dylon Sharma Jr, Jethro Barr REASON FOR VISIT pathology Medications Medication SIG (Take, Route, Fr equency, Duration) Notes Start Date End Date Status Omeprazole 20 MG 1 capsule 1/2 to 1 h our before morning meal Orally Once a day for 30 day(s) 06/20/2024 Active Encounters Encounter Location Date Provider Diagnosis [facility] [address] [facility] [address] [place] [phone] 06/19/2024 Jethro Sharma Jr Plan Of Treatment Medication Medication Name Sig Start Date Stop Date Notes Omeprazole 20 MG 1 capsule 1/2 to 1 h our before morning meal Orally Once a day for 30 day(s) 06/20/2024 Next Appt Details Provider Name:Jethro shaw Jr, 02/26/2025 01:55:00 PM, [address] [place] [address], [address], [place], [address], Progress Notes * BIANCA JAIMES ADOB:[birth year] (69 yo F)Acc No.[id number]:06/19/2024 Patient:?BIANCA JAIMES :1955???Age:69 Y???Sex:Female Address:[address] [place] [address] * Refills? Start Omeprazole Capsule Delayed Release, 20 MG, Orally, 30, 1 capsule 1/2 to 1 hour before morning meal, Once a day, 30 day(s), Refills=6 * true * Date:? Generated for Sonia haas/Nikolas/Mike on:?09/24/2024 04:44 PM EDT
--- NOTE | 2024-09-25 10:10 | MHC.SL.IMP ---
Date of Plan of Treatment: 09/24/24 Onset of Symptoms/Illness: 04/26/24 Date Treatment Started: 09/24/24 Admitting Diagnosis: Dysphagia Primary Speech & Language Diagnosis: R13.10 Dysphagia Reason for Today's Visit: 54484 Modified Barium Swallow Study Pre-evaluation Dietary Consistencies: Regular Pre-evaluation Liquid Consistency: Thin Pre-evaluation Medication Administration: Whole with Liquid Medical History: Modified Barium Swallow Study Fluoroscopic Evaluation of Swallowing Function CPT Code 38954 Evaluation Year: 2024 Reason for Study: Patient reporting difficulty swallowing. Referring Physician: Jethro Sharma MD Evaluating Clinician: Mable Lee MA, CCC-TRANSIT DEPARTMENT CLERK Study Number: 1 Patient Name: Alley Tubbs Status: Outpatient, Ambulatory Age: 69 Gender: Female Medical History 1. Hypertension. 2. Hyperlipidemia. 3. Diabetes mellitus. 4. Hypercalcemia. 5. Vitamin D deficiency. 6. Elevated BMI. 7. Osteopenia. 8. Macular degeneration. 9. Colonoscopy 04/04 for colon cancer screening, small tubular adenoma, 5 year followup. Current (pre-evaluation) Intake/Diet: Route: PO Diet Grade: Regular Liquid Consistencies: Thin Pre-Study Functional Oral Intake Scale (FOIS): 7- Total oral intake with no restrictions Pain: None reported at time of study SUBJECTIVE: Patient is a 69 year old female referred for a modified barium swallow study (MBSS) by Dr. Sharma from the [facility] office. Patient was previously seen by the speech pathologists when admitted under observation for lower leg erythema concerning for cellulitis and complaints of difficulty swallowing. Patient complained of nausea, vomiting, gagging, and globus sensation after swallowing since April. Patient at the time reported gagging and spitting up bile 2-3 times a day with reduced PO intake as a result. Patient reports improvement in these symptoms, though she still has symptoms when swallowing certain foods, such as bread and meat. Patient stated, ?It just does not break up enough.? 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 Per Dr. Sharma, patient has been taking omeprazole daily but still has symptoms in the morning. Oral Motor Exam Facial Symmetry: Symmetrical Mouth Occlusion: Normal Oral-Facial Teeth Characteristics: Intact/Normal Dental Appliance Oral-Facial Lip Pucker Description: Normal Oral-Facial Smile (Lips) Description: Normal Oral-Facial Puff Cheeks Description: Normal Tongue Size: Normal Tongue Excursion Description: Normal Tongue Range of Movement Description: Normal Tongue Speed of Movement Description: Normal Tongue Strength of Movement (against opposing pressure): Normal Tongue Movement Characteristics: Normal/Absent Is patient able to manage secretions?: Yes Is patient able to produce volitional cough?: Yes Food and Liquid Trials: Oral Impairment: Lip Closure: Did not test Oral Impairment: Tongue Control During Bolus Hold: 1=Escape to lateral buccal cavity/floor of mouth (FOM) Oral Impairment: Bolus Preparation/Mastication: 1=Slow prolonged chewing/mashing with complete re-collection Oral Impairment: Bolus Transport/Lingual Motion: 0=Brisk tongue motion Oral Impairment: Oral Residue: 1=Trace residue lining oral structures Oral Impairment:Initiation of Pharyngeal Swallow: 1=Bolus head in valleculae Pharyngeal Impairment: Soft Palate Elevation: 0=No bolus between soft palate (SP)/pharyngeal wall (PW) Pharyngeal Impairment: Laryngeal Elevation: 0=Complete superior movement of thyroid cartilage (see description) Pharyngeal Impairment: Anterior Hyoid Excursion: 0=Complete anterior movement Pharyngeal Impairment: Epiglottic Movement: 0=Complete inversion Pharyngeal Impairment: Laryngeal Vestibular Closure:: 0=Complete: no air/contrast in laryngeal vestibule Pharyngeal Impairment: Pharyngeal Stripping Wave: 0=Present: complete Pharyngeal Impairment: Pharyngeal Contraction: Did not test Pharyngeal Impairment: Pharyngoesophageal Segment Openin=Partial distention/partial duration: partial obstruction of flow Pharyngeal Impairment: Tongue Base (TB) Retraction: 1=Trace column of contrast/air between TB and posterior PW Pharyngeal Impairment: Pharyngeal Residue: 1=Trace residue within or on pharyngeal structures Pharyngeal Impairment: Esophageal Clearance Upright Position: Did not test Impressions and Recommendations OBJECTIVE: Time-out: performed at 14:45 Evaluation Start: 14:30; Stop: 14:35 Patient Positioning: Standing Viewing Planes: LATERAL ONLY Contrast: MBSImP? Standardized Protocol using commercially prepared, standardized Barium viscosities, including: Varibar? THIN LIQUID (40% w/v, <15 cps) , Varibar? PUDDING (40% w/v, <7214-1923 cps) , 1/2 Shortbread Cookie (1 x1 x.25 ) MBSImP ID: [id number] MBSImP Results: Lip closure for intraoral bolus containment could not be assessed due to logistical reasons not related to physiologic impairment. Tongue control during bolus hold allowed bolus escape to the lateral buccal cavity/floor of mouth. Bolus preparation and mastication resulted in slow, prolonged chewing/mashing but with complete re-collection. Bolus transport/lingual motion was with brisk tongue motion. Oral residue was a trace, lining oral structures. Initiation of the pharyngeal swallow occurred when the bolus head was in the valleculae. Soft palate elevation resulted in no bolus between the soft palate and the pharyngeal wall. Laryngeal elevation demonstrated complete superior movement of the thyroid cartilage with complete approximation of the arytenoids to the epiglottic petiole. Anterior hyoid excursion demonstrated complete anterior movement. Epiglottic movement resulted in complete inversion. Laryngeal vestibular closure was complete, as indicated by no air or contrast within the laryngeal vestibule at the height of the swallow. Pharyngeal stripping wave was present and complete. Pharyngeal contraction could not be determined due to logistical reasons not related to physiologic impairment. Pharyngoesophageal segment opening demonstrated partial distension/partial duration, with partial obstruction of bolus flow. Tongue base retraction allowed a trace column of contrast or air between the retracted tongue base and the posterior pharyngeal wall. Pharyngeal residue was a trace within or on pharyngeal structures. Esophageal clearance in the upright position could not be assessed due to logistical reasons not related to physiologic impairment. Oral Impairment Score: 3 (absence of score, component 1) Pharyngeal Impairment Score: 1 (absence of score, component 13) Esophageal Impairment Score: --- (absence of score, component 17) Laryngeal Penetration and Aspiration: Neither penetration nor aspiration was observed in today's study with Cookie, Pudding-thick, Thin. ASSESSMENT: Clinician Assessment: This exam was conducted by the radiologist and the speech pathologist. Patient was standing for lateral view and trialed thin via individual and sequential cup sips, puree, and regular texture solids. A trace amount of contrast spilled to the floor of mouth as patient held bolus in the oral cavity with no premature posterior escape. Mastication was prolonged, characterized by piece meal deglutition. Posterior lingual motion was brisk and timely. Trace residue lining the tongue, which cleared with subsequent swallows. Pharyngeal swallow trigger initiated as the bolus head reached the valleculae. No evidence of nasopharyngeal reflux. Complete laryngeal elevation with complete epiglottic inversion and complete laryngeal vestibular closure. No evidence of aspiration or penetration during this exam. Trace residue seen on the tongue base and in the valleculae, which cleared with dry swallows. Note partial distention through the pharyngoesophageal segment opening (PES). Patient history with the following compensatory strategies is unknown. When employed during today's study, these strategies improved swallowing function: Additional Swallow(s) per Bolus eliminated Oral Residue, Pharyngeal Residue Liquid Intake Recommendation: Thin Liquid Intake Strategies: Unrestricted Dietary Recommendations: Regular Medication Administration: Whole with Liquid Please contact the pharmacy regarding appropriate crushable or liquid drug formulations that are available whenever modified delivery is recommended. Compensatory Strategies Recommended: Sitting Upright (90 deg), Small Bites and Sips, Alternate Liquids/Solids, Rate of Ingestion Change Supervision during eating and or drinking: None Needed Recommendation for Speech Therapy: NA:Typical Evaluation Text Comment: Intake Recommendations: Route: PO Diet Grade: Regular Liquid Consistencies: Thin Post-Study Functional Oral Intake Scale (FOIS): 7- Total oral intake with no restrictions Good oral and pharyngeal clearance. Adequate airway protection with no evidence of aspiration or penetration during this exam. Per MD: ?Minimal cricopharyngeal achalasia. Normal epiglottic inversion and hypopharyngeal elevation. No significant pooling identified. Incidental made of carotid artery calcifications bilaterally.? Suggested Referrals: The patient might benefit from a referral to: Gastroenterology Indication for Referral: Continue work up for complaint of globus sensation with harder solids. MBSS showing partial distention through PES. Otolaryngology Indication for Referral: Patient presents with mild dysphonia. Therapy Recommendations: Patient presented with prolonged and careful deglutition, but was able to adequately chew bolus and clear the oral cavity. There was no evidence of aspiration or penetration of this exam. Good clearing of the oral and pharyngeal cavities. Speech therapy and diet modification is not indicated at this time, as oropharyngeal swallow is deemed functional. Recommend continue work up with GI to rule in/out any esophageal conditions which could be contributing to patient?s symptoms. Prognosis for Improvement: The prognosis for the patient to meet nutritional needs by mouth is excellent based on degree of impairment. Clinician - Supplemental, Miscellaneous Communication: It is important to note MBSS objective studies are snapshots in time and Patient function might vary with factors such as time of day or concomitant medical conditions. For this reason, the final treatment plan for this patient should rest with their medical care team. Additional recommendations should be considered with the totality of the Patient in mind. Thank for the opportunity to participate in the care of this patient. If you have any questions about the content of this report, please contact the [facility] at [facility]. Education: Education regarding findings from today's study and plans for therapy were provided to Patient only through Verbal Instruction. Understanding was expressed by the Patient only. Associate Store Manager Clinician/Clinical Fellow: No Supervisory Statement: N/A Speech Language Pathologist: Mable Lee M.A., CCC-TRANSIT DEPARTMENT CLERK
== END 2024-09-24 14:10 | disposition home or self-care (01) ==
LOC: HO.XRAY 14:09
PROVIDERS: PCP Internal Medicine; Visit Provider Internal Medicine Gastroenterology
DX: R13.10 Dysphagia, unspecified (principal)
CPT/HCPCS: 74230; 92611

== ENCOUNTER → 2024-09-24 14:32 | Outpatient (BNV) | payer MEDICARE, SELFPAY | PROVIDERS: PCP Internal Medicine; Visit Provider Radiology Diagnostic Radiology | DX: R13.10 Dysphagia, unspecified (principal) | CPT/HCPCS: 74230 ==

== ENCOUNTER 2024-09-26 09:57 | Outpatient (REF) | payer MEDICARE, SELFPAY ==
[2024-09-26 10:51] LABS: Blood Urea Nitrogen 10 mg/dL (9-16); Estimated Glomerular Filt Rate 53
--- OUTSIDE RECORDS SUMMARY | 2024-09-26 11:10 | XMS_ITS ---
Author Organization [facility] sh[facility]an Monson Address [address] [place] [address] Care Team Providers Care Second Baller Name Role Phone Adan Griffin Primary Care Provider Susan Mccord Unavailable [phone] Allergies Allergen (clinical drug ingredient) Drug/Non Drug [...] W/U Status Risk Notes Problem Atherosclerosis of kenaitze artery of both lower extremities, with unspecified presence of clinical manifestation (I70.203) Active confirmed Q7(A), Q8(2B), Q9(1B,2C ) Problem Acquired hammer toe of right foot (258749162299 9105) Other hammer toe(s) (acquired), right foot (M20.41) Active confirmed Problem Acquired hammer toe of left foot (409579677955 9103) Other hammer toe(s) (acquired), left foot (M20.42) Active confirmed Problem 023179832 Type 2 diabetes mellitus without complication, without long-term current use of insulin (E11.9) Active confirmed Vital Signs Blood pressure systolic 128 mm Hg 07/22/19 25 Blood pressure diastolic 72 mm Hg 025 Height 5ft 7in in 07/22/2024 Weight 290 lbs 07/22/2024 BMI 45.42 kg/m2 07/22/2024 Encounters Encounter Location Date Provider Diagnosis [facility] [place] [address] [place] [address] 07/22/2024 Susan Napoles Atherosclerosis of kenaitze artery of both lower extremities, with unspecified [...] Clinical Notes Section Notes 07/22/2024 Atherosclerosis of kenaitze artery of both lower extremities, with unspecified [...] Up: 2 Months, Reason: Provider Name:Susan quinonez, 10/28/2024 01:30:00 PM, [address] [place] [address], [phone], Procedure Notes * Category Sub-Category Detail Notes [...] of a nail nipper and/or dremel-type card grinder helper, to a more viable healthy nail plate [...] to maintain effectiveness in symptomatic relief - 66026 Keratoma Treatment Parring or Cutting o f [...] instrumentation by the physician of record - 05695 Progress Notes * Alley TUBBS ADOB:[birth year] (69 yo F)Acc No.[id number]:07/22/2024 Progress Notes Patient:?Alley TUBBS Provider:?Susan Napoles DPM :1955???Age:69 Y???Sex:Female D ate:07/22/2024 Address:[address] [place], [place] [id number] Pcp:Adan Griffin Subjective: * Chief Complaints: * [...] er - stones * Hospitalization/Major Diagno stic Procedure:?[facility]- Swelling feet/legs 06/12/24 * Family History:?Mother: dece [...] shopping, cleaning. ?Marital status: . 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 * Medications:?TakingOmeprazol e Advil PreserVision AREDS 2 [...] Assessment: 1.?Tinea unguium - B35.1???2 .?Atherosclerosis of kenaitze artery of both lower extremities, with unspecified [...] of a nail nipper and/or dremel-type card grinder helper, to a more viable healthy nail plate [...] to maintain effectiveness in symptomatic relief - 98395.?Keratoma Treatment:?Parring or Cutting of Benign Hyperkeratotic Lesion(s)?(-56) [...] instrumentation by the physician of record - 92177.? * Procedure Codes:?15071 DEBRI DE NAIL, 6 OR MORE, Modifiers: XS 04787 TRIM SKIN LESIONS, 2 TO 4, Modifiers: [...] specialist, pt has upcoming vascular consult at [facility] for LE edema.?Shoe Gear Counseling:?SHOE Rx - [...] Napoles DPM Date:?01/2025 Generated for Sonia haas/Nikolas/Chavezitting on:?09/26/2024 11:09 AM EDT History and Physical Notes * HPI [...]
--- OUTSIDE RECORDS SUMMARY | 2024-09-26 11:10 | XMS_ITS | Clinical Summary ---
Author Organization [facility], Address [address] [place] [address] [place] [address] Phone Care Team Providers Care Shop Teacher Name Role Phone Adan Griffin MD Primary Care Provider [phone] Medications aspirin 81 MG tablet Take 1 [...] patient's age to complete this topic Insurance [facility] [place] [id number] Care Teams Shop Teacher Relationship Specialty Start Date End Date Adan Griffin MD [facility] [place] [address] KAMALJITELBERT DELAROSA PCP - General 05/20/19
--- OUTSIDE RECORDS SUMMARY | 2024-09-26 11:10 | XMS_ITS | Patient Health Record ---
Author Organization [facility] Address [address] [place] [address] Care Team Providers Care Screwmaker Automatic Name Role Phone Adan Griffin MD Primary Care Provider Jethro Munoz Jr Allergies Allergen (clinical drug ingredient) Drug/Non Drug Allergy documented on EMR Reaction Allergy Type Onset Date Status amoxicillin Amoxicillin Unknown Drug Allergy Act rosalie Results Component Value Reference Range Notes Pathology Reviewed date:06/19/2024 11:18:33 AM Interpretation: Performing Lab:[facility], [address] [place] [phone] Notes/Report: Name: Christiano Tubbs Age/Sex: 69/F : 1955 Unit#: [id number] Attend Dr: Elijah Titus MD Re06/13/24 Status : DIS IN Location: [facility] 343-1 Disch: 06/18/24 SPEC : [id number] RECD : 06/17/24 STATUS: PATRICIA CURIEL NUM: [id number] JEAN-PAUL: 06/17/24-[address] [facility] [address]: Jethro Sharma MD ENTERED: 06/17/24-13 50 [...] Christiano Tubbs Age/Sex: 69/F : 1955 Unit#: [id number] Attend Dr: Elijah Titus MD Re06/13/24 Status : DIS IN Location: [facility] 343-1 Disch: 06/18/24 SPEC : [id number] RECD : 06/17/24-1344 STATUS: PATRICIA REQ NUM: [id number] JEAN-PAUL: 06/17/24-[address] [facility] [address]: Jethro Sharma MD ENTERED: 06/17/24-13 52 SP TYPE: Surgical OTHR DR: Adan Griffin MD, Jackie NP ORDERED: HE Stain/9, Gross Micro L4/3, IHC, Special st. 2, H. pylori, AB/PAS Copies To: Jethro Sharma MD [facility] [address] [place], [place] [id number] Adan Griffin MD [facility],[place] [address] [place], [place] [address] Wendi Alanis NP [address] [place], [place] [phone] Signed (si gnature on file) Kam Steward MD 06/19/24 1104 END OF REPORT FL barium swallow modified Reviewed date:09/25/2024 07:49:30 AM Interpretation: Performing Lab: Notes/Report: [address] [address] Fluoroscopy Report Signed Patient: Alley Tubbs MR#: [id number] : 1955 Acct:[id number] Age/Sex: 69 / F ADM Date: 09/24/24 Loc: MARYJO Attending Dr: Jethro Sharma MD Ordering Physician: Jethro Sharma MD Date of Service: 09/24/24 Procedure(s): FL Modified Barium Swallow Accession Number(s): [id number] cc: Jethro Sharma MD; Adan Griffin MD [...] 09/24/24 1605 DD/ 1432 TD/TT: 09/24/24 1439 Asphalt Raker: [place] [address] Fluoroscopy Report Signed Patient: Rema Tubbs MR#: [id number] : 1955 Acct:[id number] Age/Sex: 69 / F ADM Date: 09/24/24 Loc: JESSICA Attending Dr: Mery Sharma MD Ordering Physician: Jethro Sharma MD Date of Service: 09/24/24 Procedure(s): FL Mod ified Barium Swallow Accession Number(s): [id number] cc: Jethro Sharma MD; Adan Griffin MD [...] Dictated By: Alfonso Maya MD Signed By: <Electro nically signed by Alfonso Maya MD in [place]> 09/24/24 1605 DD/ 1432 TD/TT: 09/24/24 1439 Asphalt Raker: Reason For Referral No Information Medications Medication [...] Problem Status W/U Status Risk Notes Problem 426164015 Colon cancer screening (Z12.11) Active confirmed Problem 159842752 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 Problem 760376723802571 longterm (current) use of aspirin (Z79.82) Active confirmed Problem Dysphagia (35674167) Dysphagia (R13.10) Active confirmed Problem 99961942833940867 intermediate designer current use of diuretic (Z79.899) Active confirmed Vital Signs Temperature 97.3 degrees Fahrenheit 08/25/2024 Blood pressure diastolic 00 mm Hg 08/25/2024 Height 67 in 08/25/2024 Blood pressure systolic 000 mm Hg 08/25/2024 Weight 253 lb 8 oz lbs 08/25/2024 BMI 39.70 kg/m2 08/25/2024 Encounters Encounter Location Date Provider Diagnosis [facility] [place] [address], [place] [phone] 06/17/2024 Jethro Sharma Jr Other diseases of stomach and duodenum K31.89 and Dysphagia R13.10 [facility] [address] [place] [address] 08/25/2024 Jethro Sharma Jr Dysphagia R13.10 ; Colon cancer screening Z12.11 and 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 K22.70 [facility] [address] [place] [phone] 06/19/2024 Jethro Sharma Jr Assessments Encounter Date [...] Provider Name:Jethro shaw , 02/26/2025 01:55:00 PM, [address] [place] [address], [address], [place], [address], Insurance Providers Payer Name Payer Address Payer Phone Subscriber Number Group Number Insured Name Patient Relationship to Insured Coverage Start Date Coverage End Date [facility] [address] [place] [address] [id number] ALLEY TUBBS Self - patient is the insured Medical (General) History Medical History History ICD Code Hypertension Hyperlipidemia Diabetes mellitus Hypercalcemia Elevated BMI Osteopenia Macular degeneration Adnexal cyst Adrenal mass Colonoscopy 04/04, tubular adenoma, five- year followup Gastroesophageal reflux disease, EGD , esophagitis, no stricture Surgical History Surgery Date(Month/Year) cholecystectomy Hospitalization History Reason Date(Month/Year) [place] Sh[place] [facility] [place]
--- OUTSIDE RECORDS SUMMARY | 2024-09-26 11:10 | XMS_ITS ---
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 Vital Signs Temperature 97.3 degrees Fahrenheit 08/25/19 25 Blood pressure systolic 000 mm Hg 08/25/19 25 Blood pressure diastolic 00 mm Hg 025 Height 67 in 08/25/2024 Weight 253 lb 8 oz lbs 08/25/2024 BMI 39.70 kg/m2 08/25/2024 Encounters Encounter Location Date Provider Diagnosis [facility] [address] [place] [address] 08/25/2024 Jethro Sharma Jr Dysphagia R13.10 ; [...] Provider Name:Jethro shaw , 02/26/2025 01:55:00 PM, [address] [place] [address], [address], [place], [address], Progress Notes * ALLEY JAIMES ADOB:[birth year] (69 yo F)Acc No.[id number]:08/25/2024 Progress Notes Patient:?ALLEY JAIMES Provider:?Jethro Sharma MD :1955???Age:69 Y???Sex:Female D ate:08/25/2024 Address:[address] [place], [place] [phone] Pcp:Adan Griffin MD Subjective: * Chief Complaints: [...] stic Procedure:?endoscopy done with [place]. Sharma [place] [facility] 06[place]08. * Family History:?Father: dece ased.?Mother: , [...] MD Date:?0 08/25/2024 Generated for Sonia haas/Nikolas/Chavezitting on:?09/26/2024 11:10 AM EDT History and Physical Notes * [...]
--- OUTSIDE RECORDS SUMMARY | 2024-09-26 11:11 | XMS_ITS | Patient Health Record ---
Author Organization [facility] shannan Lincoln Address [address] [place] [address] Care Team Providers Care Junior Web Designer Name Role Phone Adan Griffin Primary Care Provider Susan Mccord Unavailable [phone] Allergies Allergen (clinical drug ingredient) Drug/Non Drug [...] Problem Acquired hammer toe of right foot (769401242923 9105) Other hammer toe(s) (acquired), right foot (M20.41) Active confirmed Problem Acquired hammer toe of left foot (101787579919 9103) Other hammer toe(s) (acquired), left foot (M20.42) Active confirmed Problem Atherosclerosis of [place]q artery of both lower extremities, with unspecified presence of clinical manifestation (I70.203) Active confirmed Q7(A), Q8(2B), Q9(1B,2C ) Problem 799503177 Type 2 diabetes mellitus without complication, without long-term current use of insulin (E11.9) Active confirmed Vital Signs Blood pressure diastolic 72 mm Hg 07/22/2024 Height 5ft 7in in 07/22/2024 Blood pressure systolic 128 mm Hg 07/22/2024 Weight 290 lbs 07/22/2024 BMI 45.42 kg/m2 07/22/2024 Encounters Encounter Location Date Provider Diagnosis [facility] [address] [address] 07/22/2024 Susan Ronaldocristiano Atherosclerosis of [place]ut[place]q artery of both lower extremities, with unspecified [...] unguium (ICD-10 - B35.1) 07/22/2024 Atherosclerosis of [place]utiiq artery of both lower extremities, with unspecified [...] Details Provider Name:Susan quinonez, 10/28/2024 01:30:00 PM, [address] [place] [address], [address], Insurance Providers Payer Name Payer Address Payer Phone Subscriber Number Group Number Insured Name Patient Relationship to Insured Coverage Start Date Coverage End Date BlueCare 65 Medicare Preferred [address] [place] [address] [id number] Alley Francisco Self - patient is the insured Medical (General) History Medical History History ICD Code Mumps Measles Chicken pox ulcer Macular degeneration High Blood Pressure Gall bladder problems Pre Diabetic CAD (Cholesterol) Surgical History Surgery Date(Month/Year) gall bladder - stones [place] History Reason Date([place] [facility] [place]
--- OUTSIDE RECORDS SUMMARY | 2024-09-26 11:11 | XMS_ITS ---
Author Organization [facility] Address [address] [address] Care Team Providers Care Cardiac Monitor Technician Name Role Phone Po Adan SALGADO Primary Care Provider Jethro Munoz Jr [phone] REASON FOR VISIT dysphagia Problems Problem Type SNOMED Code ICD Code Onset Dates Problem Status W/U Status Risk Notes Problem Dysphagia (15991806) Dysphagia (R13.10) Active confirmed Encounters Encounter Location Date Provider Diagnosis [facility] Inpatient [address] [place], [place] [phone] 06/17/2024 Jethro Sharma Jr Other diseases of stomach and duodenum K31.89 and Dysphagia R13.10 Assessments Encounter Date Diagnosis (ICD Code) Assessment Notes Treatment Notes Treatment Clinical Notes Section Notes 06/17/2024 Other diseases of stomach and duodenum (ICD-10 - K31.89) 06/17/2024 Dysphagia (ICD-10 - R13.10) Plan Of Treatment Next Appt Details Provider Name:Jethro shaw Jr, 02/26/2025 01:55:00 PM, 10 [facility], Suite [facility], [place], [address], Progress Notes * BIANCA JAIMES ADOB:[birth year] (69 yo F)Acc No.[id number]:06/17/2024 EGD/MAC Patient:?BIANCA JAIMES Provider:?Jethro Sharma MD :1955???Age:69 Y???Sex:Female D ate:06/17/2024 Address:[address] [place], [place] [address] Pcp:Adan Griffin MD Subjective: * Chief Complaints: * ???1. Dysphagia. * Medical History:? Objective: * Vitals:? Assessment: * Assessment: 1.?Other diseases of stomach and duodenum - K31.89 (Primary)???2.?Dysphagia - R13.10??? Plan: * Treatment: * Procedure Codes:?21274 UPPER GI ENDOSCOPY, BIOPSY * * The named appointment provid er may or may not be the originator of this progress note, and it is not deemed complete until electronically signed by the appointment provider. Sign off status: Pending * Provider:?Jethro Sharma MD Date:?08/18/2023 Generated for Sonia haas/Nikolas/Xiangsmitting on:?09/26/2024 11:10 AM EDT
--- OUTSIDE RECORDS SUMMARY | 2024-09-26 11:11 | XMS_ITS ---
Author Organization [facility] Address 10 [facility] [address] [place] [address] Care Team Providers Care Medical Hospital Sales Name Role Phone Adan Griffin MD Primary Care Provider Dylon Sharma Jr, Jethro Barr REASON FOR VISIT pathology Medications Medication SIG (Take, Route, Fr equency, Duration) Notes Start Date End Date Status Omeprazole 20 MG 1 capsule 1/2 to 1 h our before morning meal Orally Once a day for 30 day(s) 06/20/2024 Active Encounters Encounter Location Date Provider Diagnosis [facility] 10 [facility] [address] [place] [address] 06/19/2024 Jethro Sharma Jr Plan Of Treatment Medication Medication Name Sig Start Date Stop Date Notes Omeprazole 20 MG 1 capsule 1/2 to 1 h our before morning meal Orally Once a day for 30 day(s) 06/20/2024 Next Appt Details Provider Name:Jethro shaw Jr, 02/26/2025 01:55:00 PM, [address] [place] [address], [address], [place], [address], Progress Notes * BIANCA JAIMES ADOB:[birth year] (69 yo F)Acc No.[id number]:06/19/2024 Patient:?BIANCA JAIMES :1955???Age:69 Y???Sex:Female Address:[address] [place] [address] * Refills? Start Omeprazole Capsule Delayed Release, 20 MG, Orally, 30, 1 capsule 1/2 to 1 hour before morning meal, Once a day, 30 day(s), Refills=6 * true * Date:? Generated for Sonia haas/Nikolas/Mike on:?09/26/2024 11:10 AM EDT
[2024-09-26 11:44] LABS: Total Volume 24 Hour Urine 875 mL
[2024-09-26 12:21] LABS: Creatinine, 24Hr Urine 0.9 G/Day (1.0-2.0); Creatinine, mg/dL 100.85
[2024-10-01 13:08] LABS: Metanephrine, Free <25 pg/mL (<=57); Normetanephrines, Free 476 pg/mL (<=148); Total Metanephrine, Free 476 pg/mL (<=205)
[2024-10-01 20:18] LABS: CATF, 24 Ur Volume 875 mL; CATF-24Ur Creatinine 0.86 g/24 h (0.50-2.15); Catecholamines,Tot. (E+NE) 24U 53 mcg/24 h (26-121); Dopamine, 24 Ur 276 mcg/24 h (52-480); Norepinephrine, 24 Ur 53 mcg/24 h (15-100)
[2024-10-04 15:13] LABS: Metanephrine, Free 24U 77 mcg/24 h (90-315); Normetanephrine, Free 24U 1016 mcg/24 h (122-676); Total Metanephrine, Free 24U 1093 mcg/24 h (224-832); Total Volume 24U 875 mL
== END 2024-09-26 09:58 | disposition home or self-care (01) ==
LOC: HO.LAB 09:57
PROVIDERS: PCP Internal Medicine; Visit Provider Student in an Organized Health Care Education/Training Program
DX: E27.8 Other specified disorders of adrenal gland (principal)
CPT/HCPCS: 36415; 82384; 82565; 82570; 83835; 84520

== ENCOUNTER 2024-09-29 08:32 | Outpatient (RCR) | payer MEDICARE, SELFPAY ==
[2024-09-29 09:22] VITALS: TEMP 36.6
--- NOTE | 2024-09-29 10:08 | HO.INF ---
labs drawn from #[id number]. no infusion ordered. Patient went to MRI IV left in for them to use
== END 2024-09-29 10:11 | disposition home or self-care (01) ==
LOC: HO.INF 08:32
PROVIDERS: Visit Provider Student in an Organized Health Care Education/Training Program
DX: E27.8 Other specified disorders of adrenal gland (principal)
CPT/HCPCS: 36415; 83835; 96374; A9585

== ENCOUNTER → 2024-09-29 10:19 | Outpatient (BNV) | payer MEDICARE, SELFPAY | PROVIDERS: PCP Internal Medicine; Visit Provider Radiology Diagnostic Radiology | DX: E27.8 Other specified disorders of adrenal gland (principal) | CPT/HCPCS: 74183 ==

== ENCOUNTER 2024-09-29 10:26 | Outpatient (REF) | payer MEDICARE, SELFPAY ==
--- NOTE | ~2024-09-29 | MR_ITS ---
EXAMINATION: MRI Abdomen without and with contrast HISTORY: E27.8 - Other specified disorders of adrenal gland. Concern for pheochromocytoma. COMPARISON: Correlation is made with a CT of the abdomen with contrast dated 05/23/2024. TECHNIQUE: Axial in and out of phase T1-weighted gradient echo, axial diffusion weighted, and axial and coronal HASTE T2 with fat saturation images were obtained through the abdomen. Subsequently, fat suppressed axial and coronal T1-weighted images were obtained after the intravenous administration of 10 mL Gadavist. FINDINGS: There is a 3.0 x 2.2 cm right adrenal mass which demonstrates heterogeneously increased T2 signal intensity. The mass demonstrates markedly decreased signal intensity on the in phase T1-weighted gradient echo sequence. A tiny T1 hyperintense focus within the mass loses signal intensity on fat-suppressed images (series 10, image 39 and series 11, image 38). This is also seen when comparing the conventional T2 and fat-suppressed T2-weighted sequences. Deidre ink artifact is seen in this region on opposed phase imaging. These findings are consistent with macroscopic fat, likely due to a myelolipoma. There is heterogeneous enhancement of the mass. The left adrenal gland is unremarkable. There is no significant signal loss within the liver on opposed phase imaging to suggest steatosis. No enhancing liver mass is identified. The hepatic and portal veins are patent. There is no intra or extrahepatic biliary ductal dilatation. The common bile duct is normal in caliber. The spleen, pancreas, and kidneys are unremarkable. MR/MR abdomen wo/w con IMPRESSION: 3.0 x 2.2 cm right adrenal mass which demonstrates imaging characteristics suggestive of a myelolipoma. This could be followed with unenhanced CT. Electronically signed by: Taco Odom MD 09/29/2024 11:40 AM EDT
[2024-09-29] MEDS: gadobutroL 10 ML VIAL IVPUSH (11:18)
--- OUTSIDE RECORDS SUMMARY | 2024-09-29 11:46 | XMS_ITS | Clinical Summary ---
Author Organization [facility], Address [address] [place] [address] [place] [address] Phone Care Team Providers Care Waterproofer Helper Name Role Phone Adan Griffin MD Primary Care Provider [phone] Medications aspirin 81 MG tablet Take 1 [...] patient's age to complete this topic Insurance [place] [address] Care Teams Waterproofer Helper Relationship Specialty Start Date End Date Adan Griffin MD [facility] [address] KAMALJITELBERT DELAROSA PCP - General 05/20/19
--- OUTSIDE RECORDS SUMMARY | 2024-09-29 11:46 | XMS_ITS ---
Author Organization [facility] Address [address] [address] Care Team Providers Care Vacation Planner Name Role Phone Po Adan SALGADO Primary Care Provider Jethro Munoz Jr REASON FOR VISIT dysphagia Problems Problem Type SNOMED Code ICD Code Onset Dates Problem Status W/U Status Risk Notes Problem Dysphagia (19939896) Dysphagia (R13.10) Active confirmed Encounters Encounter Location Date Provider Diagnosis [facility] Inpatient [address] [place], [place] [phone] 06/17/2024 Jethro Sharma Jr Other diseases of stomach and duodenum K31.89 and Dysphagia R13.10 Assessments Encounter Date Diagnosis (ICD Code) Assessment Notes Treatment Notes Treatment Clinical Notes Section Notes 06/17/2024 Other diseases of stomach and duodenum (ICD-10 - K31.89) 06/17/2024 Dysphagia (ICD-10 - R13.10) Plan Of Treatment Next Appt Details Provider Name:Jethro shaw Jr, 02/26/2025 01:55:00 PM, 10 [facility], Suite [facility], [place], [address], Progress Notes * BIANCA JAIMES ADOB:[birth year] (69 yo F)Acc No.[id number]:06/17/2024 EGD/MAC Patient:?BIANCA JAIMES Provider:?Jethro Sharma MD :1955???Age:69 Y???Sex:Female D ate:06/17/2024 Address:[address] [place], [place] [address] Pcp:Adan Griffin MD Subjective: * Chief Complaints: * ???1. Dysphagia. * Medical History:? Objective: * Vitals:? Assessment: * Assessment: 1.?Other diseases of stomach and duodenum - K31.89 (Primary)???2.?Dysphagia - R13.10??? Plan: * Treatment: * Procedure Codes:?80736 UPPER GI ENDOSCOPY, BIOPSY * * The named appointment provid er may or may not be the originator of this progress note, and it is not deemed complete until electronically signed by the appointment provider. Sign off status: Pending * Provider:?Jethro Sharma MD Date:?08/18/2023 Generated for Sonia haas/Nikolas/Xiangsmitting on:?09/29/2024 11:46 AM EDT
--- OUTSIDE RECORDS SUMMARY | 2024-09-29 11:46 | XMS_ITS | Patient Health Record ---
Author Organization [facility] shannan Waldo Address [address] [place] [address] Care Team Providers Care Donor Relations Coordinator Name Role Phone Adan Griffin Primary Care Provider Susan Mccord Unavailable [phone] Allergies Allergen (clinical drug ingredient) Drug/Non Drug [...] Problem Acquired hammer toe of right foot (303733529921 9105) Other hammer toe(s) (acquired), right foot (M20.41) Active confirmed Problem Acquired hammer toe of left foot (142041217950 9103) Other hammer toe(s) (acquired), left foot (M20.42) Active confirmed Problem Atherosclerosis of [place] artery of both lower extremities, with unspecified presence of clinical manifestation (I70.203) Active confirmed Q7(A), Q8(2B), Q9(1B,2C ) Problem 564834573 Type 2 diabetes mellitus without complication, without long-term current use of insulin (E11.9) Active confirmed Vital Signs Blood pressure diastolic 72 mm Hg 07/22/2024 Height 5ft 7in in 07/22/2024 Blood pressure systolic 128 mm Hg 07/22/2024 Weight 290 lbs 07/22/2024 BMI 45.42 kg/m2 07/22/2024 Encounters Encounter Location Date Provider Diagnosis [facility] [address] [address] 07/22/2024 Susan Ronaldocristiano Atherosclerosis of [place] artery of both lower extremities, with unspecified [...] unguium (ICD-10 - B35.1) 07/22/2024 Atherosclerosis of [place] artery of both lower extremities, with unspecified [...] Details Provider Name:Susan quinonez, 10/28/2024 01:30:00 PM, [address] [place] [address], [address], Insurance Providers Payer Name Payer Address Payer Phone Subscriber Number Group Number Insured Name Patient Relationship to Insured Coverage Start Date Coverage End Date BlueCare 65 Medicare Preferred [address] [place] [address] [id number] Alley Francisco Self - patient is the insured Medical (General) History Medical History History ICD Code Mumps Measles Chicken pox ulcer Macular degeneration High Blood Pressure Gall bladder problems Pre Diabetic CAD (Cholesterol) Surgical History Surgery Date(Month/Year) gall bladder - stones Hospitalization History Reason Date(Month/Year) [facility] [place]leg[place] 06/12/24
--- OUTSIDE RECORDS SUMMARY | 2024-09-29 11:46 | XMS_ITS ---
Author Organization [facility] Cle[facility] Address [address] [place] [address] Care Team Providers Care Pastry Sous Chef Name Role Phone Adan Griffin Primary Care Provider Susan Mccord Unavailable [phone] Allergies Allergen (clinical drug ingredient) Drug/Non Drug [...] W/U Status Risk Notes Problem Atherosclerosis of [place] artery of both lower extremities, with unspecified presence of clinical manifestation (I70.203) Active confirmed Q7(A), Q8(2B), Q9(1B,2C ) Problem Acquired hammer toe of right foot (017887297911 9105) Other hammer toe(s) (acquired), right foot (M20.41) Active confirmed Problem Acquired hammer toe of left foot (079916216466 9103) Other hammer toe(s) (acquired), left foot (M20.42) Active confirmed Problem 296730325 Type 2 diabetes mellitus without complication, without long-term current use of insulin (E11.9) Active confirmed Vital Signs Height 5ft 7in in 07/22/2024 Weight 290 lbs 07/22/2024 BMI 45.42 kg/m2 07/22/2024 Blood pressure systolic 128 mm Hg 07/22/19 25 Blood pressure diastolic 72 mm Hg 025 Encounters Encounter Location Date Provider Diagnosis [facility] [place] [address] [place] [address] 07/22/2024 Susan Napoles Atherosclerosis of [place] artery of both lower extremities, with unspecified [...] Clinical Notes Section Notes 07/22/2024 Atherosclerosis of [place] shosh[place] artery of both lower extremities, with unspecified [...] Reason: Provider Name:Susan quinonez, 10/28/2024 01:30:00 PM, [address] [place] [address], [address], Procedure Notes * Category Sub-Category Detail Notes [...] use of a nail nipper and/or dremel-type head grinder, to a more viable healthy nail [...] to maintain effectiveness in symptomatic relief - 15108 Keratoma Treatment Parring or Cutting o f [...] instrumentation by the physician of record - 89664 Progress Notes * Alley TUBBS ADOB:[birth year] (69 yo F)Acc No.[id number]:07/22/2024 Progress Notes Patient:?Alley TUBBS Provider:?Susan Napoles DPM :1955???Age:69 Y???Sex:Female D ate:07/22/2024 Address:[address] [place], [place] [address] Pcp:Adan Griffin Subjective: * Chief Complaints: * [...] er - stones * [place]ization/Major Diagno stic [place] [place] * Family History:?Mother: dece [...] shopping, cleaning. ?Marital status: . 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 * Medications:?TakingOmeprazol e Advil PreserVision AREDS [...] Assessment: 1.?Tinea unguium - B35.1???2 .?Atherosclerosis of [place]osh[place] artery of both lower extremities, with unspecified [...] use of a nail nipper and/or dremel-type head grinder, to a more viable healthy nail [...] to maintain effectiveness in symptomatic relief - 63811.?Keratoma Treatment:?Parring or Cutting of Benign Hyperkeratotic Lesion(s)?(-56) [...] instrumentation by the physician of record - 25446.? * Procedure Codes:?70248 DEBRI DE NAIL, 6 OR MORE, Modifiers: XS 46060 TRIM SKIN LESIONS, 2 TO 4, Modifiers: [...] specialist, pt has upcoming vascular [place] [facility] [place].?Shoe Gear Counseling:?SHOE Rx - [...] Napoles DPM Date:?01/2025 Generated for Sonia haas/Nikolas/Chavezitting on:?09/29/2024 11:45 AM EDT History and Physical Notes * [...]
--- OUTSIDE RECORDS SUMMARY | 2024-09-29 11:46 | XMS_ITS ---
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 Vital Signs Temperature 97.3 degrees Fahrenheit 08/25/19 25 Blood pressure systolic 000 mm Hg 08/25/19 25 Blood pressure diastolic 00 mm Hg 025 Height 67 in 08/25/2024 Weight 253 lb 8 oz lbs 08/25/2024 BMI 39.70 kg/m2 08/25/2024 Encounters Encounter Location Date Provider Diagnosis [facility] [address] [place] [address] 08/25/2024 Jethro Sharma Jr Dysphagia R13.10 ; [...] Provider Name:Jethro shaw , 02/26/2025 01:55:00 PM, [address] [place] [address], [address], [place], [address], Progress Notes * ALLEY JAIMES ADOB:[birth year] (69 yo F)Acc No.[id number]:08/25/2024 Progress Notes Patient:?ALLEY JAIMES Provider:?Jethro Sharma MD :1955???Age:69 Y???Sex:Female D ate:08/25/2024 Address:[address] [place], [place] [address] Pcp:Adan Griffin MD Subjective: * Chief Complaints: [...] stic Procedure:?endoscopy done with Dr. Sharma at [facility] 06/08. * Family History:?Father: dece ased.?Mother: , [...] MD Date:?0 08/25/2024 Generated for Sonia haas/Nikolas/Chavezitting on:?09/29/2024 11:45 AM [...]
--- OUTSIDE RECORDS SUMMARY | 2024-09-29 11:46 | XMS_ITS | Patient Health Record ---
Author Organization [facility] Address [address] [place] [address] Care Team Providers Care Radial Drill Press Operator For Plastic Name Role Phone Adan Griffin MD Primary Care Provider Jethro Munoz Jr Allergies Allergen (clinical drug ingredient) Drug/Non Drug Allergy documented on EMR Reaction Allergy Type Onset Date Status amoxicillin Amoxicillin Unknown Drug Allergy Act rosalie Results Component Value Reference Range Notes Pathology Reviewed date:06/19/2024 11:18:33 AM Interpretation: Performing Lab:[facility], [address] [place] [address] Notes/Report: Name: Christiano Tubbs Age/Sex: 69/F : 1955 Unit#: [id number] Attend Dr: Elijah Titus MD Re06/13/24 Status : DIS IN Location: [facility] 343-1 Disch: 06/18/24 SPEC : [id number] RECD : 06/17/24 STATUS: PATRICIA CURIEL NUM: [id number] JEAN-PAUL: 06/17/24-[address] [facility] [address]: Jethro Sharma MD ENTERED: 06/17/24-13 [...] Christiano Tubbs Age/Sex: 69/F : 1955 Unit#: [id number] Attend Dr: Elijah Titus MD Re06/13/24 Status : DIS IN Location: [facility] 343-1 Disch: 06/18/24 SPEC : [id number] RECD : 06/17/24-1344 STATUS: PATRICIA REQ NUM: [id number] JEAN-PAUL: 06/17/24-[address] [facility] [address]: Jethro Sharma MD ENTERED: 06/17/24-13 52 SP TYPE: Surgical OTHR DR: Adan Griffin MD, Jackie NP ORDERED: HE Stain/9, Gross Micro L4/3, IHC, Special st. 2, H. pylori, AB/PAS Copies To: Jethro Sharma MD [facility] [address] [place], [place] [phone] Adan Griffin MD [facility] [place] Primary Care,[place] [address] [place], [place] [phone] Wendi Alanis NP [address] [place], [place] [phone] Signed (si gnature on file) Kam Steward MD 06/19/24 1104 END OF REPORT FL barium swallow modified Reviewed date:09/25/2024 07:49:30 AM Interpretation: Performing Lab: Notes/Report: [address] [address] Fluoroscopy Report Signed Patient: Alley Tubbs MR#: [id number] : 1955 Acct:[id number] Age/Sex: 69 / F ADM Date: 09/24/24 Loc: MARYJO Attending Dr: Jethro Sharma MD Ordering Physician: Jethro Sharma MD Date of Service: 09/24/24 Procedure(s): FL Modified Barium Swallow Accession Number(s): [id number] cc: Jethro Sharma MD; Adan Griffin MD [...] 09/24/24 1605 DD/ 1432 TD/TT: 09/24/24 1439 Inspector Wreath: [place] [address] Fluoroscopy Report Signed Patient: Rema Tubbs MR#: [id number] : 1955 Acct:[id number] Age/Sex: 69 / F ADM Date: 09/24/24 Loc: JESSICA Attending Dr: Mery Sharma MD Ordering Physician: Jethro Sharma MD Date of Service: 09/24/24 Procedure(s): FL Mod ified Barium Swallow Accession Number(s): [id number] cc: Jethro Sharma MD; Adan Griffin MD [...] 09/24/24 1605 DD/ 1432 TD/TT: 09/24/24 1439 Inspector Wreath: Reason For Referral No Information Medications Medication [...] Problem Status W/U Status Risk Notes Problem 079933185 Colon cancer screening (Z12.11) Active confirmed Problem 326350047 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 Problem 953344037589782 MCFP (current) use of aspirin (Z79.82) Active confirmed Problem Dysphagia (27205221) Dysphagia (R13.10) Active confirmed Problem 57816126746843443 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 control 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 of diuretic (Z79.899) Active confirmed Vital Signs Temperature 97.3 degrees Fahrenheit 08/25/2024 Blood pressure diastolic 00 mm Hg 08/25/2024 Height 67 in 08/25/2024 Blood pressure systolic 000 mm Hg 08/25/2024 Weight 253 lb 8 oz lbs 08/25/2024 BMI 39.70 kg/m2 08/25/2024 Encounters Encounter Location Date Provider Diagnosis [facility] [place] [address] [place], [place] [phone] 06/17/2024 Jethro Sharma Jr Other diseases of stomach and duodenum K31.89 and Dysphagia R13.10 [facility] [address] [place] [address] 08/25/2024 Jethro Sharma Jr Dysphagia R13.10 ; Colon cancer screening Z12.11 and 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 K22.70 [facility] [address] [place] [address] 06/19/2024 Jethro Sharma Jr Assessments Encounter Date [...] Provider Name:Jethro shaw , 02/26/2025 01:55:00 PM, [address] [place] [address], [address], [place], [address], Insurance Providers Payer Name Payer Address Payer Phone Subscriber Number Group Number Insured Name Patient Relationship to Insured Coverage Start Date Coverage End Date [facility] [address] [place] [address] [id number] ALLEY TUBBS Self - patient is the insured Medical (General) History Medical History History ICD Code Hypertension Hyperlipidemia Diabetes mellitus Hypercalcemia Elevated BMI Osteopenia Macular degeneration Adnexal cyst Adrenal mass Colonoscopy 04/04, tubular adenoma, five- year followup Gastroesophageal reflux disease, EGD , esophagitis, no stricture Surgical History Surgery Date(Month/Year) cholecystectomy Hospitalization History Reason Date(Month/Year) [place] Sh[place] [facility] [place]
--- OUTSIDE RECORDS SUMMARY | 2024-09-29 11:46 | XMS_ITS ---
Author Organization [facility] Address 10 [facility] [address] [place] [address] Care Team Providers Care Store Facility Technician Name Role Phone Adan Griffin MD Primary Care Provider Dylon Sharma Jr, Jethro Barr [phone] REASON FOR VISIT pathology Medications Medication SIG (Take, Route, Fr equency, Duration) Notes Start Date End Date Status Omeprazole 20 MG 1 capsule 1/2 to 1 h our before morning meal Orally Once a day for 30 day(s) 06/20/2024 Active Encounters Encounter Location Date Provider Diagnosis [facility] 10 [facility] [address] [place] [address] 06/19/2024 Jethro Sharma Jr Plan Of Treatment Medication Medication Name Sig Start Date Stop Date Notes Omeprazole 20 MG 1 capsule 1/2 to 1 h our before morning meal Orally Once a day for 30 day(s) 06/20/2024 Next Appt Details Provider Name:Jethro shaw Jr, 02/26/2025 01:55:00 PM, [address] [place] [address], [address], [place], [address], Progress Notes * BIANCA JAIMES ADOB:[birth year] (69 yo F)Acc No.[id number]:06/19/2024 Patient:?BIANCA JAIMES :1955???Age:69 Y???Sex:Female Address:[address] [place] [address] * Refills? Start Omeprazole Capsule Delayed Release, 20 MG, Orally, 30, 1 capsule 1/2 to 1 hour before morning meal, Once a day, 30 day(s), Refills=6 * true * Date:? Generated for Sonia haas/Nikolas/Chavezitting on:?09/29/2024 11:46 AM EDT
== END 2024-09-29 10:27 | disposition home or self-care (01) ==
LOC: HO.MRI 10:26
PROVIDERS: PCP Internal Medicine; Visit Provider Student in an Organized Health Care Education/Training Program
DX: E27.8 Other specified disorders of adrenal gland (principal)
CPT/HCPCS: 74183; A9585

== ENCOUNTER 2024-10-10 11:21 | Outpatient (AMB) | payer MEDICARE, SELFPAY ==
--- NOTE | 2024-10-10 11:28 | A.OFFVIS_ITS ---
Vital Signs 10/10/24 11:29 Weight 248 lb 0.321 oz BP 124/62 Blood Pressure Location Rt brachial Position Sitting Pulse 60 Pulse Source Pulse Oximeter Pulse Oximetry (%) 95 Oxygen Delivery Method Room Air Intake Visit Reasons: Other specified disorders of adrenal gland Intake Note: Patient present today for Other specified disorders of adrenal gland office visit. Allergies amoxicillin [AMOXICILLIN] Allergy (Severe, Verified 10/10/24 11:30) RASH adhesive tape [ADHESIVE TAPE] Allergy (Intermediate, Verified 10/10/24 11:30) RASH lisinopril [LISINOPRIL] Allergy (Intermediate, Verified 10/10/24 11:30) COUGH cephalexin Allergy (Mild, Verified 10/10/24 11:30) Rash simvastatin [From ZOCOR] Allergy (Unknown, Verified 10/10/24 11:30) UNKNOWN doxycycline Allergy (Verified 10/10/24 11:30) Rash HPI Comments Details: 69-year-old female here today for follow up of right adrenal gland nodule. HPI from prior visit Was having trouble swallowing and abd pain which prompted the adrenal CT in May 2024 I reviewed the images myself whihc showed Right adrenal gland: 3.5 cm mixed density and partially calcified low density nodule with the 30 Hounsfield units. History of HTN since her 20s/30s , used to be on 3 meds, but irbesartan DCed during May 2024 hospitalization , was also noted to have hypokalemia of potassium down to 2.7 , started on Kcl 10 meq daily, and now on HCTZ and metoprolol for BP control, BP normal today. Gastroententeritis in April 2024, subsequentlty she was barely eating in 2023, also had cellulitis Lost 50 lbs since 2023, still having trouble with dysphagia, had EGD whihc showed Barretts per patient and pending a barium swallow study with GI . She has history of prediabetes managed with diet . Pt denies hirsutism,severe acne ,headaches , , reports easy bruisability , no abdominal striae,no headache,diaphoresis -No skin infection or hyperpigmentation. no recent vertebra or fragility fracture, Ostepenia on BMD 2022 -No ,facial plethora or recent mood change. No hx of depression. - no episodic palpitaions, pallor, abdominal pain, diaphoresis . -no loss of libido No CAD. No CVA. Smoking a pack a day since 15 years of age, now down to 3-4 cigarettes per day No anticoagulants. No history of TB. Father history of lung cancer was a smoker. Interval history 09/02/2024: A.m. cortisol of 3.8, acth 8, DHEA-S 7, aldosterone of 8, plasma renin activity of 3.41, plasma free metanephrine normal at 25, plasma free normetanephrine level elevated at 315, 09/04/2024,: Normal dexamethasone suppression tests with cortisol suppressed to 1, acth suppressed to less than 5 09/10/2024: Elevated plasma free normetanephrine of 272, (less than 148 pg/mL), undetectable free metanephrine levels 09/12/2023 24 hour urine normetanephrine noted to be elevated at 771 (upper limit of normal 676 mcg), 24 hour total metanephrine normetanephrine level noted to be elevated at 850 (upper limit of normal 832), low urine free normetanephrine of 79 (90-315) 09/27/2023: Plasma free metanephrine undetectable, plasma free normetanephrine elevated at 476 09/27/2023 24 hour urine metanephrine 77, 24 hour urine normetanephrine 1016, 24 hour urine total metanephrine and normetanephrine 1093, 24 hour urine dopamine level normal at 276, 24 hour urine total catecholamine level normal at 53 09/26/2024: Patient started on doxazosin 1 mg daily at bedtime 09/29/2024: Blood draw done from an indwelling catheter after 30 minutes of supine rest also showed elevated plasma free normetanephrine levels of 305, low metanephrine levels of less than 25 09/29/2024: Abdominal MRI pointed towards that 3 cm right adrenal mass which is T2 hyperintense, heterogenous the increased intensity, T1 hypointense, loss of signal in a T1 hyperintense focus on fat suppressed images, findings suggestive of macroscopic fat consistent with myelolipoma. Overall heterogeneous enhancement of the mass. Left adrenal gland unremarkable. Patient brought in BP log which showed morning blood pressures in the range of 91-107 systolic, 53 to 66 diastolic, heart rate 57-68, evening blood pressures 130s to 140s systolic, 60s diastolic, heart rate in the 50s to 60s 10/09/2024: Metoprolol stopped Physical exam General: sitting comfortably in no acute distress HEENT: normocephalic/atraumatic, Neck: supple, symmetrical, no thyromegaly , does have dorsocervical and supraclavicular fat pads Cardiac: normal heart sounds Pulm: normal breath sounds B/L, no added breath sounds Abd: not distended, no tenderness, no purple abdominal striae Extremities: no edema, no signs of myxedema, power in upper extremities 5/5 ? Laboratory Tests 05/26/24 06/02/24 06/11/24 11:16 07:24 09:44 Potassium 3.6 3.8 3.2 L Albumin Renin Activity Aldosterone Aldosterone/Renin Ratio TSH Free T4 06/12/24 06/13/24 06/14/24 05:01 06:41 05:18 Potassium 3.1 L 3.2 L 2.7 L* Albumin Renin Activity Aldosterone Aldosterone/Renin Ratio TSH Free T4 06/15/24 07/18/24 05:33 09:41 Potassium 3.4 D 3.3 Albumin 3.4 L Renin Activity 8.34 H Aldosterone 8 Aldosterone/Renin Ratio 1.0 TSH 2.11 Free T4 0.59 L Laboratory Tests 09/04/24 09/10/24 09/12/24 08:12 12:05 08:00 Random Glucose 170 H Calcium 9.7 Random Cortisol 1.0 ACTH <5 L Plasma Free Metaneph <25 Plasma Free Normeta 272 H Plas Total Metaneph 272 H Ur 24 Hour Volume 1550 Ur Creatinine mg/dL 52.38 Ur Creatinine 24 Hour 0.8 L U Norepinephrine 24 Hr Urine Total Volume 1550 U Free Metanephrine 79 L U Normetanephrine 24h 771 H U Tot Metanephrine 24h 850 H Ur Dopamine 24 Hr U Tot Catecholamine 24h Urine Creatinine Dexamethasone 488 09/26/24 09/26/24 09/26/24 08:00 08:00 10:09 Random Glucose Calcium Random Cortisol ACTH Plasma Free Metaneph <25 Plasma Free Normeta 476 H Plas Total Metaneph 476 H Ur 24 Hour Volume 875 Ur Creatinine mg/dL 100.85 Ur Creatinine 24 Hour 0.9 L U Norepinephrine 24 Hr 53 Urine Total Volume 875 875 U Free Metanephrine 77 L U Normetanephrine 24h 1016 H U Tot Metanephrine 24h 1093 H Ur Dopamine 24 Hr 276 U Tot Catecholamine 24h 53 Urine Creatinine 0.86 Dexamethasone 09/29/24 09:58 Random Glucose Calcium Random Cortisol ACTH Plasma Free Metaneph <25 Plasma Free Normeta 305 H Plas Total Metaneph 305 H Ur 24 Hour Volume Ur Creatinine mg/dL Ur Creatinine 24 Hour U Norepinephrine 24 Hr Urine Total Volume U Free Metanephrine U Normetanephrine 24h U Tot Metanephrine 24h Ur Dopamine 24 Hr U Tot Catecholamine 24h Urine Creatinine Dexamethasone CT ABDOMEN AND PELVIS WITH CONTRAST 05/23/24 CLINICAL INFORMATION: Abdominal pain for 2 weeks. Nausea and vomiting. COMPARISON: None available. TECHNIQUE: Multidetector volumetric images were obtained from the superior aspect of the liver through the pubic symphysis following administration 85 mL of Omnipaque 350 intravenous contrast without reported immediate complications. Sagittal and coronal reformatted images were obtained on the technologist's workstation. Oral contrast: No This CT examination was performed using dose optimization techniques as appropriate, variously including the following: *Automated exposure control *Adjustment of mA and/or kV according to patient size (this includes techniques or standardized protocols for targeted exams where dose is matched to indication/reason for exam; i.e. extremities or head) *Use of iterative reconstruction technique DLP: 1161 mGy-cm FINDINGS: LUNG BASES: No acute airspace disease or gross pulmonary nodules in the included lungs. Calcified plaques in the mitral valve. LIVER, GALLBLADDER, AND BILIARY TREE: Liver measures 20 cm. Focal hypodensity near the falciform ligament. Main portal vein, hepatic veins and intrahepatic portion of the IVC are patent. No intrahepatic biliary ductal dilatation. Status post cholecystectomy likely laparoscopic. Common bile duct measures 4 mm. PANCREAS: No focal mass. No peripancreatic fluid collections. No main pancreatic ductal dilatation. SPLEEN: Measures 9 cm without focal mass. ADRENAL GLANDS: Right adrenal gland: 3.5 cm mixed density and partially calcified low density nodule with the 30 Hounsfield units. Left adrenal gland: No nodular lesion in the left adrenal gland. KIDNEYS AND URETERS: No hydronephrosis. No gross renal mass. BLADDER: Fluid-filled. GASTROINTESTINAL TRACT: Abundant stool, right hemicolon. Gas and fluid-filled prominent proximal small bowel loops. No intestinal obstruction pattern. Collapsed appearance of the left hemicolon. Appendix is normal. Terminal ileum is normal. Multiple scattered diverticula in the sigmoid colon. No pericolonic edema pattern or fluid collections. No fluid collections in the peritoneal cavity. No ascites. No pneumoperitoneum. ABDOMINAL WALL: Fat and fluid-filled umbilical hernia, small to moderate size. LYMPH NODES: Nonspecific prominent lymph nodes, mesenteric and retroperitoneal. VASCULAR: Calcified plaques, irregularly-shaped throughout the abdominal aorta wall and the origin of the mesenteric arteries and main renal arteries as well as the iliac arteries. No aneurysm or dissection, abdominal aorta. PELVIC VISCERA: 4.7 cm cystic lesion, left adnexa. OSSEOUS STRUCTURES: Multilevel spondylosis more conspicuous at T10-11, L4-5 and L5-S1. Grade 1 anterolisthesis L4-5 on a degenerative basis resulting in central spinal canal and bilateral neuroforamina stenosis likely compressing the neural elements. Grade 1 retrolisthesis L5-S1 resulting in bilateral neuroforamina stenosis. CT/CT abdomen pelvis w IV con IMPRESSION: Fat and fluid-filled umbilical hernia, small to moderate size. Diverticular disease, sigmoid colon. 4.7 cm cystic lesion, left adnexa. 3.5 cm lesion/mass, right adrenal gland. No clear diagnosis. Grade 1 anterolisthesis L4-5 resulting in central spinal canal and neuroforamina stenosis. Atherosclerosis disease. Calcified mitral valve. Hepatomegaly. Fleischner guidelines were followed. Electronically signed by: Vineet Corona MD 05/23/2024 02:35 PM [facility] EXAMINATION: MRI Abdomen without and with contrast 09/29/24 HISTORY: E27.8 - Other specified disorders of adrenal gland. Concern for pheochromocytoma. COMPARISON: Correlation is made with a CT of the abdomen with contrast dated 05/23/2024. TECHNIQUE: Axial in and out of phase T1-weighted gradient echo, axial diffusion weighted, and axial and coronal HASTE T2 with fat saturation images were obtained through the abdomen. Subsequently, fat suppressed axial and coronal T1-weighted images were obtained after the intravenous administration of 10 mL Gadavist. FINDINGS: There is a 3.0 x 2.2 cm right adrenal mass which demonstrates heterogeneously increased T2 signal intensity. The mass demonstrates markedly decreased signal intensity on the in phase T1-weighted gradient echo sequence. A tiny T1 hyperintense focus within the mass loses signal intensity on fat-suppressed images (series 10, image 39 and series 11, image 38). This is also seen when comparing the conventional T2 and fat-suppressed T2-weighted sequences. Deidre ink artifact is seen in this region on opposed phase imaging. These findings are consistent with macroscopic fat, likely due to a myelolipoma. There is heterogeneous enhancement of the mass. The left adrenal gland is unremarkable. There is no significant signal loss within the liver on opposed phase imaging to suggest steatosis. No enhancing liver mass is identified. The hepatic and portal veins are patent. There is no intra or extrahepatic biliary ductal dilatation. The common bile duct is normal in caliber. The spleen, pancreas, and kidneys are unremarkable. MR/MR abdomen wo/w con IMPRESSION: 3.0 x 2.2 cm right adrenal mass which demonstrates imaging characteristics suggestive of a myelolipoma. This could be followed with unenhanced CT. [facility] Medical History Right adrenal mass Adnexal mass Lymphedema Obesity Macular degeneration Osteopenia Vitamin D deficiency Hypercalcemia Hypercholesterolemia Essential hypertension Type 2 diabetes mellitus with hyperglycemia Surgical History Lymphedema of both lower extremities History of cholecystectomy Family History Father Lung cancer Mother No problems noted. Paternal Aunt Breast cancer Social History Household Members: Spouse Housing: House Are you a primary child day care teacher to a significant other at home: No Do you presently have visiting nurse or other home services: No Alcohol intake: current Alcohol intake frequency: holidays/special occasions only Patient Tobacco Use Status: Current everyday Tobacco user Tobacco use type: Cigarette Cigarettes Per Day: 2 Years Smoked: 54 e-Cigarette/Vaping Use: Never Used Second Hand Smoke Exposure: Yes service: No Current occupational status: retired Cognitive needs: No Hearing needs: No Vision needs: Yes (reading glasses ) Physical Exam Vital Signs: Last Vital Signs Pulse 60 10/10/24 11:29 BP 124/62 10/10/24 11:29 Pulse Ox 95 10/10/24 11:29 Oxygen Delivery Method Room Air 10/10/24 11:29 Assessment & Plan Assessment & Plan (1) Adrenal mass: Code(s): E27.8 - Other specified disorders of adrenal gland Category: Medical Plan: 69-year-old female coming in today for follow up of right adrenal gland nodule. She had a CT scan in May 2024 which showed a right-sided 3.5 cm adrenal gland nodule with 30 Hounsfield units density and calcifications in it. Functional testing showed from August 2024 non suppressed renin, plasma aldosterone of 8, normal dexamethasone suppression test, however showed elevated plasma normetanephrine levels. These were repeated and again came back elevated in September 2024. 24 hour urine levels of normetanephrine also elevated. Low 24 hour urine normetanephrine levels. Normal 24 hour urine catecholamine and dopamine levels. One blood work was repeated from an indwelling catheter after 30 minutes of supine rest again showed elevated plasma normetanephrine levels. While these are not 3-4 times above the upper limit of normal, there at least twice the above upper limit of normal. 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 She is not on any interfering medications. We started her on doxazosin 1 mg daily in August 2024, she denies any lightheadedness, dizziness, nasal stuffiness as intermittent. We stopped her metoprolol recently in September 2024 after I noticed she was on it. MRI of the abdomen done in September 2024 showed the 3 cm right adrenal mass which was T2 hyperintense, T1 hypointense, however there is a focus of hyperintensity in the T1 face which had loss of signal in the fat suppressed images, and I spoke with the radiologist personally who advised that this is consistent with macroscopic fat suggestive of a myelolipoma. At this time I will hold off on getting a CT with the adrenal protocol because it looks like the adrenal mass is fat rich. However given elevations in the normetanephrine levels, I am concerned about a possible paraganglioma. She needs a functional scan such as a PET-CT DOTATATE scan which has much higher sensitivity of picking up these paragangliomas compared to MIBG. We will have to send her to [facility] to get this done. Plan: -Continue doxasozin 1mg daily at bedtime -Continueto stay off metoprolol -Keep BP and HR log -ordered DOTATATE PET scan Plan I spent 45 minutes in reviewing the record, seeing the patient and documenting in the medical record. 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
[2024-10-10 11:29] VITALS: BP 124/62; PULSE 60; O2SAT 95
[2024-10-10 12:21] LABS: Glucose, Whole Blood 81 mg/dL (60-115)
== END 2024-10-10 12:03 | disposition home or self-care (01) ==
LOC: HO.ENCR 11:22
PROVIDERS: PCP Internal Medicine; Visit Provider Student in an Organized Health Care Education/Training Program
DX: E27.8 Other specified disorders of adrenal gland (principal)
CPT/HCPCS: 99214

== ENCOUNTER → 2024-10-10 11:21 | Outpatient (BNVA) | payer MEDICARE, SELFPAY | PROVIDERS: PCP Internal Medicine; Visit Provider Student in an Organized Health Care Education/Training Program | DX: E27.8 Other specified disorders of adrenal gland (principal) | CPT/HCPCS: 82947; 99212 ==

== ENCOUNTER 2024-10-23 11:35 | Outpatient (AMB) | payer MEDICARE, SELFPAY ==
[2024-10-23 11:59] VITALS: BP 128/62; PULSE 61; TEMP 36.3; O2SAT 95; BMI 37.8
--- NOTE | 2024-10-23 11:59 | A.OFFPC_ITS ---
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 Services Required: No Accompanied by: Self / Same As Patient Allergies amoxicillin [AMOXICILLIN] Allergy (Severe, Verified 10/23/24 12:03) RASH adhesive tape [ADHESIVE TAPE] Allergy (Intermediate, Verified 10/23/24 12:03) RASH lisinopril [LISINOPRIL] Allergy (Intermediate, Verified 10/23/24 12:03) COUGH cephalexin Allergy (Mild, Verified 10/23/24 12:03) Rash simvastatin [From ZOCOR] Allergy (Unknown, Verified 10/23/24 12:03) UNKNOWN doxycycline Allergy (Verified 10/23/24 12:03) Rash Medication List - Last Reconciled 10/23/24 by Adan Griffin MD albuterol sulfate 90 mcg/actuation (Ventolin HFA) 2 puffs inhalation Q6H PRN atorvastatin 20 mg PO DAILY 30 days cholecalciferol (vitamin D3) 25 mcg PO DAILY doxazosin 1 mg PO BEDTIME hydrochlorothiazide 25 mg PO DAILY ibuprofen (Advil) 200 mg PO Q6H PRN magnesium 200 mg PO DAILY omeprazole 20 mg PO DAILY@0630 potassium chloride ER 10 mEq PO DAILY 30 days simethicone (Gas Relief (simethicone)) 180 mg PO BID PRN Tobacco use date assessed: 07/24/24 Fall risk assessment: No Falls in past year Last assessed Fall Risk: 10/23/24 Dental Screening Dental Screen Date: 07/24/24 HPI 3 monoth f/u HPI Details 11/03/2024 PET scan REPLACED BY [facility] Medical History (Updated 10/10/24 @ 13:12 by Anamaria Hurtado MD) Paraganglioma Right adrenal mass Adnexal mass Lymphedema Obesity Macular degeneration Osteopenia Vitamin D deficiency Hypercalcemia Hypercholesterolemia Essential hypertension Type 2 diabetes mellitus with hyperglycemia Surgical History Lymphedema of both lower extremities History of cholecystectomy Family History Father Lung cancer Mother No problems noted. Paternal Aunt Breast cancer Social History Household Members: Spouse Housing: House Are you a primary career center advisor to a significant other at home: No Do you presently have visiting nurse or other home services: No Alcohol intake: current Alcohol intake frequency: holidays/special occasions only Patient Tobacco Use Status: Current everyday Tobacco user Tobacco use type: Cigarette Cigarettes Per Day: 2 Years Smoked: 54 e-Cigarette/Vaping Use: Never Used Second Hand Smoke Exposure: Yes service: No Current occupational status: retired Cognitive needs: No Hearing needs: No Vision needs: Yes (reading glasses ) Questionnaire Thrive Questionnaire Date Thrive assessed: 07/24/24 HOLLY-7 AMB Questionnaire HOLLY-7 Date HOLLY - 7 assessed: 07/24/24 Source: Developed by Drs. Taco Rios, Leelee Walter, Davidson Sinclair and colleagues, with an educational stephon from [employer]. Physical exam (Primary Care) Vital Signs: Last Vital Signs Temp 97.3 F 10/23/24 11:59 Pulse 61 10/23/24 11:59 BP 128/62 10/23/24 11:59 Pulse Ox 95 10/23/24 11:59 Oxygen Delivery Method Room Air 10/23/24 11:59 BMI result Body Mass Index 37.8 Tobacco/Smoking Status: Tobacco use Status Tobacco use date assessed 07/24/24 10/23/24 12:01 Patient Tobacco Use Status Current everyday Tobacco 10/23/24 12:01 Tobacco use type Cigarette 10/23/24 12:01 e-Cigarette/Vaping Use Never Used 10/23/24 12:01 Thrive Assessment: Date of Thrive Assessment Date Thrive assessed 07/24/24 10/23/24 12:01 Const General: alert; No acute distress Eyes Conjunctivae: conjunctivae normal Resp Auscultation: clear to auscultation bilaterally Cardio Rate: regular rate Rhythm: regular rhythm GI Inspection: Yes normal to inspection Extrem General: Yes normal to inspection and No edema Coding Level of Care Code Est Pt Level 4 (21738) Complex EM visit Add On G2211 Diagnoses Type 2 diabetes mellitus with hyperglycemia, without long-term current use of insulin E11.65 Diabetes mellitus longterm insulin use: without terminal block assembler use Tobacco abuse Z72.0 Hypercholesterolemia E78.00 Hepatic steatosis K76.0 Adrenal mass E27.8 COPD (chronic obstructive pulmonary disease) J44.9 Assessment & Plan Assessment & Plan (1) Type 2 diabetes mellitus with hyperglycemia: Comment: [facility] 04/2023 macular degeneration Code(s): E11.65 - Type 2 diabetes mellitus with hyperglycemia Category: Medical Qualifiers: Diabetes mellitus terminal block assembler insulin use: without terminal block assembler use Qualified Code(s): E11.65 - Type 2 diabetes mellitus with hyperglycemia Plan: Decrease the amount of carbohydrate intake, pasta, bread, rice and potatoes are all sugar and that is aside from all the sweet stuff, remember that fruits are good but they are Sweet also. Hemoglobin A1c goal of less than 7.0. Patient on diet control (2) Tobacco abuse: Code(s): Z72.0 - Tobacco use Category: Medical Plan: Patient is strongly advised to stop smoking! (3) Hypercholesterolemia: Code(s): E78.00 - Pure hypercholesterolemia, unspecified Category: Medical Plan: Avoid fried foods, chicken skin, eggs, butter margarine, pastries and meat. Be it pork or beef they have a lot of cholesterol patient needs blood work on atorvastatin 20 mg once a day LDL goal of less than 100 and triglyceride of less than 150 (4) Hepatic steatosis: Comment: Mayiffuse increased echogenicity of the parenchyma liver consistent with fatty change. 2. Status post cholecystectomy. No bile duct dilatation. Code(s): K76.0 - Fatty (change of) liver, not elsewhere classified Category: Medical Plan: Low-fat diet and exercise (5) Adrenal mass: Code(s): E27.8 - Other specified disorders of adrenal gland Category: Medical Plan: Patient is under endocrinology and workup being done (6) COPD (chronic obstructive pulmonary disease): Comment: 09/04/2024 PFTModerate obstructive ventilatory defect with no bronchodilator response. Increased residual volume suggests air trapping. Decreased expiratory reserve volume suggests extrathoracic restriction likely secondary to abdominal obesity. Decreased diffusion capacity suggests emphysema. Code(s): J44.9 - Chronic obstructive pulmonary disease, unspecified Category: Medical Plan: Stop smoking! Advised to use the albuterol inhaler as needed. Plan History of Present Illness The patient is a 69-year-old female presenting with a follow-up for multiple chronic conditions and recent investigations. She has obesity, diabetes mellitus under dietary control with a targeted hemoglobin A1c of less than 7.0%, and is a smoker with reduced intake to three cigarettes per day. Hypercholesterolemia is managed with atorvastatin, targeting LDL levels below 100 mg/dL, with her last lipid profile requiring improvement. Complications include hepatic steatosis, lymphedema managed conservatively, and varicose veins undergoing vascular assessment. The patient was noted to have a 3.5 cm right adrenal gland nodule, raising concerns about pheochromocytoma or paraganglioma, leading to current management involving doxazosin therapy and cessation of metoprolol. Orthopedic complaints include hip pain that limits her walking and worsens upon standing, impacting her ability to maintain active exercise. Follow-up investigations for her chronic conditions and other health maintenance, such as scheduled colonoscopy and bone density testing, are in process. Health Maintenance - Diet: Low-fat diet recommended. - Exercise: Encouraged to maintain walking, considering hip discomfort. - Vaccinations: Current, including shingles, tetanus, and pneumonia vaccines. - Screening: - Colonoscopy due March 2025. - Bone density test is due. - Smoking Cessation: Strongly advised; patient has reduced smoking to three cigarettes per day. Social History - Smoking: Currently smoking three cigarettes per day. - Exercise: Limited by hip discomfort; engages in walking. Review of Systems - General: Reports 7-pound weight loss. - Cardiovascular: Denies any heart-related symptoms. - Respiratory: Reports good breathing control, uses albuterol as needed. - Gastrointestinal: Denies laryngeal penetration or aspiration. - Musculoskeletal: Reports hip pain affecting mobility. Physical Exam Results Plan The plan involves ongoing management with doxazosin for adrenal mass-related blood pressure control, following the cessation of metoprolol. We anticipate further evaluation of the adrenal mass at the scheduled CT dosartate scan and focus on managing lipids utilizing atorvastatin. Smoking cessation remains a significant goal, alongside monitoring her COPD symptoms with regular use of an albuterol inhaler. Orthopedic evaluation may be necessary for her hip complaints, noting its impact on activity levels. It's essential for her to keep her preventative health screening appointments for optimal disease detection and management. Patient was informed and verbally consented to the use of an ambient scribe for clinic note documentation during this visit. Discussion Notes During the consultation, the risks associated with the suspected adrenal mass were discussed, highlighting the reason for switching medications to manage potential adrenal-related hypertension. We discussed the importance of establishing a clearer understanding of the mass's functionality with the planned CT dosartate scan and PET scan. I emphasized smoking cessation because of its impact on both COPD and cardiovascular health, discussing the patient's progress in reducing cigarette intake. We reviewed the need to address lipid levels proactively and the rationale behind continuous atorvastatin therapy. Lastly, we stressed the importance of attending scheduled health screenings to ensure comprehensive care. Patient Instructions - Take doxazosin 1 mg daily as prescribed. - Avoid metoprolol as previously instructed. - Attend the PET scan scheduled for the . - Continue atorvastatin 20 mg daily for cholesterol management. - Strive to quit smoking entirely; reduce intake gradually. - Use the albuterol inhaler as needed to manage any shortness of breath. - Participate in regular walking, considering any pain limits. - Ensure to attend scheduled colonoscopy and bone density screening. - Follow a low-fat diet and engage in regular exercise as tolerated. - Seek orthopedic evaluation for hip pain if it persists or worsens. - Maintain follow-up visits every three months to monitor conditions. Orders: Orders Comprehensive Met. Panel Today E11.65 - Type 2 diabetes mellitus with hyperglycemia Thyroid Stimulating Hormone Today E11.65 - Type 2 diabetes mellitus with hyperglycemia Creatinine Urine Today E11.65 - Type 2 diabetes mellitus with hyperglycemia Vitamin B12 and Folate Today E11.65 - Type 2 diabetes mellitus with hyperglycemia Complete Blood Count Auto Diff Today E11.65 - Type 2 diabetes mellitus with hyperglycemia Free T4 (Free Thyroxine) Today E11.65 - Type 2 diabetes mellitus with hyperglycemia Lipid Panel Today E11.65 - Type 2 diabetes mellitus with hyperglycemia, E78.00 - Pure hypercholesterolemia, unspecified Microalbumin, Random (w Creat) Today E11.65 - Type 2 diabetes mellitus with hyperglycemia Vitamin D 25-OH Total Today E11.65 - Type 2 diabetes mellitus with hyperglycemia Hemoglobin A1c Today E11.65 - Type 2 diabetes mellitus with hyperglycemia Medications: Refilled potassium chloride ER 10 mEq PO DAILY 30 tabs 3RF 30 days E87.6 - Hypokalemia Discontinued dexamethasone Take 1 tablet at 11 PM at night and do blood the next day at 8 AM Discontinued Reason: Doctor's Order 1 mg PO DAILY 1 tab 0RF
--- OUTSIDE RECORDS SUMMARY | 2024-10-23 14:10 | XMS_ITS | Patient Health Record ---
Author Organization [facility] shannan [place] Address [address] [place] [address] Care Team Providers Care Decorator Lighting Fixtures Name Role Phone Adan Griffin Primary Care Provider Susan Mccord Unavailable [phone] Allergies Allergen (clinical drug ingredient) Drug/Non Drug [...] Problem Acquired hammer toe of right foot (522321772446 9105) Other hammer toe(s) (acquired), right foot (M20.41) Active confirmed Problem Acquired hammer toe of left foot (801338826229 9103) Other hammer toe(s) (acquired), left foot (M20.42) Active confirmed Problem Atherosclerosis of [place] artery of both lower extremities, with unspecified presence of clinical manifestation (I70.203) Active confirmed Q7(A), Q8(2B), Q9(1B,2C ) Problem 807848354 Type 2 diabetes mellitus without complication, without long-term current use of insulin (E11.9) Active confirmed Vital Signs Blood pressure diastolic 72 mm Hg 07/22/2024 Height 5ft 7in in 07/22/2024 Blood pressure systolic 128 mm Hg 07/22/2024 Weight 290 lbs 07/22/2024 BMI 45.42 kg/m2 07/22/2024 Encounters Encounter Location Date Provider Diagnosis [facility] [address] [address] 07/22/2024 Susan Ronaldocristiano Atherosclerosis of [place] artery of both lower extremities, with unspecified [...] unguium (ICD-10 - B35.1) 07/22/2024 Atherosclerosis of [place] artery of both lower extremities, with unspecified [...] Details Provider Name:Susan quinonez, 10/28/2024 01:30:00 PM, [address] [place] [address], [phone], Insurance Providers Payer Name Payer Address Payer Phone Subscriber Number Group Number Insured Name Patient Relationship to Insured Coverage Start Date Coverage End Date [employer] 65 Medicare Preferred [address] [place] [address] [phone] [id number] Alley Francisco Self - patient is the insured Medical (General) History Medical History History ICD Code Mumps Measles Chicken pox ulcer Macular degeneration High Blood Pressure Gall bladder problems Pre Diabetic CAD (Cholesterol) Surgical History Surgery Date(Month/Year) gall bladder - stones Hospitalization History Reason Date(Month/Year) [facility]- Swelling feet/legs 06/12/24
--- OUTSIDE RECORDS SUMMARY | 2024-10-23 14:10 | XMS_ITS ---
Author Organization [facility] [place] Address [address] [place] [address] Care Team Providers Care Gis Specialist Name Role Phone Adan Griffin Primary Care Provider Susan Mccord Unavailable [phone] Allergies Allergen (clinical drug ingredient) Drug/Non Drug [...] W/U Status Risk Notes Problem Atherosclerosis of [place] artery of both lower extremities, with unspecified presence of clinical manifestation (I70.203) Active confirmed Q7(A), Q8(2B), Q9(1B,2C ) Problem Acquired hammer toe of right foot (166539703963 9105) Other hammer toe(s) (acquired), right foot (M20.41) Active confirmed Problem Acquired hammer toe of left foot (882346501531 9103) Other hammer toe(s) (acquired), left foot (M20.42) Active confirmed Problem 003776727 Type 2 diabetes mellitus without complication, without long-term current use of insulin (E11.9) Active confirmed Vital Signs Height 5ft 7in in 07/22/2024 Weight 290 lbs 07/22/2024 BMI 45.42 kg/m2 07/22/2024 Blood pressure systolic 128 mm Hg 07/22/19 25 Blood pressure diastolic 72 mm Hg 025 Encounters Encounter Location Date Provider Diagnosis [facility] [place] [address] [place] [address] 07/22/2024 Susan Napoles Atherosclerosis of [place] artery of both lower extremities, with unspecified [...] Clinical Notes Section Notes 07/22/2024 Atherosclerosis of [place] artery of both lower extremities, with unspecified [...] Reason: Provider Name:Susan quinonez, 10/28/2024 01:30:00 PM, [address] [place] [address], [phone], Procedure Notes * Category Sub-Category Detail Notes [...] use of a nail nipper and/or dremel-type blanchard grinder operator, to a more viable healthy [...] to maintain effectiveness in symptomatic relief - 90289 Keratoma Treatment Parring or Cutting o f [...] instrumentation by the physician of record - 91374 Progress Notes * Alley TUBBS ADOB:[birth year] (69 yo F)Acc No.[id number]:07/22/2024 Progress Notes Patient:?Alley TUBBS Provider:?Susan Napoles DPM :1955???Age:69 Y???Sex:Female D ate:07/22/2024 Address:[address] [place], [place] [id number] Pcp:Adan Griffin Subjective: * Chief Complaints: * [...] er - stones * Hospitalization/Major Diagno stic Procedure:?[facility]- Swelling feet/legs 06/12/24 * Family History:?Mother: dece [...] shopping, cleaning. ?Marital status: . 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 * Medications:?TakingOmeprazol e Advil PreserVision AREDS [...] Assessment: 1.?Tinea unguium - B35.1???2 .?Atherosclerosis of [place] artery of both lower extremities, with unspecified [...] use of a nail nipper and/or dremel-type blanchard grinder operator, to a more viable healthy [...] to maintain effectiveness in symptomatic relief - 23372.?Keratoma Treatment:?Parring or Cutting of Benign Hyperkeratotic Lesion(s)?(-56) [...] instrumentation by the physician of record - 21585.? * Procedure Codes:?63225 DEBRI DE NAIL, 6 OR MORE, Modifiers: XS 66485 TRIM SKIN LESIONS, 2 TO 4, Modifiers: [...] specialist, pt has upcoming vascular consult at [facility] for LE edema.?Shoe Gear Counseling:?SHOE Rx - [...] Napoles DPM Date:?01/2025 Generated for Sonia haas/Nikolas/Chavezitting on:?10/23/2024 02:09 PM EDT History and Physical Notes * [...] MTH (s), 1, Plantar Heel(s), Left Orthopedic FOOTWEAR EVALUATION: worn, non-s upportive, shoe gear properties exacerbate patient's foot/toe deformity [...]
--- OUTSIDE RECORDS SUMMARY | 2024-10-23 14:10 | XMS_ITS | Patient Health Record ---
Author Organization [facility] Address [address] [place] [address] Care Team Providers Care Personnel Adviser Name Role Phone Adan Griffin MD Primary Care Provider Jethro Munoz Jr Allergies Allergen (clinical drug ingredient) Drug/Non Drug Allergy documented on EMR Reaction Allergy Type Onset Date Status amoxicillin Amoxicillin Unknown Drug Allergy Act rosalie Results Component Value Reference Range Notes Pathology Reviewed date:06/19/2024 11:18:33 AM Interpretation: Performing Lab:[facility], [address] [place] [phone] Notes/Report: Name: Christiano Tubbs Age/Sex: 69/F : 1955 Unit#: [id number] Attend Dr: Elijah Titus MD Re06/13/24 Status : DIS IN Location: [facility] 343-1 Disch: 06/18/24 SPEC : [id number] RECD : 06/17/24 STATUS: PATRICIA CURIEL NUM: [id number] JEAN-PAUL: 06/17/24-[address] [facility] [address]: Jethro Sharma MD ENTERED: 06/17/24-13 [...] Christiano Tubbs Age/Sex: 69/F : 1955 Unit#: [id number] Attend Dr: Elijah Titus MD Re06/13/24 Status : DIS IN Location: [facility] 343-1 Disch: 06/18/24 SPEC : [id number] RECD : 06/17/24-1344 STATUS: PATRICIA REQ NUM: [id number] JEAN-PAUL: 06/17/24-[address] [facility] [address]: Jethro Sharma MD ENTERED: 06/17/24-13 52 SP TYPE: Surgical OTHR DR: Adan Griffin MD, Jackie NP ORDERED: HE Stain/9, Gross Micro L4/3, IHC, Special st. 2, H. pylori, AB/PAS Copies To: Jethro Sharma MD [facility] [address] [place], [place] [id number] Adan Griffin MD [facility] [address] [place], [place] [phone] Wendi Alanis NP [address] [place], [place] [phone] Signed (si gnature on file) Kam Steward MD 06/19/24 1104 END OF REPORT FL barium swallow modified Reviewed date:09/25/2024 07:49:30 AM Interpretation: Performing Lab: Notes/Report: [address] [address] Fluoroscopy Report Signed Patient: Alley Tubbs MR#: [id number] : 1955 Acct:[id number] Age/Sex: 69 / F ADM Date: 09/24/24 Loc: MARYJO Attending Dr: Jethro Sharma MD Ordering Physician: Jethro Sharma MD Date of Service: 09/24/24 Procedure(s): FL Modified Barium Swallow Accession Number(s): [id number] cc: Jethro Sharma MD; Adan Griffin MD [...] 09/24/24 1605 DD/ 1432 TD/TT: 09/24/24 1439 Marketing Database Consultant: [place] [address] Fluoroscopy Report Signed Patient: Rema Tubbs MR#: [id number] : 1955 Acct:[id number] Age/Sex: 69 / F ADM Date: 09/24/24 Loc: JESSICA Attending Dr: Mery Sharma MD Ordering Physician: Jethro Sharma MD Date of Service: 09/24/24 Procedure(s): FL Mod ified Barium Swallow Accession Number(s): [id number] cc: Jethro Sharma MD; Adan Griffin MD [...] 09/24/24 1605 DD/ 1432 TD/TT: 09/24/24 1439 Marketing Database Consultant: Reason For Referral No Information Medications Medication [...] Problem Status W/U Status Risk Notes Problem 376437082 Colon cancer screening (Z12.11) Active confirmed Problem 083374054 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 Problem 354780864817204 [facility] (current) use of aspirin (Z79.82) Active confirmed Problem Dysphagia (45435534) Dysphagia (R13.10) Active confirmed Problem 75620809186049526 rat exterminator current use of diuretic (Z79.899) Active confirmed Vital Signs Temperature 97.3 degrees Fahrenheit 08/25/2024 Blood pressure diastolic 00 mm Hg 08/25/2024 Height 67 in 08/25/2024 Blood pressure systolic 000 mm Hg 08/25/2024 Weight 253 lb 8 oz lbs 08/25/2024 BMI 39.70 kg/m2 08/25/2024 Encounters Encounter Location Date Provider Diagnosis [facility] Inpatient [address] [place], [place] [phone] 06/17/2024 Jethro Sharma Jr Other diseases of stomach and duodenum K31.89 and Dysphagia R13.10 [facility] [address] [place] [phone] 08/25/2024 Jethro Sharma Jr Dysphagia R13.10 ; Colon cancer screening Z12.11 and 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 K22.70 [facility] [address] [place] [phone] 06/19/2024 Jethro Sharma Jr [facility] [address] [place] [phone] 09/30/2024 Jethro Sharma Jr Assessments Encounter Date Diagnosis [...] Provider Name:Jethro shaw , 02/26/2025 01:55:00 PM, [address] [place] [address], [facility] [address], [place], [address], Insurance Providers Payer Name Payer Address Payer Phone Subscriber Number Group Number Insured Name Patient Relationship to Insured Coverage Start Date Coverage End Date [facility] [address] [place] [address] [id number] ALLEY TUBBS Self - patient is the insured Medical (General) History Medical History History ICD Code Hypertension Hyperlipidemia Diabetes mellitus Hypercalcemia Elevated BMI Osteopenia Macular degeneration Adnexal cyst Adrenal mass Colonoscopy 04/04, tubular adenoma, five- year followup Gastroesophageal reflux disease, EGD , esophagitis, no stricture Surgical History Surgery Date(Month/Year) cholecystectomy Hospitalization History Reason Date(Month/Year) endoscopy done with Dr. Sharma at [facility] 06/08
--- OUTSIDE RECORDS SUMMARY | 2024-10-23 14:10 | XMS_ITS ---
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 Vital Signs Temperature 97.3 degrees Fahrenheit 08/25/19 25 Blood pressure systolic 000 mm Hg 08/25/19 25 Blood pressure diastolic 00 mm Hg 025 Height 67 in 08/25/2024 Weight 253 lb 8 oz lbs 08/25/2024 BMI 39.70 kg/m2 08/25/2024 Encounters Encounter Location Date Provider Diagnosis [facility] [address] [place] [address] 08/25/2024 Jethro Sharma Jr Dysphagia R13.10 ; [...] Provider Name:Jethro shaw , 02/26/2025 01:55:00 PM, [address] [place] [address], [address], [place], [address], Progress Notes * ALLEY JAIMES ADOB:[birth year] (69 yo F)Acc No.[id number]:08/25/2024 Progress Notes Patient:?ALLEY JAIMES Provider:?Jethro Sharma MD :1955???Age:69 Y???Sex:Female D ate:08/25/2024 Address:[address] [place], [place] [phone] Pcp:Adan Griffin MD Subjective: * Chief Complaints: [...] stic Procedure:?endoscopy done with Dr. Sharma at [facility] 06/08. * Family History:?Father: dece ased.?Mother: , [...] MD Date:?0 08/25/2024 Generated for Sonia haas/Nikolas/Chavezitting on:?10/23/2024 02:09 PM [...]
--- OUTSIDE RECORDS SUMMARY | 2024-10-23 14:10 | XMS_ITS ---
Author Organization [facility] Address [address] [place] [address] Care Team Providers Care Street Cleaning Equipment Operator Name Role Phone Adan Griffin Primary Care Provider Susan Mccord [phone] Melendrez Encounters Encounter Location Date Provider Diagnosis [address] [address] 10/07/2024 Susan Napoles Plan Of Treatment Next Appt Details Provider Name:Susan quinonez, 10/28/2024 01:30:00 PM, [address] [place] [address], [phone], Progress Notes * Alley TUBBS ADOB:[birth year] (69 yo F)Acc No.[id number]:10/07/2024 Progress Note Patient:?Alley TUBBS Provider:?Susan Napoles DPM :1955???Age:69 Y???Sex:Female D ate:10/07/2024 Address:[address] [place], [place] [phone] Pcp:Adan Griffin Subjective: * Chief Complaints: * ???1. Dr Melendrez. * Medical History:? Objective: * Vitals:? Assessment: Plan: * Treatment: * Images: * The named appointment provid er may or may not be the originator of this progress note, and it is not deemed complete until electronically signed by the appointment provider. Sign off status: Pending * Provider:?Susan Napoles DPM Date:? Generated for Sonia haas/Nikolas/Mike on:?10/23/2024 02:10 PM EDT
--- OUTSIDE RECORDS SUMMARY | 2024-10-23 14:10 | XMS_ITS | Clinical Summary ---
Author Organization [facility], Address [address] [place] [address] [place] [address] Phone Care Team Providers Care Sand Hauler Name Role Phone Adan Griffin MD Primary Care Provider [phone] Medications aspirin 81 MG tablet Take 1 [...] Date Smoking Tobacco: Every Day Cigarettes 1 50.3 Started: 07/16/1974 Alcohol Use Standard Drinks/Week Comments [...] Comments Breast Cancer Screening 1955 Pneumococcal Vaccine: 50+ Ye ars (1 of 2 - PCV) 1959 Colorectal Cancer Screening: Annual FOBT 2002 Colorectal Cancer Screening: Colonoscopy 2002 Colorectal Cancer Screening: Sigmoidoscopy 2002 Influenza Vaccine (Season Ended) 2025 Hepatitis B Vaccine Aged Out No longe r eligible based on patient's age to complete this topic Insurance [facility] [id number] Care Teams Sand Hauler Relationship Specialty Start Date End Date Adan Griffin MD [facility] IN [address] KAMALJITELBERT DELAROSA PCP - General 05/20/19
--- OUTSIDE RECORDS SUMMARY | 2024-10-23 14:10 | XMS_ITS ---
Author Organization [facility] Address [address] [place] [address] Care Team Providers Care Export Freight Specialist Name Role Phone Po Adan SALGADO Primary Care Provider Jethro Munoz Jr REASON FOR VISIT testing Encounters Encounter Location Date Provider Diagnosis [facility] [address] [place] [address] 09/30/2024 Jethro Sharma Jr Plan Of Treatment Next Appt Details Provider Name:Jethro shaw Jr, 02/26/2025 01:55:00 PM, [address] [facility], [address], [place], [address], Progress Notes * BIANCA JAIMES ADOB:[birth year] (69 yo F)Acc No.[id number]:09/30/2024 Patient:?BIANCA JAIMES :1955???Age:69 Y???Sex:Female Address:[address] [place] [address] * true * Date:? Generated for Sonia haas/Nikolas/eTransmitting on:?10/23/2024 02:10 PM EDT
--- OUTSIDE RECORDS SUMMARY | 2024-10-23 14:10 | XMS_ITS ---
Author Organization [facility] Address [address] [facility] [address] [place] [address] Care Team Providers Care Stud Setter Name Role Phone Adan Griffin MD Primary Care Provider Dylon Sharma Jr, Jethro Barr [phone] REASON FOR VISIT pathology Medications Medication SIG (Take, Route, Fr equency, Duration) Notes Start Date End Date Status Omeprazole 20 MG 1 capsule 1/2 to 1 h our before morning meal Orally Once a day for 30 day(s) 06/20/2024 Active Encounters Encounter Location Date Provider Diagnosis [facility] [address] [facility] [address] [place] [address] 06/19/2024 Jethro Sharma Jr Plan Of Treatment Medication Medication Name Sig Start Date Stop Date Notes Omeprazole 20 MG 1 capsule 1/2 to 1 h our before morning meal Orally Once a day for 30 day(s) 06/20/2024 Next Appt Details Provider Name:Jethro shaw Jr, 02/26/2025 01:55:00 PM, [address] [place] [address], [address], [place], [address], Progress Notes * BIANCA JAIMES ADOB:[birth year] (69 yo F)Acc No.[id number]:06/19/2024 Patient:?BIANCA JAIMES :1955???Age:69 Y???Sex:Female Address:[address] [place] [address] * Refills? Start Omeprazole Capsule Delayed Release, 20 MG, Orally, 30, 1 capsule 1/2 to 1 hour before morning meal, Once a day, 30 day(s), Refills=6 * true * Date:? Generated for Sonia haas/Nikolas/Mike on:?10/23/2024 02:10 PM EDT
== END 2024-10-23 12:39 | disposition home or self-care (01) ==
LOC: HO.HMCH 11:35
PROVIDERS: PCP Internal Medicine; Visit Provider Internal Medicine
DX: E11.65 Type 2 diabetes mellitus with hyperglycemia (principal); E27.8 Other specified disorders of adrenal gland; J44.9 Chronic obstructive pulmonary disease, unspecified; Z72.0 Tobacco use; E78.00 Pure hypercholesterolemia, unspecified; K76.0 Fatty (change of) liver, not elsewhere classified

== ENCOUNTER → 2024-10-23 11:35 | Outpatient (BNVA) | payer MEDICARE, SELFPAY | PROVIDERS: PCP Internal Medicine; Visit Provider Internal Medicine | DX: E11.65 Type 2 diabetes mellitus with hyperglycemia (principal); E78.00 Pure hypercholesterolemia, unspecified; K76.0 Fatty (change of) liver, not elsewhere classified; E27.8 Other specified disorders of adrenal gland; J44.9 Chronic obstructive pulmonary disease, unspecified; F17.210 Nicotine dependence, cigarettes, uncomplicated | CPT/HCPCS: 99212 ==

== ENCOUNTER 2025-02-09 09:48 | Outpatient (REF) | payer MEDICARE, SELFPAY ==
[2025-02-09 10:15] LABS: MANUAL DIFF FLAG NO
--- OUTSIDE RECORDS SUMMARY | 2025-02-09 10:46 | XMS_ITS | Clinical Summary ---
Author Organization [facility], Address [address] [place] [address] [place] [address] Phone Care Team Providers Care Manager Behavioral Name Role Phone Adan Griffin MD Primary Care Provider [phone] Medications aspirin 81 MG tablet Take 1 [...] Date Smoking Tobacco: Every Day Cigarettes 1 50.6 Started: 07/16/1974 Alcohol Use Standard Drinks/Week Comments [...] Ye ars (1 of 2 - PCV) 1972 Colorectal Cancer Screening: Annual FOBT 2002 Colorectal Cancer Screening: Colonoscopy 2002 Colorectal Cancer Screening: Sigmoidoscopy 2002 Influenza Vaccine (#1) 2025 Hepatitis B Vaccine Aged Out No longe r eligible based on patient's age to [place] [id number] Care Teams Manager Behavioral Relationship Specialty Start Date End Date Adan Griffin MD [facility] [address] ELBERT TRIPATHI PCP - General 05/20/19
--- OUTSIDE RECORDS SUMMARY | 2025-02-09 10:46 | XMS_ITS | Patient Health Record ---
Author Organization [facility] Address [address] [place] [address] Care Team Providers Care Acquisition Advisor Name Role Phone Adan Griffin MD Primary Care Provider Jethro Munoz Jr Allergies Allergen (clinical drug ingredient) Drug/Non Drug Allergy documented on EMR Reaction Allergy Type Onset Date Status amoxicillin Amoxicillin Unknown Drug Allergy Act rosalie Results Component Value Reference Range Notes Pathology Reviewed date:06/19/2024 11:18:33 AM Interpretation: Performing Lab:[facility], [address] [place] [address] Notes/Report: [place] barium swallow modified Reviewed date:09/25/2024 07:49:30 AM Interpretation: Performing Lab: Notes/Report: [address] [address] Fluoroscopy Report Signed Patient: Alley Jaimes MR#: [id number] : 1955 Acct:[id number] Age/Sex: 69 / F ADM Date: 09/24/24 Loc: [facility] Attending Dr: Jethro Sharma MD Ordering Physician: Jethro Sharma MD Date of Service: 09/24/24 Procedure(s): FL Modified Barium Swallow Accession Number(s): [id number] cc: Jethro Sharma MD; Adan Griffin MD [...] 09/24/24 1605 DD/ 1432 TD/TT: 09/24/24 1439 Blocker Heated Metal Forms: Reason For Referral No Information Medications Medication [...] Problem Status W/U Status Risk Notes Problem [id number] Colon cancer screening (Z12.11) Active confirmed Problem 938673840 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 Problem 042507214252541 adjunct 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 (current) use of aspirin (Z79.82) Active confirmed Problem Dysphagia (R13.10) Active confirmed Problem 12024861543358833 adjunct 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 current use of diuretic (Z79.899) Active confirmed Vital Signs Temperature 97.3 degrees Fahrenheit 08/25/2024 Blood pressure diastolic 00 mm Hg 08/25/2024 Height 67 in 08/25/2024 Blood pressure systolic 000 mm Hg 08/25/2024 Weight 253 lb 8 oz lbs 08/25/2024 BMI 39.70 kg/m2 08/25/2024 Encounters Encounter Location Date Provider Diagnosis [facility] Inpatient [address] [place] [phone] 06/17/2024 Jethro Sharma Jr Other diseases of stomach and duodenum K31.89 and Dysphagia R13.10 [facility] [address] [place] [address] 08/25/2024 Jethro Sharma Jr Dysphagia R13.10 ; Colon cancer screening Z12.11 and 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 K22.70 [facility] [address] [place] [address] 06/19/2024 Jethro Sharma Jr [facility] [address] [place] [address] 09/30/2024 Jethro Sharma Jr Assessments Encounter Date [...] Provider Name:Jethro shaw Jr, 02/26/2025 01:55:00 PM, [address] [place] [address], [address], [place], [address], Insurance Providers Payer Name Payer Address Payer Phone Subscriber Number Group Number Insured Name Patient Relationship to Insured Coverage Start Date Coverage End Date [facility] [address] [place] [address] [id number] ALLEY JAIMES Self - patient is the insured Medical (General) History Medical History History ICD Code Hypertension Hyperlipidemia Diabetes mellitus Hypercalcemia Elevated BMI Osteopenia Macular degeneration Adnexal cyst Adrenal mass Colonoscopy 04/04, tubular adenoma, five- year followup Gastroesophageal reflux disease, EGD , esophagitis, no stricture Surgical History Surgery Date(Month/Year) cholecystectomy Hospitalization History Reason Date(Month/Year) endoscopy done with Dr. Sharma at [facility] 06/08
--- OUTSIDE RECORDS SUMMARY | 2025-02-09 10:46 | XMS_ITS | Patient Health Record ---
Author Organization [facility] Address [address] [place] [address] Care Team Providers Care Home Health Provider Name Role Phone EliasAnabatsheva Primary Care Provider Susan Mccord Unavailable [phone] Allergies Allergen (clinical drug ingredient) Drug/Non Drug Allergy documented on EMR Reaction Allergy Type Onset Date Status Adhesive rash Allergy Active amoxicillin Amoxicillin rash Drug Allergy Act rosalie cephalexin Cephalexin rash Drug Allergy Activ e doxycycline Doxycycline rash Drug Allergy Act rosalie Results Component Value Reference Range Notes HEMOGLOBIN A1C (GLYCOHEMOGLO BIN) Reviewed date:10/29/2024 11:08:13 AM Interpretation: Performing Lab: Notes/Report: HEMOGLOBIN A1C % (HH) 5.4 Reason For Referral No Information Medications Medication SIG (Take, Route, Frequency, Duration) Notes Start Date End Date Status Potassium Active Ketoconazole 2 % 1 application Apply a thin layer to externally to feet, even between toes Twice a day; Duration: 30 days Active Irbesartan 300 MG 1 tablet Orally Once a day Not-Taking ASO Ankle/Foot Stablizing AFO As directed Wear Daily to left foot, DX: E10.42, I70.203. M14.672, M76.822; Duration: 365 days 01/27/2025 Active PreserVision AREDS 2 Active Advil Active Omeprazole Not-Takin g Metoprolol Succinate ER 25 MG 1 tablet Orally Once a day Active hydroCHLOROthiazide 25 MG 1 tablet in th e morning Orally Once a day Active Atorvastatin Calcium 20 MG 1 tablet Oral ly Once a day Active Vitamin D3 125mcg daily Active Immunizations Vaccine Route Administration Date Status Comme nts Influenza Unknown 01/27/2025 Refused Social History Tobacco Use: Social History Observation Description Date Details (start date - stop date) Current Smoker NA - NA Tobacco use other than smoking: Question Answer Notes Are you an other tobacco user? No Tobacco Control (Standard) Question Answer Notes Tobacco use: Current smoker How often do you smoke cigarettes? Every day How many cigarettes a day do you smoke? 11-20 How soon after you wake up d o you smoke your first cigarette? 6-30 minutes Are you interested in quitting? Thinking about q uitting AUDIT-C (Standard) Question Answer Notes Did you have a drink containing alcohol in the p ast year? No Points 0 Interpretation Negative Problems Problem Type SNOMED Code ICD Code Onset Dates Problem Status W/U Status Risk Notes Problem Polyneuropathy due to type 2 diabetes mellitus (930026652) Type 2 diabetes mellitus with diabetic polyneuropathy (E11.42) Active confirmed Problem Atherosclerosis of menominee artery of both lower extremities, with unspecified presence of clinical manifestation (I70.203) Active confirmed Q7(A), Q8(2B), Q9(1B,2 C) Vital Signs Blood pressure diastolic 64 mm Hg 01/27/2025 Height 5ft 7in in 01/27/2025 Blood pressure systolic 128 mm Hg 01/27/2025 Weight 240 lbs 01/27/2025 BMI 37.59 kg/m2 01/27/2025 Encounters Encounter Location Date Provider Diagnosis [address] [address] 07/22/2024 Susan Napoles Atherosclerosis of menominee artery of both lower extremities, with unspecified presence of clinical manifestation I70.203 ; Tinea unguium B35.1 ; Pain in right toe(s) M79.674 ; Pain in left toe(s) M79.675 ; Other hammer toe(s) (acquired), right foot M20.41 ; Other hammer toe(s) (acquired), left foot M20.42 ; Edema, lower extremity R60.0 and Type 2 diabetes mellitus without complication, without long-term current use of insulin [facility] [address] 10/28/2024 Susan Napoles Type 2 diabetes mellitus without complication, without long-term current use of insulin E11.9 ; Pain in left toe(s) M79.675 ; Pain in right toe(s) M79.674 ; Tinea unguium B35.1 and Atherosclerosis of menominee artery of both lower extremities, with unspecified presence of clinical manifestation I70.[address] [address] 01/27/2025 Susan Napoles Type 2 diabetes mellitus with diabetic polyneuropathy E11.42 ; 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 ; Tinea unguium B35.1 ; Abscess of right foot L02.611 ; Abscess of left foot L02.612 ; Tinea pedis of both feet B35.3 ; Charcot joint of left foot M14.672 ; Posterior tibial tendon dysfunction (PTTD) of left lower extremity M76.822 ; Flat foot [pes planus] (acquired), left foot M21.42 and Flat foot [pes planus] (acquired), right foot M21.[address] [address] 10/28/2024 Susan Napoles Assessments Encounter Date Diagnosis (ICD Code) Assessment Notes Treatment Notes Treatment Clinical Notes Section Notes 07/22/2024 Tinea unguium (ICD-10 - B35.1) 07/22/2024 Atherosclerosis of menominee artery of both lower extremities, with unspecified presence of clinical manifestation (ICD-10 - I70.203) Q7(A), Q8(2B), Q9(1B,2C) 10/28/2024 Type 2 diabetes mellitus without complication, without long-term current use of insulin (ICD-10 - E11.9) 01/27/2025 Type 2 diabetes mellitus with diabetic polyneuropathy (ICD-10 - E11.42) 10/28/2024 Pain in left toe(s) (ICD-10 - M79.675) 01/27/2025 Primary osteoarthritis of left foot (ICD-10 - M19.072) 10/28/2024 Pain in right toe(s) (ICD-10 - M79.674) 01/27/2025 Tinea unguium (ICD-10 - B35.1) 07/22/2024 Pain in right toe(s) (ICD-10 - M79.674) 07/22/2024 Pain in left toe(s) (ICD-10 - M79.675) 10/28/2024 Tinea unguium (ICD-10 - B35.1) 01/27/2025 Abscess of right foot (ICD-10 - L02.611) 01/27/2025 Abscess of left foot (ICD-10 - L02.612) 10/28/2024 Atherosclerosis of menominee artery of both lower extremities, with unspecified presence of clinical manifestation (ICD-10 - I70.203) 07/22/2024 Other hammer toe(s) (acquired), right foot (ICD-10 - M20.41) 07/22/2024 Other hammer toe(s) (acquired), left foot (ICD-10 - M20.42) 01/27/2025 Tinea pedis of both feet (ICD-10 - B35.3) Patient Educated with: ATHELETE .pdf (ATHELETE .pdf) 01/27/2025 Charcot joint of left foot (ICD-10 - M14.672) 07/22/2024 Edema, lower extremity (ICD-10 - R60.0) 07/22/2024 Type 2 diabetes mellitus without complication, without long-term current use of insulin (ICD-10 - E11.9) 01/27/2025 Posterior tibial tendon dysfunction (PTTD) of left lower extremity (ICD-10 - M76.822) 01/27/2025 Flat foot [pes planus] (acquired), left foot (ICD-10 - M21.42) 01/27/2025 Flat foot [pes planus] (acquired), right foot (ICD-10 - M21.41) Plan Of Treatment Pending Test Test Name Order Date X ray : Ankle, left 2V 01/27/2025 X ray : Foot, left 3V 01/27/2025 Next Appt Details Provider Name:Susan quinonez, 04/28/2025 02:45:00 PM, [address] [place] [address], [phone], Insurance Providers Payer Name Payer Address Payer Phone Subscriber Number Group Number Insured Name Patient Relationship to Insured Coverage Start Date Coverage End Date [facility] 65 Medicare Preferred [address] [place] [address] [id number] Alley Francisco Self - patient is the insured Medical (General) History Medical History History ICD Code Mumps Measles Chicken pox ulcer Macular degeneration High Blood Pressure Gall bladder problems Pre Diabetic CAD (Cholesterol) Cataracts Surgical History Surgery Date(Month/Year) gall bladder - stones Hospitalization History Reason Date(Month/Year) [facility] Swelling feet/legs 06/12/24
[2025-02-09 10:47] LABS: Hematocrit 38.7 % (37.0-47.0); Hemoglobin 12.4 g/dl (12.0-16.0); Imm Gran Abs Auto 0.02 X10*3/uL (0.00-0.03); Imm Gran Pct Auto 0.3 % (0.0-0.4); Lymphocytes Absolute Auto 2.1 X10*3/uL (1.2-4.9); Mean Corpuscular HGB Conc 32.0 g/dl (31.0-35.0); Mean Corpuscular Hemoglobin 31.4 pg (27.0-33.0); Mean Corpuscular Volume 98.0 fL (80.0-98.0); NRBC Abs Auto 0.000 X10*3/uL (0.0-0.012); NRBC Pct Auto 0.0 /100WBC (0.0-0.2); Platelet Count 218 X10*3/uL (160-400); Red Blood Count 3.95 X10*6/uL (4.20-5.50); White Blood Count 7.2 X10*3/uL (4.8-10.8)
[2025-02-09 11:06] LABS: Hemoglobin A1C 120.2453 umol/L; Total Hemoglobin (HGBA1C) 3352.1828 umol/L
[2025-02-09 11:56] LABS: Alanine Aminotransferase 16 U/L (0-31); Albumin Level 4.4 g/dL (3.5-5.0); Alkaline Phosphatase 81 U/L (39-117); Anion Gap 13 (12-20); Aspartate Amino Transferase 20 U/L (5-31); Blood Urea Nitrogen 30 mg/dL (9-16); Calcium 9.6 mg/dL (8.4-10.2); Carbon Dioxide 28 mmol/L (22-29); Chloride 106 mmol/L (96-108); Cholesterol 129 mg/dL (<200); Estimated Glomerular Filt Rate 41; HDL Cholesterol 35 mg/dL (>40); Potassium 4.7 mmol/L (3.3-5.1); Sodium 142 mmol/L (135-145); Total Protein 7.9 g/dL (6.5-8.0); Triglycerides 64 mg/dL (<150)
[2025-02-09 11:57] LABS: Free T4 (Free Thyroxine) 0.82 ng/dL (0.71-1.85); Thyroid Stimulating Hormone 2.08 uIU/mL (0.32-4.0)
[2025-02-09 12:13] LABS: Folate 6.6 ng/mL (> or = 4.0); Vitamin B12 327 pg/mL (200-900)
== END 2025-02-09 09:49 | disposition home or self-care (01) ==
LOC: HO.LAB 09:48
PROVIDERS: PCP Internal Medicine; Visit Provider Internal Medicine
DX: E11.65 Type 2 diabetes mellitus with hyperglycemia (principal); E78.00 Pure hypercholesterolemia, unspecified
CPT/HCPCS: 36415; 80053; 80061; 82043; 82306; 82570; 82607; 82746; 83036; 84439; 84443; 85025

== ENCOUNTER 2025-02-13 10:30 | Outpatient (AMB) | payer MEDICARE, SELFPAY ==
[2025-02-13 10:38] VITALS: BP 122/66; PULSE 56; RESP 16; TEMP 36.2; O2SAT 98; BMI 34.7
--- NOTE | 2025-02-13 10:38 | MHC.PC.OV ---
Vital Signs 02/13/25 10:38 Height 5 ft 7 in Weight 221 lb 8 oz BMI 34.7 BP 122/66 Blood Pressure Location Lt brachial Position Sitting Respiration 16 Pulse 56 Pulse Source Pulse Oximeter Temp 97.1 F Temp Source Temporal Artery Scan Pulse Oximetry (%) 98 Oxygen Delivery Method Room Air Intake Visit Reasons: 3 month f/u Allergies amoxicillin (AMOXICILLIN) Allergy (Severe, Verified 02/13/25 10:41) RASH adhesive tape (ADHESIVE TAPE) Allergy (Intermediate, Verified 02/13/25 10:41) RASH lisinopril (LISINOPRIL) Allergy (Intermediate, Verified 02/13/25 10:41) COUGH cephalexin Allergy (Mild, Verified 02/13/25 10:41) Rash simvastatin (From ZOCOR) Allergy (Unknown, Verified 02/13/25 10:41) UNKNOWN doxycycline Allergy (Verified 02/13/25 10:41) Rash Tobacco use date assessed: 02/13/25 Fall risk assessment: No Falls in past year Last assessed Fall Risk: 02/13/25 Dental Screening Dental Screen Date: 02/13/25 Did you have a dental visit in the last 12 months?: Yes Did you have a dental problem in the last 6 months where you did not have access to dental care?: No Was dental information given to patient?: Patient has dentist [facility] Medical History Paraganglioma Right adrenal mass Adnexal mass Lymphedema Obesity Macular degeneration Osteopenia Vitamin D deficiency Hypercalcemia Hypercholesterolemia Essential hypertension Type 2 diabetes mellitus with hyperglycemia Surgical History Lymphedema of both lower extremities History of cholecystectomy Family History Father Lung cancer Mother No problems noted. Paternal Aunt Breast cancer Social History Household Members: Spouse Housing: House Are you a primary laboratory animal care veterinarian to a significant other at home: No Do you presently have visiting nurse or other home services: No Alcohol intake: current Alcohol intake frequency: holidays/special occasions only Patient Tobacco Use Status: Current everyday Tobacco user Tobacco use type: Cigarette Cigarettes Per Day: 6 Years Smoked: 54 e-Cigarette/Vaping Use: Never Used Second Hand Smoke Exposure: Yes service: No Current occupational status: retired Cognitive needs: No Hearing needs: No Vision needs: Yes (reading glasses ) Questionnaire PHQ-9 Over the last 2 weeks, how often have you been bothered by any of the following problems? 1. Little interest or pleasure in doing things: not at all 2. Feeling down, depressed, or hopeless: not at all 3. Trouble falling or staying asleep, or sleeping too much: not at all 4. Feeling tired or having little energy: not at all 5. Poor appetite or overeating: not at all 6. Feeling bad about yourself - or that you are a failure or have let yourself or your family down: not at all 7. Trouble concentrating on things, such as reading the newspaper or watching television: not at all 8. Moving or speaking so slowly that other people could have noticed. Or the opposite - being so fidgety or restless that you have been moving around a lot more than usual: not at all 9. Thoughts that you would be better off or of hurting yourself in some way: not at all Total score: 0 Source: Developed by Drs. Taco Rios, Leelee Walter, Davidson Sinclair and colleagues, with an educational stephon from [employer]. Thrive Questionnaire Date Thrive assessed: 07/24/24 I am a: Patient What is your living situation today?: I have a steady place to live Within the past 12 months, did the food you bought not last and you didn't have the money to get more?: Never true Within the past 12 months, did you worry whether your food would run out before you got money to buy more?: Never true Do you have trouble paying for medicines?: No Do you have trouble getting transportation to medical appointments?: No Do you have trouble paying your heating and electricity bill?: No Do you have trouble taking care of your child, family member or friend?: No Do you have trouble with day-to-day activities such as bathing, preparing meals, shopping, managing finances, etc.?: No Are you currently unemployed and looking for a job?: No Are you interested in more education?: No Please select the resources that you would like help with: None Currently or been in a relationship where the following occur: No concerns reported THRIVE Score: 0 AUDIT C Alcohol Use Questionnaire (AUDIT-C) 1. How often do you have a drink containing alcohol?: 2-4 times a month 2. How many drinks containing alcohol do you have on a typical day when you are drinking?: 1 or 2 3. How often do you have six or more drinks on one occasion?: Never Total Score: 2 HOLLY-7 AMB Questionnaire HOLLY-7 Date HOLLY - 7 assessed: 07/24/24 Feeling nervous, anxious, or on edge: 0 = Not at all Not being able to stop or control worryin = Not at all Worrying too much about different things: 0 = Not at all Trouble relaxin = Not at all Being so restless that it is hard to sit still: 0 = Not at all Becoming easily annoyed or irritable: 0 = Not at all Feeling afraid as if something awful might happen: 0 = Not at all Total HOLLY-7 score (0-4 normal; 5-9 mild; 10-14 moderate; 15-21 severe): 0 Source: Developed by Drs. Taco Rios, Leelee Walter, Davidson Sinclair and colleagues, with an educational stephon from [employer]. Physical exam (Primary Care) Vital Signs: Last Vital Signs Temp 97.1 F 02/13/25 10:38 Pulse 56 02/13/25 10:38 Resp 16 02/13/25 10:38 BP 122/66 02/13/25 10:38 Pulse Ox 98 02/13/25 10:38 Oxygen Delivery Method Room Air 02/13/25 10:38 BMI result Body Mass Index 34.7 Tobacco/Smoking Status: Tobacco use Status Tobacco use date assessed 02/13/25 02/13/25 10:43 Patient Tobacco Use Status Current everyday Tobacco 02/13/25 10:38 Tobacco use type Cigarette 02/13/25 10:38 e-Cigarette/Vaping Use Never Used 02/13/25 10:38 PHQ-9: PHQ-9 Score PHQ-9: Total score 0 02/13/25 11:03 Thrive Assessment: Date of Thrive Assessment Date Thrive assessed 07/24/24 02/13/25 10:38 Currently or been in a relationship where the following occur: No concerns reported Const General: alert; No acute distress Eyes Conjunctivae: conjunctivae normal Resp Auscultation: clear to auscultation bilaterally Cardio Rate: regular rate Rhythm: regular rhythm GI Inspection: Yes normal to inspection Extrem General: Yes normal to inspection and No edema Coding Level of Care Code Est Pt Level 4 (34940) Complex EM visit Add On G2211 Diagnoses Type 2 diabetes mellitus with hyperglycemia, without long-term current use of insulin E11.65 Diabetes mellitus skilled nursing insulin use: without skilled nursing use Hypercholesterolemia E78.00 Obesity (BMI 30-39.9) E66.9 Hepatic steatosis K76.0 COPD (chronic obstructive pulmonary disease) J44.9 Tobacco abuse Z72.0 Colon cancer screening Z12.11 Cataract H26.9 Charcot foot due to diabetes mellitus E11.610 Assessment & Plan Assessment & Plan (1) Type 2 diabetes mellitus with hyperglycemia: Comment: [facility] 04/2023 macular degeneration Code(s): E11.65 - Type 2 diabetes mellitus with hyperglycemia Category: Medical Qualifiers: Diabetes mellitus skilled nursing insulin use: without terminal operations manager use Qualified Code(s): E11.65 - Type 2 diabetes mellitus with hyperglycemia Plan: Decrease the amount of carbohydrate intake, pasta, bread, rice and potatoes are all sugar and that is aside from all the sweet stuff, remember that fruits are good but they are Sweet also. Hemoglobin A1c goal of less than 7.0 patient is at goal (2) Hypercholesterolemia: Code(s): E78.00 - Pure hypercholesterolemia, unspecified Category: Medical Plan: Avoid fried foods, chicken skin, eggs, butter margarine, pastries and meat. Be it pork or beef they have a lot of cholesterol LDL goal of less than 100 and triglyceride of less than 150 on atorvastatin (3) Obesity (BMI 30-39.9): Code(s): E66.9 - Obesity, unspecified Category: Medical Plan: Continue with diet and exercise (4) Hepatic steatosis: Comment: Mayiffuse increased echogenicity of the parenchyma liver consistent with fatty change. 2. Status post cholecystectomy. No bile duct dilatation. Code(s): K76.0 - Fatty (change of) liver, not elsewhere classified Category: Medical Plan: Low-fat diet and exercise (5) COPD (chronic obstructive pulmonary disease): Comment: 09/04/2024 PFTModerate obstructive ventilatory defect with no bronchodilator response. Increased residual volume suggests air trapping. Decreased expiratory reserve volume suggests extrathoracic restriction likely secondary to abdominal obesity. Decreased diffusion capacity suggests emphysema. Code(s): J44.9 - Chronic obstructive pulmonary disease, unspecified Category: Medical Plan: Patient is strongly advised to stop smoking on albuterol inhaler (6) Tobacco abuse: Comment: decline Lung cancer screening Code(s): Z72.0 - Tobacco use Category: Medical Plan: Patient is strongly advised to stop smoking! (7) Colon cancer screening: Code(s): Z12.11 - Encounter for screening for malignant neoplasm of colon Category: Medical Plan: Patient is reminded about colonoscopy february (8) Cataract: Comment: [facility] Code(s): H26.9 - Unspecified cataract Category: Medical Plan: will see Dr. Yair norris eye (9) Charcot foot due to diabetes mellitus: Code(s): E11.610 - Type 2 diabetes mellitus with diabetic neuropathic arthropathy Category: Medical Plan: Patient follows up with the foot doctor Plan History of Present Illness The patient is a 69-year-old female presenting for a follow-up visit to manage multiple chronic conditions and preventative care. The patient has a history of obesity and has recently experienced a 20-pound weight loss. She has diabetes mellitus with a current hemoglobin A1c of 5.4, indicating good glycemic control. The patient is also managing hypercholesterolemia with an LDL level of 82, which is within the target range. The patient is a smoker and has been advised to quit smoking due to her chronic obstructive pulmonary disease (COPD) and osteopenia. She uses an albuterol inhaler for COPD management. 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 Her creatinine level is slightly elevated at 1.28, and she has been advised to increase her water intake due to the use of hydrochlorothiazide. The patient has cataracts and early macular degeneration, with a follow-up scheduled with an button grader in June. She reports a bone protrusion in her left foot, for which she is awaiting a brace fitting. Health Maintenance - Colonoscopy is due this year. - Mammogram is up to date. - Tetanus and pneumonia vaccinations are up to date. - Advised to increase water intake due to elevated creatinine and use of hydrochlorothiazide. - Smoking cessation strongly advised. Social History - Smoking: Patient is a smoker and has been advised to quit. - Exercise: No specific exercise routine mentioned. - Diet: Advised to continue with diet and exercise for cholesterol management. Review of Systems - General: Reports 20-pound weight loss. - Respiratory: Reports smoking, uses albuterol inhaler. - Musculoskeletal: Reports left foot bone protrusion. Physical Exam Results - Labs: Hemoglobin A1c is 5.4, LDL is 82, creatinine is 1.28. - Imaging: PET scan showed right adrenal nodule consistent with myelolipoma. Plan The patient is advised to continue managing diabetes mellitus with a target hemoglobin A1c of less than 7.0, and her current level of 5.4 is satisfactory. She should maintain her cholesterol management plan with an LDL goal of less than 100, currently at 82, and continue atorvastatin therapy along with diet and exercise. Smoking cessation is strongly advised due to its impact on her chronic obstructive pulmonary disease and overall health. The patient is reminded about the importance of hydration, especially due to the use of hydrochlorothiazide, and is advised to increase water intake to improve kidney function. Preventative care measures include scheduling a colonoscopy, which is due this year, and maintaining up-to-date vaccinations. Follow-up with ophthalmology is scheduled for June to monitor cataracts and macular degeneration. The patient is awaiting a brace fitting for the left foot bone protrusion and should follow up with podiatry as needed. Patient was informed and verbally consented to the use of an ambient scribe for clinic note documentation during this visit. Discussion Notes During the visit, I discussed the importance of maintaining diabetes and cholesterol management with the patient, emphasizing the current satisfactory levels of hemoglobin A1c and LDL. I strongly advised smoking cessation due to its detrimental effects on her COPD and overall health. We reviewed the need for increased hydration to support kidney function, particularly due to her use of hydrochlorothiazide. Preventative care measures were highlighted, including the need for a colonoscopy and maintaining up-to-date vaccinations. I also reminded her of the upcoming ophthalmology appointment to monitor her cataracts and macular degeneration. Patient Instructions - Continue managing diabetes with a target hemoglobin A1c of less than 7.0. - Maintain cholesterol management with an LDL goal of less than 100. - Strongly advised to quit smoking. - Increase water intake to support kidney function. - Schedule and complete a colonoscopy this year. - Follow up with ophthalmology in June for cataracts and macular degeneration. - Await brace fitting for left foot bone protrusion and follow up with podiatry as needed. Medications: Changed From atorvastatin 20 mg PO DAILY 30 days 30 tabs 4RF E78.00 - Pure hypercholesterolemia, unspecified To atorvastatin 20 mg PO DAILY 90 tabs 3RF 90 days E78.00 - Pure hypercholesterolemia, unspecified From potassium chloride ER 10 mEq PO DAILY 30 days 30 tabs 3RF E87.6 - Hypokalemia To potassium chloride ER 10 mEq PO DAILY 90 tabs 3RF 90 days E87.6 - Hypokalemia
--- OUTSIDE RECORDS SUMMARY | 2025-02-13 10:39 | XMS_ITS | Patient Health Record ---
Author Organization [facility] Address [address] [place] [address] Care Team Providers Care Tool Radial Drill Press Set Up Operator Name Role Phone Adan Griffin MD Primary Care Provider Jethro Munoz Jr [phone] Allergies Allergen (clinical drug ingredient) Drug/Non Drug Allergy documented on EMR Reaction Allergy Type Onset Date Status amoxicillin Amoxicillin Unknown Drug Allergy Act rosalie Results Component Value Reference Range Notes Pathology Reviewed date:06/19/2024 11:18:33 AM Interpretation: Performing Lab:[facility], [address] [place] [id number] Notes/Report: FL barium swallow modified Reviewed date:09/25/2024 07:49:30 AM Interpretation: Performing Lab: Notes/Report: [address] [address] Fluoroscopy Report Signed Patient: Alley Jaimes MR#: [id number] : 1955 Acct:[id number] Age/Sex: 69 / F ADM Date: 09/24/24 Loc: [facility] Attending Dr: Jethro Sharma MD Ordering Physician: Jethro Sharma MD Date of Service: 09/24/24 Procedure(s): FL Modified Barium Swallow Accession Number(s): [id number] cc: Jethro Sharma MD; Adan Griffin MD [...] 09/24/24 1605 DD/ 1432 TD/TT: 09/24/24 1439 Speed Belt Sander: Reason For Referral No Information Medications Medication [...] Problem Status W/U Status Risk Notes Problem [id number] Colon cancer screening (Z12.11) Active confirmed Problem 631294075 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 Problem [id number] [facility] (current) use of aspirin (Z79.82) Active confirmed Problem Dysphagia (R13.10) Active confirmed Problem [id number] [facility] current use of diuretic (Z79.899) Active confirmed Vital Signs Temperature 97.3 degrees Fahrenheit 08/25/2024 Blood pressure diastolic 00 mm Hg 08/25/2024 Height 67 in 08/25/2024 Blood pressure systolic 000 mm Hg 08/25/2024 Weight 253 lb 8 oz lbs 08/25/2024 BMI 39.70 kg/m2 08/25/2024 Encounters Encounter Location Date Provider Diagnosis [facility] [address] [place] [id number] 06/17/2024 Jethro Sharma Jr Other diseases of stomach and duodenum K31.89 and Dysphagia R13.10 [facility] [address] [place] [phone] 08/25/2024 Jethro Sharma Jr Dysphagia R13.10 ; Colon cancer screening Z12.11 and 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 K22.70 [facility] [address] [place] [phone] 06/19/2024 Jethro Sharma Jr [facility] [address] [place] [phone] 09/30/2024 Jethro Sharma Jr Assessments Encounter Date [...] Name:Jethro shaw Jr, 02/26/2025 01:55:00 PM, [address] [place] [address], [address], [place], [address], Insurance Providers Payer Name Payer Address Payer Phone Subscriber Number Group Number Insured Name Patient Relationship to Insured Coverage Start Date Coverage End Date [facility] [address] [place] [address] [id number] ALLEY JAIMES Self - patient is the insured Medical (General) History Medical History History ICD Code Hypertension Hyperlipidemia Diabetes mellitus Hypercalcemia Elevated BMI Osteopenia Macular degeneration Adnexal cyst Adrenal mass Colonoscopy 04/04, tubular adenoma, five- year followup Gastroesophageal reflux disease, EGD , esophagitis, no stricture Surgical History Surgery Date(Month/Year) cholecystectomy Hospitalization History Reason Date(Month/Year) endoscopy done with Dr. Sharma at [facility] 06/08
--- OUTSIDE RECORDS SUMMARY | 2025-02-13 10:40 | XMS_ITS | Patient Health Record ---
Author Organization [facility] Address [address] [place] [address] Care Team Providers Care Auto Clutch Specialist Name Role Phone EliasAnabatsheva Primary Care Provider Susan Mccord Unavailable [phone] Allergies Allergen (clinical drug ingredient) Drug/Non Drug [...] Polyneuropathy due to type 2 diabetes mellitus (028781541) Type 2 diabetes mellitus with diabetic polyneuropathy (E11.42) Active confirmed Problem Bilateral atherosclerosis of arteries of lower limbs (disorder) ([id number] ) Atherosclerosis of chipewwa artery of both lower extremities, with unspecified presence of clinical manifestation (I70.203) Active confirmed Q7(A), Q8(2B), Q9(1B,2 C) Vital Signs Blood pressure diastolic 64 mm Hg 01/27/2025 Height 5ft 7in in 01/27/2025 Blood pressure systolic 128 mm Hg 01/27/2025 Weight 240 lbs 01/27/2025 BMI 37.59 kg/m2 01/27/2025 Encounters Encounter Location Date Provider Diagnosis [address] [address] 07/22/2024 Susan Napoles Atherosclerosis of chipewwa artery of both lower extremities, with unspecified presence of clinical manifestation I70.203 ; Tinea unguium B35.1 ; Pain in right toe(s) M79.674 ; Pain in left toe(s) M79.675 ; Other hammer toe(s) (acquired), right foot M20.41 ; Other hammer toe(s) (acquired), left foot M20.42 ; Edema, lower extremity R60.0 and Type 2 diabetes mellitus without complication, without long-term current use of insulin E11.[address] [facility] [address] 10/28/2024 Susan Napoles Type 2 diabetes mellitus without complication, without long-term current use of insulin E11.9 ; Pain in left toe(s) M79.675 ; Pain in right toe(s) M79.674 ; Tinea unguium B35.1 and Atherosclerosis of chipewwa artery of both lower extremities, with unspecified presence of clinical manifestation I70.[address] [address] 01/27/2025 Susan Napoles Type 2 diabetes mellitus [...] foot [pes planus] (acquired), right foot M21.[address] [address] 10/28/2024 Susan Napoles Assessments Encounter Date Diagnosis (ICD Code) Assessment Notes Treatment Notes Treatment Clinical Notes Section Notes 07/22/2024 Tinea unguium (ICD-10 - B35.1) 07/22/2024 Atherosclerosis of chipewwa artery of both lower extremities, with unspecified [...] foot (ICD-10 - L02.612) 10/28/2024 Atherosclerosis of chipewwa artery of both lower extremities, with unspecified [...] Details Provider Name:Susan quinonez, 04/28/2025 02:45:00 PM, [address] [place] [address], [phone], Insurance Providers Payer Name Payer Address Payer Phone Subscriber Number Group Number Insured Name Patient Relationship to Insured Coverage Start Date Coverage End Date [facility] 65 Medicare Preferred [address] [place] [address] [id number] [place] Alley starks Self - patient is the insured Medical (General) History Medical History History ICD Code Mumps Measles Chicken pox ulcer Macular degeneration High Blood Pressure Gall bladder problems Pre Diabetic CAD (Cholesterol) Cataracts Surgical History Surgery Date(Month/Year) gall bladder - stones Hospitalization History Reason Date(Month/[place] [facility]
--- OUTSIDE RECORDS SUMMARY | 2025-02-13 10:40 | XMS_ITS | Clinical Summary ---
Author Organization [facility], Address [address] [place] [address] [place] [address] Phone Care Team Providers Care Shirt Hemmer Name Role Phone Adan Griffin MD Primary Care Provider [phone] Medications aspirin 81 MG tablet Take 1 [...] complete [place] [id number] Care Teams Shirt Hemmer Relationship Specialty Start Date End Date Adan Griffin MD [facility] INTERNAL ID [id number] [place] PCP - General 05/20/19
== END 2025-02-13 11:19 | disposition home or self-care (01) ==
LOC: HO.HMCH 10:30
PROVIDERS: PCP Internal Medicine; Visit Provider Internal Medicine
DX: E11.65 Type 2 diabetes mellitus with hyperglycemia (principal); J44.9 Chronic obstructive pulmonary disease, unspecified; E66.9 Obesity, unspecified; E11.610 Type 2 diabetes mellitus with diabetic neuropathic arthropathy; Z68.34 Body mass index [BMI] 34.0-34.9, adult; E78.00 Pure hypercholesterolemia, unspecified; K76.0 Fatty (change of) liver, not elsewhere classified; Z72.0 Tobacco use; Z12.11 Encounter for screening for malignant neoplasm of colon; H26.9 Unspecified cataract

== ENCOUNTER → 2025-02-13 10:30 | Outpatient (BNVA) | payer MEDICARE, SELFPAY | PROVIDERS: PCP Internal Medicine; Visit Provider Internal Medicine | DX: E11.65 Type 2 diabetes mellitus with hyperglycemia (principal); E78.00 Pure hypercholesterolemia, unspecified; E66.9 Obesity, unspecified; Z68.34 Body mass index [BMI] 34.0-34.9, adult; K76.0 Fatty (change of) liver, not elsewhere classified; J44.9 Chronic obstructive pulmonary disease, unspecified; H26.9 Unspecified cataract; E11.610 Type 2 diabetes mellitus with diabetic neuropathic arthropathy; Z72.0 Tobacco use; Z13.30 Encounter for screening examination for mental health and behavioral disorders, unspecified | CPT/HCPCS: 96127; 99212 ==

== ENCOUNTER 2025-03-03 13:03 | Outpatient (AMB) | payer MEDICARE, SELFPAY ==
--- NOTE | 2025-03-03 13:06 | A.OFFVIS_ITS ---
Vital Signs 03/03/25 13:07 Height 5 ft 5.5 in Weight 226 lb BMI 37.0 BP 128/76 Intake Visit Reasons: NEw patient ovarian cyst Drawstring Knotter Required: No Accompanied by: Self / Same As Patient Allergies amoxicillin (AMOXICILLIN) Allergy (Severe, Verified 03/03/25 13:08) RASH adhesive tape (ADHESIVE TAPE) Allergy (Intermediate, Verified 03/03/25 13:08) RASH lisinopril (LISINOPRIL) Allergy (Intermediate, Verified 03/03/25 13:08) COUGH cephalexin Allergy (Mild, Verified 03/03/25 13:08) Rash simvastatin (From ZOCOR) Allergy (Unknown, Verified 03/03/25 13:08) UNKNOWN doxycycline Allergy (Verified 03/03/25 13:08) Rash Post menopausal: Yes HPI Comments Details: The patient is presenting referred regarding an adnexal cyst on pelvic ultrasound done in 08/09 which showed the following: Uterus: The uterus is anteverted, anteflexed, and measures 4.1 x 1.9 x 1.9 cm. No myometrial abnormalities focally. No cervical abnormality. The double wall endometrial thickness is 2 mm. The uterus is smooth in contour and has normal myometrial echogenicity. No visible fibroid. Adnexa: Right ovary could not be visualized with certainty. There is no pelvic ascites or fluid collection. There is a similar anechoic simple appearing left adnexal cyst measuring 6.4 x 4.7 x 4.7 cm. (As per prior MRI, this measured 5.4 x 4.7 x 5.2 cm and is likely unchanged allowing for modality differences). Right ovary not visualized. Left ovarian cyst appears to be encompassing all of the ovarian stroma. US/US pelvic and transvaginal IMPRESSION: 1. Similar anechoic large left adnexal cyst, presumably left ovarian origin, grossly stable allowing for modality differences. This is consistent with a benign entity. 2. Normal uterus and endometrium. 3. Right ovary could not be visualized. The patient has no complaints no pelvic pain, vaginal discharge and/ or that bleeding Last mammogram in 06/08 was BI-RADS 1 Last Pap smear in 2012 was negative ON LICENSE OF [facility] Medical History Paraganglioma Right adrenal mass Adnexal mass Lymphedema Obesity Macular degeneration Osteopenia Vitamin D deficiency Hypercalcemia Hypercholesterolemia Essential hypertension Type 2 diabetes mellitus with hyperglycemia Surgical History Lymphedema of both lower extremities History of cholecystectomy Family History (Updated 03/03/25 @ 13:12 by Lisa Bernal MA) Father Lung cancer Mother Diabetes Hypertension Paternal Aunt Breast cancer Diabetes Sister Diabetes Social History (Updated 03/03/25 @ 13:13 by Lisa Bernal MA) Household Members: Spouse Housing: House Are you a primary wound care nurse to a significant other at home: No Do you presently have visiting nurse or other home services: No Alcohol intake: current Alcohol intake frequency: holidays/special occasions only Comment: 1x weekly Patient Tobacco Use Status: Current everyday Tobacco user Tobacco use type: Cigarette Cigarettes Per Day: 6 Years Smoked: 54 e-Cigarette/Vaping Use: Never Used Second Hand Smoke Exposure: Yes service: No Current occupational status: retired Sexually active: Yes Sexual orientation: Straight/Heterosexual Gender identity: Female Cognitive needs: No Hearing needs: No Vision needs: Yes (reading glasses ) Review of Systems Const All systems reviewed & are unremarkable except as noted in HPI and below Card Reports as per HPI Resp Reports as per HPI GI Reports as per HPI and Reports no additional complaints Reports as per HPI Physical Exam Vital Signs: Last Vital Signs BP 128/76 03/03/25 13:07 BMI result Body Mass Index 37.0 Const General: cooperative, healthy appearing and comfortable Chest Chest palpation & inspection: normal inspection of the chest and normal palpation of entire chest wall Breast/axilla inspection: normal inspection of the breasts and normal inspection of the axillae Breast/axilla palpation: normal palpation of the breasts, normal palpation of the axillae and no axillary lymphadenopathy Resp Effort & Inspection: normal respiratory effort Auscultation: clear to auscultation bilaterally Percussion: percussion normal Cardio Palpation: normal PMI Rate: regular rate Rhythm: regular rhythm Heart sounds: no murmurs and no rubs Peripheral pulses: Peripheral pulses 2+ throughout GI Inspection: Yes normal to inspection Palpation (GI): Soft to palpation, nontender, no guarding, not rigid and No hepatosplenomegaly present Percussion: Yes normal to percussion Auscultation: normal bowel sounds Rectal Exam - Female: deferred General: Yes bladder normal to palpation External Female Exam: No lesion Speculum Exam - Vagina: normal appearance of the vagina, normal palpation, normal vaginal discharge and not erythematous Speculum Exam - Cervix: normal appearance of the cervix and normal palpation Bimanual exam- vagina & uterus: normal bimanual exam, normal palpation, uterine size normal, bladder normal to palpation, consistency normal and normal palpation Bimanual Exam- Adnexa, other: normal adnexae, no masses and no tenderness Assessment & Plan Assessment & Plan (1) Adnexal cyst: Comment: Left July 2024 Code(s): N94.9 - Unspecified condition associated with female genital organs and menstrual cycle Category: Medical Plan: Co testing done. Discussed with the patient the adnexal/ovarian cyst by ultrasound. Discussed with the patient the Ultrasound findings, the main limitation of transvaginal ultrasonography alone as a diagnostic tool to distinguish benign from malignant masses relates to its lack of specificity and low positive predictive value for cancer. The differential diagnosis discussed with the patient includes the following but not limited to: benign and malignant gynecological and non-g ynecological causes. Since ultrasound was done 7 months ago will repeat pelvic ultrasound. Instructions given the patient to schedule an ultrasound and a follow-up appointment within 1-2 weeks. All questions answered, the patient verbalized understanding Orders: Orders US pelvic and transvaginal Today N94.9 - Unspecified condition associated with female genital organs and menstrual cycle Coding Level of Care Code New Pt Level 3 (07028) Diagnoses Adnexal cyst N94.9
[2025-03-03 13:07] VITALS: BP 128/76; BMI 37.0
--- OUTSIDE RECORDS SUMMARY | 2025-03-03 14:12 | XMS_ITS | Patient Health Record ---
Author Organization [facility] Address [address] [place] [address] Care Team Providers Care Escrow Agent Name Role Phone Adan Griffin MD Primary Care Provider Jethro Munoz Jr Allergies Allergen (clinical drug ingredient) Drug/Non Drug Allergy documented on EMR Reaction Allergy Type Onset Date Status amoxicillin Amoxicillin Unknown Drug Allergy Act rosalie Results Component Value Reference Range Notes Pathology Reviewed date:06/19/2024 11:18:33 AM Interpretation: Performing Lab:[facility], [address] [place] [id number] Notes/Report: FL barium swallow modified Reviewed date:09/25/2024 07:49:30 AM Interpretation: Performing Lab: Notes/Report: [address] [address] Fluoroscopy Report Signed Patient: Alley Jaimes MR#: [id number] : 1955 Acct:[id number] Age/Sex: 69 / F ADM Date: 09/24/24 Loc: MARYJO Attending Dr: Jethro Sharma MD Ordering Physician: Jethro Sharma MD Date of Service: 09/24/24 Procedure(s): FL Modified Barium Swallow Accession Number(s): [id number] cc: Jethro Sharma MD; Adan Griffin MD [...] 09/24/24 1605 DD/ 1432 TD/TT: 09/24/24 1439 Manager Process Improvement: Reason For Referral No Information Medications Medication SIG (Take, Route, Frequency, Duration) Notes Start Date End Date Status Metoprolol Succinate ER Active hydroCHLOROthiazide Active Aspirin 81 Active Atorvastatin Calcium 20 MG Oral for 90 Days Active Immunizations Vaccine Route Administration Date Status [...] Problem Status W/U Status Risk Notes Problem 922192857 Colon cancer screening (Z12.11) Active confirmed Problem 295397715 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 Problem 618841743307669 jail (current) use of aspirin (Z79.82) Active confirmed Problem Dysphagia (55741787) Dysphagia (R13.10) Active confirmed Problem 58293834622517152 jail current use of diuretic (Z79.899) Active confirmed Vital Signs Temperature 97.3 degrees Fahrenheit 08/25/2024 Blood pressure diastolic 77 mm Hg 02/26/2025 Height 67 in 02/26/2025 Blood pressure systolic 111 mm Hg 02/26/2025 Weight 226 lbs 02/26/2025 BMI 35.39 kg/m2 02/26/2025 Encounters Encounter Location Date Provider Diagnosis [facility] [place] [address] [place] [phone] 06/17/2024 Jethro Sharma Jr Other diseases of stomach and duodenum K31.89 and Dysphagia R13.10 [facility] [address] [place] [address] 02/26/2025 Jethro Sharma Jr Colon cancer screening Z12.11 and Dysphagia R13.10 [facility] [address] [place] [address] 08/25/2024 Jethro Sharma Jr Dysphagia R13.10 ; Colon cancer screening Z12.11 and 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 K22.70 [facility] [address] [place] [address] 06/19/2024 Jethro Sharma Jr [facility] [address] [address] 09/30/2024 Jethro Sharma Jr Assessments Encounter Date Diagnosis (ICD Code) Assessment Notes Treatment Notes Treatment Clinical Notes Section Notes 06/17/2024 Other diseases of stomach and duodenum (ICD-10 - K31.89) 06/17/2024 Dysphagia (ICD-10 - R13.10) 02/26/2025 Colon cancer screening (ICD-10 - Z12.11) Currently, she is doing well. Reflux symptoms are under good control with diet. There is no dysphagia at this time. She is due for colonoscopy. We discussed risks and benefits of the procedure today. She understands and agrees to proceed. This will be scheduled at her convenience.She is advised to stop aspirin 1 week before the procedure. 02/26/2025 Dysphagia (ICD-10 - R13.10) Currently, she is doing well. Reflux symptoms are under good control with diet. There is no dysphagia at this time. She is due for colonoscopy. We discussed risks and benefits of the procedure today. She understands and agrees to proceed. This will be scheduled at her convenience.She is advised to stop aspirin 1 week before the procedure. 08/25/2024 Colon cancer screening (ICD-10 - Z12.11) [...] Test Test Name Order Date COLONOSCOPY 01/08/2020 COLONOSCOPY 02/26/2025 Next Appt Details Provider Name:Jethro Louie Terry shaw Jr, 03/27/2025 09:10:00 AM, [address] [place] [address] , [place], [phone], Insurance Providers Payer Name Payer Address Payer Phone Subscriber Number Group Number Insured Name Patient Relationship to Insured Coverage Start Date Coverage End Date [facility] [address] [place] [address] [phone] [id number] ALLEY JAIMES Self - patient is the insured Medical (General) History Medical History History ICD Code Hypertension Hyperlipidemia Diabetes mellitus Hypercalcemia Elevated BMI Osteopenia Macular degeneration Adnexal cyst Adrenal mass Colonoscopy 04/04, tubular adenoma, five- year followup Gastroesophageal reflux disease, EGD , esophagitis, no stricture Surgical History Surgery Date(Month/Year) cholecystectomy Hospitalization History Reason Date(Month/Year) [place] with [place]. Sh[place] [facility]
--- OUTSIDE RECORDS SUMMARY | 2025-03-03 14:12 | XMS_ITS | Patient Health Record ---
Author Organization [facility] Address [address] [place] [address] Care Team Providers Care Hair Salon Manager Name Role Phone EliasAnabatsheva Primary Care Provider Susan Mccord Unavailable [phone] Allergies Allergen (clinical drug ingredient) Drug/Non Drug [...] Polyneuropathy due to type 2 diabetes mellitus (291485717) Type 2 diabetes mellitus with diabetic polyneuropathy (E11.42) Active confirmed Problem Atherosclerosis of wales artery of both lower extremities, with unspecified presence of clinical manifestation (I70.203) Active confirmed Q7(A), Q8(2B), Q9(1B,2 C) Vital Signs Blood pressure diastolic 64 mm Hg 01/27/2025 Height 5ft 7in in 01/27/2025 Blood pressure systolic 128 mm Hg 01/27/2025 Weight 240 lbs 01/27/2025 BMI 37.59 kg/m2 01/27/2025 Encounters Encounter Location Date Provider Diagnosis [address] [address] 07/22/2024 Susan Napoles Atherosclerosis of wales artery of both lower extremities, with unspecified presence of clinical manifestation I70.203 ; Tinea unguium B35.1 ; Pain in right toe(s) M79.674 ; Pain in left toe(s) M79.675 ; Other hammer toe(s) (acquired), right foot M20.41 ; Other hammer toe(s) (acquired), left foot M20.42 ; Edema, lower extremity R60.0 and Type 2 diabetes mellitus without complication, without long-term current use of insulin [facility]11.[facility] [address] 10/28/2024 Susan Napoles Type 2 diabetes mellitus without complication, without long-term current use of insulin E11.9 ; Pain in left toe(s) M79.675 ; Pain in right toe(s) M79.674 ; Tinea unguium B35.1 and Atherosclerosis of wales artery of both lower extremities, with unspecified presence of clinical manifestation I70.[address] [address] 01/27/2025 Susan Napoles Type 2 diabetes mellitus [...] foot [pes planus] (acquired), right foot M21.[address] [address] 10/28/2024 Susan Napoles Assessments Encounter Date Diagnosis (ICD Code) Assessment Notes Treatment Notes Treatment Clinical Notes Section Notes 07/22/2024 Tinea unguium (ICD-10 - B35.1) 07/22/2024 Atherosclerosis of wales artery of both lower extremities, with unspecified [...] foot (ICD-10 - L02.612) 10/28/2024 Atherosclerosis of wales artery of both lower extremities, with unspecified [...] Details Provider Name:Susan quinonez, 04/28/2025 02:45:00 PM, [address] [place] [address], [phone], Insurance Providers Payer Name Payer Address Payer Phone Subscriber Number Group Number Insured Name Patient Relationship to Insured Coverage Start Date Coverage End Date [facility] 65 Medicare Preferred [address] [place] [address] [id number] Alley Francisco Self - patient is the insured Medical (General) History Medical History History ICD Code Mumps Measles Chicken pox ulcer Macular degeneration High Blood Pressure Gall bladder problems Pre Diabetic CAD (Cholesterol) Cataracts Surgical History Surgery Date(Month/Year) gall bladder - stones Hospitalization History Reason Date(Month/Year) [facility] [place]- Swelling feet/legs 06/12/24
--- OUTSIDE RECORDS SUMMARY | 2025-03-03 14:12 | XMS_ITS | Clinical Summary ---
Author Organization [facility], Address [address] [place] [address] [place] [address] Phone Care Team Providers Care Chief Procurement Officer Name Role Phone Adan Griffin MD Primary Care Provider [phone] Medications aspirin 81 MG tablet Take 1 [...] [place] [id number] Care Teams Chief Procurement Officer Relationship Specialty Start Date End Date Adan Griffin MD [facility] [place] [address] ELBERT TRIPATHI PCP - General 05/20/19
== END 2025-03-03 13:33 | disposition home or self-care (01) ==
LOC: HO.HWS 13:04
PROVIDERS: PCP Internal Medicine; Visit Provider Obstetrics & Gynecology
DX: N94.9 Unspecified condition associated with female genital organs and menstrual cycle (principal)
CPT/HCPCS: 99203

== ENCOUNTER 2025-03-03 13:03 | Outpatient (REF) | payer MEDICARE, SELFPAY | END 2025-03-03 13:04 | disposition home or self-care (01) | LOC: HO.LNP 13:03 | PROVIDERS: PCP Internal Medicine; Visit Provider Obstetrics & Gynecology | DX: Z01.411 Encounter for gynecological examination (general) (routine) with abnormal findings (principal); N83.8 Other noninflammatory disorders of ovary, fallopian tube and broad ligament | CPT/HCPCS: 87626; 88175; 99202 ==

== ENCOUNTER 2025-03-20 15:05 | Outpatient (REF) | payer MEDICARE, SELFPAY ==
--- OUTSIDE RECORDS SUMMARY | 2024-06-17 10:40 | XMS_ITS ---
Author Organization [facility] Address [address] [place] [phone] Care Team Providers Care Freight Representative Name Role Phone Po Adan SALGADO Primary Care Provider Jethro Munoz Jr [phone] REASON FOR VISIT dysphagia Problems Problem Type SNOMED Code ICD Code Onset Dates Problem Status W/U Status Risk Notes Problem Dysphagia ([id number]) Dysphagia (R13.10) Active confirmed Encounters Encounter Location Date Provider Diagnosis [facility] Inpatient [address] [place] [phone] 06/17/2024 Jethro Sharma Jr Other diseases of stomach and duodenum K31.89 and Dysphagia R13.10 Assessments Encounter Date Diagnosis (ICD Code) Assessment Notes Treatment Notes Treatment Clinical Notes Section Notes 06/17/2024 Other diseases of stomach and duodenum (ICD-10 - K31.89) 06/17/2024 Dysphagia (ICD-10 - R13.10) Plan Of Treatment Next Appt Details Provider Name:Jethro shaw Jr, 03/27/2025 08:20:00 AM, [address] [place] [address], [phone], Progress Notes * BIANCA JAIMES ADOB:[birth year] (69 yo F)Acc No.[id number]:06/17/2024 EGD/MAC Patient: Esteban ZAMBRANOMary BIANCA Bradshaw Provider: Freedom Sharma MD :1955 A ge:69 Y S ex:Female Date:06/17/2024 Address:[address] [place] [address] [id number] Pcp:Adan Griffin MD Subjective: * Chief Complaints: [...] Pending * Provider: Freedom Sharma MD Date: 08/18/2023 Generated for Sonia haas/Nikolas/Chavezitting on: 0 03/20/2025 03:08 PM EDT
--- OUTSIDE RECORDS SUMMARY | 2024-10-07 07:15 | XMS_ITS ---
Author Organization [facility] Address [address] [place] [phone] Care Team Providers Care Title Searcher Name Role Phone Adan Griffin Primary Care Provider Susan Mccord [phone] Melendrez Encounters Encounter Location Date Provider Diagnosis [address] [address] 10/07/2024 Susan Napoles Plan Of Treatment Next Appt Details Provider Name:Susan quinonez, 04/28/2025 02:45:00 PM, [address] [place] [address], [phone], Progress Notes * Alley TUBBS ADOB:[birth year] (69 yo F)Acc No.[id number]:10/07/2024 Progress Note Patient: Esteban GRIMESAlley KATZ Provider: Esteban Napoles DPM :1955 A ge:69 Y S ex:Female Date:10/07/2024 Address:[address] [place], [place] [phone] Pcp:Adan Griffin Subjective: * Chief Complaints: * [...] 10/07/2024 Generated for Sonia haas/Nikolas/Mike on: 0 03/20/2025 03:08 PM EDT
--- NOTE | ~2025-03-20 | US_ITS ---
EXAMINATION: US PELVIS CLINICAL INFORMATION: N -4.9 COMPARISON: August 15, 2024 reported 6.4 cm cystic lesion, left adnexa. TECHNIQUE: Ultrasound of the pelvis is performed using both transabdominal and transvaginal transducers along with Doppler. Transvaginal imaging is performed due to inadequate visualization transabdominally. FINDINGS: Uterus: The uterus is in anteversion flexion and measures 4 x 2 x 3 cm. Focal calcification posterior uterus. The double wall endometrial thickness is 2 mm. Focal calcification in the posterior uterus No visible fibroid. Adnexa: The right ovary is not identified.. The left ovary is present with flow on color Doppler interrogation. No free fluid in the cul-de-sac. Left ovary measures there is a large, 5.3 cm anechoic lesion with a volume: 66 cc. Minimal internal echoes. No flow on color Doppler interrogation. cm. US/US pelvic and transvaginal IMPRESSION: 5.3 cm cystic lesion, left ovary. Nonspecific punctate calcification, posterior uterus. No free fluid in the cul-de-sac. Electronically signed by: Vineet Corona MD 03/20/2025 04:05 PM EDT
--- OUTSIDE RECORDS SUMMARY | 2025-03-20 15:08 | XMS_ITS | Patient Health Record ---
Author Organization [facility] Address [address] [place] [address] Care Team Providers Care Outdoor Illuminating Engineer Name Role Phone Adan Griffin MD Primary Care Provider Jethro Munoz Jr Allergies Allergen (clinical drug ingredient) Drug/Non Drug Allergy documented on EMR Reaction Allergy Type Onset Date Status amoxicillin Amoxicillin Unknown Drug Allergy Act rosalie Results Component Value Reference Range Notes Pathology Reviewed date:06/19/2024 11:18:33 AM Interpretation: Performing Lab:[facility], [address] [place] [address] Notes/Report: FL barium swallow modified Reviewed date:09/25/2024 07:49:30 AM Interpretation: Performing Lab: Notes/Report: [address] [address] Fluoroscopy Report Signed Patient: Alley Jaimes MR#: [id number] : 1955 Acct:[id number] Age/Sex: 69 / F ADM Date: 09/24/24 Loc: MARYJO Attending Dr: Jethro Sharma MD Ordering Physician: Jethro Sharma MD Date of Service: 09/24/24 Procedure(s): FL Modified Barium Swallow Accession Number(s): [id number] cc: Jethro Sharma MD; Adan Griffin MD [...] 09/24/24 1605 DD/ 1432 TD/TT: 09/24/24 1439 Door Installer: Reason For Referral No Information Medications Medication [...] Problem Status W/U Status Risk Notes Problem 622971434 Colon cancer screening (Z12.11) Active confirmed Problem 969660373 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 Problem 890089447406902 snf (current) use of aspirin (Z79.82) Active confirmed Problem Dysphagia (77784243) Dysphagia (R13.10) Active confirmed Problem 13995810838829914 snf current use of diuretic (Z79.899) Active confirmed Vital Signs Temperature 97.3 degrees Fahrenheit 08/25/2024 Blood pressure diastolic 77 mm Hg 02/26/2025 Height 67 in 02/26/2025 Blood pressure systolic 111 mm Hg 02/26/2025 Weight 226 lbs 02/26/2025 BMI 35.39 kg/m2 02/26/2025 Encounters Encounter Location Date Provider Diagnosis [facility] [place] In[place] [address] [place] [phone] 06/17/2024 Jethro Sharma Jr Other diseases of stomach and duodenum K31.89 and Dysphagia R13.10 [facility] [address] [place] [address] 08/25/2024 Jethro Sharma Jr Dysphagia R13.10 ; Colon cancer screening Z12.11 and 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 K22.70 [facility] [address] [place] [address] 02/26/2025 Jethro Sharma Jr Colon cancer screening Z12.11 and Dysphagia R13.10 [facility] [address] [place] [address] 06/19/2024 Jethro Sharma Jr [facility] [address] [address] 09/30/2024 Jethro Sharma Jr Assessments Encounter Date [...] balloon dilation could be considered as well. 02/26/2025 Colon cancer screening (ICD-10 - Z12.11) [...] aspirin 1 week before the procedure. 08/25/2024 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 (ICD-10 - [...] Provider Name:Jethro Louie Terry shaw Jr, 03/27/2025 08:20:00 AM, [address] [place] [address] , [place], [place], [phone], Insurance Providers Payer Name Payer Address Payer Phone Subscriber Number Group Number Insured Name Patient Relationship to Insured Coverage Start Date Coverage End Date [facility] [address] [place] [address] [phone] [id number] ALLEY JAIMES Self - patient is the insured Medical (General) History Medical History History ICD Code Hypertension Hyperlipidemia Diabetes mellitus Hypercalcemia Elevated BMI Osteopenia Macular degeneration Adnexal cyst Adrenal mass Colonoscopy 04/04, tubular adenoma, five- year followup Gastroesophageal reflux disease, EGD , esophagitis, no stricture Surgical History Surgery Date(Month/Year) cholecystectomy Hospitalization History Reason Date(Month/Year) endoscopy done with Dr. Sharma at [facility] [place] 06/08
--- OUTSIDE RECORDS SUMMARY | 2025-03-20 15:08 | XMS_ITS | Patient Health Record ---
Author Organization [facility] Address [address] [place] [address] Care Team Providers Care Thermodynamics Engineer Name Role Phone EliasAnabatsheva Primary Care Provider Susan Mccord Unavailable [phone] Allergies Allergen (clinical drug ingredient) Drug/Non Drug [...] Polyneuropathy due to type 2 diabetes mellitus (765622909) Type 2 diabetes mellitus with diabetic polyneuropathy (E11.42) Active confirmed Problem Bilateral atherosclerosis of arteries of lower limbs (disorder) ([id number] ) Atherosclerosis of [place] artery of both lower extremities, with unspecified presence of clinical manifestation (I70.203) Active confirmed Q7(A), Q8(2B), Q9(1B,2 C) Vital Signs Blood pressure diastolic 64 mm Hg 01/27/2025 Height 5ft 7in in 01/27/2025 Blood pressure systolic 128 mm Hg 01/27/2025 Weight 240 lbs 01/27/2025 BMI 37.59 kg/m2 01/27/2025 Encounters Encounter Location Date Provider Diagnosis [address] [address] 07/22/2024 Susan Napoles Atherosclerosis of tat[place]k artery of both lower extremities, with unspecified presence of clinical manifestation I70.203 ; Tinea unguium B35.1 ; Pain in right toe(s) M79.674 ; Pain in left toe(s) M79.675 ; Other hammer toe(s) (acquired), right foot M20.41 ; Other hammer toe(s) (acquired), left foot M20.42 ; Edema, lower extremity R60.0 and Type 2 diabetes mellitus without complication, without long-term current use of insulin E11.9 [facility] [address] 10/28/2024 Susan Napoles Type 2 diabetes mellitus without complication, without long-term current use of insulin E11.9 ; Pain in left toe(s) M79.675 ; Pain in right toe(s) M79.674 ; Tinea unguium B35.1 and Atherosclerosis of [place] artery of both lower extremities, with unspecified presence of clinical manifestation I70.[address] [address] 01/27/2025 Susan Napoles Type 2 diabetes mellitus [...] foot [pes planus] (acquired), right foot M21.[address] [address] 10/28/2024 Susan Napoles Assessments Encounter Date Diagnosis (ICD Code) Assessment Notes Treatment Notes Treatment Clinical Notes Section Notes 07/22/2024 Tinea unguium (ICD-10 - B35.1) 07/22/2024 Atherosclerosis of [place] artery of both lower extremities, with unspecified [...] foot (ICD-10 - L02.612) 10/28/2024 Atherosclerosis of [place] artery of both lower extremities, with unspecified [...] Details Provider Name:Susan quinonez, 04/28/2025 02:45:00 PM, [address] [place] [address], [id number], Insurance Providers Payer Name Payer Address Payer Phone Subscriber Number Group Number Insured Name Patient Relationship to Insured Coverage Start Date Coverage End Date [facility] 65 Medicare Preferred [address] [place] [address] [id number] Madison Alley starks Self - patient is the insured Medical (General) History Medical History History ICD Code Mumps Measles Chicken pox ulcer Macular degeneration High Blood Pressure Gall bladder problems Pre Diabetic CAD (Cholesterol) Cataracts Surgical History Surgery Date(Month/Year) gall bladder - stones Hospitalization History Reason Date(Month/Year) [facility]- Swelling feet/legs 06/12/24
--- OUTSIDE RECORDS SUMMARY | 2025-03-20 15:08 | XMS_ITS | Clinical Summary ---
Author Organization [facility], Address [address] [place] [address] [place] [address] Phone Care Team Providers Care Stadium Manager Name Role Phone Adan Griffin MD Primary Care Provider Medications aspirin 81 MG tablet Take 1 [...] Date Smoking Tobacco: Every Day Cigarettes 1 50.7 Started: 07/16/1974 Alcohol Use Standard Drinks/Week Comments [...] complete [place] [id number] Care Teams Stadium Manager Relationship Specialty Start Date End Date Adan Griffin MD [facility] [address] ELBERT TRIPATHI PCP - General 05/20/19
== END 2025-03-20 15:06 | disposition home or self-care (01) ==
LOC: HO.US 15:05
PROVIDERS: PCP Internal Medicine; Visit Provider Obstetrics & Gynecology
DX: N94.9 Unspecified condition associated with female genital organs and menstrual cycle (principal)
CPT/HCPCS: 76830; 76856

== ENCOUNTER → 2025-03-20 15:13 | Outpatient (BNV) | payer MEDICARE, SELFPAY | PROVIDERS: PCP Internal Medicine; Visit Provider Radiology Diagnostic Radiology | DX: N83.292 Other ovarian cyst, left side (principal) | CPT/HCPCS: 76830; 76856 ==

== ENCOUNTER 2025-03-23 12:22 | Outpatient (AMB) | payer MEDICARE, SELFPAY ==
--- OUTSIDE RECORDS SUMMARY | 2024-06-17 10:40 | XMS_ITS ---
Author Organization [facility] Address [address] [place] [id number] Care Team Providers Care Web Content Manager Name Role Phone Po Adan SALGADO Primary Care Provider Jethro Munoz Jr REASON FOR VISIT dysphagia Problems Problem Type SNOMED Code ICD Code Onset Dates Problem Status W/U Status Risk Notes Problem Dysphagia (77486647) Dysphagia (R13.10) Active confirmed Encounters Encounter Location Date Provider Diagnosis [facility] Inpatient [address] [place] [phone] 06/17/2024 Jethro Sharma Jr Other diseases of stomach and duodenum K31.89 and Dysphagia R13.10 Assessments Encounter Date Diagnosis (ICD Code) Assessment Notes Treatment Notes Treatment Clinical Notes Section Notes 06/17/2024 Other diseases of stomach and duodenum (ICD-10 - K31.89) 06/17/2024 Dysphagia (ICD-10 - R13.10) Plan Of Treatment Next Appt Details Provider Name:Jethro shaw Jr, 03/27/2025 08:20:00 AM, [address] [place] [address], [phone], Progress Notes * BIANCA JAIMES ADOB:[birth year] (69 yo F)Acc No.[id number]:06/17/2024 EGD/MAC Patient: Esteban ZAMBRANOMary BIANCA Bradshaw Provider: Freedom Sharma MD :[id number] A ge:69 Y S ex:Female Date:06/17/2024 Address:[address] [place] [address] [id number] Pcp:Adan Griffin MD Subjective: * Chief Complaints: * 1 . Dysphagia. * Medical History: Objective: * Vitals: Assessment: * Assessment: 1. O ther diseases of stomach and duodenum - K31.89 (Primary) 2 . D ysphagia - R13.10 Plan: * Treatment: * Procedure Codes: 4 3239 UPPER GI ENDOSCOPY, BIOPSY * * The named appointment provid er may or may not be the originator of this progress note, and it is not deemed complete until electronically signed by the appointment provider. Sign off status: Pending * Provider: Freedom Sharma MD Date: 1 08/18/2023 Generated for Sonia haas/Nikolas/Chavezitting on: 0 03/23/2025 02:43 PM EDT
--- OUTSIDE RECORDS SUMMARY | 2024-10-07 07:15 | XMS_ITS ---
Author Organization [facility] Address [address] [place] [phone] Care Team Providers Care Stock Clipper Name Role Phone Adan Griffin Primary Care Provider Susan Mccord [phone] Melendrez Encounters Encounter Location Date Provider Diagnosis [address] [address] 10/07/2024 Susan Napoles Plan Of Treatment Next Appt Details Provider Name:Susan quinonez, 04/28/2025 02:45:00 PM, [address] [place] [address], [phone], Progress Notes * Alley TUBBS ADOB:[birth year] (69 yo F)Acc No.[id number]:10/07/2024 Progress Note Patient: Esteban GRIMESAlley KATZ Provider: Esteban Napoles DPM :1955 A ge:69 Y S ex:Female Date:10/07/2024 Address:[address] [place], [place] [phone] Pcp:Adan Griffin Subjective: * Chief Complaints: * [...] 10/07/2024 Generated for Sonia haas/Nikolas/Mike on: 0 03/23/2025 02:43 PM EDT
--- NOTE | 2025-03-23 12:24 | A.OFFVIS_ITS ---
Vital Signs 3 03/23/25 12:29 Height 5 ft 5.5 in Weight 230 lb 6.129 oz BMI 37.8 BP 130/82 Blood Pressure Location Lt brachial Position Sitting Pulse 53 Pulse Source Pulse Oximeter Pulse Oximetry (%) 99 Oxygen Delivery Method Room Air Intake Visit Reasons: Other specified disorders of adrenal gland Intake Note: Patient present today for Other specified disorders of adrenal gland. Building Superintendent Required: No Accompanied by: Self / Same As Patient Allergies amoxicillin (AMOXICILLIN) Allergy (Severe, Verified 03/23/25 12:33) RASH adhesive tape (ADHESIVE TAPE) Allergy (Intermediate, Verified 03/23/25 12:33) RASH lisinopril (LISINOPRIL) Allergy (Intermediate, Verified 03/23/25 12:33) COUGH cephalexin Allergy (Mild, Verified 03/23/25 12:33) Rash simvastatin (From ZOCOR) Allergy (Unknown, Verified 03/23/25 12:33) UNKNOWN doxycycline Allergy (Verified 03/23/25 12:33) Rash Medication List - Last Reconciled 03/23/25 by Anamaria Hurtado MD atorvastatin 20 mg PO DAILY 90 days cholecalciferol (vitamin D3) 25 mcg PO DAILY hydrochlorothiazide 25 mg PO DAILY metoprolol succinate ER 25 mg PO DAILY potassium chloride ER 10 mEq PO DAILY 90 days HPI Comments Details: 69-year-old female here today for follow up of right adrenal gland nodule. HPI from prior visit Was having trouble swallowing and abd pain which prompted the adrenal CT in May 2024 I reviewed the images myself whihc showed Right adrenal gland: 3.5 cm mixed density and partially calcified low density nodule with the 30 Hounsfield units. History of HTN since her 20s/30s , used to be on 3 meds, but irbesartan DCed during May 2024 hospitalization , was also noted to have hypokalemia of potassium down to 2.7 , started on Kcl 10 meq daily, and now on HCTZ and metoprolol for BP control, BP normal today. Gastroententeritis in April 2024, subsequentlty she was barely eating in 2023, also had cellulitis Lost 50 lbs since 2023, still having trouble with dysphagia, had EGD whihc showed Barretts per patient and pending a barium swallow study with GI . She has history of prediabetes managed with diet . Pt denies hirsutism,severe acne ,headaches , , reports easy bruisability , no abdominal striae,no headache,diaphoresis -No skin infection or hyperpigmentation. no recent vertebra or fragility fracture, Ostepenia on BMD 2022 -No ,facial plethora or recent mood change. No hx of depression. - no episodic palpitaions, pallor, abdominal pain, diaphoresis . -no loss of libido No CAD. No CVA. Smoking a pack a day since 15 years of age, now down to 3-4 cigarettes per day No anticoagulants. No history of TB. Father [facility] was a smoker. Interval history 09/02/2024: A.m. cortisol of 3.8, acth 8, DHEA-S 7, aldosterone of 8, plasma renin activity of 3.41, plasma free metanephrine normal at 25, plasma free normetanephrine level elevated at 315, 09/04/2024,: Normal dexamethasone suppression tests with cortisol suppressed to 1, acth suppressed to less than 5 09/10/2024: Elevated plasma free normetanephrine of 272, (less than 148 pg/mL), undetectable free metanephrine levels 09/12/2023 24 hour urine normetanephrine noted to be elevated at 771 (upper limit of normal 676 mcg), 24 hour total metanephrine normetanephrine level noted to be elevated at 850 (upper limit of normal 832), low urine free normetanephrine of 79 (90-315) 09/27/2023: Plasma free metanephrine undetectable, plasma free normetanephrine elevated at 476 09/27/2023 24 hour urine metanephrine 77, 24 hour urine normetanephrine 1016, 24 hour urine total metanephrine and normetanephrine 1093, 24 hour urine dopamine level normal at 276, 24 hour urine total catecholamine level normal at 53 09/26/2024: Patient started on doxazosin 1 mg daily at bedtime 09/29/2024: Blood draw done from an indwelling catheter after 30 minutes of supine rest also showed elevated plasma free normetanephrine levels of 305, low metanephrine levels of less than 25 09/29/2024: Abdominal MRI pointed towards that 3 cm right adrenal mass which is T2 hyperintense, heterogenous the increased intensity, T1 hypointense, loss of signal in a T1 hyperintense focus on fat suppressed images, findings suggestive of macroscopic fat consistent with myelolipoma. Overall heterogeneous enhancement of the mass. Left adrenal gland unremarkable. Patient brought in BP log which showed morning blood pressures in the range of 91-107 systolic, 53 to 66 diastolic, heart rate 57-68, evening blood pressures 130s to 140s systolic, 60s diastolic, heart rate in the 50s to 60s 10/09/2024: Metoprolol stopped Interval history 03/23/2025 09/29/2024: Abdominal MRI showed the 3 X2.2 cm right adrenal mass with characteristics suggestive of a myelolipoma. 11/03/2024: Gallium 68 DOTATATE PET-CT scan demonstrated a 3.1 X2.4 cm isodense lesion in the right adrenal gland consistent with myelolipoma. Showed some abdominal lymph nodes as well as demonstrated the 5.5 cm left adnexal cyst. Call patient at 11:00 on 11/07/2024 and discussed with her that the DOTATATE scan did not show any concern for a pheochromocytoma or paraganglioma. The right adrenal gland masses consistent with a myelolipoma. Other adrenal gland was unremarkable. At this time given no lesion identified, we will plan to see her back in 6 months with repeat labs. Orders placed for plasma metanephrine and normetanephrine levels. She can stop taking the doxazosin, and go back on her metoprolol extended-release 25 mg daily. Since I had stopped it, I sent her a prescription for metoprolol, but I explained to her that her primary care physician can take over it again once she needs refills. She has an appointment with me in December, I will message the front staff to reschedule her for a six-month appointment. I also explained to the patient that the DOTATATE scan did identify a left adnexal cyst, patient already knows about the cyst from previously and has been followed for it with repeat pelvic ultrasounds. This is not a new finding. Also discussed with her that the DOTATATE scan did identify some lymph nodes, these could be reactive, patient does not have any B symptoms such as weight loss, night sweats. However I will forward the results to her primary care physician to see if any follow up is needed for these. Patient verbalized understanding and was appreciative of the call. Patient is now off doxazosin and back on her prior regimen with metoprolol. Denies any palpitations, headaches, adrenergic symptoms. Blood pressure heart rate within good range. Physical exam General: sitting comfortably in no acute distress HEENT: normocephalic/atraumatic, Neck: supple, symmetrical, no thyromegaly , does have dorsocervical and supraclavicular fat pads Cardiac: normal heart sounds Pulm: normal breath sounds B/L, no added breath sounds Abd: not distended, no tenderness, no purple abdominal striae Extremities: no edema, no signs of myxedema, power in upper extremities 5/5 ? Laboratory Tests 05/26/24 06/02/24 06/11/24 11:16 07:24 09:44 Potassium 3.6 3.8 3.2 L Albumin Renin Activity Aldosterone Aldosterone/Renin Ratio TSH Free T4 06/12/24 06/13/24 06/14/24 05:01 06:41 05:18 Potassium 3.1 L 3.2 L 2.7 L* Albumin Renin Activity Aldosterone Aldosterone/Renin Ratio TSH Free T4 06/15/24 07/18/24 05:33 09:41 Potassium 3.4 D 3.3 Albumin 3.4 L Renin Activity 8.34 H Aldosterone 8 Aldosterone/Renin Ratio 1.0 TSH 2.11 Free T4 0.59 L Laboratory Tests 09/04/24 09/10/24 09/12/24 08:12 12:05 08:00 Random Glucose 170 H Calcium 9.7 Random Cortisol 1.0 ACTH <5 L Plasma Free Metaneph <25 Plasma Free Normeta 272 H Plas Total Metaneph 272 H Ur 24 Hour Volume 1550 Ur Creatinine mg/dL 52.38 Ur Creatinine 24 Hour 0.8 L U Norepinephrine 24 Hr Urine Total Volume 1550 U Free Metanephrine 79 L U Normetanephrine 24h 771 H U Tot Metanephrine 24h 850 H Ur Dopamine 24 Hr U Tot Catecholamine 24h Urine Creatinine Dexamethasone 488 09/26/24 09/26/24 09/26/24 08:00 08:00 10:09 Random Glucose Calcium Random Cortisol ACTH Plasma Free Metaneph <25 Plasma Free Normeta 476 H Plas Total Metaneph 476 H Ur 24 Hour Volume 875 Ur Creatinine mg/dL 100.85 Ur Creatinine 24 Hour 0.9 L U Norepinephrine 24 Hr 53 Urine Total Volume 875 875 U Free Metanephrine 77 L U Normetanephrine 24h 1016 H U Tot Metanephrine 24h 1093 H Ur Dopamine 24 Hr 276 U Tot Catecholamine 24h 53 Urine Creatinine 0.86 Dexamethasone 09/29/24 09:58 Random Glucose Calcium Random Cortisol ACTH Plasma Free Metaneph <25 Plasma Free Normeta 305 H Plas Total Metaneph 305 H Ur 24 Hour Volume Ur Creatinine mg/dL Ur Creatinine 24 Hour U Norepinephrine 24 Hr Urine Total Volume U Free Metanephrine U Normetanephrine 24h U Tot Metanephrine 24h Ur Dopamine 24 Hr U Tot Catecholamine 24h Urine Creatinine Dexamethasone CT ABDOMEN AND PELVIS WITH CONTRAST 05/23/24 CLINICAL INFORMATION: Abdominal pain for 2 weeks. Nausea and vomiting. COMPARISON: None available. TECHNIQUE: Multidetector volumetric images were obtained from the superior aspect of the liver through the pubic symphysis following administration 85 mL of Omnipaque 350 intravenous contrast without reported immediate complications. Sagittal and coronal reformatted images were obtained on the technologist's workstation. Oral contrast: No This CT examination was performed using dose optimization techniques as appropriate, variously including the following: *Automated exposure control *Adjustment of mA and/or kV according to patient size (this includes techniques or standardized protocols for targeted exams where dose is matched to indication/reason for exam; i.e. extremities or head) *Use of iterative reconstruction technique DLP: 1161 mGy-cm FINDINGS: LUNG BASES: No acute airspace disease or gross pulmonary nodules in the included lungs. Calcified plaques in the mitral valve. LIVER, GALLBLADDER, AND BILIARY TREE: Liver measures 20 cm. Focal hypodensity near the falciform ligament. Main portal vein, hepatic veins and intrahepatic portion of the IVC are patent. No intrahepatic biliary ductal dilatation. Status post cholecystectomy likely laparoscopic. Common bile duct measures 4 mm. PANCREAS: No focal mass. No peripancreatic fluid collections. No main pancreatic ductal dilatation. SPLEEN: Measures 9 cm without focal mass. ADRENAL GLANDS: Right adrenal gland: 3.5 cm mixed density and partially calcified low density nodule with the 30 Hounsfield units. Left adrenal gland: No nodular lesion in the left adrenal gland. KIDNEYS AND URETERS: No hydronephrosis. No gross renal mass. BLADDER: Fluid-filled. GASTROINTESTINAL TRACT: Abundant stool, right hemicolon. Gas and fluid-filled prominent proximal small bowel loops. No intestinal obstruction pattern. Collapsed appearance of the left hemicolon. Appendix is normal. Terminal ileum is normal. Multiple scattered diverticula in the sigmoid colon. No pericolonic edema pattern or fluid collections. No fluid collections in the peritoneal cavity. No ascites. No pneumoperitoneum. ABDOMINAL WALL: Fat and fluid-filled umbilical hernia, small to moderate size. LYMPH NODES: Nonspecific prominent lymph nodes, mesenteric and retroperitoneal. VASCULAR: Calcified plaques, irregularly-shaped throughout the abdominal aorta wall and the origin of the mesenteric arteries and main renal arteries as well as the iliac arteries. No aneurysm or dissection, abdominal aorta. PELVIC VISCERA: 4.7 cm cystic lesion, left adnexa. OSSEOUS STRUCTURES: Multilevel spondylosis more conspicuous at T10-11, L4-5 and L5-S1. Grade 1 anterolisthesis L4-5 on a degenerative basis resulting in central spinal canal and bilateral neuroforamina stenosis likely compressing the neural elements. Grade 1 retrolisthesis L5-S1 resulting in bilateral neuroforamina stenosis. CT/CT abdomen pelvis w IV con IMPRESSION: Fat and fluid-filled umbilical hernia, small to moderate size. Diverticular disease, sigmoid colon. 4.7 cm cystic lesion, left adnexa. 3.5 cm lesion/mass, right adrenal gland. No clear diagnosis. Grade 1 anterolisthesis L4-5 resulting in central spinal canal and neuroforamina stenosis. Atherosclerosis disease. Calcified mitral valve. Hepatomegaly. Fleischner guidelines were followed. Electronically signed by: Vineet Corona MD 05/23/2024 02:35 PM [facility] MRI Abdomen without and with contrast 09/29/24 HISTORY: E27.8 - Other specified disorders of adrenal gland. Concern for pheochromocytoma. COMPARISON: Correlation is made with a CT of the abdomen with contrast dated 05/23/2024. TECHNIQUE: Axial in and out of phase T1-weighted gradient echo, axial diffusion weighted, and axial and coronal HASTE T2 with fat saturation images were obtained through the abdomen. Subsequently, fat suppressed axial and coronal T1-weighted images were obtained after the intravenous administration of 10 mL Gadavist. FINDINGS: There is a 3.0 x 2.2 cm right adrenal mass which demonstrates heterogeneously increased T2 signal intensity. The mass demonstrates markedly decreased signal intensity on the in phase T1-weighted gradient echo sequence. A tiny T1 hyperintense focus within the mass loses signal intensity on fat-suppressed images (series 10, image 39 and series 11, image 38). This is also seen when comparing the conventional T2 and fat-suppressed T2-weighted sequences. Deidre ink artifact is seen in this region on opposed phase imaging. These findings are consistent with macroscopic fat, likely due to a myelolipoma. There is heterogeneous enhancement of the mass. The left adrenal gland is unremarkable. There is no significant signal loss within the liver on opposed phase imaging to suggest steatosis. No enhancing liver mass is identified. The hepatic and portal veins are patent. There is no intra or extrahepatic biliary ductal dilatation. The common bile duct is normal in caliber. The spleen, pancreas, and kidneys are unremarkable. MR/MR abdomen wo/w con IMPRESSION: 3.0 x 2.2 cm right adrenal mass which demonstrates imaging characteristics suggestive of a myelolipoma. This could be followed with unenhanced CT. [facility] Medical History Paraganglioma Right adrenal mass Adnexal mass Lymphedema Obesity Macular degeneration Osteopenia Vitamin D deficiency Hypercalcemia Hypercholesterolemia Essential hypertension Type 2 diabetes mellitus with hyperglycemia Surgical History Lymphedema of both lower extremities History of cholecystectomy Family History Father Lung cancer Mother Diabetes Hypertension Paternal Aunt Breast cancer Diabetes Sister Diabetes Social History Household Members: Spouse Housing: House Are you a primary child care group leader to a significant other at home: No Do you presently have visiting nurse or other home services: No Alcohol intake: current Alcohol intake frequency: holidays/special occasions only Comment: 1x weekly Patient Tobacco Use Status: Current everyday Tobacco user Tobacco use type: Cigarette Cigarettes Per Day: 6 Years Smoked: 54 e-Cigarette/Vaping Use: Never Used Second Hand Smoke Exposure: Yes service: No Current occupational status: retired Sexual orientation: Straight/Heterosexual Gender identity: Female Cognitive needs: No Hearing needs: No Vision needs: Yes (reading glasses ) Physical Exam Vital Signs: Last Vital Signs Pulse 53 03/23/25 12:29 BP 130/82 03/23/25 12:29 Pulse Ox 99 03/23/25 12:29 Oxygen Delivery Method Room Air 03/23/25 12:29 BMI result Body Mass Index 37.8 Assessment & Plan Assessment & Plan (1) Adrenal mass: Code(s): E27.8 - Other specified disorders of adrenal gland Category: Medical Plan: 69-year-old female coming in today for follow up of right adrenal gland nodule. She had a CT scan in May 2024 which showed a right-sided 3.5 cm adrenal gland nodule with 30 Hounsfield units density and calcifications in it. Functional testing showed from August 2024 non suppressed renin, plasma aldosterone of 8, normal dexamethasone suppression test, however showed elevated plasma normetanephrine levels. These were repeated and again came back elevated in September 2024. 24 hour urine levels of normetanephrine also elevated. Low 24 hour urine normetanephrine levels. Normal 24 hour urine catecholamine and dopamine levels. One blood work was repeated from an indwelling catheter after 30 minutes of supine rest again showed elevated plasma normetanephrine levels. While these are not 3-4 times above the upper limit of normal, there at least twice the above upper limit of normal. . She is not on any interfering medications. MRI of the abdomen done in September 2024 showed the 3 cm right adrenal mass which was T2 hyperintense, T1 hypointense, however there is a focus of hyperintensity in the T1 face which had loss of signal in the fat suppressed images, and I spoke with the radiologist personally who advised that this is consistent with macroscopic fat suggestive of a myelolipoma. October 2024 PET-CT DOTATATE scan also demonstrated Gallium 68 DOTATATE PET-CT scan demonstrated a 3.1 X2.4 cm isodense lesion in the right adrenal gland consistent with myelolipoma. Showed some abdominal lymph nodes as well as demonstrated the 5.5 cm left adnexal cyst. At this point given no structural lesion was identified with regards to a pheochromocytoma/paraganglioma, we had stopped her doxazosin and put her back on her old regimen including metoprolol. Her blood pressure and heart rate are within good range. She remains asymptomatic. Plan: -ordered plasma metanephrine/normetanephrine levels to be done now -follow up in 1 year with consideration for repeat CT scan to monitor the mass Plan See above Orders: Orders 2 Metanephrines, Plasma Today E27.8 - Other specified disorders of adrenal gland Coding Level of Care Code Est Pt Level 3 (12730) Diagnoses Adrenal mass E27.8
[2025-03-23 12:29] VITALS: BP 130/82; PULSE 53; O2SAT 99; BMI 37.8
--- OUTSIDE RECORDS SUMMARY | 2025-03-23 14:43 | XMS_ITS | Clinical Summary ---
Author Organization [facility], Address [address] [place] [address] [place] [address] Phone Care Team Providers Care Industrial Psychology Professor Name Role Phone Adan Griffin MD Primary Care Provider [phone] Medications aspirin 81 MG tablet Take 1 [...] complete [place] [id number] Care Teams Industrial Psychology Professor Relationship Specialty Start Date End Date Adan Griffin MD [facility] [place] [id number] ELBERT TRIPATHI PCP - General 05/20/19
--- OUTSIDE RECORDS SUMMARY | 2025-03-23 14:43 | XMS_ITS | Patient Health Record ---
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 Role Phone Adan Griffin MD Primary Care Provider Jethro Munoz Jr Allergies Allergen (clinical drug ingredient) Drug/Non Drug Allergy documented on EMR Reaction Allergy Type Onset Date Status amoxicillin Amoxicillin Unknown Drug Allergy Act rosalie Results Component Value Reference Range Notes Pathology Reviewed date:06/19/2024 11:18:33 AM Interpretation: Performing Lab:[facility], [address] [place] [phone] Notes/Report: FL barium swallow modified Reviewed date:09/25/2024 07:49:30 AM Interpretation: Performing Lab: Notes/Report: [address] [address] Fluoroscopy Report Signed Patient: Alley Jaimes MR#: [id number] : 1955 Acct:[id number] Age/Sex: 69 / F ADM Date: 09/24/24 Loc: MARYJO Attending Dr: Jethro Sharma MD Ordering Physician: Jethro Sharma MD Date of Service: 09/24/24 Procedure(s): FL Modified Barium Swallow Accession Number(s): [id number] cc: Jethro Sharma MD; Adan Griffin MD [...] 09/24/24 1605 DD/ 1432 TD/TT: 09/24/24 1439 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: Reason For Referral No Information Medications Medication [...] Problem Status W/U Status Risk Notes Problem 557043076 Colon cancer screening (Z12.11) Active confirmed Problem 706623815 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 Problem 936356795548491 correction (current) use of aspirin (Z79.82) Active confirmed Problem Dysphagia (36405705) Dysphagia (R13.10) Active confirmed Problem 28714808398174512 correction current use of diuretic (Z79.899) Active confirmed Vital Signs Temperature 97.3 degrees Fahrenheit 08/25/2024 Blood pressure diastolic 77 mm Hg 02/26/2025 Height 67 in 02/26/2025 Blood pressure systolic 111 mm Hg 02/26/2025 Weight 226 lbs 02/26/2025 BMI 35.39 kg/m2 02/26/2025 Encounters Encounter Location Date Provider Diagnosis [facility] Inpatient [address] [place] [id number] 06/17/2024 Jethro Sharma Jr Other diseases of stomach and duodenum K31.89 and Dysphagia R13.10 [facility] [address] [place] [phone] 08/25/2024 Jethro Sharma Jr Dysphagia R13.10 ; Colon cancer screening Z12.11 and 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 K22.70 [facility] [address] [place] [phone] 02/26/2025 Jethro Sharma Jr Colon cancer screening Z12.11 and Dysphagia R13.10 [facility] [address] [place] [phone] 06/19/2024 Jethro Sharma Jr [facility] [address] [address] 09/30/2024 Jethro Sharma Jr Assessments Encounter Date [...] Louie Terry shaw Jr, 03/27/2025 08:20:00 AM, [address] [place] [address] , [place], [place], [phone], Insurance Providers Payer Name Payer Address Payer Phone Subscriber Number Group Number Insured Name Patient Relationship to Insured Coverage Start Date Coverage End Date [facility] [address] [place] [address] [phone] [id number] ALLEY JAIMES Self - patient is the insured Medical (General) History Medical History History ICD Code Hypertension Hyperlipidemia Diabetes mellitus Hypercalcemia Elevated BMI Osteopenia Macular degeneration Adnexal cyst Adrenal mass Colonoscopy 04/04, tubular adenoma, five- year followup Gastroesophageal reflux disease, EGD , esophagitis, no stricture Surgical History Surgery Date(Month/Year) cholecystectomy Hospitalization History Reason Date(Month/Year) endoscopy done with Dr. Sharma at [facility] 06/08
--- OUTSIDE RECORDS SUMMARY | 2025-03-23 14:43 | XMS_ITS | Patient Health Record ---
Author Organization [facility] Address [address] [place] [address] Care Team Providers Care Business Line Manager Name Role Phone EliasAnabatsheva Primary Care Provider Susan Mccord Unavailable [phone] Allergies Allergen (clinical drug ingredient) Drug/Non Drug [...] Polyneuropathy due to type 2 diabetes mellitus (686095944) Type 2 diabetes mellitus with diabetic polyneuropathy (E11.42) Active confirmed Problem Bilateral atherosclerosis of arteries of lower limbs (disorder) (96564488112611367 ) Atherosclerosis of [place] artery of both lower extremities, with unspecified presence of clinical manifestation (I70.203) Active confirmed Q7(A), Q8(2B), Q9(1B,2 C) Vital Signs Blood pressure diastolic 64 mm Hg 01/27/2025 Height 5ft 7in in 01/27/2025 Blood pressure systolic 128 mm Hg 01/27/2025 Weight 240 lbs 01/27/2025 BMI 37.59 kg/m2 01/27/2025 Encounters Encounter Location Date Provider Diagnosis [address] [address] 07/22/2024 Susan Napoles Atherosclerosis of [place] artery of both lower extremities, with unspecified presence of clinical manifestation I70.203 ; Tinea unguium B35.1 ; Pain in right toe(s) M79.674 ; Pain in left toe(s) M79.675 ; Other hammer toe(s) (acquired), right foot M20.41 ; Other hammer toe(s) (acquired), left foot M20.42 ; Edema, lower extremity R60.0 and Type 2 diabetes mellitus without complication, without long-term current use of insulin E11.[facility] [address] 10/28/2024 Susan Napoles Type 2 diabetes mellitus without complication, without long-term current use of insulin E11.9 ; Pain in left toe(s) M79.675 ; Pain in right toe(s) M79.674 ; Tinea unguium B35.1 and Atherosclerosis of [place] artery of both lower extremities, with unspecified presence of clinical manifestation I70.[address] [address] 01/27/2025 Susan Napoles Type 2 diabetes mellitus [...] foot [pes planus] (acquired), right foot M21.[address] [address] 10/28/2024 Susan Napoles Assessments Encounter Date Diagnosis (ICD Code) Assessment Notes Treatment Notes Treatment Clinical Notes Section Notes 07/22/2024 Tinea unguium (ICD-10 - B35.1) 07/22/2024 Atherosclerosis of [place] artery of both lower extremities, with unspecified [...] foot (ICD-10 - L02.612) 10/28/2024 Atherosclerosis of [place] artery of both lower extremities, with unspecified [...] Details Provider Name:Susan quinonez, 04/28/2025 02:45:00 PM, [address] [place] [address], [phone], Insurance Providers Payer Name Payer Address Payer Phone Subscriber Number Group Number Insured Name Patient Relationship to Insured Coverage Start Date Coverage End Date [facility] 65 Medicare Preferred [address] [place] [address] [id number] [place] Alley starks Self - patient is the insured Medical (General) History Medical History History ICD Code Mumps Measles Chicken pox ulcer Macular degeneration High Blood Pressure Gall bladder problems Pre Diabetic CAD (Cholesterol) Cataracts Surgical History Surgery Date(Month/Year) gall bladder - stones Hospitalization History Reason Date(Month/Year) [facility]24
== END 2025-03-23 12:57 | disposition home or self-care (01) ==
LOC: HO.ENCR 12:23
PROVIDERS: PCP Internal Medicine; Visit Provider Student in an Organized Health Care Education/Training Program
DX: E27.8 Other specified disorders of adrenal gland (principal)
CPT/HCPCS: 99213

== ENCOUNTER 2025-03-23 12:22 | Outpatient (REF) | payer MEDICARE, SELFPAY ==
[2025-03-29 10:49] LABS: Metanephrine, Free <25 pg/mL (<=57); Normetanephrines, Free 184 pg/mL (<=148); Total Metanephrine, Free 184 pg/mL (<=205)
== END 2025-03-23 12:23 | disposition home or self-care (01) ==
LOC: HO.LAB 12:22
PROVIDERS: PCP Internal Medicine; Visit Provider Student in an Organized Health Care Education/Training Program
DX: E27.8 Other specified disorders of adrenal gland (principal); I10 Essential (primary) hypertension; Z79.899 Other long term (current) drug therapy
CPT/HCPCS: 36415; 83835; 99212

== ENCOUNTER 2025-03-26 14:13 | Outpatient (REF) | payer MEDICARE, SELFPAY ==
[2025-03-26 18:35] LABS: Carcinoembryonic Antigen 2.80 ng/mL
[2025-03-27 09:47] LABS: CA-125 <3 U/mL (<35)
== END 2025-03-26 14:14 | disposition home or self-care (01) ==
LOC: HO.LAB 14:13
PROVIDERS: PCP Internal Medicine; Visit Provider Obstetrics & Gynecology
DX: N94.9 Unspecified condition associated with female genital organs and menstrual cycle (principal)
CPT/HCPCS: 36415; 82378; 86301; 86304; 99212

== ENCOUNTER 2025-03-26 14:13 | Outpatient (AMB) | payer MEDICARE, SELFPAY ==
--- OUTSIDE RECORDS SUMMARY | 2024-06-17 10:40 | XMS_ITS ---
Author Organization [facility] Address [address] [place] [id number] Care Team Providers Care Transportation Operations Manager Name Role Phone Po Adan SALGADO Primary Care Provider Jethro Munoz Jr REASON FOR VISIT dysphagia Problems Problem Type SNOMED Code ICD Code Onset Dates Problem Status W/U Status Risk Notes Problem Dysphagia (99973172) Dysphagia (R13.10) Active confirmed Encounters Encounter Location Date Provider Diagnosis [facility] Inpatient [address] [place] [phone] 06/17/2024 Jethro Sharma Jr Other diseases of stomach and duodenum K31.89 and Dysphagia R13.10 Assessments Encounter Date Diagnosis (ICD Code) Assessment Notes Treatment Notes Treatment Clinical Notes Section Notes 06/17/2024 Other diseases of stomach and duodenum (ICD-10 - K31.89) 06/17/2024 Dysphagia (ICD-10 - R13.10) Plan Of Treatment Next Appt Details Provider Name:Jethro shaw Jr, 03/27/2025 08:20:00 AM, [address] [place] [address], [phone], Progress Notes * BIANCA JAIMES ADOB:[birth year] (69 yo F)Acc No.[id number]:06/17/2024 EGD/MAC Patient: Esteban ZABMRANOMary BIANCA Bradshaw Provider: Freedom Sharma MD :1955 A ge:69 Y S ex:Female Date:06/17/2024 Address:[address] [place] [address] [id number] Pcp:Adan Griffin MD Subjective: * Chief Complaints: [...] 08/18/2023 Generated for Sonia haas/Nikolas/Chavezitting on: 0 03/26/2025 05:59 PM EDT
--- OUTSIDE RECORDS SUMMARY | 2024-10-07 07:15 | XMS_ITS ---
Author Organization [facility] Address [address] [place] [id number] Care Team Providers Care Lithoduplicator Operator Name Role Phone Adan Griffin Primary Care Provider Susan Mccord [phone] Melendrez Encounters Encounter Location Date Provider Diagnosis [address] [address] 10/07/2024 Susan Napoles Plan Of Treatment Next Appt Details Provider Name:Susan quinonez, 04/28/2025 02:45:00 PM, [address] [place] [address], [phone], Progress Notes * Alley TUBBS ADOB:[birth year] (69 yo F)Acc No.[id number]:10/07/2024 Progress Note Patient: Esteban GRIMESAlley KATZ Provider: Esteban Napoles DPM :1955 A ge:69 Y S ex:Female Date:10/07/2024 Address:[address] [place], [place] [phone] Pcp:Adan Griffin Subjective: * Chief Complaints: * [address] Melendrez. * Medical History: Objective: * Vitals: Assessment: Plan: * Treatment: * Images: * The named appointment provid er may or may not be the originator of this progress note, and it is not deemed complete until electronically signed by the appointment provider. Sign off status: Pending * Provider: Esteban Napoles DPM Date: 0 10/07/2024 Generated for Sonia haas/Nikolas/Mike on: 0 03/26/2025 05:59 PM EDT
--- NOTE | 2025-03-26 14:22 | MHC.OFFVIS ---
Vital Signs 03/26/25 14:24 Height 5 ft 5.5 in Weight 230 lb BMI 37.7 Intake Visit Reasons: Ultrasound follow up Broadcast Correspondent Required: No Information Interpreted: non-clinical & clinical Accompanied by: Spouse Allergies amoxicillin (AMOXICILLIN) Allergy (Severe, Verified 03/26/25 14:26) RASH adhesive tape (ADHESIVE TAPE) Allergy (Intermediate, Verified 03/26/25 14:26) RASH lisinopril (LISINOPRIL) Allergy (Intermediate, Verified 03/26/25 14:26) COUGH cephalexin Allergy (Mild, Verified 03/26/25 14:26) Rash simvastatin (From ZOCOR) Allergy (Unknown, Verified 03/26/25 14:26) UNKNOWN doxycycline Allergy (Verified 03/26/25 14:26) Rash Post menopausal: Yes HPI Comments Details: Presenting for ultrasound follow-up regarding the right simple ovarian cyst. 03/20/2025 pelvic ultrasound showed the following: Uterus: The uterus is in anteversion flexion and measures 4 x 2 x 3 cm. Focal calcification posterior uterus. The double wall endometrial thickness is 2 mm. Focal calcification in the posterior uterus No visible fibroid. Adnexa: The right ovary is not identified.. The left ovary is present with flow on color Doppler interrogation. No free fluid in the cul-de-sac. Left ovary measures there is a large, 5.3 cm anechoic lesion with a volume: 66 cc. Minimal internal echoes. No flow on color Doppler interrogation. cm 07/11/2025 Pelvic MRI = 6.4x4.7 x 4.7 cm simple 08/15/24 Pelvic US=5.4x5.2x4.7 cm simple ov cyst PFSH Medical History (Updated 03/26/25 @ 14:49 by Aaron Bolton MD) Hx MRSA infection COPD (chronic obstructive pulmonary disease) Paraganglioma Right adrenal mass Adnexal mass Lymphedema Obesity Macular degeneration Osteopenia Vitamin D deficiency Hypercalcemia Hypercholesterolemia Essential hypertension Type 2 diabetes mellitus with hyperglycemia Surgical History (Updated 03/25/25 @ 08:56 by Lucy Del Cid RN) H/O colonoscopy History of esophagogastroduodenoscopy (EGD) History of cholecystectomy Family History Father Lung cancer Mother Diabetes Hypertension Paternal Aunt Breast cancer Diabetes Sister Diabetes Social History Household Members: Spouse Housing: House Are you a primary progressive care manager to a significant other at home: No Do you presently have visiting nurse or other home services: No Alcohol intake: current Alcohol intake frequency: holidays/special occasions only Comment: 1x weekly Patient Tobacco Use Status: Current everyday Tobacco user Tobacco use type: Cigarette Cigarettes Per Day: 6 Years Smoked: 54 e-Cigarette/Vaping Use: Never Used Second Hand Smoke Exposure: Yes service: No Current occupational status: retired Sexual orientation: Straight/Heterosexual Gender identity: Female Cognitive needs: No Hearing needs: No Vision needs: Yes (reading glasses ) Review of Systems Const All systems reviewed & are unremarkable except as noted in HPI and below Reports as per HPI and Reports no additional complaints GI Reports no additional complaints Reports no additional complaints Physical Exam Vital Signs: BMI result Body Mass Index 37.7 Assessment & Plan Assessment & Plan (1) Adnexal cyst: Comment: Left Code(s): N94.9 - Unspecified condition associated with female genital organs and menstrual cycle Category: Medical Plan: CA 125, CEA and CA 19-9 ordered. Discussed with the patient the sensitivity, specificity, false-positive false-negative rate ovarian cancer tumor markers. Discussed with the patient the ovarian cyst by ultrasound. Discussed with the patient the Ultrasound findings, the main limitation of transvaginal ultrasonography alone as a diagnostic tool to distinguish benign from malignant masses relates to its lack of specificity and low positive predictive value for cancer. The differential diagnosis discussed with the patient includes the following but not limited to: benign and malignant gynecological and non-gynecological causes. Discussed with the patient options of treatment , in case ovarian cancer tumor markers are not elevated, including laparoscopy ovarian salpingo-oophorectomy vs. expectant management with repeat US in repeating pelvic US in 6 months from previous US. If the ovarian cyst is persistent larger and / or changes in Ultrasound appearance & became complex looking, or elevated tumor marker will refer to gynecologic Oncology. All pros, cons, risks and benefits of each approach were discussed with the patient including but not limited to a delay in the diagnosis and treatment of ovarian cancer affecting the prognosis; The patient decided to go ahead with expectant management. Instructions given the patient to schedule a six-month ultrasound (ordered) and a follow-up appointment. All questions were answered & the patient verbalized understanding and agreed with the plan Orders: Orders CA-125 Today N94.9 - Unspecified condition associated with female genital organs and menstrual cycle US pelvic and transvaginal 6 Months N94.9 - Unspecified condition associated with female genital organs and menstrual cycle Carcinoembryonic Antigen Today N94.9 - Unspecified condition associated with female genital organs and menstrual cycle Carbohydrate Antigen 19-9 Today N94.9 - Unspecified condition associated with female genital organs and menstrual cycle Coding Level of Care Code Est Pt Level 3 (03772) Diagnoses Adnexal cyst N94.9
[2025-03-26 14:24] VITALS: BMI 37.7
--- OUTSIDE RECORDS SUMMARY | 2025-03-26 17:59 | XMS_ITS | Clinical Summary ---
Author Organization [facility], Address [address] [place] [address] [place] [address] Phone Care Team Providers Care Leasing Representative Name Role Phone Adan Griffin MD Primary Care Provider [phone] Medications aspirin 81 MG tablet Take 1 [...] complete [place] [id number] Care Teams Leasing Representative Relationship Specialty Start Date End Date Adan Griffin MD [facility] [id number] [place] [facility] PCP - General 05/20/19
--- OUTSIDE RECORDS SUMMARY | 2025-03-26 17:59 | XMS_ITS | Patient Health Record ---
Author Organization [facility] Address [address] [place] [phone] Care Team Providers Care Tawer Name Role Phone Adan Griffin MD Primary Care Provider Jethro Munoz Jr Allergies Allergen (clinical drug ingredient) Drug/Non Drug Allergy documented on EMR Reaction Allergy Type Onset Date Status amoxicillin Amoxicillin Unknown Drug Allergy Act rosalie Results Component Value Reference Range Notes Pathology Reviewed date:06/19/2024 11:18:33 AM Interpretation: Performing Lab:[facility], [address] [place] [phone] Notes/Report: FL barium swallow modified Reviewed date:09/25/2024 07:49:30 AM Interpretation: Performing Lab: Notes/Report: [address] [address] Fluoroscopy Report Signed Patient: Alley Jaimes MR#: [id number] : 1955 Acct:[id number] Age/Sex: 69 / F ADM Date: 09/24/24 Loc: MARYJO Attending Dr: Jethro Sharma MD Ordering Physician: Jethro Sharma MD Date of Service: 09/24/24 Procedure(s): FL Modified Barium Swallow Accession Number(s): [id number] cc: Jethro Sharma MD; Adan Griffin MD [...] 09/24/24 1605 DD/ 1432 TD/TT: 09/24/24 1439 Rubber Liner: Reason For Referral No Information Medications Medication [...] Problem Status W/U Status Risk Notes Problem 918456518 Colon cancer screening (Z12.11) Active confirmed Problem 618360023 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 Problem 050391898726434 USP (current) use of aspirin (Z79.82) Active confirmed Problem Dysphagia (24193053) Dysphagia (R13.10) Active confirmed Problem 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) Active confirmed Vital Signs Temperature 97.3 degrees Fahrenheit 08/25/2024 Blood pressure diastolic 77 mm Hg 02/26/2025 Height 67 in 02/26/2025 Blood pressure systolic 111 mm Hg 02/26/2025 Weight 226 lbs 02/26/2025 BMI 35.39 kg/m2 02/26/2025 Encounters Encounter Location Date Provider Diagnosis [facility] [place] [address] [place] [id number] 06/17/2024 Jethro Sharma Jr Other diseases of stomach and duodenum K31.89 and Dysphagia R13.10 [facility] [address] [place] [phone] 08/25/2024 Jethro Sharma Jr Dysphagia R13.10 ; Colon cancer screening Z12.11 and 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 K22.70 [facility] [address] [place] [phone] 02/26/2025 Jethro Sharma Jr Colon cancer screening Z12.11 and Dysphagia R13.10 [facility] [address] [place] [phone] 06/19/2024 Jethro Sharma Jr [facility] [address] [address] 09/30/2024 Jethro Sharma Jr Assessments Encounter Date [...] Louie Terry shaw Jr, 03/27/2025 08:20:00 AM, [address] [place] [address] , [place], [place], [phone], Insurance Providers Payer Name Payer Address Payer Phone Subscriber Number Group Number Insured Name Patient Relationship to Insured Coverage Start Date Coverage End Date [facility] [address] [place] [address] [id number] ALLEY JAIMES Self - patient is the insured Medical (General) History Medical History History ICD Code Hypertension Hyperlipidemia Diabetes mellitus Hypercalcemia Elevated BMI Osteopenia Macular degeneration Adnexal cyst Adrenal mass Colonoscopy 04/04, tubular adenoma, five- year followup Gastroesophageal reflux disease, EGD , esophagitis, no stricture Surgical History Surgery Date(Month/Year) cholecystectomy Hospitalization History Reason Date(Month/Year) endoscopy done with Dr. Sharma at [facility] [place]08
--- OUTSIDE RECORDS SUMMARY | 2025-03-26 17:59 | XMS_ITS | Patient Health Record ---
Author Organization [facility] Address [address] [place] [address] Care Team Providers Care Training Systems Officer Name Role Phone EliasAnabatsheva Primary Care Provider Susan Mccord Unavailable [phone] Allergies Allergen (clinical drug ingredient) Drug/Non Drug [...] Polyneuropathy due to type 2 diabetes mellitus ([id number]) Type 2 diabetes mellitus with diabetic polyneuropathy (E11.42) Active confirmed Problem Bilateral atherosclerosis of arteries of lower limbs (disorder) ([id number] ) Atherosclerosis of [place] artery of both lower extremities, with unspecified presence of clinical manifestation (I70.203) Active confirmed Q7(A), Q8(2B), Q9(1B,2 C) Vital Signs Blood pressure diastolic 64 mm Hg 01/27/2025 Height 5ft 7in in 01/27/2025 Blood pressure systolic 128 mm Hg 01/27/2025 Weight 240 lbs 01/27/2025 BMI 37.59 kg/m2 01/27/2025 Encounters Encounter Location Date Provider Diagnosis [address] [address] 07/22/2024 Susan Napoles Atherosclerosis of [place] artery of both lower extremities, with unspecified [...] use [facility] [address] 10/28/2024 Susan Napoles Type 2 diabetes mellitus without complication, without long-term current use of insulin E11.9 ; Pain in left toe(s) M79.675 ; Pain in right toe(s) M79.674 ; Tinea unguium B35.1 and Atherosclerosis of [place] artery of both lower extremities, with unspecified presence of clinical manifestation I70.[address] [address] 01/27/2025 Susan Napoles Type 2 diabetes mellitus [...] foot [pes planus] (acquired), right foot M21.[address] [address] 10/28/2024 Susan Napoles Assessments Encounter Date Diagnosis (ICD Code) Assessment Notes Treatment Notes Treatment Clinical Notes Section Notes 07/22/2024 Tinea unguium (ICD-10 - B35.1) 07/22/2024 Atherosclerosis of [place] artery of both lower extremities, with unspecified [...] foot (ICD-10 - L02.612) 10/28/2024 Atherosclerosis of [place] artery of both lower extremities, with unspecified [...] Details Provider Name:Susan quinonez, 04/28/2025 02:45:00 PM, [address] [place] [address], [phone], Insurance Providers Payer Name Payer Address Payer Phone Subscriber Number Group Number Insured Name Patient Relationship to Insured Coverage Start Date Coverage End Date [facility] 65 Medicare Preferred [address] [place] [address] [id number] Madison Alley starks Self - patient is the insured Medical (General) History Medical History History ICD Code Mumps Measles Chicken pox ulcer Macular degeneration High Blood Pressure Gall bladder problems Pre Diabetic CAD (Cholesterol) Cataracts Surgical History Surgery Date(Month/Year) gall bladder - stones [place] [facility] [place]
== END 2025-03-26 14:53 | disposition home or self-care (01) ==
LOC: HO.HWS 14:13
PROVIDERS: PCP Internal Medicine; Visit Provider Obstetrics & Gynecology
DX: N94.9 Unspecified condition associated with female genital organs and menstrual cycle (principal)
CPT/HCPCS: 99213

== ENCOUNTER 2025-03-27 06:41 | Day surgery (SDC) | payer MEDICARE, SELFPAY ==
--- OUTSIDE RECORDS SUMMARY | 2025-02-27 07:01 | XMS_ITS | Patient Health Record ---
Author Organization [facility] Address [address] [place] [address] Care Team Providers Care Light Technician Name Role Phone EliasAnabatsheva Primary Care Provider Susan Mccord Unavailable [phone] Allergies Allergen (clinical drug ingredient) Drug/Non Drug [...] Polyneuropathy due to type 2 diabetes mellitus (196186125) Type 2 diabetes mellitus with diabetic polyneuropathy (E11.42) Active confirmed Problem Bilateral atherosclerosis of arteries of lower limbs (disorder) (96711912297745631 ) Atherosclerosis of chipewwa artery of both lower extremities, with unspecified presence of clinical manifestation (I70.203) Active confirmed Q7(A), Q8(2B), Q9(1B,2 C) Vital Signs Blood pressure diastolic 64 mm Hg 01/27/2025 Height 5ft 7in in 01/27/2025 Blood pressure systolic 128 mm Hg 01/27/2025 Weight 240 lbs 01/27/2025 BMI 37.59 kg/m2 01/27/2025 Encounters Encounter Location Date Provider Diagnosis [address] [address] 07/22/2024 Susan Napoles Atherosclerosis of chipewwa artery [...] without long-term current use of insulin [facility] [address] 10/28/2024 Susan Napoles Type 2 diabetes mellitus without complication, without long-term current use of insulin E11.9 ; Pain in left toe(s) M79.675 ; Pain in right toe(s) M79.674 ; Tinea unguium B35.1 and Atherosclerosis of chipewwa artery of both lower extremities, with unspecified presence of clinical manifestation I70.[address] [address] 01/27/2025 Susan Napoles Type 2 diabetes mellitus [...] foot [pes planus] (acquired), right foot M21.[address] [address] 10/28/2024 Susan Napoles Assessments Encounter Date Diagnosis [...] Details Provider Name:Susan quinonez, 04/28/2025 02:45:00 PM, [address] [place] [address], [phone], Insurance Providers Payer Name Payer Address Payer Phone Subscriber Number Group Number Insured Name Patient Relationship to Insured Coverage Start Date Coverage End Date [facility] 65 Medicare Preferred [address] [place] [address] [phone] [id number] Madison Alley starks Self - patient is the insured Medical (General) History Medical History History ICD Code Mumps Measles Chicken pox ulcer Macular degeneration High Blood Pressure Gall bladder problems Pre Diabetic CAD (Cholesterol) Cataracts Surgical History Surgery Date(Month/Year) gall bladder - stones Hospitalization History Reason Date(Month/Year) [facility] [place]- Swelling feet/legs 06/12/24
--- OUTSIDE RECORDS SUMMARY | 2025-02-27 07:01 | XMS_ITS | Clinical Summary ---
Author Organization [facility], Address [address] [place] [address] [place] [address] Phone Care Team Providers Care Respiratory Care Practitioner Name Role Phone Adan Griffin MD Primary Care Provider [phone] Medications aspirin 81 MG tablet Take 1 [...] complete [place] [id number] Care Teams Respiratory Care Practitioner Relationship Specialty Start Date End Date Adan Griffin MD [facility] [place] [address] ELBERT TRIPATHI PCP - General 05/20/19
[2025-03-25 09:01] VITALS: BMI 34.6
--- NOTE | 2025-03-25 13:41 | HO.ANESPROP2 ---
Documented by User: Juany Stanford NP 03/25/25 13:44 HPI - Anesthesia Eval Consult details Narrative: 69 yr old female for colonoscopy COPD: current tobacco user Type 2 DM: diet controlled s/p TIVA for upper endoscopy 06/2024 [facility] Active Problems Active Problems: All Active Problems (Updated 03/25/25 @ 08:52 by Lucy Del Cid RN) Charcot foot due to diabetes mellitus (Acute) Charcot ankle (Acute) Cataract (Acute) Colon cancer screening (Acute) Obesity (BMI 30-39.9) (Acute) COPD (chronic obstructive pulmonary disease) (Acute) Adrenal mass (Acute) Cough (Acute) Adnexal cyst (Acute) Varicose veins of both lower extremities with inflammation (Acute) Dysphagia (Acute) Hepatic steatosis (Acute) Hepatomegaly (Acute) Hypomagnesemia (Acute) Dehydration (Acute) COVID-19 (Acute) Nausea (Acute) Dermatitis (Acute) Pain in left foot (Acute) Infection of left foot (Acute) Morbid obesity (Acute) Tobacco abuse (Acute) Paraganglioma (Acute) Lymphedema (Acute) Osteopenia (Acute) Hypercholesterolemia (Acute) Type 2 diabetes mellitus with hyperglycemia (Acute) Past Medical History Medical History Hx MRSA infection COPD (chronic obstructive pulmonary disease) Paraganglioma Right adrenal mass Adnexal mass Lymphedema Obesity Macular degeneration Osteopenia Vitamin D deficiency Hypercalcemia Hypercholesterolemia Essential hypertension Type 2 diabetes mellitus with hyperglycemia Family History Family History Father Lung cancer Mother Diabetes Hypertension Paternal Aunt Breast cancer Diabetes Sister Diabetes Family history of problems with anesthesia: No Surgical History Surgical History H/O colonoscopy History of esophagogastroduodenoscopy (EGD) History of cholecystectomy History of Problems with Anesthesia: No Social History Social History Household Members: Spouse Housing: House Are you a primary care navigator to a significant other at home: No Do you presently have visiting nurse or other home services: No Alcohol intake: current Alcohol intake frequency: holidays/special occasions only Comment: 1x weekly Patient Tobacco Use Status: Current everyday Tobacco user Tobacco use type: Cigarette Cigarettes Per Day: 6 Years Smoked: 54 Smoked in Last 30 Days: Yes e-Cigarette/Vaping Use: Never Used Patient Interested in Nicotine Replacement: No Second Hand Smoke Exposure: Yes Have you been hit, kicked, punched, or otherwise hurt by someone within the past year? If so, by whom?: No Are you DNR?: No Advance Directives: No Advance Directives Information Provided: Yes Patient : No Poor oral hygiene: Yes service: No Current occupational status: retired Sexual orientation: Straight/Heterosexual Gender identity: Female Cognitive needs: No Hearing needs: No Vision needs: Yes (reading glasses ) Meds Allergies Allergy/AdvReac Type Severity Reaction Status Date / Time amoxicillin (AMOXICILLIN) Allergy Severe RASH Verified 03/27/25 06:51 adhesive tape (ADHESIVE TAPE) Allergy Intermediate RASH Verified 03/27/25 06:51 lisinopril (LISINOPRIL) Allergy Intermediate COUGH Verified 03/27/25 06:51 cephalexin Allergy Mild Rash Verified 03/27/25 06:51 simvastatin (From ZOCOR) Allergy Unknown UNKNOWN Verified 03/27/25 06:51 doxycycline Allergy Rash Verified 03/27/25 06:51 Home Medications ?Medication ?Instructions ?Recorded ?Confirmed ?Last Taken ?Type cholecalciferol (vitamin D3) 25 25 mcg PO DAILY 07/05/20 03/25/25 06/10/24 History mcg (1,000 unit) capsule Exam Height,Weight and Vital Signs: Height 5 ft 7 in Weight 100.244 kg Assessment and Plan Final Anesthetic Review Family History of Problems with Anesthesia: No History of Problems with Anesthesia: No Documented by User: Allyn Ospina MD 03/27/25 07:55 [facility] Past Medical History Medical History Hx MRSA infection COPD (chronic obstructive pulmonary disease) Paraganglioma Right adrenal mass Adnexal mass Lymphedema Obesity Macular degeneration Osteopenia Vitamin D deficiency Hypercalcemia Hypercholesterolemia Essential hypertension Type 2 diabetes mellitus with hyperglycemia Family History Family History Father Lung cancer Mother Diabetes Hypertension Paternal Aunt Breast cancer Diabetes Sister Diabetes Surgical History Surgical History H/O colonoscopy History of esophagogastroduodenoscopy (EGD) History of cholecystectomy Social History Social History Household Members: Spouse Housing: House Are you a primary care navigator to a significant other at home: No Do you presently have visiting nurse or other home services: No Alcohol intake: current Alcohol intake frequency: holidays/special occasions only Comment: 1x weekly Patient Tobacco Use Status: Current everyday Tobacco user Tobacco use type: Cigarette Cigarettes Per Day: 6 Years Smoked: 54 Smoked in Last 30 Days: Yes e-Cigarette/Vaping Use: Never Used Patient Interested in Nicotine Replacement: No Second Hand Smoke Exposure: Yes Have you been hit, kicked, punched, or otherwise hurt by someone within the past year? If so, by whom?: No Are you DNR?: No Advance Directives: No Advance Directives Information Provided: Yes Patient : No Poor oral hygiene: Yes service: No Current occupational status: retired Sexual orientation: Straight/Heterosexual Gender identity: Female Cognitive needs: No Hearing needs: No Vision needs: Yes (reading glasses ) Meds Allergies Allergy/AdvReac Type Severity Reaction Status Date / Time amoxicillin (AMOXICILLIN) Allergy Severe RASH Verified 03/27/25 06:51 adhesive tape (ADHESIVE TAPE) Allergy Intermediate RASH Verified 03/27/25 06:51 lisinopril (LISINOPRIL) Allergy Intermediate COUGH Verified 03/27/25 06:51 cephalexin Allergy Mild Rash Verified 03/27/25 06:51 simvastatin (From ZOCOR) Allergy Unknown UNKNOWN Verified 03/27/25 06:51 doxycycline Allergy Rash Verified 03/27/25 06:51 Home Medications ?Medication ?Instructions ?Recorded ?Confirmed ?Last Taken ?Type cholecalciferol (vitamin D3) 25 25 mcg PO DAILY 07/05/20 03/25/25 06/10/24 History mcg (1,000 unit) capsule Exam Airway Mallampati Class: II TM Dist: >3cm Neck ROM: Full Heart: rrr Lungs: cta Assessment and Plan Assessment Anesthesia Assessment: Anesthesia Plan Discussed and Chart Reviewed Final Anesthetic Review NPO: Yes ASA Class: II Final Preanesthetic Review: No Changes in Pt Med Stat, Meds/Allgs Chart Reviewed and Consent Obtained/Reviewed Patient Risk: Low Procedure Risk: Low Anesthetic Plan Anesthetic Plan: MAC: Disposition: Standard PACU
[2025-03-27 06:50] VITALS: BMI 35.7
[2025-03-27] MEDS: Lactated Ringers 1,000 ML 100 ML IVCONT (07:12)
[2025-03-27 07:13] VITALS: BP 144/70; PULSE 60; RESP 18; TEMP 36.6; O2SAT 98
--- NOTE | 2025-03-27 07:29 | MHC.SHP ---
Pre-Procedural Eval Section A - 24 Hr Update-Section A only Date of Service: 03/27/25 Section B - Complete if H&P > 30 days Chief Complaint: screening Details of Present Illness: seee h&p no changes Relevant Family History (Specify if Yes): No Relevant Social History: None Present Medications: None Medical History: No relevant PMH History of Previous Operations: No relevant previous surgery Allergies: Allergies Allergy/AdvReac Type Severity Reaction Status Date / Time amoxicillin (AMOXICILLIN) Allergy Severe RASH Verified 03/27/25 06:51 adhesive tape (ADHESIVE TAPE) Allergy Intermediate RASH Verified 03/27/25 06:51 lisinopril (LISINOPRIL) Allergy Intermediate COUGH Verified 03/27/25 06:51 cephalexin Allergy Mild Rash Verified 03/27/25 06:51 simvastatin (From ZOCOR) Allergy Unknown UNKNOWN Verified 03/27/25 06:51 doxycycline Allergy Rash Verified 03/27/25 06:51 Review of Systems Sugical H&P ROS: Negative: Constitution, Cardiovascular, Respiratory, Neurological, Psychiatric, Hem-Onc, Allergic/Immunologic, Gastrointestinal, Genitourinary, Musculoskeletal, Integumentary, Endocrine and Eyes/Ears/Nose/Throat Exam Surgical H&P Exam: Normal: HEENT, Normal: Heart, Normal: Lungs, Normal: Extremities, Normal: Abdomen, Normal: Skin and Normal: Neurological Plan Diagnosis/Plan: Unchanged I have reviewed the history and physical and performed a pertinent physical examination on my patient. No changes have occurred unless specified. Time Spent With Patient Time: Total time managing care of this patient today ____ minutes.
[2025-03-27 08:45] VITALS: BP 91/55; PULSE 47; RESP 18; TEMP 36.2; O2SAT 98
[2025-03-27 09:00] VITALS: BP 119/62; PULSE 48; RESP 18; TEMP 36.3; O2SAT 100
--- NOTE | 2025-03-27 09:25 | OP_ITS ---
DATE OF SERVICE: 03/27/2025 SURGEON: Jethro Sharma MD INDICATIONS: Colon cancer screening. PREOPERATIVE DIAGNOSIS: POSTOPERATIVE DIAGNOSIS: PROCEDURE PERFORMED: Colonoscopy to the terminal ileum with biopsy and snare polypectomy. ESTIMATED BLOOD LOSS: COMPLICATIONS: ANESTHESIA: Monitored anesthesia care. ASSISTANTS: SPECIMENS: DESCRIPTION OF PROCEDURE: A history and physical was performed. The risks and benefits of the procedure were explained to the patient, and informed consent was obtained. The patient was placed in the left lateral decubitus position. A digital rectal exam was performed and was found to be normal. The Olympus pediatric video colonoscope was introduced into the rectum and advanced to the cecum. The cecum was identified by transillumination, palpation, and identification of ileocecal valve. Examination was performed. The scope was removed. She tolerated the procedure well and was returned to recovery room in stable condition. FINDINGS: The terminal ileum was not examined. The visualized colonic mucosa was normal. Multiple polyps were identified, 2 of these were removed with biopsy forceps in the right colon and hepatic flexure. A 3rd polyp in the sigmoid measuring approximately 8 mm was identified and removed with a hot snare. No other polyps were seen. The quality of the prep was good. There was mild to moderate sigmoid diverticulosis. IMPRESSION: Colon polyps. RECOMMENDATION: Followup the biopsy results. MD ROESANNE Roger/CHRISTINAL / [id number]
== END 2025-03-27 09:15 | disposition home or self-care (01) ==
PROVIDERS: PCP Internal Medicine; Visit Provider Internal Medicine Gastroenterology
PROC: 0DJD8ZZ Inspection of Lower Intestinal Tract, Via Natural or Artificial Opening Endoscopic (ICD-10-PCS; CPT 45378; principal; 2025-03-27 08:20)
DX: Z12.11 Encounter for screening for malignant neoplasm of colon (principal); D12.3 Benign neoplasm of transverse colon; D12.5 Benign neoplasm of sigmoid colon; K57.30 Diverticulosis of large intestine without perforation or abscess without bleeding; E11.9 Type 2 diabetes mellitus without complications; I10 Essential (primary) hypertension; E78.00 Pure hypercholesterolemia, unspecified; E55.9 Vitamin D deficiency, unspecified; J44.9 Chronic obstructive pulmonary disease, unspecified; Z79.02 Long term (current) use of antithrombotics/antiplatelets; Z79.899 Other long term (current) drug therapy
CPT/HCPCS: 45385; 45380; 88305; J2003; J2704

== ENCOUNTER 2025-06-15 10:28 | Outpatient (AMB) | payer MEDICARE, SELFPAY ==
[2025-06-15 10:36] VITALS: BP 136/70; PULSE 57; O2SAT 97; BMI 38.5
--- NOTE | 2025-06-15 10:36 | A.OFFPC_ITS ---
Vital Signs 06/15/25 10:36 Height 5 ft 7 in Weight 246 lb BMI 38.5 BP 136/70 Blood Pressure Location Lt brachial Position Sitting Pulse 57 Pulse Source Pulse Oximeter Pulse Oximetry (%) 97 Oxygen Delivery Method Room Air Intake Visit Reasons: DM Allergies amoxicillin (AMOXICILLIN) Allergy (Severe, Verified 06/15/25 10:36) RASH adhesive tape (ADHESIVE TAPE) Allergy (Intermediate, Verified 06/15/25 10:36) RASH lisinopril (LISINOPRIL) Allergy (Intermediate, Verified 06/15/25 10:36) COUGH cephalexin Allergy (Mild, Verified 06/15/25 10:36) Rash simvastatin (From ZOCOR) Allergy (Unknown, Verified 06/15/25 10:36) UNKNOWN doxycycline Allergy (Verified 06/15/25 10:36) Rash Tobacco use date assessed: 06/15/25 Fall risk assessment: No Falls in past year Last assessed Fall Risk: 06/15/25 Dental Screening Dental Screen Date: 06/15/25 Did you have a dental visit in the last 12 months?: Yes Did you have a dental problem in the last 6 months where you did not have access to dental care?: No Was dental information given to patient?: Patient has dentist HPI HPI Comments History of Present Illness Details History of Present Illness The patient is a 70 year old individual presenting for a follow-up visit for management of chronic conditions. The patient has a history of obesity, diabetes mellitus, hypercholesterolemia, osteopenia, hepatic stenosis, and COPD. The patient is also a smoker but has declined lung cancer screening. The patient was found to have an adrenal mass and was evaluated by endocrinology on March 23. Functional testing in August 2024 showed a non-suppressed renin, normal plasma aldosterone, a normal dexamethasone suppression test, and an elevated plasma normetanephrine. An MRI in September 2024 revealed a 3 cm adrenal mass with macroscopic fat, suggestive of a myelolipoma, with no structural lesion indicative of a pheochromocytoma or paraganglioma. Doxazosin was stopped, and the patient is on metoprolol. A colonoscopy on March 27, 2025, revealed a tubular adenoma which was removed. The last bone density scan was in May 2023, and mammogram was in May 2024. The patient reports a diagnosis of early cataracts. Recent blood work from February 09 showed a normal blood count with no anemia, HbA 1c of 5.7%, creatinine of 1.28, good liver function, and an LDL of 82. The patient's diabetes is controlled without medication, and hypercholesterolemia is managed with atorvastatin 20 mg daily. Health Maintenance The patient's last bone density scan for osteopenia was in May 2023. A new bone density scan will be scheduled along with the patient's upcoming mammogram next month to monitor bone health. Calcium and Vitamin D were discussed. The patient is up to date with eye exams and will see a specialist for cataracts. The benefits of the two-part shingles vaccine were discussed, and it is available if the patient desires it. The patient will follow up in six months. Social History - Substance Use: The patient is a curren t smoker but has made attempts to quit. - Diet: The patient reports recent weigh t gain after resuming a normal diet and plans to address it. - Exercise: Discussed the importance of staying active. Results - Labs (February 09): - Complete Blood Count: Normal, with no anemia. - Hemoglobin A1c: 5.7%. - Renal Function (Creatinine): 1.28. - Liver Function Tests: Normal. - Lipid Panel: LDL 82. - Tests and Diagnostics: - Bone Density Scan (May 2023): Ost eopenia. - Adrenal Functional Testing (August 17): Nonsuppressed renin, normal plasma aldosterone, normal dexamethasone suppression test, and elevated plasma normetanephrine. - Adrenal MRI (September 2024): 3 cm adrenal mass consistent with myelolipoma. - Colonoscopy (March 27, 2025): Reve aled and removed a tubular adenoma. COUNT INCLUDES THE [facility] Medical History (Updated 06/15/25 @ 11:00 by Adan Griffin MD) Hx MRSA infection COPD (chronic obstructive pulmonary disease) Paraganglioma Right adrenal mass Adnexal mass Lymphedema Obesity Macular degeneration Osteopenia Vitamin D deficiency Hypercalcemia Hypercholesterolemia Essential hypertension Type 2 diabetes mellitus with hyperglycemia Surgical History H/O colonoscopy History of esophagogastroduodenoscopy (EGD) History of cholecystectomy Family History Father Lung cancer Mother Diabetes Hypertension Paternal Aunt Breast cancer Diabetes Sister Diabetes Social History Household Members: Spouse Housing: House Are you a primary resident care provider to a significant other at home: No Do you presently have visiting nurse or other home services: No Alcohol intake: current Alcohol intake frequency: holidays/special occasions only Patient Tobacco Use Status: Current everyday Tobacco user Tobacco use type: Cigarette Cigarettes Per Day: 10 Years Smoked: 54 e-Cigarette/Vaping Use: Never Used Second Hand Smoke Exposure: Yes service: No Current occupational status: retired Sexual orientation: Straight/Heterosexual Gender identity: Female Cognitive needs: No Hearing needs: No Vision needs: Yes (reading glasses ) Questionnaire Thrive Questionnaire Date Thrive assessed: 02/06/25 I am a: Patient What is your living situation today?: I have a steady place to live Within the past 12 months, did the food you bought not last and you didn't have the money to get more?: Never true Within the past 12 months, did you worry whether your food would run out before you got money to buy more?: Never true Do you have trouble paying for medicines?: No Do you have trouble getting transportation to medical appointments?: No Do you have trouble paying your heating and electricity bill?: No Do you have trouble taking care of your child, family member or friend?: No Do you have trouble with day-to-day activities such as bathing, preparing meals, shopping, managing finances, etc.?: No Are you currently unemployed and looking for a job?: No Are you interested in more education?: No Please select the resources that you would like help with: None Currently or been in a relationship where the following occur: No concerns reported THRIVE Score: 0 HOLLY-7 AMB Questionnaire HOLLY-7 Date HOLLY - 7 assessed: 07/24/24 Source: Developed by Drs. Taco Rios, Leelee Walter, Davidson Sinclair and colleagues, with an educational stephon from [employer]. Review of Systems Narrative Review of Systems - Constitutional: Reports recent weight gain. - Gastrointestinal: Reports normal bowel movements. Physical exam (Primary Care) Vital Signs: Last Vital Signs Pulse 57 06/15/25 10:36 BP 136/70 06/15/25 10:36 Pulse Ox 97 06/15/25 10:36 Oxygen Delivery Method Room Air 06/15/25 10:36 BMI result Body Mass Index 38.5 Tobacco/Smoking Status: Tobacco use Status Tobacco use date assessed 06/15/25 06/15/25 10:40 Patient Tobacco Use Status Current everyday Tobacco 06/15/25 10:37 Tobacco use type Cigarette 06/15/25 10:37 e-Cigarette/Vaping Use Never Used 06/15/25 10:37 Thrive Assessment: Date of Thrive Assessment Date Thrive assessed 02/06/25 06/15/25 10:37 Currently or been in a relationship where the following occur: No concerns reported Narrative Physical Exam - Respiratory: Lungs are clear to auscultation. Const General: alert; No acute distress Eyes Conjunctivae: conjunctivae normal Resp Auscultation: clear to auscultation bilaterally Cardio Rate: regular rate Rhythm: regular rhythm GI Inspection: Yes normal to inspection Extrem General: Yes normal to inspection and No edema Results AMB Hemoglobin A1c AMB Hemoglobin A1c 5.7 % Last Edit by Sadie Obrien CMA on 06/15/25 10 :51 Results Reviewed Results Reviewed: Laboratory Last Values Hgb A1c (Clinic) 5.7 % (4.0-6.0) 06/15/25 10:38 Coding Level of Care Code Est Pt Level 4 (61614) Complex visit Add On G2211 Diagnoses Obesity (BMI 30-39.9) E66.9 Type 2 diabetes mellitus with hyperglycemia, without long-term current use of insulin E11.65 Diabetes mellitus intermediate designer insulin use: without intermediate designer use Hypercholesterolemia E78.00 Osteopenia M85.80 Adrenal mass E27.8 Hepatic steatosis K76.0 Colon cancer screening Z12.11 COPD (chronic obstructive pulmonary disease) J44.9 Tobacco abuse Z72.0 Assessment & Plan Assessment & Plan (1) Obesity (BMI 30-39.9): Code(s): E66.9 - Obesity, unspecified Category: Medical Plan: Diet and exercise (2) Type 2 diabetes mellitus with hyperglycemia: Comment: [facility] [place] 04/2023 macular degeneration Code(s): E11.65 - Type 2 diabetes mellitus with hyperglycemia Category: Medical Qualifiers: Diabetes mellitus intermediate insulin use: without intermediate use Qualified Code(s): E11.65 - Type 2 diabetes mellitus with hyperglycemia Plan: Decrease the amount of carbohydrate intake, pasta, bread, rice and potatoes are all sugar and that is aside from all the sweet stuff, remember that fruits are good but they are Sweet also. Controlled on no medication (3) Hypercholesterolemia: Code(s): E78.00 - Pure hypercholesterolemia, unspecified Category: Medical Plan: Avoid fried foods, chicken skin, eggs, butter margarine, pastries and meat. Be it pork or beef they have a lot of cholesterol on atorvastatin 20 mg once a day LDL goal of less than 100 and triglyceride of less than 150 (4) Osteopenia: Comment: May 2023 Code(s): M85.80 - Other specified disorders of bone density and structure, unspecified site Category: Medical Plan: Discussed about calcium and vitamin-D (5) Adrenal mass: Code(s): E27.8 - Other specified disorders of adrenal gland Category: Medical Plan: Patient has seen Endocrinology and continued surveillance. Noted metanephrine elevated (6) Hepatic steatosis: Comment: Mayiffuse increased echogenicity of the parenchyma liver consistent with fatty change. 2. Status post cholecystectomy. No bile duct dilatation. Code(s): K76.0 - Fatty (change of) liver, not elsewhere classified Category: Medical Plan: diet and exercise (7) Colon cancer screening: Comment: March 2025 tubular adenoma Code(s): Z12.11 - Encounter for screening for malignant neoplasm of colon Category: Medical Plan: March 2025 last colonoscopy with tubular adenoma (8) COPD (chronic obstructive pulmonary disease): Comment: 09/04/2024 PFTModerate obstructive ventilatory defect with no bronchodilator response. Increased residual volume suggests air trapping. Decreased expiratory reserve volume suggests extrathoracic restriction likely secondary to abdominal obesity. Decreased diffusion capacity suggests emphysema. Code(s): J44.9 - Chronic obstructive pulmonary disease, unspecified Category: Medical Plan: Patient is strongly advised to stop smoking! Not on any inhaler (9) Tobacco abuse: Comment: decline Lung cancer screening Code(s): Z72.0 - Tobacco use Category: Medical Plan: Patient strongly advised to stop smoking summation point Plan Plan Patient was informed and verbally consented to the use of an ambient scribe for clinic note documentation during this visit. 1. Diabetes Mellitus The patient's diabetes is well-controlled, with a recent HbA1c of 5.7%, and is not currently on any medication. The plan is to continue management with diet and exercise. A follow-up is scheduled in six months, with fasting lab work to be completed beforehand. 2. Hypercholesterolemia The patient's hypercholesterolemia is controlled on atorvastatin 20 mg once a day, with a recent LDL of 82. The plan is to continue the current medication dosage with a goal of maintaining an LDL less than 100 and triglycerides less than 150. Cholesterol levels will be rechecked with the lab work in six months. 3. Adrenal Mass The patient has a 3 cm adrenal mass, suggestive of a myelolipoma, which is being monitored by endocrinology. Although functional testing showed elevated plasma normetanephrine, it was not deemed significant enough to warrant immediate intervention. The plan is to continue surveillance with a follow-up CT scan in one year as advised. 4. History Of Colonic Polyp A tubular adenoma was removed during a colonoscopy in March 2025. Surveillance with a follow-up colonoscopy is recommended, likely in five years. 5. Tobacco Use Disorder The patient is an active smoker. I strongly advised the patient to stop smoking. The patient has previously declined the lung cancer screening program. Discussion Notes I reviewed the patient's recent lab work, noting excellent glycemic control with an HbA1c of 5.7%. We discussed the adrenal mass, summarizing the endocrinology findings that it is likely benign and will be monitored with a follow-up CT in one year, as it is not causing significant issues like high blood pressure. I explained that the tubular adenoma found during the colonoscopy was benign but requires future surveillance, likely in five years. We discussed health maintenance, and I recommended pairing a bone density scan with the patient's mammogram next month to monitor the osteopenia. I strongly advised the patient to stop smoking. We also discussed vaccinations, and I informed the patient about the more effective two-part shingles vaccine series available at the pharmacy. I advised the patient on the importance of diet, exercise, and staying hydrated for overall health and weight management. We scheduled a follow-up appointment in six months and agreed that fasting blood work would be done prior to that visit to discuss the results. Patient Instructions - Your diabetes is very well controlled with a blood sugar level (A1c) of 5.7%. - Continue taking your cholesterol pill, atorvastatin 20 mg, once a day. - You are strongly advised to stop smoking to improve your health. - We will schedule a bone density scan to check your bone strength when you go for your mammogram next month. - Please make sure the imaging specialist you are seeing for cataracts sends a report of your visit to our office. - A more effective, two-shot vaccine for shingles is available at the pharmacy if you choose to get it. - Continue to manage your diet, stay active, and drink enough water. - You will need to get blood work done before your next visit. This requires fasting, meaning nothing to eat or drink except water for several hours beforehand. - Your next follow-up appointment will be in six months. Orders: Orders Comprehensive Met. Panel 6 Months E11. - Type 2 diabetes mellitus with hyperglycemia Free T4 (Free Thyroxine) 6 Months E11. - Type 2 diabetes mellitus with hyperglycemia Vitamin B12 and Folate 6 Months E11. - Type 2 diabetes mellitus with hyperglycemia Creatinine Urine 6 Months E11. - Type 2 diabetes mellitus with hyperglycemia UA CC w/rflx Micro + Cult 6 Months E11. - Type 2 diabetes mellitus with hyperglycemia, R30.0 - Dysuria AMB Hemoglobin A1c Today Z13.9 - Encounter for screening, unspecified XR DEXA axial skeleton Today M81.0 - Age-related osteoporosis without current pathological fracture, M85.80 - Other specified disorders of bone density and structure, unspecified site Complete Blood Count Auto Diff 6 Months E11. - Type 2 diabetes mellitus with hyperglycemia Hemoglobin A1c 6 Months E11. - Type 2 diabetes mellitus with hyperglycemia Thyroid Stimulating Hormone 6 Months E11.65 - Type 2 diabetes mellitus with hyperglycemia Lipid Panel 6 Months E11. - Type 2 diabetes mellitus with hyperglycemia, E78.00 - Pure hypercholesterolemia, unspecified Microalbumin, Random (w Creat) 6 Months E11. - Type 2 diabetes mellitus with hyperglycemia Vitamin D 25-OH Total 6 Months E11. - Type 2 diabetes mellitus with hyperglycemia
== END 2025-06-15 11:17 | disposition home or self-care (01) ==
LOC: HO.HMCH 10:29
PROVIDERS: PCP Internal Medicine; Visit Provider Internal Medicine
DX: E11.65 Type 2 diabetes mellitus with hyperglycemia (principal); J44.9 Chronic obstructive pulmonary disease, unspecified; Z68.38 Body mass index [BMI] 38.0-38.9, adult; E66.9 Obesity, unspecified; E78.00 Pure hypercholesterolemia, unspecified; M85.80 Other specified disorders of bone density and structure, unspecified site; E27.8 Other specified disorders of adrenal gland; K76.0 Fatty (change of) liver, not elsewhere classified; Z12.11 Encounter for screening for malignant neoplasm of colon; Z72.0 Tobacco use

== ENCOUNTER → 2025-06-15 10:28 | Outpatient (BNVA) | payer MEDICARE, SELFPAY | PROVIDERS: PCP Internal Medicine; Visit Provider Internal Medicine | DX: E11.65 Type 2 diabetes mellitus with hyperglycemia (principal); E66.9 Obesity, unspecified; E78.00 Pure hypercholesterolemia, unspecified; M85.80 Other specified disorders of bone density and structure, unspecified site; E27.8 Other specified disorders of adrenal gland; K76.0 Fatty (change of) liver, not elsewhere classified; J44.9 Chronic obstructive pulmonary disease, unspecified; F17.210 Nicotine dependence, cigarettes, uncomplicated | CPT/HCPCS: 83036; 99212 ==